=== PATIENT | male | born 1960 | race Caucasian/White ===

== ENCOUNTER 2019-03-26 13:30 | Outpatient (RCR) | payer MEDICARE, MEDICAID, SELFPAY ==
--- NOTE | 2019-01-16 11:22 | PCPTNOTE ---
The treatment documented on this account is a continuation of the treatment documented on visit number [id number]. Please see documentation on both accounts to view progress. The Plan of Care has been transitioned and updated within the new V#. I have addressed and agree with the discipline specific Problems, Interventions, and Goals for the current certification period. Completed interventions, outcomes, and problems have been marked as Inactive to facilitate the copying of the Care plan routine for recurring accounts.
--- NOTE | 2019-01-16 14:18 | PCPTNOTE ---
Patient called & cancelled scheduled appointment this date due to mom stated he had an accident and will not be here.
--- NOTE | 2019-02-20 14:43 | PTOPEVAL ---
PHYSICAL THERAPY RE EVALUATION AND UPDATED PLAN OF CARE 02-20-19 Mr. Handy has received 17 Physical Therapy sessions, from November 28 to today, for the diagnosis of B LE lymphedema and weakness. He called and canceled 3 appointments this reevaluation time frame. Compared to the last reeval on January 08: strength of R and L hip have improved with supine, side lying mat exercises and standing posture; Sit/stand and pivot from mat/wheelchair transfers are the same; standing time and posture have improved. Lymphedema: The R leg circumferential measurement has increased by 69.5 cm; there continues to be drainage from both R and L lower legs. He is wearing velcro, inelastic compression garments of R leg and L lower leg. He has difficulty donning/doffing them and his mom is assisting him, due to not being able to reach to the bottom of his legs and pull on the straps. And he requires verbal instruction and reminders of how to apply them. It has been reinforced to him to tighten the straps throughout the day and reposition, so they do not slip down. He comes to the dept in a manual wheelchair, without the leg rests. One of the brakes does not lock all of the way, due to him pushing so hard on it with transfers and the metal bar of the base of the wheelchair often digs into his thigh, scratching or leaving indentations in his legs. He reports in March they are going to begin remodeling his home, to allow for more space to use the power chair. PT is to continue 2x/week for 5 weeks, to increase transfers, LE strength, standing and mobility skills. Lymphedema will not be addressed at this time, due to him not improving with the legs. If any concerns or problems arise, the LE lymphedema will be addressed. Thank you for referring Sam to [facility]. Please review, sign, date and return this plan of care [facility]. I agree with and certify that the following plan of care is medically necessary. Referring Physician Date Attending Provider: Arabella John MD *PT Outpatient Re-Evaluation Start: 02/20/19 13:01 Document 02/20/19 13:02 MAYRA (Rec: 02/20/19 13:23 MAYRA [email or web address]) Therapy Assessment Status Assessment Status Re-evaluation Problem Subjective Information Sam and mom state: continue Query Text:As Reported By Patient/ to do leg exercises, using Family wheelchair and power chair for mobility; using compression garments on both legs. Pleased with his improved strength. Pain Assessment Pain Scale Pain Scale Used Numeric (1 - 10) Self Report Pain Assessment Bilateral Leg(s) Reported Pain Level 0 Pain Frequency Acute Additional Pain Comments no pain now, but sometimes after therapy, L knee hurts Pain Score Pain Score 0: Self Report Lower Extremity Muscle Strength Testing General Lower Extremity Strength Gross Lower Extremity Strength supine: SLR R and L x 25 reps; bridge with hips clear mat 2 reps; side lying hip abduction R 20
--- NOTE | 2019-03-03 09:33 | PCPTNOTE ---
Patient called & cancelled scheduled appointment this date due to weather.
--- NOTE | 2019-03-09 14:33 | PCPTNOTE ---
Patient did not show up for scheduled appointment this date.
--- NOTE | 2019-03-24 16:09 | PCPTNOTE ---
discussed pt with Mayela Nguyen: re: if they can resume pt care for prosthesis. 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 In order to see pt they recommend: no drainage from leg, need dr order for prosthetic eval and recent dr progress note addressing prosthesis. I will discuss this with pt at reeval later this week.
--- NOTE | 2019-03-26 14:24 | PTOPEVAL ---
PHYSICAL THERAPY RE EVALUATION AND UPDATED PLAN OF CARE 03-26-2019 Sam has received a total of 23 Physical Therapy sessions, from November 28 to today, for the diagnosis of B LE lymphedema and decreased mobility s/p L BKA. Compared to the last reeval: sit/stand transfer has improved, from 22 mat height; standing with the wheeled walker has improved and he can march with L LE; supine exercise testing is slightly less reps, he did perform standing first, then the mat exercises; he fatigues easily and requires rests between each activity; he continues to have lymphedema in both legs with drainage from both legs. Continue PT is recommended 2x/week for 4 weeks, to continue to increase LE strength, sit/stand ability and walking/standing ability. He is not able to begin any prosthetic consultation until he does not have any drainage from his R leg. Thank you for referring Sam to [facility]. Please review, sign, date and return this plan of care MADELYN. I agree with and certify that the following plan of care is medically necessary. Referring Physician Date Attending Provider: Arabella John MD *PT Outpatient Re-Evaluation Document 03/26/19 13:30 MAYRA (Rec: 03/26/19 14:23 MAYRA [email or web address]) Subjective Information Sam and mom report: on Mar Query Text:As Reported By Patient/ 20, company to start home Family modifications- widen doorways, access to laundry area and walk in shower; no falls at home; using motorized scooter in home; standing is better; drainage continues from both legs--varies in amounts, L worse than R; on L has increased, was using 2-3 ABD pads, now use 5-change 1-2x/ day; on R is 1-2 ABD pad soaked; continues to do home leg exercises x 15 reps. Discussed with him hyperbaric oxygen chamber as option for treatment of wound and drainage. Sam states he will call dr about additional wound care options; Discussed that in order to start prosthesis--needs to have NO drainage from R leg. Continues to use his intermittent compression pump at home and has velcro compression garments over L lower leg and R BKA. Pain Assessment Timing of Pain Assessment Timing of Pain Assessment Assessment Pain Scale Pain Scale Used Numer
--- NOTE | 2019-04-14 10:07 | PCPTNOTE ---
called pt to check on him due to not attending therapy. He states to see wound care about Hyperbaric oxygen on 04-16-19. Stated he will let us know, plan of care for therapy is to 04-21-19; pt stated he will let us know about wound care appt and if to continue PT or not.
--- NOTE | 2019-05-05 13:38 | PCPTNOTE ---
PHYSICAL THERAPY DISCHARGE 05-05-2019 Attending Provider: Arabella John MD Patient:Mike Handy Date of :1960 Sam has not returned for any further treatments since the reevaluation on 03/26/2019, therefore he will be discharged from therapy at this time. The goals were not addressed. Refer to the reeeval for his status at the last session. Thank you for referring Mr. Handy to [facility]. Please review, sign, date and return this discharge summary MADELYN. I have been updated about the patient's current status and I agree with discharge from the above service at this time. Referring Physician Date
== END 2019-03-26 23:59 | disposition home or self-care (01) ==
LOC: ANHPT 13:30
PROVIDERS: PCP Family Medicine; Visit Provider Family Medicine
DX: Z47.89 Encounter for other orthopedic aftercare (principal); Z89.511 Acquired absence of right leg below knee; S81.809S Unspecified open wound, unspecified lower leg, sequela
CPT/HCPCS: 97110; 97140; 97530

== ENCOUNTER 2020-01-18 15:49 | Inpatient (IN) | payer MEDICARE, MEDICAID, SELFPAY ==
--- NOTE | ~2020-01-18 | US_ITS ---
EXAMINATION: US renal BI DATE: 01/19/2020 12:10 INDICATION: Acute on chronic renal failure TECHNIQUE: Multiple grayscale and Doppler ultrasound images of the kidneys were obtained. COMPARISON: 03/03/2017; CT, 10/09/2018 FINDINGS: The right kidney measures 13.3 x 7.2 x 7.0 cm. The left kidney measures 13.5 x 8.1 x 6.9 cm and contains a 4.8 cm cyst. The kidneys demonstrate normal parenchymal echogenicity. There is no hyd ronephrosis. The bladder is normal. IMPRESSION: 1. Unremarkable kidneys without hydronephrosis. Reviewed, dictated and finalized at location A. RACT MAKER
--- NOTE | ~2020-01-18 | XR_ITS ---
EXAMINATION: XR chest 1V portable DATE: 01/18/2020 17:38 INDICATION: Cough. TECHNIQUE: A single frontal view of the chest was obtained. COMPARISON: Chest 2 views 02/28/2017, CT abdomen and pelvis 10/09/2018 FINDINGS: Sensitivity is decreased by obesity. There is no pneumonia, pleural effusion, or pneumothor ax. Cardiomegaly is noted. IMPRESSION: 1. Cardiomegaly. Reviewed, dictated and finalized at location A. CLERK IMPRESSION: 1. Cardiomegaly.
[2020-01-18 15:53] VITALS: BP 149/69; PULSE 120; RESP 18; TEMP 35.8; O2SAT 100
[2020-01-18 16:23] LABS: Basophils Percent Auto 0.2 % (0.2-1.2); Eosinophils Absolute Auto 0.2 K/mm3 (0-0.3); Eosinophils Percent Auto 1.7 % (0-4.4); Hematocrit 37.2 % (42.0-52.0); Hemoglobin 11.9 g/dL (14.0-18.0); Immature Granulocyte Absolute 0.05 K/mm3 (0.00-0.031); Immature Granulocyte Percent A 0.5 % (0-0.5); Lymphocytes Absolute Auto 2.19 K/mm3 (0.9-3.2); Lymphocytes Percent Auto 21.9 % (18.3-44.2); Mean Corpuscular Hemoglobin 29.4 pg (26-34); Mean Corpuscular Volume 91.9 fl (80-100); Mean Platelet Volume 9.3 fl (7.4-10.4); Monocytes Absolute Auto 0.7 K/mm3 (0.1-0.6); Monocytes Percent Auto 6.8 % (2.6-8.5); Neutrophils Absolute Auto 6.9 K/mm3 (1.3-6.7); Neutrophils Percent Auto 68.9 % (45.5-73.1); Platelet Count Result 394 k/mm3 (150-375); Red Blood Count 4.05 M/mm3 (4.6-6.20)
[2020-01-18 16:33] LABS: Alanine Aminotransferase 38 U/L (4-50); Albumin Level 3.7 g/dL (3.5-5.1); Alkaline Phosphatase 198 U/L (38-126); Anion Gap 12 mmol/L (8-16); Aspartate Amino Transferase 34 U/L (17-59); Bilirubin,Total 0.3 mg/dL (0.2-1.3); Blood Urea Nitrogen 102 mg/dL (9-20); Calcium 9.4 mg/dL (8.4-10.2); Carbon Dioxide 12 mmol/L (22-30); Chloride 108 mmol/L (98-107); Estimated CRCL calculation 39 ml/min; Estimated Glomerular Filt Rate 18; Glucose 156 mg/dL (75-110); Potassium 6.5 mmol/L (3.4-5.0); Sodium 132 mmol/L (137-145)
--- NOTE | 2020-01-18 17:08 | ECG_ITS ---
Measurements Intervals [place] Rate: 94 P: 64 TN: 208 QRS: -27 QRSD: 106 T: 49 QT: 310 QTc: 389 Interpretive Statements ATRIAL FLUTTER/TACHYCARDIA POOR R WAVE PROGRESSION, ANTERIOR LEADS BASELINE ARTIFACT- I, II, III, AVR, AVL, AVF, V1-V6 ABNORMAL ECG Electronically Signed On 01-18-2020 18:37:21 DOLPHIN RESEARCHER by Librado Fernandez D.O.
--- NOTE | 2020-01-18 17:22 | ED.GENADULT ---
HPI - General Adult General Chief complaint: Recheck/Abnormal Lab/Rx Stated complaint: elevated potassium Time Seen by Provider: 01/18/20 16:59 Source: patient History of Present Illness HPI narrative: Patient is a 59 y/o male complaining of abnormal labs. He states that he had routine blood draw last Saturday and he was told by his doctor that his potassium is high and his kidney function is worse. He states that he has been feeling weak for a while. He lost sense of taste recently. He also has a cough. Related Data Home Medications Medication Instructions Recorded Confirmed insulin lispro 100 unit/mL 1 sliding scale dose SUB-Q 01/26/19 05/07/19 subcutaneous solution USEASDIRECTD apixaban 5 mg tablet 5 mg PO BID 05/07/19 05/07/19 losartan 100 mg tablet 100 mg PO DAILY 05/07/19 05/07/19 cholecalciferol (vitamin D3) 50 50 mcg PO DAILY 01/15/20 mcg (2,000 unit) capsule insulin glargine 100 unit/mL 80 unit SUBCUT QPM ml 01/15/20 01/15/20 subcutaneous solution sertraline 100 mg tablet 100 mg PO BID tablet 01/15/20 Allergies Allergy/AdvReac Type Severity Reaction Status Date / Time ibuprofen AdvReac Unknown Unknown Verified 01/15/20 14:02 Review of Systems Constitutional: Constitutional: Denies chills, Denies fever(s), Denies headache(s) and Reports weakness Eyes: Eyes: Denies blurry vision ENT: Denies headache(s) and Denies neck pain Comments: lost taste Cardiovascular: Cardiovascular: Denies chest pain and Denies dyspnea Respiratory: Respiratory: Reports cough and Denies dyspnea Gastrointestinal: Gastrointestinal: Denies abdominal pain, Denies diarrhea, Denies nausea and Denies vomiting Genitourinary: Genitourinary: Denies hematuria and Denies dysuria Musculoskeletal: Musculoskeletal: Denies back pain and Denies neck pain Neurologic: Denies headache(s) and Reports weakness PMFSH Past Medical History Medical History Anemia Anxiety CKD (chronic kidney disease) stage 3, GFR 30-59 ml/min Depression GERD without esophagitis Hypertension Hypothyroid Kidney stones Long-term insulin use in type 2 diabetes Restless leg syndrome Severe obesity Sleep apnea Type 2 diabetes mellitus with diabetic neuropathy Surgical History Surgical History History of below-knee amputation of right lower extremity Family History Family History Mother Patient's mother is in good health Hypertension Colon polyp Father Patient's father is in good health Colon polyp Sibling Patient's brother is in good health Grandparent Hypertension Other Depression Family history of malignant neoplasm Social History Social History Smoking status: Never smoker Second hand tobacco smoke exposure: No Alcohol intake: never Gender identity (if verbalized by the patient): Male Exam Const: General: no acute distress and well developed Orientation/consciousness: oriented to person, oriented to place, oriented to time and patient oriented x3 HENMT: Head: normocephalic Ears: external ears normal General nose exam: Normal external nose present Eyes: General: appearance normal, both eyes and all related structures Conjunctivae: conjunctivae normal Neck: Neck: normal visual inspection and full ROM Chest: Chest palpation & inspection: normal inspection of the chest and no tenderness Resp: Effort & Inspection: normal respiratory effort Auscultation: clear to auscultation bilaterally Cardio: Rate: regular rate Rhythm: regular rhythm GI: GI Palp: No abdominal tenderness and Yes Soft to palpation Skin: General skin exam: normal color and turgor normal Neuro: General: oriented to person, oriented to place, oriented to time and patient oriented x3 Cognition (Neuro): normal cognition Extrem: General: no
[2020-01-18] MEDS: INSULIN HUMAN REGULAR (*BKC) 100 UNITS/ML 10 UNITS IV PUSH (17:31)
[2020-01-18] MEDS: SODIUM BICARBONATE 8.4% 50 MEQ/50 ML VIAL IV PUSH (17:32)
[2020-01-18] MEDS: CALCIUM GLUCONATE 1,000 MG/10 ML VIAL 1000 MG IV PUSH (17:33)
[2020-01-18] MEDS: DEXTROSE 50% 25 GM/50 ML SYRINGE IV PUSH (17:33)
[2020-01-18] MEDS: SODIUM POLYSTYRENE SULFONONATE 15 GM/60 ML BTL 30 GM PO (17:33)
--- NOTE | 2020-01-18 17:46 | PC.NURSE ---
Called chem, added on trop I 173
[2020-01-18] MEDS: SODIUM CHLORIDE 0.9% IV 1,000 ML 999 ML IV CONT (18:11)
[2020-01-18 18:31] LABS: Troponin I < 0.012 ng/mL (0.000-0.034)
[2020-01-18 18:35] LABS: Glucose Point of Care 196 (65-105)
[2020-01-18 19:16] VITALS: BP 127/80; PULSE 109; RESP 17; O2SAT 100
[2020-01-18 21:40] LABS: Add Urine Microscopic? YES; Appearance Urine Cloudy (Clear); Bacteria Urine Trace /hpf; Bilirubin Urine Negative (Negative); Color Urine Yellow (Yellow); Glucose Urine UA Negative (Negative); Ketones Urine Negative (Negative); Leukocyte Esterase Ur 2+ LEU/UL (Negative); Mucus Urine Rare /lpf; Nitrate Urine Negative (Negative); Protein Urine 2+ mg/dL (Negative); Specific Grav Ur 1.015 (1.001-1.035); Squamous Epithelial Cell Urine Few /hpf (Few); Urobilinogen Urine Negative mg/dL (<2.0)
[2020-01-18 21:44] LABS: Blood Urine Negative (Negative)
[2020-01-18 21:54] LABS: Anion Gap 10 mmol/L (8-16); Blood Urea Nitrogen 104 mg/dL (9-20); Carbon Dioxide 16 mmol/L (22-30); Chloride 110 mmol/L (98-107); Estimated CRCL calculation 40 ml/min; Estimated Glomerular Filt Rate 18; Glucose 185 mg/dL (75-110); Potassium 6.4 mmol/L (3.4-5.0); Sodium 136 mmol/L (137-145)
[2020-01-18 22:00] VITALS: BP 135/76; PULSE 98; PULSE 99; RESP 20; TEMP 36.4; O2SAT 100
[2020-01-18 22:01] LABS: Troponin I < 0.012 ng/mL (0.000-0.034)
[2020-01-18 22:17] VITALS: BMI 45.6
--- NOTE | 2020-01-18 22:53 | PM.IMHP ---
H&P: HPI History of Present Illness Date/Time: 01/18/20 22:53 Chief complaint: hyperkalemia Narrative: Mike Handy is a 59 year old male with a past medical history of morbid obesity, diabetes mellitus, chronic lower extremity lymphedema, chronic atrial fibrillation, and chronic kidney disease stage 3 who presented to the ER via private vehicle from home due to hyperkalemia on outpatient labs. The patient has had diagnosis of chronic kidney disease since February of 2017. He was seeing a paper twister tender at [facility] last year but has not followed up with any of his specialist in over a year. He had not followed up with primary care physician until this December. He reports that he has noticed his urine being darker over the last several months. He has not noticed any change in urine output. He has not had any dysuria or hematuria. He denies incomplete bladder emptying. He has noticed generalized pruritus and decreased appetite. He reports decreased sense of taste. Regarding his diabetes his hemoglobin A1c in September 2018 was 9.7. He went to primary care provider's office on 01/15/2020 and his hemoglobin A1c at that time was downed 8.3. He reports a 30 lb weight loss which he associates with his diabetic gastroparesis. He reports that he has been having decreased appetite for a few months and he has frequent nausea and vomiting due to his diabetic gastroparesis. He usually has emesis 2 or 3 times a week after eating. He is mainly on a liquid diet. He denies any diarrhea, hematochezia or melena. That his chronic lymphedema has been worse over recent months. He does not use his compression devices. He has noticed increased erythema to his right sojar-ski-aifs amputation stump. His stump has been warm to touch and he has noticed some increased drainage to stump site. He has not followed up with wound care ([facility]) since May when the pandemic occurred. He has chronic shortness of breath and sleeps in a recliner. He is compliant with his BiPAP therapy. He denies any increased palpitations. He does have shortness of breath with exertion. He does also have some tachycardia with exertion and his heart rate will jump to 120 when he tries to sit on the side of the bed to urinate. His compliance quality performance analyst is Dr. Fernandez. He reports that he has been compliant with his cardiac medications but had told nursing staff that he had not taken his Eliquis and about a month Review of Systems Review of Systems: Narrative: 12 systems were reviewed with pertinent positives and negatives per HPI. Except as documented in the HPI, all other systems were reviewed and are negative. [facility] Past Medical History Medical History (Updated 01/19/20 @ 03:33 by Gemma Juarez DO) Anemia Anxiety Chronic acquired lymphedema Chronic atrial fibrillation On chronic anticoagulation with Eliquis CKD (chronic kidney disease) stage 3, GFR 30-59 ml/min Depression Diabetic gastroparesis Diabetic nephropathy Diabetic neuropathy DVT (deep venous thrombosis) Right lower extremity March 2017 Gastric pouch ulcer Status post gastric bypass procedure 2004 GERD without esophagitis Hyperlipidemia Hypertension Hypothyroid Kidney stones Long-term insulin use in type 2 diabetes Low testosterone in male Morbid obesity Persistent despite gastric bypass procedure Narcolepsy Obstructive sleep apnea On home BiPAP Restless leg syndrome Surgical History Surgical History (Updated 01/19/20 @ 02:59 by Gemma Juarez DO) History of below-knee amputation of right lower extremity 08/13/2017 at [facility]. Postoperatively wound healing was complicated by persistent lymphedema at stump site History of gastric bypass History of lithotripsy June 2017 History of umbilical hernia repair Family History Family History (Updated 01/19/20 @ 03:02 by Gemma Juarez DO) Mother Hypertension Colon polyp Father Colon polyp Sibling Patient's broth
[2020-01-18] MEDS: ALBUTEROL SULFATE NEB 2.5 MG/0.5 ML INH 20 MG INHALATION (23:47)
[2020-01-19] VITALS (19 sets, daily range): BP systolic 115–151; BP diastolic 62–90; PULSE 82–113; RESP 16–19; TEMP 36.4–36.6; O2SAT 95–100
[2020-01-19] MEDS: DEXTROSE 50% 25 GM/50 ML SYRINGE IV PUSH (00:37)
[2020-01-19] MEDS: CALCIUM GLUC 1,000 MG/NS 50 ML 1,000 MG/50 ML BAG 100 MG IVPB (00:38)
[2020-01-19] MEDS: SODIUM BICARBONATE 8.4% 50 MEQ/50 ML VIAL IV PUSH (00:38)
[2020-01-19] MEDS: INSULIN HUMAN REGULAR (*BKC) 100 UNITS/ML 10 UNITS IV PUSH (00:49)
[2020-01-19 04:11] LABS: Basophils Percent Auto 0.1 % (0.2-1.2); Eosinophils Absolute Auto 0.1 K/mm3 (0-0.3); Eosinophils Percent Auto 1.1 % (0-4.4); Hemoglobin 9.6 g/dL (14.0-18.0); Immature Granulocyte Absolute 0.04 K/mm3 (0.00-0.031); Immature Granulocyte Percent A 0.5 % (0-0.5); Lymphocytes Absolute Auto 1.61 K/mm3 (0.9-3.2); Mean Corpuscular HGB Conc 33.1 g/dl (32-36); Mean Corpuscular Volume 90.6 fl (80-100); Mean Platelet Volume 9.2 fl (7.4-10.4); Monocytes Absolute Auto 0.6 K/mm3 (0.1-0.6); Monocytes Percent Auto 7.9 % (2.6-8.5); Neutrophils Absolute Auto 5.7 K/mm3 (1.3-6.7); Neutrophils Percent Auto 70.4 % (45.5-73.1); Platelet Count Result 316 k/mm3 (150-375); Red Cell Distribution Width 14.6 % (11.5-14.5); White Blood Count 8.1 K/mm3 (4.5-10.0)
[2020-01-19 04:28] LABS: Anion Gap 10 mmol/L (8-16); Blood Urea Nitrogen 103 mg/dL (9-20); Calcium 8.9 mg/dL (8.4-10.2); Carbon Dioxide 15 mmol/L (22-30); Chloride 113 mmol/L (98-107); Estimated CRCL calculation 44 ml/min; Estimated Glomerular Filt Rate 21; Glucose 182 mg/dL (75-110); Potassium 5.6 mmol/L (3.4-5.0); Sodium 138 mmol/L (137-145)
[2020-01-19] MEDS: SODIUM CHLORIDE 0.9% IV 1,000 ML 100 ML IV CONT ×2 (04:29→16:16)
[2020-01-19] MEDS: INSULIN GLARGINE (*BKC) 100 UNITS/ML 60 UNITS SUB-Q ×2 (04:30→16:46)
[2020-01-19] MEDS: FLECAINIDE ACETATE 100 MG TABLET PO ×2 (08:31→20:29)
[2020-01-19] MEDS: PRAMIPEXOLE 0.5 MG TABLET 1.5 MG PO ×2 (08:31→12:18)
[2020-01-19] MEDS: LEVOTHYROXINE SODIUM 100 MCG TABLET PO (08:31)
[2020-01-19] MEDS: APIXABAN 5 MG TABLET PO ×2 (08:32→20:29)
[2020-01-19] MEDS: SERTRALINE HCL 50 MG TABLET 100 MG PO ×2 (08:32→20:29)
[2020-01-19] MEDS: CHOLECALCIFEROL 1,000 UNITS TABLET 2000 UNITS PO (08:32)
[2020-01-19] MEDS: allopurinoL 300 MG TABLET BY MOUTH (08:32)
[2020-01-19] MEDS: amLODIPine BESYLATE 5 MG TABLET PO (08:32)
[2020-01-19] MEDS: INSULIN ASPART (*BKC) 100 UNITS/ML 15 UNITS SUB-Q ×3 (08:32→16:44)
[2020-01-19 08:46] LABS: Glucose Point of Care 176 (65-105)
--- NOTE | 2020-01-19 11:08 | PM.CNNEP ---
Assessment and Plan Assessment and plan (1) Acute on chronic renal failure: Qualifiers: Acute renal failure type: unspecified Chronic kidney disease stage: unspecified stage Qualified Code(s): N17.9 - Acute kidney failure, unspecified; N18.9 - Chronic kidney disease, unspecified Code(s): N17.9 - Acute kidney failure, unspecified; N18.9 - Chronic kidney disease, unspecified Status: Acute Assessment and Plan: Patient has chronic kidney disease. This was stage III last he heard. He was seeing a program rep [place] [facility] [place] he lives in at [place] but has not made an appointment to see anybody over here. Most likely the chronic kidney disease is from diabetes hypertension and sleep apnea. Vascular disease may be playing a role as well. Will evaluate for other causes well since it has been a long time since he seen anybody. Patient hospital acute kidney injury. His creatinine was 3.6 when he came in and is now down to 3.1. Hopefully will improve more but I am not sure will improve all the way to a stage III gfr. Will follow this along. We can get urine electrolytes and eosinophils as well for this. He has an open wound on his right stump however this is been present since he had his amputation in 2019. Does not have a fever or a white count. His increased creatinine may also be due to dehydration states he has not been eating very well the last 2 or 3 weeks. (2) Hyperkalemia: Code(s): E87.5 - Hyperkalemia Status: Acute Assessment and Plan: Potassium is elevated. He has been drinking lots of orange juice. Also his GFR is low decrease in the ability to eliminate potassium. Will check urine electrolytes to be complete but I suspect this is going to be a combination issue. (3) Hypertension: Code(s): I10 - Essential (primary) hypertension Status: Chronic Assessment and Plan: Blood pressure is doing pretty well. His systolic is under good control. He is on amlodipine. He does have substantial swelling and so this may not be the perfect medication for him. Will evaluate this as we go. (4) PAF (paroxysmal atrial fibrillation): Code(s): I48.0 - Paroxysmal atrial fibrillation Status: Acute Assessment and Plan: Rate is well controlled. He seems to be in a flutter on his EKG. (5) Dyslipidemia: Code(s): E78.5 - Hyperlipidemia, unspecified Status: Acute Assessment and Plan: He is not on a statin (6) Long-term insulin use in type 2 diabetes: Qualifiers: Diabetes mellitus complication status: with other specified complication Qualified Code(s): E11.69 - Type 2 diabetes mellitus with other specified complication; Z79.4 - [facility] (current) use of insulin Code(s): E11.9 - Type 2 diabetes mellitus without complications; Z79.4 - [facility] (current) use of insulin Status: Chronic Assessment and Plan: he is getting sliding scale insulin (7) Hypothyroid: Code(s): E03.9 - Hypothyroidism, unspecified Status: Chronic Assessment and Plan: he is on levothyroxine History of Present Illness Reason for Consult Consult date: 01/19/20 Chief Complaint Chief complaint: hyperkalemia History of Present Illness Narrative: Mike is a very pleasant 59-year-old who has multiple medical problems including diabetes for many years with nephropathy and neuropathy but no retinopathy. He also has hypertension for many years. It has always been well controlled. He has hypothyroidism, chronic anticoagulation on Eliquis and flecainide, depression, gastric ulcer, GERD, hyperlipidemia, kidney stones, sleep apnea, restless legs. The patient went to see his primary care doctor who jeff his blood and found that his potassium was elevated as well as his creatinine so he was sent to the emergency room. he notes
[2020-01-19 12:24] LABS: Glucose Point of Care 190 (65-105)
[2020-01-19 12:37] LABS: Creatinine Urine 67.8 mg/dL; Total Protein Urine Random 52 mg/dL
[2020-01-19 12:38] LABS: Sodium Urine Random 12 meq/L
--- NOTE | 2020-01-19 13:22 | PM.IMPN ---
Progress Note: A&P Assessment and Plan (1) Acute on chronic renal failure: Qualifiers: Acute renal failure type: unspecified Chronic kidney disease stage: unspecified stage Qualified Code(s): N17.9 - Acute kidney failure, unspecified; N18.9 - Chronic kidney disease, unspecified Code(s): N17.9 - Acute kidney failure, unspecified; N18.9 - Chronic kidney disease, unspecified Status: Acute Assessment and Plan: Will treat hyperkalemia. with kayelexate Creat is 3.1 today Pt is on dialysis (2) Hyperkalemia: Code(s): E87.5 - Hyperkalemia Status: Acute Assessment and Plan: Pt was already given with 2nd dose of calcium gluconate, bicarb, insulin, dextrose and albuterol nebulizer treatment. (3) Cellulitis: Qualifiers: Laterality: unspecified laterality Site of cellulitis: extremity Site of cellulitis of extremity: lower extremity Qualified Code(s): L03.119 - Cellulitis of unspecified part of limb Code(s): L03.90 - Cellulitis, unspecified Status: Acute Assessment and Plan: Patient has been started on Zosyn with pharmacy to dose. Awaiting BC (4) Long-term insulin use in type 2 diabetes: Qualifiers: Diabetes mellitus complication status: with other specified complication Qualified Code(s): E11.69 - Type 2 diabetes mellitus with other specified complication; Z79.4 - extermination inspector (current) use of insulin Code(s): E11.9 - Type 2 diabetes mellitus without complications; Z79.4 - extermination inspector (current) use of insulin Status: Chronic Assessment and Plan: With multiple systemic complications. Patient's glucoses are mildly elevated. (5) Sleep apnea: Qualifiers: Sleep apnea type: obstructive Qualified Code(s): G47.33 - Obstructive sleep apnea (adult) (pediatric) Code(s): G47.30 - Sleep apnea, unspecified Status: Chronic Assessment and Plan: Home BiPAP has been ordered with settings of Subjective Date/time seen: 01/19/20 13:23 Interval history: Ole is a 59 year old male with a past medical history of morbid obesity, diabetes mellitus, chronic lower extremity lymphedema, chronic atrial fibrillation, and chronic kidney disease stage 3. Seen by nephrology. Continue present care. Review of Systems Review of Systems: All systems reviewed & are unremarkable except as noted in HPI and below Exam Narrative: Exam Narrative: Generally: Morbidly obese Skin: Marked erythema and lymphedema of the right dqkhw-ihm-naia amputation site Musculoskeletal: Right tncyv-grp-hllb amputation Objective Data Vital Signs Vital Signs: Vital Signs - 24 hr 01/18/20 15:53 01/18/20 19:16 01/18/20 22:00 Temperature 35.8 C L 36.4 C Pulse Rate 120 H 109 H 98 Respiratory Rate 18 17 20 Blood Pressure 149/69 H 127/80 135/76 Pulse Oximetry 100 100 100 01/19/20 00:00 01/19/20 00:05 01/19/20 00:06 Temperature Pulse Rate 100 95 100 Respiratory Rate 18 18 18 Blood Pressure 151/70 H Pulse Oximetry 100 100 01/19/20 04:00 01/19/20 08:00 01/19/20 08:28 Temperature 36.4 C Pulse Rate 105 H 94 95 Respiratory Rate 17 19 Blood Pressure 130/90 Pulse Oximetry 98 100 01/19/20 08:31 01/19/20 08:41 01/19/20 09:43 Temperature 36.6 C Pulse Rate 93 98 112 H Respiratory Rate 17 Blood Pressure 127/62 Pulse Oximetry 99 01/19/20 11:23 01/19/20 12:00 Temperature 36.6 C Pulse Rate 89 Respiratory Rate 17 Blood Pressure 124/65 Pulse Oximetry 100 98 Intake/Output Intake/Output: Intake & Output 01/17/20 01/17/20 01/18/20 01/19/20 00:59 23:59 23:59 23:59 Intake Total 1000 880 Output Total 650 Balance 1000 230 Meds/Results Medications: Active Medications Generic Name Dose Route Start Last Admin Trade Name Freq PRN Reason Stop Dose Admin Allopurinol 300 mg 01/19/20 08:00 01/19/20 08:32 Allopurinol 300 Mg Tablet BY MOUTH 300 m
[2020-01-19 15:14] LABS: Creatine Kinase 33 U/L (55-170); Lactate Dehydrogenase 351 U/L (313-618)
[2020-01-19 15:19] LABS: Complement C3 100 mg/dL (88-165)
[2020-01-19 15:29] LABS: Erythrocyte Sedimentation Rate > 140 mm/hr (0-20)
[2020-01-19 15:34] LABS: Parathyroid Intact 276.9 pg/mL (7.5-53.5)
[2020-01-19 17:30] LABS: Glucose Point of Care 128 (65-105)
[2020-01-19 20:50] LABS: SARS-CoV-2 RNA PCR Negative
[2020-01-20] VITALS (16 sets, daily range): BP systolic 98–157; BP diastolic 62–87; PULSE 81–115; RESP 18–24; TEMP 35.7–37.2; O2SAT 98–100
[2020-01-20] MEDS: SODIUM CHLORIDE 0.9% IV 1,000 ML 100 ML IV CONT ×2 (00:41→12:17)
[2020-01-20 05:11] LABS: Anion Gap 8 mmol/L (8-16); Blood Urea Nitrogen 91 mg/dL (9-20); Calcium 8.6 mg/dL (8.4-10.2); Carbon Dioxide 18 mmol/L (22-30); Chloride 116 mmol/L (98-107); Estimated CRCL calculation 53 ml/min; Estimated Glomerular Filt Rate 26; Glucose 76 mg/dL (75-110); Potassium 5.9 mmol/L (3.4-5.0); Sodium 142 mmol/L (137-145)
[2020-01-20] MEDS: LEVOTHYROXINE SODIUM 100 MCG TABLET PO (05:29)
[2020-01-20] MEDS: CHOLECALCIFEROL 1,000 UNITS TABLET 2000 UNITS PO (08:05)
[2020-01-20] MEDS: allopurinoL 300 MG TABLET BY MOUTH (08:05)
[2020-01-20] MEDS: APIXABAN 5 MG TABLET PO ×2 (08:05→21:24)
[2020-01-20] MEDS: amLODIPine BESYLATE 5 MG TABLET PO (08:05)
[2020-01-20] MEDS: SERTRALINE HCL 50 MG TABLET 100 MG PO ×2 (08:06→21:23)
[2020-01-20] MEDS: PRAMIPEXOLE 0.5 MG TABLET 1.5 MG PO ×3 (08:06→17:48)
[2020-01-20] MEDS: FLECAINIDE ACETATE 100 MG TABLET PO ×2 (08:06→21:23)
--- NOTE | 2020-01-20 08:52 | PM.PNNEP ---
Progress Note: A&P Assessment and Plan (1) Acute on chronic renal failure: Qualifiers: Acute renal failure type: unspecified Chronic kidney disease stage: unspecified stage Qualified Code(s): N17.9 - Acute kidney failure, unspecified; N18.9 - Chronic kidney disease, unspecified Code(s): N17.9 - Acute kidney failure, unspecified; N18.9 - Chronic kidney disease, unspecified Status: Acute Assessment and Plan: Patient has chronic kidney disease. This was stage III last he heard. This is most likely due to hypertension and diabetes. Renal ultrasound is negative. Urine electrolytes show pre renal azotemia. Other confirmatory labs are pending. will continue IV fluids [id number] an hour for now. He has superimposed acute kidney injury. This is possibly due to dehydration as he was not eating or drinking well before he came in. The open wound for his stump may or may not be playing a role here as well. (2) Hyperkalemia: Code(s): E87.5 - Hyperkalemia Status: Acute Assessment and Plan: Potassium is elevated Again. This is partly because of his low GFR but also sometimes diabetics have trouble excreting potassium as well, a form of type 4 RTA. Will get renin and aldosterone levels. Will give some Kayexalate after this. (3) Hypertension: Code(s): I10 - Essential (primary) hypertension Status: Chronic Assessment and Plan: Blood pressure is doing pretty well. His systolic is under good control. He is on amlodipine. He does have substantial swelling and so this may not be the perfect medication for him. Will evaluate this as we go. (4) PAF (paroxysmal atrial fibrillation): Code(s): I48.0 - Paroxysmal atrial fibrillation Status: Acute Assessment and Plan: Rate is well controlled. He seems to be in a flutter on his EKG. (5) Dyslipidemia: Code(s): E78.5 - Hyperlipidemia, unspecified Status: Acute Assessment and Plan: He is not on a statin (6) Long-term insulin use in type 2 diabetes: Qualifiers: Diabetes mellitus complication status: with other specified complication Qualified Code(s): E11.69 - Type 2 diabetes mellitus with other specified complication; Z79.4 - [facility] (current) use of insulin Code(s): E11.9 - Type 2 diabetes mellitus without complications; Z79.4 - watermaster (current) use of insulin Status: Chronic Assessment and Plan: he is getting sliding scale insulin (7) Hypothyroid: Code(s): E03.9 - Hypothyroidism, unspecified Status: Chronic Assessment and Plan: he is on levothyroxine Subjective Date/time seen: 01/20/20 08:52 Interval history: Patient is feeling a little bit better. No chest pain or shortness of breath. Review of Systems Cardiovascular: Cardiovascular: Reports no additional cardiovascular complaints Respiratory: Respiratory: Reports no additional respiratory complaints Gastrointestinal: Gastrointestinal: Reports no additional gastrointestinal complaints Genitourinary: Genitourinary: Reports no additional male genitourinary complaints Exam Narrative: Exam Narrative: WDWN in NAD skin no rash head ncat lungs clear cor reg no rub abd BS+ nontender and soft ext no edema. Objective Data Vital Signs Vital Signs: Vital Signs - 24 hr 01/19/20 09:43 01/19/20 11:23 01/19/20 12:00 Temperature 36.6 C Pulse Rate 112 H 89 Respiratory Rate 17 Blood Pressure 124/65 Pulse Oximetry 100 98 01/19/20 14:00 01/19/20 16:00 01/19/20 17:33 Temperature Pulse Rate 86 82 97 Respiratory Rate 19 Blood Pressure 149/82 H Pulse Oximetry 98 01/19/20 18:00 01/19/20 20:00 01/19/20 20:29 Temperature 36.6 C Pulse Rate 93 85 89 Respiratory Rate 16 Blood Pressure 115/85 Pulse Oximetry 95 01/19/20 22:00 01/19/20 23:25 01/20/20 00:00 Temperature 37.2 C P
--- NOTE | 2020-01-20 10:42 | PC.NURSE ---
0940-PATIENT TRANSFERRED TO ROOM 203-1. REPORT GIVEN TO SHAUNA RAM. ALL QUESTIONS ANSWERED. BELONGINGS SENT WITH PATIENT.
[2020-01-20 11:57] LABS: Glucose Point of Care 79 (65-105)
[2020-01-20] MEDS: SODIUM POLYSTYRENE SULFONONATE 15 GM/60 ML BTL PO (14:03)
[2020-01-20] MEDS: PHARMACIST COMMUNICATION ORDER 1 EACH XX (15:24)
[2020-01-20 16:25] LABS: Glucose Point of Care 124 (65-105)
--- NOTE | 2020-01-20 16:47 | P.PNIM_ITS ---
Progress Note: A&P Assessment and Plan (1) Acute on chronic renal failure: Qualifiers: Acute renal failure type: unspecified Chronic kidney disease stage: unspecified stage Qualified Code(s): N17.9 - Acute kidney failure, unspecified; N18.9 - Chronic kidney disease, unspecified Code(s): N17.9 - Acute kidney failure, unspecified; N18.9 - Chronic kidney disease, unspe cified Status: Acute Assessment and Plan: * Will treat hyperkalemia. with kayelexate * Creat is 2.6 today * continue monitoring BMP (2) Hyperkalemia: Code(s): E87.5 - Hyperkalemia Status: Acute Assessment and Plan: * Pt was already given with 2nd dose of calcium gluconate, bicarb, insulin, dextrose and albuterol nebulizer treatment. * recieving kalyelexate today (3) Cellulitis: Qualifiers: Site of cellulitis: extremity Site of cellulitis of extremity: lower extremity Laterality: unspecified laterality Qualified Code(s): L03.119 - Cellulitis of unspecified part of limb Code(s): L03.90 - Cellulitis, unspecified Status: Acute Assessment and Plan: * Patient has been started on Zosyn with pharmacy to dose. * Awaiting BC * seen by wound care (4) Long-term insulin use in type 2 diabetes: Qualifiers: Diabetes mellitus complication status: with other specified complication Qualified Code(s): E11.69 - Type 2 diabetes mellitus with other specified complication; Z79.4 - salvage determiner (current) use of insulin Code(s): E11.9 - Type 2 diabetes mellitus without complications; Z79.4 - nursing home (current) use of insulin Status: Chronic Assessment and Plan: * With multiple systemic complications. * Patient's glucose are low as pt is not eating much * Cut lantus in half dose * poor control of DM * Dietican consulted (5) Sleep apnea: Qualifiers: Sleep apnea type: obstructive Qualified Code(s): G47.33 - Obstructive sleep apnea (adult) (pediatric) Code(s): G47.30 - Sleep apnea, unspecified Status: Chronic Assessment and Plan: * Home BiPAP has been ordered with settings of Subjective Date/time seen: 01/20/20 16:47 Interval history: Ole is a 59 year old male with a past medical history of morbid obesity, diabetes mellitus, chronic lower extremity lymphedema, chronic atrial fibrillation, and chronic kidney disease stage 3. Seen by nephrology.Pt potassium still high, try kayelexate today. pt collecting 24 hour urine. Review of Systems Review of Systems: All systems reviewed & are unremarkable except as noted in HPI and below Exam Narrative: Exam Narrative: Generally: Morbidly obese Skin: Marked erythema and lymphedema of the right voqhp-osc-uvun amputation site Musculoskeletal: Right xoudo-kgh-lvro amputation Objective Data Vital Signs Vital Signs: Vital Signs - 24 hr 01/19/20 17:33 01/19/20 18:00 01/19/20 20:00 Temperature 36.6 C Pulse Rate 97 93 85 Respiratory Rate 19 16 Blood Pressure 149/82 H 115/85 Pulse Oximetry 98 95 01/19/20 20:29 01/19/20 22:00 01/19/20 23:25 Temperature Pulse Rate 89 99 103 H Respiratory Rate 19 Blood Pressure Pulse Oximetry 100 01/20/20 00:00 01/20/20 02:00 01/20/20 04:00 Temperature 37.2 C 36.4 C L Pulse Rat
--- NOTE | 2020-01-20 16:47 | PM.IMPN ---
Progress Note: A&P Assessment and Plan (1) Acute on chronic renal failure: Qualifiers: Acute renal failure type: unspecified Chronic kidney disease stage: unspecified stage Qualified Code(s): N17.9 - Acute kidney failure, unspecified; N18.9 - Chronic kidney disease, unspecified Code(s): N17.9 - Acute kidney failure, unspecified; N18.9 - Chronic kidney disease, unspecified Status: Acute Assessment and Plan: Will treat hyperkalemia. with kayelexate Creat is 2.6 today continue monitoring BMP (2) Hyperkalemia: Code(s): E87.5 - Hyperkalemia Status: Acute Assessment and Plan: Pt was already given with 2nd dose of calcium gluconate, bicarb, insulin, dextrose and albuterol nebulizer treatment. recieving kalyelexate today (3) Cellulitis: Qualifiers: Site of cellulitis: extremity Site of cellulitis of extremity: lower extremity Laterality: unspecified laterality Qualified Code(s): L03.119 - Cellulitis of unspecified part of limb Code(s): L03.90 - Cellulitis, unspecified Status: Acute Assessment and Plan: Patient has been started on Zosyn with pharmacy to dose. Awaiting BC seen by wound care (4) Long-term insulin use in type 2 diabetes: Qualifiers: Diabetes mellitus complication status: with other specified complication Qualified Code(s): E11.69 - Type 2 diabetes mellitus with other specified complication; Z79.4 - superintendent terminal (current) use of insulin Code(s): E11.9 - Type 2 diabetes mellitus without complications; Z79.4 - care home (current) use of insulin Status: Chronic Assessment and Plan: With multiple systemic complications. Patient's glucose are low as pt is not eating much Cut lantus in half dose poor control of DM Dietican consulted (5) Sleep apnea: Qualifiers: Sleep apnea type: obstructive Qualified Code(s): G47.33 - Obstructive sleep apnea (adult) (pediatric) Code(s): G47.30 - Sleep apnea, unspecified Status: Chronic Assessment and Plan: Home BiPAP has been ordered with settings of 22/17 Subjective Date/time seen: 01/20/20 16:47 Interval history: Ole is a 59 year old male with a past medical history of morbid obesity, diabetes mellitus, chronic lower extremity lymphedema, chronic atrial fibrillation, and chronic kidney disease stage 3. Seen by nephrology.Pt potassium still high, try kayelexate today. pt collecting 24 hour urine. Review of Systems Review of Systems: All systems reviewed & are unremarkable except as noted in HPI and below Exam Narrative: Exam Narrative: Generally: Morbidly obese Skin: Marked erythema and lymphedema of the right hvqnh-sjk-wowe amputation site Musculoskeletal: Right zlrqf-chu-zbrj amputation Objective Data Vital Signs Vital Signs: Vital Signs - 24 hr 01/19/20 17:33 01/19/20 18:00 01/19/20 20:00 Temperature 36.6 C Pulse Rate 97 93 85 Respiratory Rate 19 16 Blood Pressure 149/82 H 115/85 Pulse Oximetry 98 95 01/19/20 20:29 01/19/20 22:00 01/19/20 23:25 Temperature Pulse Rate 89 99 103 H Respiratory Rate 19 Blood Pressure Pulse Oximetry 100 01/20/20 00:00 01/20/20 02:00 01/20/20 04:00 Temperature 37.2 C 36.4 C L Pulse Rate 99 81 97 Respiratory Rate 24 H 20 Blood Pressure 120/72 140/85 Pulse Oximetry 98 98 01/20/20 06:00 01/20/20 08:00 01/20/20 08:06 Temperature 36.7 C Pulse Rate 92 93 93 Respiratory Rate 18 Blood Pressure 157/84 H Pulse Oximetry 100 01/20/20 12:00 01/20/20 12:30 01/20/20 16:00 Temperature 36.1 C L 36.4 C Pulse Rate 115 H 115 H 96 Respiratory Rate 18 20 Blood Pressure 99/63 L 139/62 Pulse Oximetry 100 99 Intake/Output Intake/Output: Intake & Output 01/17/20 01/18/20 01/19/20 01/20/20 23:59 23:59 23:59 23:59 Intake Total 1000 2150 2690 Output Total 1550 550 Balance 4806 661 8193 Meds/Res
[2020-01-20 21:10] LABS: Glucose Point of Care 83 (65-105)
[2020-01-20 23:20] LABS: Potassium Urine Random 26.5 meq/L
[2020-01-20 23:57] LABS: Glucose Point of Care 83 (65-105)
[2020-01-21] VITALS (18 sets, daily range): BP systolic 106–131; BP diastolic 59–79; PULSE 75–108; RESP 18–22; TEMP 36.1–37.1; O2SAT 98–100
[2020-01-21] MEDS: SODIUM CHLORIDE 0.9% IV 1,000 ML 100 ML IV CONT ×2 (02:01→16:15)
[2020-01-21 03:52] LABS: Glucose Point of Care 94 (65-105)
[2020-01-21 04:56] LABS: Hematocrit 29.5 % (42.0-52.0); Hemoglobin 9.4 g/dL (14.0-18.0); Mean Corpuscular HGB Conc 31.9 g/dl (32-36); Mean Corpuscular Hemoglobin 29.6 pg (26-34); Mean Corpuscular Volume 92.8 fl (80-100); Mean Platelet Volume 9.1 fl (7.4-10.4); Platelet Count Result 295 k/mm3 (150-375); Red Blood Count 3.18 M/mm3 (4.6-6.20); Red Cell Distribution Width 15.7 % (11.5-14.5); White Blood Count 7.7 K/mm3 (4.5-10.0)
[2020-01-21 05:20] LABS: Anion Gap 7 mmol/L (8-16); Blood Urea Nitrogen 78 mg/dL (9-20); Calcium 8.5 mg/dL (8.4-10.2); Carbon Dioxide 19 mmol/L (22-30); Chloride 114 mmol/L (98-107); Estimated CRCL calculation 51 ml/min; Estimated Glomerular Filt Rate 24; Glucose 130 mg/dL (75-110); Potassium 5.8 mmol/L (3.4-5.0); Sodium 140 mmol/L (137-145)
[2020-01-21] MEDS: LEVOTHYROXINE SODIUM 100 MCG TABLET PO (06:22)
[2020-01-21 06:41] LABS: Glucose Point of Care 105 (65-105)
[2020-01-21 08:22] LABS: Glucose Point of Care 99 (65-105)
[2020-01-21] MEDS: APIXABAN 5 MG TABLET PO ×2 (10:00→20:30)
[2020-01-21] MEDS: amLODIPine BESYLATE 5 MG TABLET PO (10:00)
[2020-01-21] MEDS: FLECAINIDE ACETATE 100 MG TABLET PO ×2 (11:01→20:30)
[2020-01-21] MEDS: PRAMIPEXOLE 0.5 MG TABLET 1.5 MG PO ×3 (11:02→22:26)
[2020-01-21 11:43] LABS: Glucose Point of Care 118 (65-105)
[2020-01-21 12:18] LABS: Glucose Point of Care 96 (65-105)
[2020-01-21] MEDS: CHOLECALCIFEROL 1,000 UNITS TABLET 2000 UNITS PO (12:31)
[2020-01-21] MEDS: SERTRALINE HCL 50 MG TABLET 100 MG PO ×2 (12:31→20:31)
[2020-01-21] MEDS: allopurinoL 300 MG TABLET BY MOUTH (12:32)
--- NOTE | 2020-01-21 12:44 | PM.PNNEP ---
Progress Note: A&P Assessment and Plan (1) Acute on chronic renal failure: Qualifiers: Acute renal failure type: unspecified Chronic kidney disease stage: unspecified stage Qualified Code(s): N17.9 - Acute kidney failure, unspecified; N18.9 - Chronic kidney disease, unspecified Code(s): N17.9 - Acute kidney failure, unspecified; N18.9 - Chronic kidney disease, unspecified Status: Acute Assessment and Plan: Patient has chronic kidney disease. This was stage III last he heard. This is most likely due to hypertension and diabetes. Renal ultrasound is negative. Urine electrolytes show pre renal azotemia. Other confirmatory labs are pending. His creatinine has improved but seems to have reached a baseline. He is eating well right now. We can stop the IV fluids. (2) Hyperkalemia: Code(s): E87.5 - Hyperkalemia Status: Acute Assessment and Plan: Potassium is elevated again. 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 His bicarbonate level is a little bit on the low side and his potassium is high. Renin and aldosterone levels are pending. He is on a low-potassium diet. We can start Lokelma as an outpatient. (3) Hypertension: Code(s): I10 - Essential (primary) hypertension Status: Chronic Assessment and Plan: Blood pressure is doing pretty well. His systolic is under good control. He is on amlodipine. He does have substantial swelling and so this may not be the perfect medication for him. Will evaluate this as we go. (4) PAF (paroxysmal atrial fibrillation): Code(s): I48.0 - Paroxysmal atrial fibrillation Status: Acute Assessment and Plan: Rate is well controlled. He seems to be in a flutter on his EKG. (5) Dyslipidemia: Code(s): E78.5 - Hyperlipidemia, unspecified Status: Acute Assessment and Plan: He is not on a statin (6) Long-term insulin use in type 2 diabetes: Qualifiers: Diabetes mellitus complication status: with other specified complication Qualified Code(s): E11.69 - Type 2 diabetes mellitus with other specified complication; Z79.4 - longterm (current) use of insulin Code(s): E11.9 - Type 2 diabetes mellitus without complications; Z79.4 - claim benefit specialist (current) use of insulin Status: Chronic Assessment and Plan: he is getting sliding scale insulin (7) Hypothyroid: Code(s): E03.9 - Hypothyroidism, unspecified Status: Chronic Assessment and Plan: he is on levothyroxine Subjective Date/time seen: 01/21/20 12:44 Interval history: Patient is in a regular room now. He is sitting at the side of the bed. He says he is back to his usual strength. He is able to use a sliding board for transfers at home. Review of Systems Cardiovascular: Cardiovascular: Reports no additional cardiovascular complaints Respiratory: Respiratory: Reports no additional respiratory complaints Gastrointestinal: Gastrointestinal: Reports no additional gastrointestinal complaints Genitourinary: Genitourinary: Reports no additional male genitourinary complaints Exam Narrative: Exam Narrative: WDWN in NAD skin no rash head ncat lungs clear cor reg no rub abd BS+ nontender and soft ext One to2+ edema. Chronic venous stasis dermatitis. Status post right mtlmb-vfa-hsuq amputation. Open wound is bandaged. Objective Data Vital Signs Vital Signs: Vital Signs - 24 hr 01/20/20 14:00 01/20/20 16:00 01/20/20 18:00 Temperature 36.4 C Pulse Rate 96 100 95 Respiratory Rate 20 Blood Pressure 139/62 Pulse Oximetry 99 01/20/20 19:26 01/20/20 20:00 01/20/20 21:23 Temperature 36.2 C L Pulse Rate 89 97 102 H Respiratory Rate 18 Blood Pressure 137/87 Pulse Oximetry 99 01/20/20 22:00 01/20/20 23:58 01/21/20 00:00 Temperature 35.7 C L Pulse Rate 88 93 87 Respiratory Rate 18 Blood Pressure 98/68
--- NOTE | 2020-01-21 15:47 | P.PNIM_ITS ---
Progress Note: A&P Assessment and Plan (1) Acute on chronic renal failure: Qualifiers: Acute renal failure type: unspecified Chronic kidney disease stage: unspecified stage Qualified Code(s): N17.9 - Acute kidney failure, unspecified; N18.9 - Chronic kidney disease, unspecified Code(s): N17.9 - Acute kidney failure, unspecified; N18.9 - Chronic kidney disease, unspe cified Status: Acute Assessment and Plan: * See nephrology notes * K still high creat is better pt completed 24 hour urine collection * can follow with DR guerrero (2) Hyperkalemia: Code(s): E87.5 - Hyperkalemia Status: Acute Assessment and Plan: * Pt was already given with 2nd dose of calcium gluconate, bicarb, insulin, dextrose and albuterol nebulizer treatment. * receiving kalyelexate but having diarrhea (3) Cellulitis: Qualifiers: Site of cellulitis: extremity Site of cellulitis of extremity: lower extremity Laterality: unspecified laterality Qualified Code(s): L03.119 - Cellulitis of unspecified part of limb Code(s): L03.90 - Cellulitis, unspecified Status: Acute Assessment and Plan: * Patient has been started on Zosyn with pharmacy to dose. * Needs three days of IV zosyn Nicolas Owens pending * seen by wound care * infection stump (4) Long-term insulin use in type 2 diabetes: Qualifiers: Diabetes mellitus complication status: with other specified complication Qualified Code(s): E11.69 - Type 2 diabetes mellitus with other specified complication; Z79.4 - manager intermediate (current) use of insulin Code(s): E11.9 - Type 2 diabetes mellitus without complications; Z79.4 - [facility] (current) use of insulin Status: Chronic Assessment and Plan: * With multiple systemic complications. * Patient's glucose are improving as he is eating more * Cut lantus in half dose * poor control of DM * Dietican consulted (5) Sleep apnea: Qualifiers: Sleep apnea type: obstructive Qualified Code(s): G47.33 - Obstructive sleep apnea (adult) (pediatric) Code(s): G47.30 - Sleep apnea, unspecified Status: Chronic Assessment and Plan: * Home BiPAP has been ordered with settings of Subjective Date/time seen: 01/21/20 15:47 Interval history: Ole is a 59 year old male with a past medical history of morbid obesity, diabetes mellitus, chronic lower extremity lymphedema, chronic atrial fibrillation, and chronic kidney disease stage 3. Seen by nephrology. Pt potassium still high, nephrology is happy. Pt having some diarrhea and his leg still looks bad, discussed one more day of IV antibiotics. Review of Systems Review of Systems: All systems reviewed & are unremarkable except as noted in HPI and below Exam Narrative: Exam Narrative: Generally: Morbidly obese Skin: Marked erythema and lymphedema of the right dprxq-dyd-aoky amputation site Musculoskeletal: Right jxinz-qol-swzb amputation Objective Data Vital Signs Vital Signs: Vital Signs - 24 hr 01/20/20 16:00 01/20/20 18:00 01/20/20 19:26 Temperature 36.4 C 36.2 C L Pulse Rate 100 95 89 Respiratory Rate 20 18 Blood Pressure 139/62 137/87 Pulse Oximetry 99 99 01/20/20 20:00 01/20/20 21:23 01/20/20 22:00 Temperature Pulse Rate 97 102 H 88 Respiratory Rate Blood Pressure
--- NOTE | 2020-01-21 15:47 | PM.IMPN ---
Progress Note: A&P Assessment and Plan (1) Acute on chronic renal failure: Qualifiers: Acute renal failure type: unspecified Chronic kidney disease stage: unspecified stage Qualified Code(s): N17.9 - Acute kidney failure, unspecified; N18.9 - Chronic kidney disease, unspecified Code(s): N17.9 - Acute kidney failure, unspecified; N18.9 - Chronic kidney disease, unspecified Status: Acute Assessment and Plan: See nephrology notes K still high creat is better pt completed 24 hour urine collection can follow with DR guerrero (2) Hyperkalemia: Code(s): E87.5 - Hyperkalemia Status: Acute Assessment and Plan: Pt was already given with 2nd dose of calcium gluconate, bicarb, insulin, dextrose and albuterol nebulizer treatment. receiving kalyelexate but having diarrhea (3) Cellulitis: Qualifiers: Site of cellulitis: extremity Site of cellulitis of extremity: lower extremity Laterality: unspecified laterality Qualified Code(s): L03.119 - Cellulitis of unspecified part of limb Code(s): L03.90 - Cellulitis, unspecified Status: Acute Assessment and Plan: Patient has been started on Zosyn with pharmacy to dose. Needs three days of IV zosyn Nicolas Owens pending seen by wound care infection stump (4) Long-term insulin use in type 2 diabetes: Qualifiers: Diabetes mellitus complication status: with other specified complication Qualified Code(s): E11.69 - Type 2 diabetes mellitus with other specified complication; Z79.4 - buttermilk drier operator (current) use of insulin Code(s): E11.9 - Type 2 diabetes mellitus without complications; Z79.4 - USP (current) use of insulin Status: Chronic Assessment and Plan: With multiple systemic complications. Patient's glucose are improving as he is eating more Cut lantus in half dose poor control of DM Dietican consulted (5) Sleep apnea: Qualifiers: Sleep apnea type: obstructive Qualified Code(s): G47.33 - Obstructive sleep apnea (adult) (pediatric) Code(s): G47.30 - Sleep apnea, unspecified Status: Chronic Assessment and Plan: Home BiPAP has been ordered with settings of Subjective Date/time seen: 01/21/20 15:47 Interval history: Ole is a 59 year old male with a past medical history of morbid obesity, diabetes mellitus, chronic lower extremity lymphedema, chronic atrial fibrillation, and chronic kidney disease stage 3. Seen by nephrology. Pt potassium still high, nephrology is happy. Pt having some diarrhea and his leg still looks bad, discussed one more day of IV antibiotics. Review of Systems Review of Systems: All systems reviewed & are unremarkable except as noted in HPI and below Exam Narrative: Exam Narrative: Generally: Morbidly obese Skin: Marked erythema and lymphedema of the right lwcuj-ntl-tsks amputation site Musculoskeletal: Right vkpfq-fcy-scgz amputation Objective Data Vital Signs Vital Signs: Vital Signs - 24 hr 01/20/20 16:00 01/20/20 18:00 01/20/20 19:26 Temperature 36.4 C 36.2 C L Pulse Rate 100 95 89 Respiratory Rate 20 18 Blood Pressure 139/62 137/87 Pulse Oximetry 99 99 01/20/20 20:00 01/20/20 21:23 01/20/20 22:00 Temperature Pulse Rate 97 102 H 88 Respiratory Rate Blood Pressure Pulse Oximetry 01/20/20 23:58 01/21/20 00:00 01/21/20 02:00 Temperature 35.7 C L Pulse Rate 93 87 88 Respiratory Rate 18 Blood Pressure 98/68 L Pulse Oximetry 100 01/21/20 03:05 01/21/20 04:00 01/21/20 06:00 Temperature 36.1 C L Pulse Rate 88 87 106 H Respiratory Rate 20 18 Blood Pressure 121/78 Pulse Oximetry 98 99 01/21/20 08:00 01/21/20 10:00 01/21/20 11:01 Temperature 36.4 C Pulse Rate 87 88 83 Respiratory Rate 18 Blood Pressure 131/67 Pulse Oximetry 100 01/21/20 12:00 01/21/20 13:38 Temperature 36.4 C L Pulse Rate 1
[2020-01-21 16:09] LABS: Glucose Point of Care 135 (65-105)
[2020-01-21 19:08] LABS: Kappa\\Lambda Light Chains 1.06 (0.26-1.65); Lambda Light Chain 122.8 mg/L (5.7-26.3)
[2020-01-21 20:43] LABS: Glucose Point of Care 140 (65-105)
[2020-01-22] VITALS (10 sets, daily range): BP systolic 106–143; BP diastolic 69–80; PULSE 81–97; RESP 18–29; TEMP 36.5; O2SAT 98–99
[2020-01-22] MEDS: SODIUM CHLORIDE 0.9% IV 1,000 ML 100 ML IV CONT ×2 (02:48→14:00)
[2020-01-22] MEDS: ONDANSETRON INJ 4 MG/2 ML VIAL IV PUSH (04:27)
[2020-01-22 05:34] LABS: Hemoglobin 9.2 g/dL (14.0-18.0); Mean Corpuscular HGB Conc 31.7 g/dl (32-36); Mean Corpuscular Hemoglobin 29.3 pg (26-34); Mean Corpuscular Volume 92.4 fl (80-100); Mean Platelet Volume 9.4 fl (7.4-10.4); Platelet Count Result 320 k/mm3 (150-375); Red Blood Count 3.14 M/mm3 (4.6-6.20); Red Cell Distribution Width 15.4 % (11.5-14.5); White Blood Count 8.8 K/mm3 (4.5-10.0)
[2020-01-22 05:37] LABS: Anion Gap 9 mmol/L (8-16); Blood Urea Nitrogen 68 mg/dL (9-20); Calcium 8.6 mg/dL (8.4-10.2); Carbon Dioxide 18 mmol/L (22-30); Chloride 114 mmol/L (98-107); Estimated CRCL calculation 53 ml/min; Estimated Glomerular Filt Rate 26; Glucose 122 mg/dL (75-110); Potassium 4.9 mmol/L (3.4-5.0); Sodium 141 mmol/L (137-145)
[2020-01-22] MEDS: LEVOTHYROXINE SODIUM 100 MCG TABLET PO (05:38)
[2020-01-22] MEDS: PRAMIPEXOLE 0.5 MG TABLET 1.5 MG PO ×2 (05:39→13:54)
[2020-01-22 07:49] LABS: Glucose Point of Care 115 (65-105)
[2020-01-22] MEDS: allopurinoL 300 MG TABLET BY MOUTH (10:39)
[2020-01-22] MEDS: CHOLECALCIFEROL 1,000 UNITS TABLET 2000 UNITS PO (10:39)
[2020-01-22] MEDS: APIXABAN 5 MG TABLET PO (10:40)
[2020-01-22] MEDS: FLECAINIDE ACETATE 100 MG TABLET PO (10:40)
[2020-01-22] MEDS: SERTRALINE HCL 50 MG TABLET 100 MG PO (10:40)
[2020-01-22] MEDS: amLODIPine BESYLATE 5 MG TABLET PO (10:40)
[2020-01-22 12:10] LABS: Complement Total CH50 >60 U/mL (31-60)
[2020-01-22 12:20] LABS: Glucose Point of Care 132 (65-105)
--- NOTE | 2020-01-22 13:20 | PCPTNOTE ---
PT attempted evaluation and patient/family discussed. The patient and family feel they are safe and independent with patient's mobility using a slideboard as prior to admit. They both feel no skilled PT needs currently and wants to save his energy for when he discharges today. Patient's nurse was notified of situation. D/C PT. Leana Whiting PT
--- NOTE | 2020-01-22 14:16 | P.DS_ITS ---
DS: Admitting Diagnosis Admitting Diagnosis Admitting Diagnosis: hyperkalemia DS: Discharge Diagnosis Discharge Diagnosis (1) Acute on chronic renal failure: Qualifiers: Acute renal failure type: unspecified Chronic kidney disease stage: unspecified stage Qualified Code(s): N17.9 - Acute kidney failure, unspecified; N18.9 - Chronic kidney disease, unspecified Code(s): N17.9 - Acute kidney failure, unspecified; N18.9 - Chronic kidney disease, unspecified Status: Acute Assessment and Plan: * Nephrology rounding * K normal today creat is better * Creat is 2.6 today, likely patients baseline. * pt completed 24 hour urine collection * Can follow with Dr Holm, in his nephrology clinic (2) Hyperkalemia: Code(s): E87.5 - Hyperkalemia Status: Acute Assessment and Plan: Pt was hiaving severely high potassium levels. for past3 days * Pt was given two dose of calcium gluconate, bicarb, insulin, dextrose and albuterol nebulizer treatment on day of admission * Receiving Kayexalate but having diarrhea yesterday, so Kayexalate was stopped, potassium is nl now. (3) Cellulitis: Qualifiers: Laterality: unspecified laterality Site of cellulitis: extremity Site of cellulitis of extremity: lower extremity Qualified Code(s): L03.119 - Cellul itis of unspecified part of limb Code(s): L03.90 - Cellulitis, unspecified Status: Acute Assessment and Plan: * Patient has been started on Zosyn with pharmacy to dose. * Pt has completed 3 days of iv zosyn, BC is negative to date * Seen by wound care for infective stump * Pt will follow wound team in their clinic * Pt will complete his cephalexin (4) Long-term insulin use in type 2 diabetes: Qualifiers: Diabetes mellitus complication status: with other specified complication Qualified Code(s): E11.69 - Type 2 diabetes mellitus with other specified complication; Z79.4 - oil heaterman (current) use of insulin Code(s): E11.9 - Type 2 diabetes mellitus without complications; Z79.4 - skilled nursing ( current) use of insulin Status: Chronic Assessment and Plan: * With multiple systemic complications. * Patient's glucose are improving as he is eating more, adviced to follow strict DM diet * Pt sees DR Jones endocrinology for his Dm * poor control of DM * Dietican consulted (5) Sleep apnea: Qualifiers: Sleep apnea type: obstructive Qualified Code(s): G47.33 - Obstructive sleep apnea (adult) (pediatric) Code(s): G47.30 - Sleep apnea, unspecified Status: Chronic Assessment and Plan: * Home BiPAP has been ordered with settings of (6) Severe obesity: Code(s): E66.01 - Morbid (severe) obesity due to excess calories Status: Chronic Assessment and Plan: Pt is sedentary, will benefit from services at time DS: Summary Time Spent with Patient Time attestation: Total time spent providing and/or coordinating discharge services:40 minutes on day of discharge Exam Narrative: Exam Narrative: Generally: Morbidly obese RRR Chest is clear Abdo soft non tender Skin: Marked erythema and lymphedema of the right zsfvl-amr-njdc amputation site with fresh dressing Musculoskeletal: Right dhmbg-zto-gjss amputation DS: Data Data Completed and Pending Labs on day of discharge: Labs from last 24 hours 01/22/20 01/22/20 01/22/20 11:22 07:43 04:09 WBC RBC
--- NOTE | 2020-01-22 14:16 | PM.DS ---
DS: Admitting Diagnosis Admitting Diagnosis Admitting Diagnosis: hyperkalemia DS: Discharge Diagnosis Discharge Diagnosis (1) Acute on chronic renal failure: Qualifiers: Acute renal failure type: unspecified Chronic kidney disease stage: unspecified stage Qualified Code(s): N17.9 - Acute kidney failure, unspecified; N18.9 - Chronic kidney disease, unspecified Code(s): N17.9 - Acute kidney failure, unspecified; N18.9 - Chronic kidney disease, unspecified Status: Acute Assessment and Plan: Nephrology rounding K normal today creat is better Creat is 2.6 today, likely patients baseline. pt completed 24 hour urine collection Can follow with Dr Holm, in his nephrology clinic (2) Hyperkalemia: Code(s): E87.5 - Hyperkalemia Status: Acute Assessment and Plan: Pt was hiaving severely high potassium levels. for past3 days Pt was given two dose of calcium gluconate, bicarb, insulin, dextrose and albuterol nebulizer treatment on day of admission Receiving Kayexalate but having diarrhea yesterday, so Kayexalate was stopped, potassium is nl now. (3) Cellulitis: Qualifiers: Laterality: unspecified laterality Site of cellulitis: extremity Site of cellulitis of extremity: lower extremity Qualified Code(s): L03.119 - Cellulitis of unspecified part of limb Code(s): L03.90 - Cellulitis, unspecified Status: Acute Assessment and Plan: Patient has been started on Zosyn with pharmacy to dose. Pt has completed 3 days of iv zosyn, BC is negative to date Seen by wound care for infective stump Pt will follow wound team in their clinic Pt will complete his cephalexin (4) Long-term insulin use in type 2 diabetes: Qualifiers: Diabetes mellitus complication status: with other specified complication Qualified Code(s): E11.69 - Type 2 diabetes mellitus with other specified complication; Z79.4 - detention (current) use of insulin Code(s): E11.9 - Type 2 diabetes mellitus without complications; Z79.4 - detention (current) use of insulin Status: Chronic Assessment and Plan: With multiple systemic complications. Patient's glucose are improving as he is eating more, adviced to follow strict DM diet Pt sees DR Jones endocrinology for his Dm poor control of DM Dietican consulted (5) Sleep apnea: Qualifiers: Sleep apnea type: obstructive Qualified Code(s): G47.33 - Obstructive sleep apnea (adult) (pediatric) Code(s): G47.30 - Sleep apnea, unspecified Status: Chronic Assessment and Plan: Home BiPAP has been ordered with settings of (6) Severe obesity: Code(s): E66.01 - Morbid (severe) obesity due to excess calories Status: Chronic Assessment and Plan: Pt is sedentary, will benefit from HH services at time DS: Summary Time Spent with Patient Time attestation: Total time spent providing and/or coordinating discharge services:40 minutes on day of discharge Exam Narrative: Exam Narrative: Generally: Morbidly obese RRR Chest is clear Abdo soft non tender Skin: Marked erythema and lymphedema of the right lhqmx-zyd-vgqr amputation site with fresh dressing Musculoskeletal: Right bykka-evw-lodh amputation DS: Data Data Completed and Pending Labs on day of discharge: Labs from last 24 hours 01/22/20 01/22/20 01/22/20 11:22 07:43 04:09 WBC RBC Hgb Hct MCV MCH MCHC RDW Plt Count MPV Sodium 141 Potassium 4.9 Chloride 114 H Carbon Dioxide 18 L Anion Gap 9 BUN 68 H D Creatinine 2.60 H Estim Creat Clear Calc 53 Estimated GFR 26 L Glucose 122 H POC Capillary Glucose 132 H 115 H Calcium 8.6 VIKAS Screen Tot Complement (CH50) Fingal/Lambda Ratio Free Fingal Light Chains Free Lambda Light Chain 01/22/20 01/21/20 01/21/20 04:09 20:41 15:51 WBC
[2020-01-27 07:44] LABS: Renin 8.47 ng/mL/h (0.25-5.82)
== END 2020-01-22 15:50 | disposition home or self-care (01) | DRG 641 ==
LOC: ANHED 18:40 → ANHIMU 01-20 15:27 → ANH3MEDSUR 01-26 08:22 → ANHICU 01-26 08:22 → ANHIMU 01-26 08:22
PROVIDERS: Emergency Medicine; Internal Medicine; Internal Medicine Nephrology; Admitting Provider Internal Medicine; Emergency Provider Emergency Medicine; PCP Family Medicine; Visit Provider Family Medicine
DX: E87.5 Hyperkalemia (principal); N17.9 Acute kidney failure, unspecified; I48.20 Chronic atrial fibrillation, unspecified; Z68.42 Body mass index [BMI] 45.0-49.9, adult; L03.119 Cellulitis of unspecified part of limb; Z89.511 Acquired absence of right leg below knee; Z23 Encounter for immunization; Z20.828 Contact with and (suspected) exposure to other viral communicable diseases; E11.65 Type 2 diabetes mellitus with hyperglycemia; E11.22 Type 2 diabetes mellitus with diabetic chronic kidney disease; I12.9 Hypertensive chronic kidney disease with stage 1 through stage 4 chronic kidney disease, or unspecified chronic kidney disease; N18.30 Chronic kidney disease, stage 3 unspecified; E11.42 Type 2 diabetes mellitus with diabetic polyneuropathy; E11.43 Type 2 diabetes mellitus with diabetic autonomic (poly)neuropathy; K31.84 Gastroparesis; K21.9 Gastro-esophageal reflux disease without esophagitis; E03.9 Hypothyroidism, unspecified; E78.5 Hyperlipidemia, unspecified; G25.81 Restless legs syndrome; E66.01 Morbid (severe) obesity due to excess calories; I89.0 Lymphedema, not elsewhere classified; G47.33 Obstructive sleep apnea (adult) (pediatric); F32.9 Major depressive disorder, single episode, unspecified; Z79.01 Long term (current) use of anticoagulants; Z79.4 Long term (current) use of insulin; Z87.11 Personal history of peptic ulcer disease; Z87.442 Personal history of urinary calculi
CPT/HCPCS: 36415; 71045; 76775; 80048; 80053; 80069; 81001; 82088; 82550; 82570; 83615; 83883; 83970; 84133; 84156; 84244; 84300; 84484; 85025; 85027; 85652; 85999; 86038; 86160; 86162; 86334; 86335; 87040; 87086; 87635; 90471; 90653; 93005; 94002; 94003; 94640; 96374; 96375; 99285; A9270; C9803; G0008; J0610; J1815; J2405; J2543; J7030; U0003

== ENCOUNTER 2020-02-05 22:46 | Emergency (ER) | payer MEDICARE, MEDICAID, SELFPAY ==
[2020-02-05 22:50] VITALS: BP 151/73; PULSE 112; RESP 18; TEMP 36.2; O2SAT 100
--- NOTE | 2020-02-05 22:59 | ECG_ITS ---
Measurements Intervals [place] Rate: 94 P: 253 W[place]: 258 QRS: -19 QRSD: 86 T: 60 QT: 317 QTc: 398 Interpretive Statements ATRIAL FLUTTER/TACHYCARDIA POOR R WAVE PROGRESSION, ANTERIOR LEADS ABNORMAL ECG Electronically Signed On 02-06-2020 10:01:14 MOLD CLEANING AND STORAGE SUPERVISOR by Librado Fernandez D.O.
[2020-02-05 23:28] LABS: Basophils Percent Auto 0.2 % (0.2-1.2); Eosinophils Absolute Auto 0.2 K/mm3 (0-0.3); Eosinophils Percent Auto 2.5 % (0-4.4); Hematocrit 29.2 % (42.0-52.0); Hemoglobin 9.3 g/dL (14.0-18.0); Immature Granulocyte Absolute 0.05 K/mm3 (0.00-0.031); Immature Granulocyte Percent A 0.5 % (0-0.5); Lymphocytes Absolute Auto 1.34 K/mm3 (0.9-3.2); Lymphocytes Percent Auto 13.9 % (18.3-44.2); Mean Corpuscular HGB Conc 31.8 g/dl (32-36); Mean Corpuscular Hemoglobin 29.3 pg (26-34); Mean Corpuscular Volume 92.1 fl (80-100); Mean Platelet Volume 9.3 fl (7.4-10.4); Monocytes Absolute Auto 0.6 K/mm3 (0.1-0.6); Monocytes Percent Auto 5.9 % (2.6-8.5); Neutrophils Absolute Auto 7.5 K/mm3 (1.3-6.7); Platelet Count Result 491 k/mm3 (150-375); Red Blood Count 3.17 M/mm3 (4.6-6.20); Red Cell Distribution Width 14.6 % (11.5-14.5); White Blood Count 9.7 K/mm3 (4.5-10.0)
--- NOTE | 2020-02-05 23:30 | ED.GENADULT ---
HPI - General Adult General Chief complaint: Recheck/Abnormal Lab/Rx Stated complaint: elevated potassium Time Seen by Provider: 02/05/20 22:59 Source: RN notes reviewed History of Present Illness HPI narrative: Patient presents emergency department from home for hyperkalemia. Patient states he has a history of kidney disease and is followed by Dr. Holm he was recently admitted for hyperkalemia earlier this month and was followed up with Dr. Holm today he had blood work drawn today which resulted a potassium of 6.6 and was instructed to come to the ED for further evaluation. Patient denies having fevers or chills chest pain shortness of breath or any other symptoms. Patient does state he has a history of paroxysmal A. fib and is on Eliquis which she has been taking Related Data Home Medications Medication Instructions Recorded Confirmed insulin lispro 100 unit/mL 1 sliding scale dose SUB-Q 01/26/19 01/18/20 subcutaneous solution USEASDIRECTD apixaban 5 mg tablet 5 mg PO BID 05/07/19 01/18/20 cholecalciferol (vitamin D3) 50 50 mcg PO DAILY 01/15/20 01/18/20 mcg (2,000 unit) capsule insulin glargine 100 unit/mL 60 unit SUBCUT QPM ml 01/15/20 01/18/20 subcutaneous solution sertraline 100 mg tablet 100 mg PO BID tablet 01/15/20 01/18/20 Allergies Allergy/AdvReac Type Severity Reaction Status Date / Time ibuprofen AdvReac Unknown Unknown Verified 01/15/20 14:02 Review of Systems Review of Systems: Narrative: Gen.: Denies fevers or chills ENT: Denies congestion Respiratory: Denies shortness of breath or cough CV: Denies chest pain or palpitations GI: Denies abdominal pain nausea, emesis or diarrhea reports chronic renal insufficiency hyperkalemia today Musculoskeletal: Denies back pain or muscle pain Neuro: Denies numbness, tingling, weakness or focal weakness Skin: Denies rash Except as documented, all other systems reviewed and negative PMFSH Past Medical History Medical History Anemia Anxiety Chronic acquired lymphedema Chronic atrial fibrillation On chronic anticoagulation with Eliquis CKD (chronic kidney disease) stage 3, GFR 30-59 ml/min Depression Diabetic gastroparesis Diabetic nephropathy Diabetic neuropathy DVT (deep venous thrombosis) Right lower extremity March 2017 Gastric pouch ulcer Status post gastric bypass procedure 2004 GERD without esophagitis Hyperlipidemia Hypertension Hypothyroid Kidney stones Long-term insulin use in type 2 diabetes Low testosterone in male Morbid obesity Persistent despite gastric bypass procedure Narcolepsy Obstructive sleep apnea On home BiPAP Restless leg syndrome Surgical History Surgical History (Updated 01/19/20 @ 02:59 by Gemma Juarez DO) History of below-knee amputation of right lower extremity 08/13/2017 at [facility]. Postoperatively wound healing was complicated by persistent lymphedema at stump site History of gastric bypass History of lithotripsy June 2017 History of umbilical hernia repair Family History Family History Mother Hypertension Colon polyp Father Colon polyp Sibling Patient's brother is in good health Grandparent Hypertension Other Depression Social History Social History Social History: He lives with his mother. He is on disability since 2018. Smoking status: Never smoker Second hand tobacco smoke exposure: No Alcohol intake: never Substance use: never Gender identity (if verbalized by the patient): Male Spiritual care concerns: No Exam Narrative: Exam Narrative: APPEARANCE: No acute distress, nontoxic, resting in bed EYES: EOMI HEENT: Normocephalic, atraumatic, OMM RESPIRATORY: No respiratory distress Clear to auscultation bilaterally with no rhonchi wheezing or rales. C
[2020-02-05 23:46] LABS: Alanine Aminotransferase 45 U/L (4-50); Albumin Level 3.3 g/dL (3.5-5.1); Alkaline Phosphatase 196 U/L (38-126); Anion Gap 9 mmol/L (8-16); Aspartate Amino Transferase 39 U/L (17-59); Bilirubin,Total 0.3 mg/dL (0.2-1.3); Blood Urea Nitrogen 59 mg/dL (9-20); Calcium 9.2 mg/dL (8.4-10.2); Carbon Dioxide 18 mmol/L (22-30); Chloride 105 mmol/L (98-107); Estimated CRCL calculation 65 ml/min; Estimated Glomerular Filt Rate 33; Glucose 201 mg/dL (75-110); Potassium 6.2 mmol/L (3.4-5.0); Sodium 132 mmol/L (137-145)
[2020-02-06] MEDS: SODIUM POLYSTYRENE SULFONONATE 15 GM/60 ML BTL 30 GM PO (00:33)
[2020-02-06 02:42] VITALS: BP 117/73; PULSE 94; RESP 16; O2SAT 97
[2020-02-06 02:54] LABS: Alanine Aminotransferase 35 U/L (4-50); Albumin Level 2.5 g/dL (3.5-5.1); Alkaline Phosphatase 153 U/L (38-126); Anion Gap 5 mmol/L (8-16); Aspartate Amino Transferase 27 U/L (17-59); Bilirubin,Total < 0.1 mg/dL (0.2-1.3); Blood Urea Nitrogen 48 mg/dL (9-20); Calcium 7.3 mg/dL (8.4-10.2); Carbon Dioxide 16 mmol/L (22-30); Chloride 114 mmol/L (98-107); Estimated CRCL calculation 80 ml/min; Estimated Glomerular Filt Rate 42; Glucose 151 mg/dL (75-110); Potassium 4.8 mmol/L (3.4-5.0); Sodium 135 mmol/L (137-145)
[2020-02-06 03:36] VITALS: BP 124/79; PULSE 94; RESP 20; TEMP 36.8; O2SAT 97
== END 2020-02-06 03:37 | disposition home or self-care (01) ==
PROVIDERS: Emergency Provider Emergency Medicine; PCP Family Medicine
DX: E87.5 Hyperkalemia (principal); E11.22 Type 2 diabetes mellitus with diabetic chronic kidney disease; I12.9 Hypertensive chronic kidney disease with stage 1 through stage 4 chronic kidney disease, or unspecified chronic kidney disease; N18.9 Chronic kidney disease, unspecified; E11.43 Type 2 diabetes mellitus with diabetic autonomic (poly)neuropathy; E11.21 Type 2 diabetes mellitus with diabetic nephropathy; E11.40 Type 2 diabetes mellitus with diabetic neuropathy, unspecified; K31.84 Gastroparesis; I48.0 Paroxysmal atrial fibrillation; K21.9 Gastro-esophageal reflux disease without esophagitis; E78.5 Hyperlipidemia, unspecified; E03.9 Hypothyroidism, unspecified; E66.9 Obesity, unspecified; Z68.42 Body mass index [BMI] 45.0-49.9, adult; G25.81 Restless legs syndrome; G47.33 Obstructive sleep apnea (adult) (pediatric); F41.9 Anxiety disorder, unspecified; F32.9 Major depressive disorder, single episode, unspecified; Z86.718 Personal history of other venous thrombosis and embolism; Z98.84 Bariatric surgery status; Z89.511 Acquired absence of right leg below knee; Z79.01 Long term (current) use of anticoagulants; Z79.4 Long term (current) use of insulin
CPT/HCPCS: 36415; 80053; 85025; 93005; 99283; A9270

== ENCOUNTER 2020-03-23 12:30 | Outpatient (RCR) | payer MEDICARE, MEDICAID, SELFPAY ==
--- NOTE | 2020-02-09 13:54 | PTOPEVAL ---
PHYSICAL THERAPY EVALUATION AND PLAN OF TREATMENT 02-09-2020 Thank you for referring Mike Handy to [facility].? He is scheduled to be seen for therapy?3 x/week for 6 weeks. Please review, sign, date and return this plan of care MADELYN. I agree with and certify that the following plan of care is medically necessary. Referring Physician Date Attending Provider: Junior Bunch MD *PT Outpatient Evaluation Start: 02/09/20 12:37 Document 02/09/20 12:30 MAYRA (Rec: 02/09/20 13:53 MAYRA [id number]) Therapy Assessment Status Assessment Status Assessment Status Evaluation Outpatient Past Medical History Past Medical History Source of Past Medical History Patient,Family/Significant Other Neurological History Hx Other Neurological Disorders Yes: narcolepsy Cardiovascular History Hx Atrial Fibrillation Yes Hx Hypertension Yes: meds Respiratory History Hx Sleep Apnea Yes Gastrointestinal History Hx Esophageal Varices Yes Hx Gastric Bypass Surgery Yes: 2004 Hx Gastroesophageal Reflux Disease Yes Hx Hernia Yes Genitourinary History Hx Kidney Stones Yes: surgery 2017 Musculoskeletal History Hx Amputation Yes: R BKA July 2017 Hematological History Hx Anemia Yes: borderline- monitor no treatment at this time Endocrine History Hx Diabetes Yes Hx Hypothyroidism Yes: meds HEENT History Hx HEENT Disorders No Significant History Integumentary History Hx Skin Disorders No Significant History Reproductive History Hx Reproductive Disorders No Significant History Psychosocial History Hx Depression Yes Pain History History of Any Previous or Ongoing No Significant History Instance of Pain Anesthesia History Hx Anesthesia Reactions No Significant History Other History Hx Other Medical Conditions Yes: obesity, R LE DVT Evaluation Information Problem Diagnosis LE lymphedema Onset September 2019 Prior Level of Function Activity Level (Last 3 Months) Occupation medical disability Home Setting Home Type House Living Situation With Parent Mobility Assistive Devices (Used Last 3 Wheelchair, Manual Months) Comments Additional Prior Level of Function wheel chair does not fit into Comments bathroom; bed side commode used and sponge bathing; Pain Assessment Timing of Pain Assessment Timing of Pain Assessment Assessment Pain Scale Pain Scale Used Numeric (1 - 10) Self Report Pain Assessme
--- NOTE | 2020-02-17 15:19 | PCPTNOTE ---
pt signed consent and his info was faxed to [facility] for home intermittent compression pump; He has a 4 chamber pump at home and they will see if he is eligible for the 8 chamber pump with the abdominal component.
--- NOTE | 2020-02-23 16:53 | PCPTNOTE ---
Pt recieved a flexitouch demo no pt charges.
--- NOTE | 2020-02-29 15:54 | PCPTNOTE ---
Patient did not show up for scheduled appointment this date.
--- NOTE | 2020-03-01 12:40 | PCPTNOTE ---
pt's mother called and cancelled his appt due to vomiting.
--- NOTE | 2020-03-04 16:21 | PCPTNOTE ---
Addendum entered by Bev Ballard, PT 03/04/20 16:36: this note was for [employer], for home pump Original Note: PHYSICAL THERAPY PROGRESS NOTE 03-04-2020 Mr. Handy has received a total of PT sessions, from February 08 to today. He has canceled 2 appointments due to not feeling well--abdominal issues. Sam report at home, he has been doing his leg exercises and using the home compression pump- Lymphpress, daily for one hour. He is now sleeping with the Circ Aid reduction kits on his R LE and L lower leg. His treatments during PT include manual lymph drainage, kinesiotape to facilitate softening of the R medial lobule tissue and inelastic compression with the Circ Aid reduction garments on the entire R stump and L lower leg. He did purchase new Circ Aid garments for the R LE. He continues to have clear drainage from the R lower stump and the L lower leg has some red in the clear drainage. Mom is assisting him with dressing changes due to the drainage at least 2x/day. Now that he has 2 of the Circ Aid reduction kits, he is able to wash one set and wear the other, so there is constant compression on his legs. The circumferential measurements of his R LE: at eval: 936.5 cm; on 02-25-20: 1000.5 cm; on 03-04-20: 920.1 cm. the L LE: at eval: was not measured; on 02-25-20: 958.4 cm; on 03-04-20: 992.5 cm. There continues to be redness over R lower stump, distal to his knee, with wetness of the tissue and a crack in his skin at the base of the stump. The lateral aspect is more macerated and papillomas and uneven skin texture over entire lower leg. The L lower leg has redness and drainage. Mr. Handy would benefit from a Flexitouch home intermittent compression pump to assist in managing his chronic lymphedema, to promote facilitation of the lymph fluid and assist with decreasing the drainage and weeping from his legs. Bev Ballard, PT, CLT [facility] service
--- NOTE | 2020-03-15 12:45 | PCPTNOTE ---
Pt's mother called and cancelled today's appointment due to intestinal issues.
--- NOTE | 2020-03-23 14:09 | PTOPEVAL ---
PHYSICAL THERAPY DISCHARGE 03-23-2020 Refer to the clinical summary below for a comparison of his status to the initial evaluation. He will be discharged at this time, due to the lack of progress with PT intervention. He continues to have lymphedema, with weeping of both lower legs. And tissue and skin changes of redness, papillomas and fibrotic tissue. Sam has multiple medical issues and has upcoming medical appointments for: colonoscopy, vascular surgeon, supervising editor news reel and instructional material director. He would be appropriate to return for additional therapy, when his medical conditions are stabilized and the tissue of his legs improves. Thank you for referring Mike Handy to [facility].? Please review, sign, date and return this discharge MADELYN. I agree with and certify that the following plan of care is medically necessary. Referring Physician Date Attending Provider: Junior Bunch MD Document 03/23/20 12:30 MAYRA (Rec: 03/23/20 14:00 MAYRA [id number]) Assessment Status Discharge Subjective Information Sam and mom report: going to Query Text:As Reported By Patient/ see vascular surgeon next Family week- have been trying to get in, but delayed due to COVID; R stump sensative and sometimes more painful than other times, gauze sometimes bothers it; are changing dressing on R LE 2x/day and L LE 1x/day due to soaking through bandage dressing; legs vary with the redness, sometimes more red than other times; using the home pump once/day and it hurts legs, cannot tolerate it the medical numerical control operator should use and after using it, leg is more red- both legs and L foot; is doing leg exercises lying down and sitting in the chair; is doing his self massage and using kinesiotape over top of R leg/thigh; is doing to see the instructional material director and supervising editor news reel in Apr; is going to schedule a colonoscopy; blood sugars are better, but vary 120- 220, is watching diet and blood sugars; continues to have stomach problems--had one bad day last week with vomiting and stomach pain; Discussed home compression
== END 2020-03-24 11:55 | disposition home or self-care (01) ==
LOC: ANHPT 12:30
PROVIDERS: PCP Family Medicine; Visit Provider Family Medicine
DX: I89.0 Lymphedema, not elsewhere classified (principal)
CPT/HCPCS: 29581; 97016; 97140; 97162

== ENCOUNTER 2020-08-15 16:00 | Inpatient (IN) | payer MEDICARE, MEDICAID, SELFPAY ==
[2020-08-15] VITALS (8 sets, daily range): BP systolic 118–134; BP diastolic 77–95; PULSE 115–135; RESP 16–22; TEMP 36.2–37.1; O2SAT 100; BMI 54.7
--- NOTE | ~2020-08-15 | US_ITS ---
EXAMINATION: US retroperitoneal comp EXAM DATE: 08/16/2020 13:52 INDICATION: Renal failure. TECHNIQUE: Multiple grayscale and Doppler images of the kidneys were obtained (by a technologist who performed the scan) and subsequently reviewed. Comparison is made to prior examination from 01/19/2020 . FINDINGS: There is moderate amount of hilar fat bilaterally, evidence of mild renal cortical thinning . Difficult to identify the nephrolithiasis seen on CT. Right kidney: There is normal contour and echogenicity. It measures 15.3 x 7.4 x 7.6 centimeters. T here are no focal renal lesions identified. There is no hydronephrosis. Left kidney: There is normal contour and echogenicity. It measures 13.7 x 7.8 x 6.0 centimeters. Ane choic structure consistent with cysts measuring 3.7 cm. There is no hydronephrosis. Nino catheter within collapsed bladder. IMPRESSION: Mild cortical thinning. No hydronephrosis. Reviewed, dictated and finalized at location B.
--- NOTE | ~2020-08-15 | CT_ITS ---
EXAMINATION: CT abdomen pelvis wo con DATE: 08/15/2020 19:07 INDICATION: Lower abdominal pain TECHNIQUE: Computed tomography (CT) of the abdomen and pelvis was performed without intravenous contr ast. The dose-length product was 1697.83 mGy-cm. Automated exposure control and iterative reconstruct ion technique were employed. COMPARISON: CT dated 10/09/2018 FINDINGS: Cardiomegaly. Dependent atelectasis. No significant pleural or pericardial effusion. There are changes of gastric bypass surgery. There is extensive atherosclerosis. The liver, spleen, pancrea s, adrenal glands are unremarkable. There are nonobstructing bilateral renal stones. There are low-de nsity lesions in both kidneys, most likely cysts. Gallbladder is moderately distended. The colon is diffusely enlarged containing air-fluid levels. There are a few mildly dilated proximal small bowel loops. There is a rectal tube. Small fat-containing umbilical hernia. Mildly enlarged retroperitoneal lymph nodes, likely reactive. There is moderate osteoarthritis of the hips. Mild lumbar spondylosis. IMPRESSION: 1. Few proximal dilated small bowel loops. Diffusely dilated colon with air-fluid levels. Findings co mpatible with ileus. 2: Mild gallbladder distention with ill-defined gallbladder wall. Cannot exclude gallbladder wall th ickening. No definite gallstones. 3: Mildly enlarged retroperitoneal/left periaortic lymph nodes, most likely reactive. Reviewed, dictated and finalized at location A. IMPRESSION: 1. Few proximal dilated small bowel loops. Diffusely dilated colon with air-flu id levels. Findings compatible with ileus. 2: Mild gallbladder distention with ill-defined gallbladder wall. Cannot exclu de gallbladder wall thickening. No definite gallstones. 3: Mildly enlarged retroperitoneal/left periaortic lymph nodes, most likely yifan ctive.
--- NOTE | 2020-08-15 16:22 | ECG_ITS ---
Measurements Intervals [place] Rate: 117 P: [place]: 0 QRS: 7 QRSD: 91 T: 72 QT: 342 QTc: 479 Interpretive Statements ATRIAL FLUTTER/TACHYCARDIA WITH RAPID VENTRICULAR RESPONSE BASELINE ARTIFACT- I, II, III, AVR, AVL, AVF, V1-V6 ABNORMAL ECG Electronically Signed On 08-15-2020 19:00:17 CDT by Librado Fernandez D.O.
[2020-08-15] MEDS: SODIUM CHLORIDE 0.9% IV 1,000 ML 999 ML IV CONT ×2 (16:36→19:11)
[2020-08-15] MEDS: LORazepam INJ (*CRX) 2 MG/ML VIAL 1 MG IV PUSH (16:36)
[2020-08-15] MEDS: MORPHINE SULFATE (*CRX) 4 MG/ML INJ IV PUSH (16:36)
[2020-08-15 16:47] LABS: Basophils Percent Auto 0.3 % (0.2-1.2); Eosinophils Absolute Auto 0.1 K/mm3 (0-0.3); Eosinophils Percent Auto 0.9 % (0-4.4); Hematocrit 29.3 % (42.0-52.0); Hemoglobin 8.8 g/dL (14.0-18.0); Immature Granulocyte Absolute 0.11 K/mm3 (0.00-0.031); Immature Granulocyte Percent A 0.7 % (0-0.5); Lymphocytes Absolute Auto 0.63 K/mm3 (0.9-3.2); Lymphocytes Percent Auto 4.3 % (18.3-44.2); Mean Corpuscular Hemoglobin 25.9 pg (26-34); Mean Corpuscular Volume 86.2 fl (80-100); Mean Platelet Volume 8.8 fl (7.4-10.4); Monocytes Absolute Auto 0.6 K/mm3 (0.1-0.6); Monocytes Percent Auto 4.3 % (2.6-8.5); Neutrophils Absolute Auto 13.2 K/mm3 (1.3-6.7); Neutrophils Percent Auto 89.5 % (45.5-73.1); Nucleated Red Blood Cells Perc 0.2 % (0.0-0.2); Platelet Count Result 735 k/mm3 (150-375); White Blood Count 14.8 K/mm3 (4.5-10.0)
[2020-08-15 16:53] LABS: Add Urine Microscopic? YES; Appearance Urine Cloudy (Clear); Bacteria Urine Trace /hpf; Bilirubin Urine Negative (Negative); Blood Urine Negative (Negative); Color Urine Yellow (Yellow); Glucose Urine UA Negative (Negative); Ketones Urine Negative (Negative); Leukocyte Esterase Ur 1+ LEU/UL (Negative); Nitrate Urine Negative (Negative); Protein Urine 2+ mg/dL (Negative); Specific Grav Ur 1.017 (1.001-1.035); Urobilinogen Urine Negative mg/dL (<2.0)
[2020-08-15 16:55] LABS: Lactic Acid Reflex 3.4 mmol/L (0.7-2.1)
[2020-08-15 16:56] LABS: Alanine Aminotransferase 16 U/L (4-50); Albumin Level 3.4 g/dL (3.5-5.1); Alkaline Phosphatase 167 U/L (38-126); Anion Gap 17 mmol/L (8-16); Aspartate Amino Transferase 56 U/L (17-59); Bilirubin,Total 0.2 mg/dL (0.2-1.3); Blood Urea Nitrogen 100 mg/dL (9-20); CRP 7.3 mg/dL (<1.0); Calcium 9.1 mg/dL (8.4-10.2); Carbon Dioxide 12 mmol/L (22-30); Chloride 108 mmol/L (98-107); Estimated CRCL calculation 28 ml/min; Estimated Glomerular Filt Rate 13; Glucose 224 mg/dL (75-110); Potassium 3.7 mmol/L (3.4-5.0); Sodium 137 mmol/L (137-145)
[2020-08-15 16:57] LABS: Platelet Estimate Increased (Adequate)
[2020-08-15 17:05] LABS: Troponin I < 0.012 ng/mL (0.000-0.034)
[2020-08-15 17:08] LABS: INR 1.2; Prothrombin Time 15.3 Seconds (11.1-14.7)
[2020-08-15 17:11] LABS: Partial Thromboplastin Time 36.3 SECONDS (22.3-36.8)
[2020-08-15 17:29] LABS: NT Pro B Type Natriuretic Pept 749 pg/mL (5-100)
--- NOTE | 2020-08-15 18:29 | ED.WEAKNESS ---
HPI - Weakness General Chief complaint: Weakness Stated complaint: WEAKNESS, VOMITING Time Seen by Provider: 08/15/20 16:20 Source: patient, family and EMS Mode of arrival: EMS Limitations: no limitations History of Present Illness HPI Narrative: Patient is 60 years old white male presented to the ED by ambulance with his mother because of gradual increase of weakness over the last few days. History of chronic vomiting, chronic diarrhea, got worse over the last 48 hours. Patient reports difficulty to get out of the recliner immediately when he have the urge of having bowel movement that is why he been having stool incontinence without control. Patient denies any fever, chills, abdominal pain, chest pain or shortness of breath. Patient denies any antibiotic intake recently patient currently vomiting and diarrhea of unknown etiology. Related Data Home Medications Medication Instructions Recorded Confirmed apixaban 5 mg tablet 5 mg PO BID 05/07/19 08/03/20 insulin glargine 100 unit/mL 60 unit SUBCUT QPM ml 01/15/20 08/03/20 subcutaneous solution patiromer calcium sorbitex 16.8 16.8 g PO ea 02/10/20 08/03/20 gram oral powder packet insulin lispro 100 unit/mL ml SUBCUT 06/20/20 08/03/20 subcutaneous pen Allergies Allergy/AdvReac Type Severity Reaction Status Date / Time ibuprofen AdvReac Unknown Unknown Verified 08/04/20 13:46 Review of Systems Review of Systems: Narrative: CONSTITUTIONAL: Denies fever, chills, or sweats. EYES: Denies visual changes, redness, or discharge. ENT: Denies rhinorrhea, congestion, sore throat, or otalgia. CARDIOVASCULAR: Denies chest pain, palpitations, or edema. RESPIRATORY: Denies cough or dyspnea. GASTROINTESTINAL: Denies abdominal pain, nausea, vomiting, or diarrhea. GENITOURINARY: Denies dysuria or hematuria. SKIN: Denies rash or itching. MUSCULOSKELETAL: Denies back pain, joint pain, or myalgia. NEUROLOGIC: Denies headache, numbness, or weakness. PSYCHIATRIC: Denies anxiety or depression. [facility] Past Medical History Medical History (Updated 08/15/20 @ 18:37 by Zarina Brady MD) Acute on chronic blood loss anemia Anemia Anxiety Chronic acquired lymphedema Chronic atrial fibrillation On chronic anticoagulation with Eliquis CKD (chronic kidney disease) stage 3, GFR 30-59 ml/min Colon cancer screening Depression Diabetic gastroparesis Diabetic neuropathy DVT (deep venous thrombosis) Right lower extremity March 2017 Gastric pouch ulcer Status post gastric bypass procedure 2004 Gastric ulcer GERD without esophagitis Hyperlipidemia Hypertension Hypothyroid Kidney stones Long-term insulin use in type 2 diabetes Low testosterone in male Morbid obesity Persistent despite gastric bypass procedure Narcolepsy Obstructive sleep apnea On home BiPAP PUD (peptic ulcer disease) Restless leg syndrome Surgical History Surgical History History of below-knee amputation of right lower extremity 08/13/2017 at [facility]. Postoperatively wound healing was complicated by persistent lymphedema at stump site History of gastric bypass History of lithotripsy June 2017 History of umbilical hernia repair Family History Family History Mother Hypertension Colon polyp Father Colon polyp Sibling Patient's brother is in good health Grandparent Hypertension Other Depression Social History Social History Social History: He lives with his mother. He is on disability since 2018. Smoking status: Never smoker Second hand tobacco smoke exposure: No Alcohol intake: never Substance use: never Gender identity (if verbalized by the patient): Male Spiritual care concerns: No Exam Narrative: Exam Narrative: General appearance: Well-developed, well-nourished, massive
[2020-08-15 19:21] LABS: Alveolar/Arterial O2 Gradient 19.9 mmHg; Base Excess ABG -15.3 mEq/l (+/-2.0); Fractional Inspired Oxygen 21 %; HCO3 ABG 11.5 mEq/l (22.0-26.0); Oxygen Content ABG 11.9 %vol (16.0-22.0); Oxygen Saturation ABG 95.6 % (95.0-100.0); Oxyhemoglobin 94.8 % THb (90.0-100.0); PCO2 ABG 30.3 mmHg (35.0-45.0); PO2 ABG 93.5 mmHg (80.0-100.0); PO2 FiO2 Ratio Arterial Blood 4.45 %; Total Hemoglobin 8.8 g/dL (12.0-18.0)
[2020-08-15 19:22] LABS: Device ROOM AIR; Site Drawn RIGHT BRACHIAL; pH ABG 7.196 (7.350-7.450)
[2020-08-15 19:41] LABS: Reflex Lactic Acid Yes or No Add Lactic
[2020-08-15 20:46] LABS: Lactic Acid 0.7 mmol/L (0.7-2.1)
--- NOTE | 2020-08-15 20:57 | PM.IMHP ---
H&P: HPI History of Present Illness Date/Time: 08/15/20 20:57 Chief Complaint: Weakness and diarrhea Narrative: 60-year-old male with past medical history of atrial fibrillation on chronic anticoagulation, morbid obesity with obstructive sleep apnea, diabetes, diabetic gastroparesis, and stage 3 chronic kidney disease who presented to the ER via EMS due to progressive weakness and diarrhea. He is at increased weakness over the last several days. He has history chronic vomiting due to gastroparesis and frequent diarrhea. His diarrhea has worsened over the last 48 hours. He is having urgency of bowel movements and has lost control of his bowels numerous times over last couple of days. He reports that he has become so weak over the last 7 days that he has been unable to transfer to his wheelchair in order to get to the bathroom. He has been unable to transfer to get to his bed at home because his bed is too tall. He has been sleeping in a recliner for the last several months. His he reports that about 8 months ago he had some transient fevers with loss of sense of taste in thought that he had Covid. He was tested for COVID and was found to be negative. However, he has continued to have decreased sense of taste. He reports that he has had progressive weight loss due to his frequent vomiting. Despite having weight loss over the last couple of months he has noticed increased abdominal distension. He associated the abdominal distension with his new compressive devices to help with his lymphedema. He reported that his lymphedema had improved but he thought that the fluid had moved up into his abdomen. He reports that he occasionally will have some lower abdominal pain that is aching in nature. His stools have been normal color. He denies any hematochezia or melena. He has not noticed any increased shortness of breath, cough or congestion. He reports that over the last 3 weeks he has had decreased urine output. He has had urinary urgency but then has felt like he cannot pass the urine over the last several days. He reports that there was a fair amount of urine in the straight cath that the ER head performed. However, ER staff did not document how much urine was obtained from the straight cath. He reports that he has been evaluated by Dr. Camarena for his frequent vomiting and heartburn symptoms. He is supposed to have an outpatient EGD. He reports that Dr. Camarena is office has not called to set up the appointment. His last appoint with Dr. Camarena was 2 weeks ago. The patient has been following Dr. Holm for his chronic kidney disease. He reports that he noticed a change in the about 2 weeks ago. He went to the payable representative and was told that he had any aneurysm behind his left eye. He is supposed to go see an public health assistant in the next 10 days[address] He reports that Dr. Fernandez stopped his flecainide 1.5 months ago. He has been compliant with his metoprolol. On presentation to the ER the patient was afebrile. However he was in AFib RVR with heart rate as high as 135. He received 2 L of normal saline in the ER and was initiated on maintenance fluids at 125 an hour. His labs demonstrated mild leukocytosis, stable chronic anemia, acute metabolic acidosis with a pH is 7.196, serum bicarb of 12 and an anion gap of 17. His BUN had increased to 100 (baseline usually around 50) and creatinine had climbed from 1.[address] to [address]. CT scan demonstrated proximal dilated small-bowel loops and diffusely dilated colon with air-fluid levels compatible with ileus. Mild gallbladder distention with ill-defined gallbladder wall. Cannot exclude gallbladder wall thickening. Mildly enlarged retroperitoneal left periaortic lymph nodes most likely reactive. Subsequently the patient was admitted as inpatient. On review the patient's chart I have change the patient's placement to IMU. Review of Systems Review of Systems: Narrative: 12 systems were reviewed with pertinent positives a
--- NOTE | 2020-08-15 21:39 | ECG_ITS ---
Measurements Intervals [place] Rate: 119 P: [place]: 0 QRS: -6 QRSD: 99 T: 89 QT: 292 QTc: 411 Interpretive Statements ATRIAL FLUTTER/TACHYCARDIA WITH RAPID VENTRICULAR RESPONSE NONSPECIFIC ST & T-WAVE ABNORMALITY- LAT/HIGH LAT LEADS BASELINE ARTIFACT- II, V2, V5 ABNORMAL ECG Electronically Signed On 08-16-2020 6:04:38 CDT by Librado Fernandez D.O.
--- NOTE | 2020-08-15 21:40 | ADMGEN ---
This patient, Mike Handy, was admitted to IMU Room 213-01. Patient/family oriented to hospital policies and general routines including ID bracelet, bed and alarms, visiting hours, pain management, procedures, bathroom and other care routines, personal items, smoking policy, room service/diet, and visiting hours. Information on how to activate the Rapid Response Team has been discussed. Patient/Family are encouraged to report perceived risks to care and to ask questions if they do not understand what they are told or what they should do.
[2020-08-15] MEDS: SODIUM CHLORIDE 0.9% IV 1,000 ML 125 ML IV CONT (23:26)
[2020-08-16] VITALS (20 sets, daily range): BP systolic 74–110; BP diastolic 35–69; PULSE 39–117; RESP 12–22; TEMP 36.4–36.9; O2SAT 96–100; BMI 29.7
[2020-08-16] MEDS: INSULIN GLARGINE (*BKC) 100 UNITS/ML 45 UNITS SUB-Q (03:45)
[2020-08-16 04:01] LABS: Glucose Point of Care 139 mg/dl (65-105)
[2020-08-16 05:10] LABS: Basophils Percent Auto 0.2 % (0.2-1.2); Eosinophils Absolute Auto 0.2 K/mm3 (0-0.3); Eosinophils Percent Auto 1.5 % (0-4.4); Hematocrit 24.7 % (42.0-52.0); Hemoglobin 7.6 g/dL (14.0-18.0); Immature Granulocyte Absolute 0.11 K/mm3 (0.00-0.031); Immature Granulocyte Percent A 0.9 % (0-0.5); Lymphocytes Absolute Auto 0.58 K/mm3 (0.9-3.2); Lymphocytes Percent Auto 4.8 % (18.3-44.2); Mean Corpuscular HGB Conc 30.8 g/dl (32-36); Mean Corpuscular Volume 84.6 fl (80-100); Monocytes Absolute Auto 0.6 K/mm3 (0.1-0.6); Monocytes Percent Auto 5.2 % (2.6-8.5); Neutrophils Absolute Auto 10.5 K/mm3 (1.3-6.7); Neutrophils Percent Auto 87.4 % (45.5-73.1); Nucleated Red Blood Cells Perc 0.2 % (0.0-0.2); Platelet Count Result 589 k/mm3 (150-375); Red Blood Count 2.92 M/mm3 (4.6-6.20); Red Cell Distribution Width 16.7 % (11.5-14.5)
[2020-08-16 05:19] LABS: Anion Gap 13 mmol/L (8-16); Blood Urea Nitrogen 100 mg/dL (9-20); Calcium 8.1 mg/dL (8.4-10.2); Carbon Dioxide 11 mmol/L (22-30); Chloride 113 mmol/L (98-107); Estimated CRCL calculation 23 ml/min; Estimated Glomerular Filt Rate 14; Glucose 146 mg/dL (75-110); Potassium 3.5 mmol/L (3.4-5.0); Sodium 137 mmol/L (137-145)
[2020-08-16 06:11] LABS: Hemoglobin A1C 7.1 % (<5.7)
[2020-08-16] MEDS: LEVOTHYROXINE SODIUM 100 MCG TABLET PO (07:06)
[2020-08-16 07:38] LABS: Glucose Point of Care 134 mg/dl (65-105)
--- NOTE | 2020-08-16 08:05 | PM.CNNEP ---
Assessment and Plan Assessment and plan (1) Acute on chronic renal failure: Qualifiers: Acute renal failure type: unspecified Chronic kidney disease stage: unspecified stage Qualified Code(s): N17.9 - Acute kidney failure, unspecified; N18.9 - Chronic kidney disease, unspecified Code(s): N17.9 - Acute kidney failure, unspecified; N18.9 - Chronic kidney disease, unspecified Status: Acute Assessment and Plan: Mike has chronic kidney disease. This is from hypertension and diabetes. His baseline creatinine is in the 30s or so. This gives him stage IIIB chronic kidney disease. The patient also has acute kidney injury. This is likely from dehydration due to his diarrhea. Had rapid ventricular rate when he came in. It is unclear whether dehydration cause this rapid rate or whether the rapid rate cause worsened pre renal azotemia. He is on a diltiazem drip and his heart rate is better. He is getting some IV fluids for the dehydration. There other causes of acute kidney injury as well such as obstruction, rhabdomyolysis, which we will check 4. Interstitial nephritis and glomerulonephritis are less likely in this clinical scenario. (2) Diarrhea: Qualifiers: Diarrhea type: unspecified type Qualified Code(s): R19.7 - Diarrhea, unspecified Code(s): R19.7 - Diarrhea, unspecified Status: Acute Assessment and Plan: The patient apparently has chronic diarrhea as well. This has worsened lately. Will leave evaluation of this up to the hospitalist. (3) Anemia: Qualifiers: Anemia type: iron deficiency Iron deficiency anemia type: unspecified iron deficiency Qualified Code(s): D50.9 - Iron deficiency anemia, unspecified Code(s): D64.9 - Anemia, unspecified Status: Chronic Assessment and Plan: His hemoglobin is lower than usual. He has GI upset from his iron orally. Will give him IV iron for now while he is in the hospital. Check stool guaiac as well. (4) Metabolic acidosis: Code(s): E87.2 - Acidosis Status: Acute Assessment and Plan: Patient has a metabolic acidosis with a high anion gap. His baseline anion gap is around 10 and now it is running around 17. Most likely this anion gap is due to uremic toxins. His lactic acid level was a tiny bit high which also would contribute. His sugars have been good so I doubt if he has ketosis. Dropped a little bit with hydration overnight. Will change to a bicarb IV infusion. (5) Chronic atrial fibrillation with RVR: Code(s): I48.20 - Chronic atrial fibrillation, unspecified Status: Acute Assessment and Plan: He is on a diltiazem drip (6) Hypertension: Qualifiers: Hypertension type: essential hypertension Qualified Code(s): I10 - Essential (primary) hypertension Code(s): I10 - Essential (primary) hypertension Status: Chronic Assessment and Plan: His blood pressure is well controlled (7) Lymphedema: Code(s): I89.0 - Lymphedema, not elsewhere classified Status: Acute Assessment and Plan: This is controlled by compression system at home (8) Type 2 diabetes mellitus with diabetic neuropathy: Qualifiers: 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: with longterm use Qualified Code(s): E11.40 - Type 2 diabetes mellitus with diabetic neuropathy, unspecified; Z79.4 - termite control technician (current) use of insulin Code(s): E11.40 - Type 2 diabetes mellitus with diabetic neuropathy, unspecified Status: Chronic Assessment and Plan: On Accu-Cheks and sliding-scale insulin (9) Sleep apnea: Qualifiers: Sleep apnea type: obstructive Qualified Code(s): G47.33 - Obstructive sleep apnea (adult) (pediatric) Code(s): G47.30 - Sleep apnea, unspecified Status: Chronic Assessment and Plan: He uses a CPAP mask at home History of Present Illness Reason for Consult Con
[2020-08-16 08:56] LABS: Immature Reticulocyte Fraction 28.4 % (3.0-15.9); Reticulocyte Hemoglobin Conten 25.2 pg (28.2-35.7); Reticulocyte Percent 1.89 % (0.7-4.3); Reticulocytes Absolute 0.05 B/L (32.2-175.7)
[2020-08-16 09:36] LABS: Creatine Kinase 773 U/L (55-170)
[2020-08-16] MEDS: FERROUS SULFATE 324 MG TABLET PO ×2 (09:46→17:00)
[2020-08-16] MEDS: amLODIPine BESYLATE 5 MG TABLET PO (09:46)
[2020-08-16] MEDS: PANTOPRAZOLE 40 MG TABLET PO ×2 (09:46→17:01)
[2020-08-16] MEDS: busPIRone HCL 5 MG TABLET PO ×3 (09:46→17:00)
[2020-08-16] MEDS: METOPROLOL SUCCINATE EXT REL 100 MG TABCR PO (09:46)
[2020-08-16] MEDS: APIXABAN 5 MG TABLET PO ×2 (09:47→21:45)
[2020-08-16] MEDS: allopurinoL 300 MG TABLET PO (09:47)
[2020-08-16] MEDS: PRAMIPEXOLE 0.5 MG TABLET 1.5 MG PO ×3 (09:47→17:02)
[2020-08-16] MEDS: SERTRALINE HCL 50 MG TABLET 100 MG PO ×2 (09:47→21:44)
[2020-08-16 10:25] LABS: Iron 15 ug/dL (49-181)
--- NOTE | 2020-08-16 10:30 | PM.CNGS ---
Assessment and Plan Assessment and plan (1) Sacral wound: Code(s): S31.000A - Unspecified open wound of lower back and pelvis without penetration into retroperitoneum, initial encounter Status: Acute Assessment and Plan: This is the reason for our consultation. He is morbidly obese and has been more sedentary over the past two months, also with probably inadequate nutrition, which have all contributed to his wound. He now has a large sacral ulcer that appears to be fairly superficial with a fungal element and a dark eschar in the center of the wound bed. This looks as though it would benefit from enzymatic debridement, with Santyl, and antifungal ointment for local wound care. Due to the patient's size, location of the ulcer, and surrounding skin, we will leave this open to air and try to reduce pressure to this wound with frequent turning. He would also benefit from a specialty mattress while inpatient. There is no indication at this time for surgical debridement, but we will continue to follow the wound for now to see how this progresses. I instructed the patient on the importance of nutrition in wound healing, and encouraged him to take in Ensure for each meal if he is unable to take in an adequate amount of his tray. The rectal tube will also help prevent contamination of the wound since he has had frequent diarrhea. Thank you for allowing us to see the patient in consultation and we will continue to follow along with you. (2) Ileus: Code(s): K56.7 - Ileus, unspecified Status: Acute Assessment and Plan: CT scan abd/pelvis suggests ileus. He has about 200 cc liquid stool in the containment bag on my exam. He has been dealing with diarrhea for a few weeks, and has also had an increase in post-prandial vomiting in the past few weeks. He was planning to schedule an outpatient EGD with Dr. Camarena. GI has been consulted. Okay from a surgical standpoint to continue clear liquids. (3) Metabolic acidosis: Code(s): E87.2 - Acidosis Status: Acute (4) Chronic atrial fibrillation with RVR: Code(s): I48.20 - Chronic atrial fibrillation, unspecified Status: Acute Assessment and Plan: Gloria Fib RVR in the ER. On a diltiazem drip in the IMU with improvement in his heart rate. Management per hospitalist. (5) Anticoagulant long-term use: Code(s): Z79.01 - MCFP (current) use of anticoagulants Status: Acute Assessment and Plan: On Eliquis for A. Fib. This has been continued. (6) Type 2 diabetes mellitus with hyperglycemia: Qualifiers: Diabetes mellitus care home insulin use: with care home use Qualified Code(s): E11.65 - Type 2 diabetes mellitus with hyperglycemia; Z79.4 - [facility]FP (current) use of insulin Code(s): E11.65 - Type 2 diabetes mellitus with hyperglycemia Status: Acute (7) Lymphedema: Code(s): I89.0 - Lymphedema, not elsewhere classified Status: Acute Assessment and Plan: Would benefit from compression treatment of the lymphedema as an outpatient. Apparently he has failed to be compliant with this treatment in the past. Would continue with local wound care with antifungal powder of the superficial maceration of the right leg. (8) Acute on chronic renal failure: Qualifiers: Acute renal failure type: unspecified Chronic kidney disease stage: unspecified stage Qualified Code(s): N17.9 - Acute kidney failure, unspecified; N18.9 - Chronic kidney disease, unspecified Code(s): N17.9 - Acute kidney failure, unspecified; N18.9 - Chronic kidney disease, unspecified Status: Acute Assessment and Plan: Chronic kidney disease present with acute kidney injury. Diarrheal losses and dehydration are likely contributing to this. Nephrology have been consulted and are working this up further. (9) Severe obesity: Code(s): E66.01 - Morbid (severe) obesity due to excess calories Status: Chron
[2020-08-16 10:35] LABS: Percent Iron Saturation 7 % (20-50)
[2020-08-16] MEDS: IRON SUCROSE COMPLEX 200 MG in SODIUM CHLORIDE 0.9% IV 50 ML 120 MG IVPB (11:00)
[2020-08-16 11:44] LABS: Hematocrit 23.7 % (42.0-52.0); Hemoglobin 7.3 g/dL (14.0-18.0)
[2020-08-16] MEDS: SODIUM BICARBONATE 8.4% 150 MEQ in WATER, STERILE FOR INJECTION 950 ML 100 MEQ IV CONT ×2 (12:06→21:44)
[2020-08-16 12:11] LABS: Glucose Point of Care 130 mg/dl (65-105)
--- NOTE | 2020-08-16 15:18 | PM.IMPN ---
Progress Note: A&P Assessment and Plan (1) Acute on chronic renal failure: Qualifiers: Acute renal failure type: unspecified Chronic kidney disease stage: unspecified stage Qualified Code(s): N17.9 - Acute kidney failure, unspecified; N18.9 - Chronic kidney disease, unspecified Code(s): N17.9 - Acute kidney failure, unspecified; N18.9 - Chronic kidney disease, unspecified Status: Acute Assessment and Plan: Creatinine 4.8 admission. Baseline creatinine last month was 1.8. Bilateral renal stones and low-density lesions in the kidneys most likely cysts. Renal ultrasound showed mild cortical thinning but no hydronephrosis. Metabolic acidosis noted but potassium is normal. [place] related to dehydration from his diarrhea and poor oral intake. He is not on diuretics at home. Was treated with IV fluids with bicarb. Acidosis shows improving anion gap and creatinine trending downward to 4.3 today. Urine studies are pending. Nephrology following. Appreciate their input. (2) Metabolic acidosis: Code(s): E87.2 - Acidosis Status: Acute Assessment and Plan: Bicarb of 12 and anion gap of 17. PH is 7.196 all consistent with metabolic acidosis felt related to his renal failure complicated by the diarrhea. Lactic acid elevated but normalized quickly so probably only a minor contribution to the metabolic acidosis. Bicarb is 11 today but anion gap is improved. Creatinine trending downward with the IV fluids with bicarb. Continue monitor. (3) Ileus: Code(s): K56.7 - Ileus, unspecified Status: Acute Assessment and Plan: Proximal dilated small-bowel loops had a diffusely dilated colon with air-fluid levels consistent with ileus. This is most likely infectious etiology. Consider ischemia but felt less likely. Stool culture has been sent. Cryptosporidum and giardia negative. C diff is negative. Other studies are pending. Continue supportive care. (4) Chronic atrial fibrillation with RVR: Code(s): I48.20 - Chronic atrial fibrillation, unspecified Status: Acute Assessment and Plan: Patient has chronic AFib on Toprol XL for rate control and Eliquis for stroke prophylaxis. Patient was mildly tachycardic on admission and started on diltiazem drip. Tachycardia most likely related to dehydration. Will switch to short-acting diltiazem p.o.. Continue Eliquis. (5) Type 2 diabetes mellitus with hyperglycemia: Qualifiers: Diabetes mellitus usp insulin use: with termite control technician use Qualified Code(s): E11.65 - Type 2 diabetes mellitus with hyperglycemia; Z79.4 - termite control technician (current) use of insulin Code(s): E11.65 - Type 2 diabetes mellitus with hyperglycemia Status: Acute Assessment and Plan: A1c 7.1. The patient's blood glucose was reviewed on 08/16 Glucose remains well controlled. Continue AccuCheks covering with sliding scale. Hypoglycemia protocol available as needed. Continue current medications. (6) Sleep apnea: Qualifiers: Sleep apnea type: obstructive Qualified Code(s): G47.33 - Obstructive sleep apnea (adult) (pediatric) Code(s): G47.30 - Sleep apnea, unspecified Status: Chronic Assessment and Plan: Patient is compliant with NIV at home. Continue the same here. (7) Sacral wound: Code(s): S31.000A - Unspecified open wound of lower back and pelvis without penetration into retroperitoneum, initial encounter Status: Acute Assessment and Plan: Patient with sacral wound present on admission. Wound Care consult obtained. General surgery consult obtained as well. Continue dressing changes. (8) Lymphedema: Code(s): I89.0 - Lymphedema, not elsewhere classified Status: Acute Assessment and Plan: Patient with chronic lymphedema. Continue supportive care. (9) Anemia: Qualifiers: Anemia type: iron deficiency Iron deficienc
--- NOTE | 2020-08-16 16:40 | WPDGICN ---
Assessment and Plan Assessment and plan (1) Diarrhea: Qualifiers: Diarrhea type: unspecified type Qualified Code(s): R19.7 - Diarrhea, unspecified Code(s): R19.7 - Diarrhea, unspecified Status: Acute Assessment and Plan: pending stool studies continue with iv hydration, also came in with metabolic acidosis and renal failure if persistent diarrhea probably can do a colonoscopy in 2 more days (2) Acute on chronic renal failure: Qualifiers: Acute renal failure type: unspecified Chronic kidney disease stage: unspecified stage Qualified Code(s): N17.9 - Acute kidney failure, unspecified; N18.9 - Chronic kidney disease, unspecified Code(s): N17.9 - Acute kidney failure, unspecified; N18.9 - Chronic kidney disease, unspecified Status: Acute Assessment and Plan: medical treatment nephrology evaluation (3) Metabolic acidosis: Code(s): E87.2 - Acidosis Status: Acute (4) Ileus: Code(s): K56.7 - Ileus, unspecified Status: Acute Assessment and Plan: probably gastroenteritis (5) Nausea and vomiting in adult: Code(s): R11.2 - Nausea with vomiting, unspecified Status: Acute Assessment and Plan: he had previous gastric bariatric surgery that probably is affecting ongoing symptoms, also uncontrolled DM with gastroparesis egd in ~ 2 days (6) Type 2 diabetes mellitus with diabetic neuropathy: Qualifiers: Diabetes mellitus termite control technician insulin use: with termite control technician use Qualified Code(s): E11.40 - Type 2 diabetes mellitus with diabetic neuropathy, unspecified; Z79.4 - half-way (current) use of insulin Code(s): E11.40 - Type 2 diabetes mellitus with diabetic neuropathy, unspecified Status: Chronic (7) Severe obesity: Code(s): E66.01 - Morbid (severe) obesity due to excess calories Status: Chronic (8) History of below-knee amputation of right lower extremity: Code(s): Z89.511 - Acquired absence of right leg below knee Status: Chronic (9) Long-term insulin use in type 2 diabetes: Qualifiers: Diabetes mellitus complication status: with other specified complication Qualified Code(s): E11.69 - Type 2 diabetes mellitus with other specified complication; Z79.4 - intermediate school teacher (current) use of insulin Code(s): E11.9 - Type 2 diabetes mellitus without complications; Z79.4 - half-way (current) use of insulin Status: Chronic (10) Chronic atrial fibrillation with RVR: Code(s): I48.20 - Chronic atrial fibrillation, unspecified Status: Acute Assessment and Plan: medical treatment (11) Anticoagulant long-term use: Code(s): Z79.01 - intermediate school teacher (current) use of anticoagulants Status: Acute GI Consult Note Consult date/time: 08/16/20 16:40 Reason for consult: diarrhea, dehydration HPI: Mike Handy is a 60 year old male who I just saw in clinic 2 weeks ago because history of ongoing nausea, epigastric discomfort and loss of taste. He has morbid obesity with Billroth II (gastrojejunostomy) 2004 with previous gastric ulcers (last EGD by Dr Hernandez 2017 when had melena with hb 6), last colonoscopy about 2011 (reviewed, no polyps). He has been in the hospital previously with chronic anemia (hb 8-9), cellulitis leg (he has lymphedema with h/o right foot surgery due to Charcot joint), DM on insulin with gastroparesis, chronic anemia on anticoagulation. Just few days ago outpatient blood work showed anemia hb 8.6, wbc 7.6, plat 531, iron 19, ferritin 23, creat 1.6, bun 43. He came to hospital with almost 10 days of diarrhea but last 2 days much worse. He became so weak over the last 7 days that was unable to transfer to his wheelchair in order to get to the bathroom. He has been unable to transfer to get to his bed at home because his bed is too tall. ER evaluation found to be in AFib RVR with heart rate as high as 135, treated medically, also stable chronic
[2020-08-16] MEDS: TOLNAFTATE 1% POWDER 45 GM BTL 1 APPLIC TOPICAL ×2 (17:03→21:22)
[2020-08-16] MEDS: COLLAGENASE OINT 30 GM TUBE 1 APPLIC TOPICAL ×2 (17:03→21:22)
[2020-08-16] MEDS: dilTIAZem HCL 30 MG TABLET PO (17:11)
[2020-08-16] MEDS: INSULIN GLARGINE (*BKC) 100 UNITS/ML 60 UNITS SUB-Q (17:16)
[2020-08-16 17:22] LABS: Glucose Point of Care 117 mg/dl (65-105)
[2020-08-16] MEDS: LACTATED RINGERS 1,000 ML 999 ML IV CONT ×2 (19:48→21:21)
--- NOTE | 2020-08-16 20:00 | ECG_ITS ---
Measurements Intervals [place] Rate: 54 P: MS: 0 QRS: -11 QRSD: 111 T: 67 QT: 432 QTc: 409 Interpretive Statements ATRIAL FLUTTER WITH SLOW VENTRICULAR RESPONSE DELAYED PRECORDIAL R/S TRANSITION LOW QRS VOLTAGE IN PRECORDIAL LEADS BORDERLINE ST-T WAVE ABNORMALITY- HIGH LATERAL LEADS BASELINE ARTIFACT- I, II, III, AVR, AVL, V1, V3-V6 ABNORMAL ECG Electronically Signed On 08-17-2020 5:59:06 CDT by Librado Fernandez D.O.
--- NOTE | 2020-08-16 20:16 | PHAR ---
The patient's home med of Veltassa (patiromer) 8.4gm packets has been verified. 3 packets sent to pharmacy.
[2020-08-16 20:20] LABS: Glucose Point of Care 134 mg/dl (65-105)
[2020-08-16 20:35] LABS: Anion Gap 12 mmol/L (8-16); Blood Urea Nitrogen 59 mg/dL (9-20); Calcium 6.5 mg/dL (8.4-10.2); Carbon Dioxide 14 mmol/L (22-30); Chloride 105 mmol/L (98-107); Estimated CRCL calculation 71 ml/min; Estimated Glomerular Filt Rate 33; Glucose 67 mg/dL (75-110); Sodium 131 mmol/L (137-145)
[2020-08-16 20:45] LABS: Glucose Point of Care 114 mg/dl (65-105)
[2020-08-16 20:56] LABS: Alveolar/Arterial O2 Gradient 26.6 mmHg; Carboxyhemoglobin 0.3 % THb (0-2.0); Fractional Inspired Oxygen 21 %; HCO3 ABG 12.3 mEq/l (22.0-26.0); Methemoglobin ABG 0.5 %THb (0-1.5); Oxygen Content ABG 10.9 %vol (16.0-22.0); Oxygen Saturation ABG 95.1 % (95.0-100.0); PCO2 ABG 30.1 mmHg (35.0-45.0); PO2 ABG 87.1 mmHg (80.0-100.0); PO2 FiO2 Ratio Arterial Blood 4.15 %; Reduced Hemoglobin 5.2 %THb (0-5.0); Total Hemoglobin 8.1 g/dL (12.0-18.0)
[2020-08-16 20:57] LABS: Modified Allen's Test Pass; Site Drawn RIGHT RADIAL
[2020-08-16 20:58] LABS: Device ROOM AIR
[2020-08-16 20:59] LABS: Potassium 3.3 mmol/L (3.4-5.0)
[2020-08-16 21:00] LABS: Lactic Acid Reflex 14.6 mmol/L (0.7-2.1)
[2020-08-16] MEDS: POTASSIUM CHLORIDE 20 MEQ TABLET 40 MEQ PO (21:43)
[2020-08-16] MEDS: MAGNESIUM SULFATE 3GM/D5W100ML 3 GM/100 ML BAG IVPB (21:45)
[2020-08-16 21:46] LABS: Hematocrit 23.1 % (42.0-52.0); Hemoglobin 7.3 g/dL (14.0-18.0)
[2020-08-16] MEDS: ONDANSETRON INJ 4 MG/2 ML VIAL IV PUSH (21:52)
[2020-08-16 21:54] LABS: Creatine Kinase 423 U/L (55-170)
[2020-08-16 22:31] LABS: Creatinine Urine 214.8 mg/dL; Total Protein Urine Random 39 mg/dL; Ur Ttl Prot Creatinine Ratio 0.18 mg/mg (0-0.20)
[2020-08-16 22:32] LABS: Sodium Urine Random 12 meq/L
[2020-08-16 22:38] LABS: Eosinophil Urine None Seen % (None Seen)
--- NOTE | 2020-08-16 22:43 | PC.NURSE ---
This patient, Mike Handy, was transferred to [[id number] ] on 08/16/20 at 2244. Personal belongings sent with patient. Report given to [ ever martinez]. Appropriate documentation sent with patient.
[2020-08-16] MEDS: SODIUM BICARBONATE 8.4% 50 MEQ/50 ML SYRINGE IV PUSH (23:06)
[2020-08-16 23:20] LABS: Reflex Lactic Acid Yes or No Add Lactic
--- NOTE | 2020-08-16 23:55 | P.PCNBED_ITS ---
Procedures Central Line Placement Right Femoral: Central Line Date: 08/16/20 Central Line Time: 23:56 Discussed w/ the patient/family/POA,the placement of a central venous catheter, including its clinical necessity/indication & associated potential risks, benifits and alternatives.: Yes The patient/family/POA understand(s) and acknowledge(s) the need to proceed with central venous catheter insertion as an important element of the patient's clinical management.: Yes Consent: patient gave verbal consent Time Out Performed: Yes Patient Position: supine Patient placed on monitor/pulse ox: Yes Provider Prep: mask, sterile gown, sterile gloves, Max. sterile barrier precautions, cap and hand hygiene with conventional soap/water or alcohol based hand rub Central line prep: 2% Chlorhexidine scrub Local anesthesia used: lidocaine 1% Amount of anesthesia used (ml): 5 Sterile US Technique with sterile gel/sterile probe covers: Yes Central line lumen inserted: triple [place]: 7 Length (cm): 20 Post Procedure: sutured in place, good blood return, all ports aspirated, flushed, capped, transparent dressing, securement product and aseptic technique maintained throughout procedure Post procedure x-ray: other (NA for femoral placement) Patient tolerated procedure: well and no complications Complications: none Additional comments: Danika Solomon present proctoring the whole procedure.
--- NOTE | 2020-08-16 23:59 | PM.EVENT ---
Event Note Event Note Event Note: Called by the nurse for low blood pressure in 70s in the evening, labs drawn, NS boluses given with marginal improvement in blood pressure. labs with significantly elevated lactate at 14, metabolic acidosis already on bicarb gtt, cr imporved down to 2. started on cefepime and flagyl iv. recheck and monitor lactate. significant diarrhea on flexseal. discussed central line placement and patient verbazlies understanding. mvoed him to ICU. discsuseed with lock and dam repairer. if BP remains low, will start levophed. CCT 30 mins time spent, exclusive of the procedure.
[2020-08-17] VITALS (26 sets, daily range): BP systolic 64–138; BP diastolic 41–74; PULSE 43–95; RESP 15–26; TEMP 35.8–36.5; O2SAT 97–100
[2020-08-17] MEDS: metroNIDAZOLE 500 MG/ISO 100ML 500 MG/100 ML BAG 100 MG IVPB ×5 (00:07→23:24)
[2020-08-17 00:18] LABS: Lactic Acid Reflex 0.9 mmol/L (0.7-2.1)
[2020-08-17 00:42] LABS: Anion Gap 12 mmol/L (8-16); Blood Urea Nitrogen 97 mg/dL (9-20); Calcium 7.9 mg/dL (8.4-10.2); Carbon Dioxide 13 mmol/L (22-30); Chloride 112 mmol/L (98-107); Estimated CRCL calculation 40 ml/min; Estimated Glomerular Filt Rate 16; Glucose 110 mg/dL (75-110); Magnesium 2.2 mg/dL (1.6-2.3); Potassium 3.2 mmol/L (3.4-5.0); Sodium 137 mmol/L (137-145)
[2020-08-17 00:43] LABS: Glucose Point of Care 111 mg/dl (65-105)
--- NOTE | 2020-08-17 00:57 | PC.NURSE ---
This patient was transferred to ICU room 12 from IMU 213 at 2243 p.m. on 08/16/2020. Report was given at bedside by SHAUNA Monroy. All patient's belongings brought with patient to new room.
[2020-08-17] MEDS: NOREPINEPHRINE 8 MG/D5W 250 ML 8 MG/250 ML BAG 9.38 MG IV CONT (02:38)
[2020-08-17 05:17] LABS: Hematocrit 24.2 % (42.0-52.0); Hemoglobin 7.5 g/dL (14.0-18.0); Mean Corpuscular Hemoglobin 25.8 pg (26-34); Mean Corpuscular Volume 83.2 fl (80-100); Mean Platelet Volume 8.6 fl (7.4-10.4); Platelet Count Result 610 k/mm3 (150-375); Red Blood Count 2.91 M/mm3 (4.6-6.20); Red Cell Distribution Width 16.9 % (11.5-14.5); White Blood Count 13.7 K/mm3 (4.5-10.0)
[2020-08-17 05:32] LABS: Alveolar/Arterial O2 Gradient 25.2 mmHg; Base Excess ABG -13.2 mEq/l (+/-2.0); Carboxyhemoglobin 0.3 % THb (0-2.0); Fractional Inspired Oxygen 21 %; HCO3 ABG 13.2 mEq/l (22.0-26.0); Methemoglobin ABG 0.3 %THb (0-1.5); Oxygen Content ABG 12.4 %vol (16.0-22.0); Oxygen Saturation ABG 94.9 % (95.0-100.0); Oxyhemoglobin 93.9 % THb (90.0-100.0); PCO2 ABG 32.4 mmHg (35.0-45.0); PO2 ABG 85.7 mmHg (80.0-100.0); PO2 FiO2 Ratio Arterial Blood 4.08 %; Reduced Hemoglobin 5.5 %THb (0-5.0); Total Hemoglobin 9.3 g/dL (12.0-18.0)
[2020-08-17 05:33] LABS: Device ROOM AIR; Modified Allen's Test Pass; Site Drawn RIGHT RADIAL; pH ABG 7.229 (7.350-7.450)
[2020-08-17 05:39] LABS: Prealbumin 9.3 mg/dL (17.6-36.0)
[2020-08-17 05:40] LABS: Albumin Level 2.5 g/dL (3.5-5.1); Anion Gap 13 mmol/L (8-16); Blood Urea Nitrogen 99 mg/dL (9-20); Calcium 7.9 mg/dL (8.4-10.2); Carbon Dioxide 14 mmol/L (22-30); Chloride 111 mmol/L (98-107); Estimated CRCL calculation 39 ml/min; Estimated Glomerular Filt Rate 16; Glucose 96 mg/dL (75-110); Magnesium 2.2 mg/dL (1.6-2.3); Phosphorus 9.2 mg/dL (2.5-4.5); Potassium 3.2 mmol/L (3.4-5.0); Sodium 138 mmol/L (137-145)
[2020-08-17 05:45] LABS: CRP 13.8 mg/dL (<1.0)
[2020-08-17] MEDS: LEVOTHYROXINE SODIUM 100 MCG TABLET PO (05:58)
[2020-08-17 06:24] LABS: Glucose Point of Care 92 mg/dl (65-105)
--- NOTE | 2020-08-17 06:48 | PM.PNNEP ---
Progress Note: A&P Assessment and Plan (1) Acute on chronic renal failure: Qualifiers: Acute renal failure type: unspecified Chronic kidney disease stage: unspecified stage Qualified Code(s): N17.9 - Acute kidney failure, unspecified; N18.9 - Chronic kidney disease, unspecified Code(s): N17.9 - Acute kidney failure, unspecified; N18.9 - Chronic kidney disease, unspecified Status: Acute Assessment and Plan: Mike has chronic kidney disease. This is from hypertension and diabetes. His baseline creatinine is in the 30s or so. This gives him stage IIIB chronic kidney disease. The patient also has acute kidney injury. he received IV fluids. Creatinine is not very much better but he is still having lots of diarrhea. continue IV fluids and blood pressure support. (2) Diarrhea: Qualifiers: Diarrhea type: unspecified type Qualified Code(s): R19.7 - Diarrhea, unspecified Code(s): R19.7 - Diarrhea, unspecified Status: Acute Assessment and Plan: The patient apparently has chronic diarrhea as well. This has worsened lately. Will leave evaluation of this up to the hospitalist. (3) Anemia: Qualifiers: Anemia type: iron deficiency Iron deficiency anemia type: unspecified iron deficiency Qualified Code(s): D50.9 - Iron deficiency anemia, unspecified Code(s): D64.9 - Anemia, unspecified Status: Chronic Assessment and Plan: His hemoglobin is lower than usual. On IV iron for now while he is in the hospital. If it turns out that he has an infection then we should stop the IV iron. Check stool guaiac (4) Metabolic acidosis: Code(s): E87.2 - Acidosis Status: Acute Assessment and Plan: Patient has a metabolic acidosis with a high anion gap. His baseline anion gap is around 10 and now it is running around 17. Most likely this anion gap is due to uremic toxins. His lactic acid level was a tiny bit high which also would contribute. His sugars have been good so I doubt if he has ketosis. Dropped a little bit with hydration overnight. Will change to a bicarb IV infusion. (5) Chronic atrial fibrillation with RVR: Code(s): I48.20 - Chronic atrial fibrillation, unspecified Status: Acute Assessment and Plan: Heart rate is doing better. (6) Hypertension: Qualifiers: Hypertension type: essential hypertension Qualified Code(s): I10 - Essential (primary) hypertension Code(s): I10 - Essential (primary) hypertension Status: Chronic Assessment and Plan: Now hypotensive. (7) Lymphedema: Code(s): I89.0 - Lymphedema, not elsewhere classified Status: Acute Assessment and Plan: This is controlled by compression system at home (8) Type 2 diabetes mellitus with diabetic neuropathy: Qualifiers: Diabetes mellitus rodent exterminator insulin use: with residential use Qualified Code(s): E11.40 - Type 2 diabetes mellitus with diabetic neuropathy, unspecified; Z79.4 - intermodal customer service (current) use of insulin Code(s): E11.40 - Type 2 diabetes mellitus with diabetic neuropathy, unspecified Status: Chronic Assessment and Plan: On Accu-Cheks and sliding-scale insulin (9) Sleep apnea: Qualifiers: Sleep apnea type: obstructive Qualified Code(s): G47.33 - Obstructive sleep apnea (adult) (pediatric) Code(s): G47.30 - Sleep apnea, unspecified Status: Chronic Assessment and Plan: He uses a CPAP mask at home Subjective Date/time seen: 08/17/20 06:48 Interval history: Mike is feeling about the same today. Not eating very well. Still has copious amounts of diarrhea no chest pain or shortness of breath. Last night he dropped his pressure into the 60s. He was given some IV fluids but this did not improve so he was moved to the ICU. Now he is on norepinephrine at 5 mics per minute and also
[2020-08-17] MEDS: SODIUM BICARBONATE 8.4% 50 MEQ/50 ML SYRINGE IV PUSH (07:32)
--- NOTE | 2020-08-17 07:47 | PM.IMPN ---
Progress Note: A&P Assessment and Plan (1) Shock: Code(s): R57.9 - Shock, unspecified Status: Acute Assessment and Plan: Patient developed low BP around the time he was changed to oral Diltiazem last night. Other anti-HTN medicatins stopped but BP continued to decline requiring central line placement and Levophed to be started. Not initially fluid response. LA 14 but normal on repeat at 0.9 and suspect more likely related to HoTN then sepsis. BCx NGTD. Seems more hypovolemic related to the diarrhea. Continue Levophed and IV fluids. Wean off Levophed as toelrated. Appreciate program supervisor input. (2) Acute on chronic renal failure: Qualifiers: Acute renal failure type: unspecified Chronic kidney disease stage: unspecified stage Qualified Code(s): N17.9 - Acute kidney failure, unspecified; N18.9 - Chronic kidney disease, unspecified Code(s): N17.9 - Acute kidney failure, unspecified; N18.9 - Chronic kidney disease, unspecified Status: Acute Assessment and Plan: Creatinine 4.8 admission. Baseline creatinine last month was 1.8. Bilateral renal stones and low-density lesions in the kidneys most likely cysts. Renal ultrasound showed mild cortical thinning but no hydronephrosis. Metabolic acidosis noted but potassium is normal. [place] related to dehydration from his diarrhea and poor oral intake. He is not on diuretics at home. Treated with IV fluids with bicarb. Acidosis improving with anion gap trending downward to 13 today. Cr overall improved to 3.9 (Cr 2.1 overnight but unclear if this is accurate). Nephrology following. Appreciate their input. (3) Metabolic acidosis: Code(s): E87.2 - Acidosis Status: Acute Assessment and Plan: Bicarb of 12 and anion gap of 17 on admission. PH is 7.196 all consistent with metabolic acidosis felt related to his renal failure complicated by the diarrhea. AG improved to 13 yesterday but had HoTN last ngiht with LA up 14. LA normal now at 0.9 with AG 13 and Bicarb 14. pH 7.23 now. Remains on Bicarb drip. Continue current treatment plan. Continue monitor. (4) Ileus: Code(s): K56.7 - Ileus, unspecified Status: Acute Assessment and Plan: Proximal dilated small-bowel loops and a diffusely dilated colon with air-fluid levels consistent with ileus. This is most likely infectious etiology. Stool culture has been sent. Cryptosporidium and giardia negative. C diff is negative. Other studies are pending. Consider ischemic bowel. Continue supportive care. Would advance diet as tolerated since diarrhea unlikely to improve on liquid diet when okay with GenSurg. (5) Chronic atrial fibrillation with RVR: Code(s): I48.20 - Chronic atrial fibrillation, unspecified Status: Acute Assessment and Plan: Patient has chronic AFib on Toprol XL for rate control and Eliquis for stroke prophylaxis. Patient was mildly tachycardic on admission and started on diltiazem drip. Tachycardia most likely related to dehydration. He was transitioned to a short-acting diltiazem p.o. but this has been stopped. Now with HoTN and AFlutter with SVR. Will hold Toprol. Continue Eliquis. (6) Type 2 diabetes mellitus with hyperglycemia: Qualifiers: Diabetes mellitus long-term insulin use: with long term care administrator use Qualified Code(s): E11.65 - Type 2 diabetes mellitus with hyperglycemia; Z79.4 - computer terminal operator (current) use of insulin Code(s): E11.65 - Type 2 diabetes mellitus with hyperglycemia Status: Acute Assessment and Plan: A1c 7.1. The patient's blood glucose was reviewed on 08/17 Glucose remains well controlled. Continue AccuCheks covering with sliding scale. Hypoglycemia protocol available as needed. Lantus on hold (7) Sleep apnea: Qualifiers: Sleep apnea type: obstructive Qualified Code(s): G47.33 - Obstructive sleep apnea (adult) (pediatric) Code(s): G47.30 -
[2020-08-17 08:42] LABS: Glucose Point of Care 81 mg/dl (65-105)
[2020-08-17] MEDS: IRON SUCROSE COMPLEX 200 MG in SODIUM CHLORIDE 0.9% IV 50 ML 120 MG IVPB (08:47)
[2020-08-17] MEDS: TOLNAFTATE 1% POWDER 45 GM BTL 1 APPLIC TOPICAL ×2 (08:50→20:13)
[2020-08-17] MEDS: PANTOPRAZOLE 40 MG TABLET PO ×2 (08:51→17:19)
[2020-08-17] MEDS: POTASSIUM CHLORIDE 20 MEQ TABLET.ER 40 MEQ PO ×2 (08:52→12:22)
[2020-08-17] MEDS: APIXABAN 5 MG TABLET PO ×2 (08:52→20:12)
[2020-08-17] MEDS: allopurinoL 300 MG TABLET PO (08:52)
[2020-08-17] MEDS: PRAMIPEXOLE 0.5 MG TABLET 1.5 MG PO ×2 (08:53→17:16)
[2020-08-17] MEDS: SERTRALINE HCL 50 MG TABLET 100 MG PO ×2 (08:53→20:11)
[2020-08-17] MEDS: COLLAGENASE OINT 30 GM TUBE 1 APPLIC TOPICAL ×2 (08:54→20:12)
[2020-08-17] MEDS: busPIRone HCL 5 MG TABLET PO ×3 (08:54→17:18)
[2020-08-17] MEDS: SODIUM BICARBONATE TAB 650 MG TABLET PO ×3 (09:10→17:19)
[2020-08-17] MEDS: SODIUM BICARBONATE 8.4% 150 MEQ in WATER, STERILE FOR INJECTION 950 ML 100 MEQ IV CONT ×2 (09:12→19:49)
[2020-08-17] MEDS: HYDROcodone/acetaminophen (*CRX) 5-325 MG TABLET 1 TAB PO ×2 (09:15→20:13)
[2020-08-17 09:53] LABS: Lipase 80 U/L (23-300)
--- NOTE | 2020-08-17 10:28 | WPDCNINT ---
Assessment and Plan Assessment and plan (1) Shock: Code(s): R57.9 - Shock, unspecified Status: Acute Assessment and Plan: Secondary to sepsis, intravascular dehydration versus rate control medications He did receive IV fluid bolus and is now on IV fluid maintains Continue Levophed titration to maintain map His lactic acid has cleared and he denies any abdominal pain at this time Empiric cefepime and Flagyl were added last night His C diff was negative Hold blood pressure medications (2) Acute on chronic renal failure: Qualifiers: Acute renal failure type: unspecified Chronic kidney disease stage: unspecified stage Qualified Code(s): N17.9 - Acute kidney failure, unspecified; N18.9 - Chronic kidney disease, unspecified Code(s): N17.9 - Acute kidney failure, unspecified; N18.9 - Chronic kidney disease, unspecified Status: Acute Assessment and Plan: Creatinine 4.8 admission. Baseline creatinine last month was 1.8. Bilateral renal stones and low-density lesions in the kidneys most likely cysts. Renal ultrasound showed mild cortical thinning but no hydronephrosis. Continue IV fluids with bicarb metabolic acidosis Replace potassium Added p.o. bicarb Nephrology is following patient Continue to monitor urine output electrolytes May need hemodialysis if continues to worsen (3) Metabolic acidosis: Code(s): E87.2 - Acidosis Status: Acute Assessment and Plan: IV fluid with bicarbonate p.o. bicarb (4) Diarrhea: Qualifiers: Diarrhea type: unspecified type Qualified Code(s): R19.7 - Diarrhea, unspecified Code(s): R19.7 - Diarrhea, unspecified Status: Acute Assessment and Plan: CT A/P IMPRESSION: 1. Few proximal dilated small bowel loops. Diffusely dilated colon with air-fluid levels. Findings compatible with ileus. 2: Mild gallbladder distention with ill-defined gallbladder wall. Cannot exclude gallbladder wall thickening. No definite gallstones. 3: Mildly enlarged retroperitoneal/left periaortic lymph nodes, most likely reactive. Blood Cx Pending Escherichia coli Shiga Toxins - Pending Campylobacter Culture - Pending Salmonella/Shigella Culture - Pending Clostridioides difficile Toxin Assay - Final Cryptosporidium Exam - Final Giardia Antigen (OZIEL) - Final On Cefepime and Flagyl IVF Currently denies any abdominal pain. Monitor stool output Check lipase and TSH (5) Ileus: Code(s): K56.7 - Ileus, unspecified Status: Acute Assessment and Plan: Proximal dilated small-bowel loops and a diffusely dilated colon with air-fluid levels consistent with ileus. This is most likely infectious etiology. Stool culture has been sent. Cryptosporidium and giardia negative. C diff is negative. Patient's lactate quickly cleared he currently denies any abdominal pain suggesting against ischemic possibility Continue supportive care. Advance diet as tolerated by patient. (6) Chronic atrial fibrillation with RVR: Code(s): I48.20 - Chronic atrial fibrillation, unspecified Status: Acute Assessment and Plan: Patient has chronic AFib on Toprol XL for rate control and Eliquis for stroke prophylaxis. Patient was mildly tachycardic on admission and started on diltiazem drip. Tachycardia most likely related to dehydration. He was transitioned to a short-acting diltiazem p.o. but this has been stopped. Monitor heart rate If he goes into RVR depending on his pressor requirement will decide whether to use Cardizem infusion or amiodarone Continue Eliquis. (7) Type 2 diabetes mellitus with hyperglycemia: Qualifiers: Diabetes mellitus long-term insulin use: with termite treater helper use Qualified Code(s): E11.65 - Type 2 diabetes mellitus with hyperglycemia; Z79.4 - FPC (current) use of insulin Code(s): E11.65 - Type 2 diabetes mellitus with hyperglycemia Status: Acute As
--- NOTE | 2020-08-17 11:28 | PCDIET ---
ICU Rounding Note: Patient consumed 25% of meals on clear liquid diet 08/16/20. MD ordering diet to advance to regular. Last recorded weight is 219kg. Suspect initial weight was inaccurate. Bowel Motility: +BMs - stool cultures being obtained. Labs Reviewed: Hgb (7.5), Hct (24.2), BUN (99), Cr (3.9), K (3.2), Alb (2.5), Fred Ca (9.1), PO4 (9.2), Prealbumin (9.3), CRP (13.8) Meds Noted: [place], Albumin, Zyloprim, Maxipime, Lantus, Iron Sucrose, Synthroid, Toprol XL, Flagyl, Levophed, Protonix, KCl, Water/150mEq Sodium Bicarbonate at 100mL/hr, Sodium Bicarbonate tab Additional Notes: Integumentary notes reviewed. Following daily in ICU rounds. Assessing/reassessing every 3 days.
[2020-08-17 11:49] LABS: IFOB Positive Control Positive; Immunochemical Fecal Occult Bl Negative (N)
[2020-08-17] MEDS: ALBUMIN HUMAN 25% 25 GM/100 ML 100 ML IVPB ×3 (12:20→23:32)
[2020-08-17 12:31] LABS: Glucose Point of Care 70 mg/dl (65-105)
[2020-08-17] MEDS: CENTRAL LINE FLUSH 10 ML IV PUSH ×5 (13:23→21:26)
[2020-08-17 16:51] LABS: Glucose Point of Care 77 mg/dl (65-105)
--- NOTE | 2020-08-17 18:06 | WPDGIPROGNO ---
Progress Note: A&P Assessment and Plan (1) Shock: Code(s): R57.9 - Shock, unspecified Status: Acute Assessment and Plan: elevated lactic acid and hypotension yesterday but improved today, still low dose levophed continue icu management (2) Diarrhea: Qualifiers: Diarrhea type: unspecified type Qualified Code(s): R19.7 - Diarrhea, unspecified Code(s): R19.7 - Diarrhea, unspecified Status: Acute Assessment and Plan: c diff negative and other stool test pending supportive care consider colonoscopy maybe saturday after he can be off pressors (3) Acute on chronic renal failure: Qualifiers: Acute renal failure type: unspecified Chronic kidney disease stage: unspecified stage Qualified Code(s): N17.9 - Acute kidney failure, unspecified; N18.9 - Chronic kidney disease, unspecified Code(s): N17.9 - Acute kidney failure, unspecified; N18.9 - Chronic kidney disease, unspecified Status: Acute Assessment and Plan: continue to monitor (4) Metabolic acidosis: Code(s): E87.2 - Acidosis Status: Acute (5) Chronic atrial fibrillation with RVR: Code(s): I48.20 - Chronic atrial fibrillation, unspecified Status: Acute (6) Diabetic gastroparesis: Code(s): E11.43 - Type 2 diabetes mellitus with diabetic autonomic (poly)neuropathy; K31.84 - Gastroparesis Status: Acute Assessment and Plan: nausea better, probably can do egd with colonoscopy this Saturday (7) Long-term insulin use in type 2 diabetes: Qualifiers: Diabetes mellitus complication status: with other specified complication Qualified Code(s): E11.69 - Type 2 diabetes mellitus with other specified complication; Z79.4 - nursing home (current) use of insulin Code(s): E11.9 - Type 2 diabetes mellitus without complications; Z79.4 - at risk paraprofessional (current) use of insulin Status: Chronic (8) Acute on chronic blood loss anemia: Code(s): D62 - Acute posthemorrhagic anemia Status: Acute Assessment and Plan: fobt was negative Subjective Date/time seen: 08/17/20 18:06 Interval history: transferred to icu yesterday after hypotension despite fluids, on low dose of levophed now, also received albumin with more fluids. Now he is feeling better but still with diarrhea. FOBT was negative, no nausea and tolerating diet Review of Systems Review of Systems: All systems reviewed & are unremarkable except as noted in HPI and below Exam Const: General: comfortable, no acute distress, alert, awake and ill appearing chronically Nutritional Appearance: obese morbidly obese Orientation/consciousness: patient oriented x3 HENMT: Head: normocephalic and atraumatic Ears: hearing grossly normal bilaterally General nose exam: Normal nares present Eyes: Pupils: Equal, round and reactive pupils present Neck: Neck: normal visual inspection, full ROM and supple Resp: Effort & Inspection: able to speak in complete sentences and no respiratory distress Auscultation: clear to auscultation bilaterally Cardio: Rhythm: abnormal rhythm irregularly irregular GI: Inspection: Pannus present and obesity GI Palp: Yes Soft to palpation, No Firmness to palpation present (GI), Yes Tenderness to palpation present (GI) (diffusely across lower abd), No Guarding due to palpation present (GI) and No Rebound tenderness present Auscultation: normal bowel sounds Other: Rectal tube in place with liquid stool. Urinary Catheter: Urinary Catheter: patent and draining Skin: General skin exam: pallor Other: Right BKA with lymphedema. Left lower leg with chronic venous stasis changes Sacral wound stable Neuro: General: patient oriented x3, moves all extremities and no focal motor deficits Speech: normal speech Extrem: General: amputation noted Below the knee: right (with lymphedema) and pedal edema Psych: Mental Status: mental status grossly normal Objective Data Vital
[2020-08-17 20:09] LABS: Glucose Point of Care 116 mg/dl (65-105)
--- NOTE | 2020-08-17 21:29 | PM.PNGS ---
Progress Note: A&P Assessment and Plan (1) Lymphedema: Onset Date: Unknown Code(s): I89.0 - Lymphedema, not elsewhere classified Status: Acute Assessment and Plan: Long-standing/chronic. Pt's mother has brought his measured copression hose that we can use to try to help this. Will have her show pt's nurse how they usulally put it on ans use the one for his left foot and lower leg. I believe that we could then apply our below the knee SCD hose over these and then let them help push some edema out of atleast that leg. Would hold off using these for now on the RT. leg in view of the open superficial wounds that are present on the back of his Rt. thigh. (2) Anticoagulant long-term use: Onset Date: Unknown Code(s): Z79.01 - nursing home (current) use of anticoagulants Status: Acute Assessment and Plan: Continue due to his A-fib and DVT risk. (3) Sacral wound: Onset Date: Unknown Code(s): S31.000A - Unspecified open wound of lower back and pelvis without penetration into retroperitoneum, initial encounter Status: Acute Assessment and Plan: Continue use of Miconizole antifungal creeame kand some Santyl for chemical debridement in the areas of brownish necrosis Subjective Subjective Date/Time Seen: 08/17/20 21:29 Interval history: Pt transferred to ICU last night after bradycardia and hypotension. No real changes with wounds per his ICU nurse. Pt alert and awake. HE states he feels weak but is not really in pain. Review of Systems Constitutional: Constitutional: Reports no additional constitutional complaints, Reports lethargy and Reports malaise ENT: Reports other (Mucous Membranes moist.) Cardiovascular: Cardiovascular: Denies dyspnea Respiratory: Respiratory: Denies pain on inspiration and Denies dyspnea Musculoskeletal: Musculoskeletal: Reports other (No calf swelling or edema) Integumentary/Breasts: Skin/Breast: Reports system reviewed and no additional complaints, except as docu Exam Const: General: cooperative, no acute distress, alert and awake Orientation/consciousness: patient oriented x3 HENMT: Mouth: Yes moist mucous membranes Neck: Neck: normal visual inspection Chest: Chest palpation & inspection: normal inspection of the chest Resp: Effort & Inspection: normal respiratory effort Auscultation: clear to auscultation bilaterally Cardio: Jugular venous distension: no JVD Rate: regular rate Rhythm: regular rhythm GI: Rectal Exam: deferred Urinary Catheter: Urinary Catheter: patent and draining and urine clear Skin: Wounds: wounds noted (sacral decubitus not seen todaysome areas of superficial necrosis noted08/16 ) maceration right posterior upper leg without odor, open and with surrounding erythema Neuro: General: patient oriented x3 and moves all extremities Speech: normal speech Extrem: General: normal exam except as noted Right lower extremity: edema Details: 3+ (stump and leg nearly to groin) Left lower extremity: edema Details: pitting and 3+ (foot and lower leg to groin.) Psych: Mental Status: mental status grossly normal Speech and movement: Normal speech and movement present Affect: normal affect Thought content: Yes Normal thought content present Objective Data Vital Signs Vital Signs: Vital Signs - 24 hr 08/16/20 22:00 08/16/20 22:10 08/16/20 23:43 Temperature 36.5 C Pulse Rate 39 L 59 L 77 Respiratory Rate 18 Blood Pressure 77/35 L Pulse Oximetry 98 08/16/20 23:53 08/17/20 00:00 08/17/20 00:15 Temperature 36.5 C Pulse Rate 95 Respiratory Rate 21 H Blood Pressure 102/58 L 92/64 L 96/59 L Pulse Oximetry 97 08/17/20 02:00 08/17/20 02:15 08/17/20 02:38 Temperature Pulse Rate 77 63 Respiratory Rate 18 Blood Pressure 97/55 L 102/55 L 64/46 L Pulse Oximetry 98 08/17/20 03:04 08/17/20 04:00 08/17/20 04:16 Temperature 36.4 C Pulse Rate 73 60 58 L Respiratory Rate
[2020-08-17 21:47] LABS: Glucose Point of Care 99 mg/dl (65-105)
[2020-08-18] VITALS (27 sets, daily range): BP systolic 98–156; BP diastolic 47–88; PULSE 67–105; RESP 17–25; TEMP 36.2–36.6; O2SAT 93–100
[2020-08-18 00:41] LABS: Glucose Point of Care 85 mg/dl (65-105)
[2020-08-18 04:38] LABS: Basophils Percent Auto 0.1 % (0.2-1.2); Eosinophils Absolute Auto 0.3 K/mm3 (0-0.3); Eosinophils Percent Auto 2.8 % (0-4.4); Immature Granulocyte Absolute 0.07 K/mm3 (0.00-0.031); Immature Granulocyte Percent A 0.8 % (0-0.5); Lymphocytes Absolute Auto 0.41 K/mm3 (0.9-3.2); Lymphocytes Percent Auto 4.5 % (18.3-44.2); Mean Corpuscular Hemoglobin 25.8 pg (26-34); Mean Corpuscular Volume 80.5 fl (80-100); Mean Platelet Volume 8.7 fl (7.4-10.4); Monocytes Absolute Auto 0.5 K/mm3 (0.1-0.6); Neutrophils Percent Auto 86.8 % (45.5-73.1); Nucleated Red Blood Cells Perc 0.3 % (0.0-0.2); Platelet Count Result 541 k/mm3 (150-375); Red Blood Count 2.56 M/mm3 (4.6-6.20); Red Cell Distribution Width 16.7 % (11.5-14.5); White Blood Count 9.2 K/mm3 (4.5-10.0)
[2020-08-18 04:56] LABS: Lactic Acid Reflex 0.6 mmol/L (0.7-2.1)
[2020-08-18 05:03] LABS: Alanine Aminotransferase 8 U/L (4-50); Albumin Level 2.6 g/dL (3.5-5.1); Alkaline Phosphatase 104 U/L (38-126); Anion Gap 10 mmol/L (8-16); Aspartate Amino Transferase 24 U/L (17-59); Bilirubin,Total < 0.1 mg/dL (0.2-1.3); Blood Urea Nitrogen 92 mg/dL (9-20); CRP 7.5 mg/dL (<1.0); Calcium 7.6 mg/dL (8.4-10.2); Carbon Dioxide 19 mmol/L (22-30); Chloride 111 mmol/L (98-107); Estimated CRCL calculation 43 ml/min; Estimated Glomerular Filt Rate 18; Glucose 87 mg/dL (75-110); Magnesium 2.1 mg/dL (1.6-2.3); Phosphorus 7.5 mg/dL (2.5-4.5); Potassium 2.9 mmol/L (3.4-5.0); Sodium 140 mmol/L (137-145)
[2020-08-18] MEDS: ALBUMIN HUMAN 25% 25 GM/100 ML 100 ML IVPB ×4 (05:21→23:25)
[2020-08-18] MEDS: CENTRAL LINE FLUSH 10 ML IV PUSH ×7 (05:22→21:21)
[2020-08-18] MEDS: metroNIDAZOLE 500 MG/ISO 100ML 500 MG/100 ML BAG 100 MG IVPB ×4 (05:22→23:26)
[2020-08-18 05:32] LABS: Hematocrit 20.6 % (42.0-52.0); Hemoglobin 6.6 g/dL (14.0-18.0)
[2020-08-18] MEDS: SODIUM BICARBONATE 8.4% 150 MEQ in WATER, STERILE FOR INJECTION 950 ML 100 MEQ IV CONT (06:35)
[2020-08-18] MEDS: POTASSIUM CHLORIDE 20 MEQ TABLET 40 MEQ PO ×2 (06:58→18:01)
[2020-08-18] MEDS: LEVOTHYROXINE SODIUM 100 MCG TABLET PO (06:59)
[2020-08-18 07:19] LABS: Glucose Point of Care 103 mg/dl (65-105)
[2020-08-18 07:19] LABS: Glucose Point of Care 71 mg/dl (65-105)
--- NOTE | 2020-08-18 08:10 | WPDINTPN ---
Progress Note: A&P Assessment and Plan (1) Shock: Code(s): R57.9 - Shock, unspecified Status: Acute Assessment and Plan: Secondary to sepsis, intravascular dehydration versus rate control medications He did receive IV fluid bolus and is now on IV fluid maintenance Levophed titrated down this morning Degrees IV fluid to 50 mL/hour His lactic acid has cleared and he denies any abdominal pain at this time Empiric cefepime and Flagyl were added last night His C diff was negative Continue to Hold blood pressure medications (2) Acute on chronic renal failure: Qualifiers: Acute renal failure type: unspecified Chronic kidney disease stage: unspecified stage Qualified Code(s): N17.9 - Acute kidney failure, unspecified; N18.9 - Chronic kidney disease, unspecified Code(s): N17.9 - Acute kidney failure, unspecified; N18.9 - Chronic kidney disease, unspecified Status: Acute Assessment and Plan: Creatinine 4.8 admission. Baseline creatinine last month was 1.8. Bilateral renal stones and low-density lesions in the kidneys most likely cysts. Renal ultrasound showed mild cortical thinning but no hydronephrosis. Creatinine marginally better at 3.5 today and BUN is at 92 Decreased but Continue IV fluids with bicarb metabolic acidosis for today Replace potassium again today recheck BMP in the afternoon Continue p.o. bicarb Nephrology is following patient Continue to monitor urine output electrolytes May need hemodialysis if worsens but not indicated at this time (3) Metabolic acidosis: Code(s): E87.2 - Acidosis Status: Acute Assessment and Plan: IV fluid with bicarbonate and p.o. bicarb (4) Diarrhea: Qualifiers: Diarrhea type: unspecified type Qualified Code(s): R19.7 - Diarrhea, unspecified Code(s): R19.7 - Diarrhea, unspecified Status: Acute Assessment and Plan: CT A/P IMPRESSION: 1. Few proximal dilated small bowel loops. Diffusely dilated colon with air-fluid levels. Findings compatible with ileus. 2: Mild gallbladder distention with ill-defined gallbladder wall. Cannot exclude gallbladder wall thickening. No definite gallstones. 3: Mildly enlarged retroperitoneal/left periaortic lymph nodes, most likely reactive. Blood Cx Pending Escherichia coli Shiga Toxins - Pending Campylobacter Culture - Pending Salmonella/Shigella Culture - Pending Clostridioides difficile Toxin Assay - Final Cryptosporidium Exam - Final Giardia Antigen (OZIEL) - Final On Cefepime and Flagyl IVF Currently denies any abdominal pain. Monitor stool output which has not been significant Normal lipase and TSH (5) Ileus: Code(s): K56.7 - Ileus, unspecified Status: Acute Assessment and Plan: Proximal dilated small-bowel loops and a diffusely dilated colon with air-fluid levels consistent with ileus. This is most likely infectious etiology. Stool culture has been sent. Cryptosporidium and giardia negative. C diff is negative. Patient's lactate quickly cleared he currently denies any abdominal pain suggesting against ischemic possibility Continue supportive care. Advance diet as tolerated by patient. (6) Chronic atrial fibrillation with RVR: Code(s): I48.20 - Chronic atrial fibrillation, unspecified Status: Acute Assessment and Plan: Patient has chronic AFib on Toprol XL for rate control and Eliquis for stroke prophylaxis. Patient was mildly tachycardic on admission and started on diltiazem drip. Tachycardia most likely related to dehydration. He was transitioned to a short-acting diltiazem p.o. but this has been stopped. Monitor heart rate If he goes into RVR depending on his pressor requirement will decide whether to use Cardizem infusion or amiodarone Continue Eliquis. (7) Type 2 diabetes mellitus with hyperglycemia: Qualifiers: Diabetes mellitus assisted insulin use: with assisted
[2020-08-18] MEDS: IRON SUCROSE COMPLEX 200 MG in SODIUM CHLORIDE 0.9% IV 50 ML 120 MG IVPB (09:07)
[2020-08-18] MEDS: APIXABAN 5 MG TABLET PO ×2 (09:20→20:17)
[2020-08-18] MEDS: SERTRALINE HCL 50 MG TABLET 100 MG PO ×2 (09:20→20:17)
[2020-08-18] MEDS: busPIRone HCL 5 MG TABLET PO ×3 (09:20→18:02)
[2020-08-18] MEDS: allopurinoL 300 MG TABLET PO (09:20)
[2020-08-18] MEDS: PRAMIPEXOLE 0.5 MG TABLET 1.5 MG PO ×3 (09:20→18:04)
[2020-08-18] MEDS: PANTOPRAZOLE 40 MG TABLET PO ×2 (09:20→18:03)
[2020-08-18] MEDS: SODIUM BICARBONATE TAB 650 MG TABLET PO ×3 (09:20→18:03)
--- NOTE | 2020-08-18 09:47 | PM.IMPN ---
Progress Note: A&P Assessment and Plan (1) Shock: Code(s): R57.9 - Shock, unspecified Status: Acute Assessment and Plan: Patient developed low BP around the time he was changed to oral Diltiazem in the evening hours of 08/16; Anti-HTN medications stopped but BP continued to decline requiring central line placement and Levophed started. Not initially fluid responsive. LA 14 at that time but normal on repeat at 0.9 and suspect more likely related to HoTN then sepsis (poor collection method?). BCx NGTD. Otis more likely hypovolemic related to the diarrhea. Levophed weaned off earlier this morning. Continue IV fluids. Continue to monitor in ICU. Appreciate security system installer input - discussed. (2) Acute on chronic renal failure: Qualifiers: Acute renal failure type: unspecified Chronic kidney disease stage: unspecified stage Qualified Code(s): N17.9 - Acute kidney failure, unspecified; N18.9 - Chronic kidney disease, unspecified Code(s): N17.9 - Acute kidney failure, unspecified; N18.9 - Chronic kidney disease, unspecified Status: Acute Assessment and Plan: Creatinine 4.8 admission. Baseline creatinine last month was 1.8. Bilateral renal stones and low-density lesions in the kidneys most likely cysts. Renal ultrasound showed mild cortical thinning but no hydronephrosis. Metabolic acidosis noted on admission. Otis related to dehydration from his diarrhea and poor oral intake. He is not on diuretics at home. Treated with IV fluids with bicarb. Acidosis improving with anion gap trending downward to 10 today. Cr overall improved to 3.5. Nephrology following. Appreciate their input. (3) Metabolic acidosis: Code(s): E87.2 - Acidosis Status: Acute Assessment and Plan: Bicarb of 12 and anion gap of 17 on admission. PH is 7.196 all consistent with metabolic acidosis felt related to his renal failure complicated by the diarrhea. AG improved to 13 but had HoTN that ngiht with LA up 14. LA normal 0.6 with AG 10 and Bicarb 19. Remains on Bicarb drip. Continue current treatment plan. Continue monitor. (4) Ileus: Code(s): K56.7 - Ileus, unspecified Status: Acute Assessment and Plan: Proximal dilated small-bowel loops and a diffusely dilated colon with air-fluid levels consistent with ileus. This is most likely infectious etiology. Stool culture has been sent. Cryptosporidium and giardia negative. C diff is negative. Other studies are pending. Consider ischemic bowel. Diarrhea up to 2L on admission but now much improved with only 30mL out overnight. Continue supportive care. Currently advanced to a regular diet and appears to be toelrating well. (5) Chronic atrial fibrillation with RVR: Code(s): I48.20 - Chronic atrial fibrillation, unspecified Status: Acute Assessment and Plan: Patient has chronic AFib on Toprol XL for rate control and Eliquis for stroke prophylaxis. Patient was mildly tachycardic on admission and started on diltiazem drip. Tachycardia most likely related to dehydration. He was transitioned to a short-acting diltiazem p.o. but this was stopped due to the HoTN. Tele showing AFlutter. Will continue to hold Toprol. Continue Eliquis. 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 The patient's blood glucose was reviewed on 08/18 Glucose remains well controlled. Continue AccuCheks covering with sliding scale. Hypoglycemia protocol available as needed. Lantus remains on hold (7) Sleep apnea: Qualifiers: Sleep apnea type: obstructive Qualified Code(s): G47.33 - Obst
--- NOTE | 2020-08-18 10:49 | P.PNNP_ITS ---
Progress Note: A&P Assessment and Plan (1) KONSTANTIN (acute kidney injury): Code(s): N17.9 - Acute kidney failure, unspecified Status: Acute Assessment and Plan: * likely due to prerenal factors and hemodynamic instability * with improvement in BP and IVF resuscitation, kidney function improving * follow repeat labs and UOP * continue supportive therapy (2) Stage 3b chronic kidney disease: Code(s): N18.32 - Chronic kidney disease, stage 3b Status: Chronic Assessment and Plan: * baseline creatinine runs around 1.6 - 2.1mg/dl * however, he has fluctuated to extremes with hospitalizations * this is secondary to hypertension and diabetes (3) Diarrhea: Qualifiers: Diarrhea type: unspecified type Qualified Code(s): R19.7 - Diarrhea, unspecified Code(s): R19.7 - Diarrhea, unspecified Status: Acute Assessment and Plan: * likely playing a role with #1 * has chronic diarrhea at baseline as well * GI following (4) Anemia: Qualifiers: Anemia type: iron deficiency Iron deficiency anemia type: unspecified iron deficiency Qualified Code(s): D50.9 - Iron deficiency anemia, unspecified Code(s): D64.9 - Anemia, unspecified Status: Chronic Assessment and Plan: * partly related to CKD along with KONSTANTIN and acute illness * PRBC transfusion per protocol * consider Epogen while hospitalized (5) Metabolic acidosis: Code(s): E87.2 - Acidosis Status: Acute Assessment and Plan: * related to uremic toxins fro KONSTANTIN and mild lactic acidosis * compensating with bicarb IVFs * follow trend (6) Chronic atrial fibrillation with RVR: Code(s): I48.20 - Chronic atrial fibrillation, unspecified Status: Chronic Assessment and Plan: * continue rate control strategy * on eliquis (7) Hypertension: Qualifiers: Hypertension type: essential hypertension Qualified Code(s): I10 - Essential (primary) hypertension Code(s): I10 - Essential (primary) hypertension Status: Chronic Assessment and Plan: * BP doing better at this time (was hypotensive) * off vasopressor therapy * follow trend of hemodynamics (8) Type 2 diabetes mellitus with diabetic neuropathy: Qualifiers: Diabetes mellitus termite control service representative insulin use: with longterm use Qualified Code(s): E11.40 - Type 2 diabetes mellitus with diabetic neuropathy, unspecified; Z79.4 - intermodal dispatcher (current) use of insulin Code(s): E11.40 - Type 2 diabetes mellitus with diabetic neuropathy, unspecified Status: Chronic Assessment and Plan: * follow accu-cheks * on sliding-scale insulin Will continue to follow. Subjective Date/time seen: 08/18/20 10:49 Major complaint is that of weakness at the time of my visit; otherwise, he appears to be making slow improvement; he was weaned off levophed yesterday evening; he reports that his appetite is still poor but that he is trying to eat as tolerated; H/H noted to be low this AM. Exam Narrative: Exam Narrative: General: WD/WN male in NAD Heart: normal S1 and S2; no rub Lungs: clear to auscultation Abdomen: soft, nontender, nondistended, positive bowel sounds Extremities: no cyanosis or clubbing; 2+ edema; s/p right BKA Skin: chronic skin changes noted Objective Data Vital Signs Vital Signs: Vital Signs Temp Pulse Resp BP Pulse Ox
--- NOTE | 2020-08-18 10:49 | PM.PNNEP ---
Progress Note: A&P Assessment and Plan (1) KONSTANTIN (acute kidney injury): Code(s): N17.9 - Acute kidney failure, unspecified Status: Acute Assessment and Plan: likely due to prerenal factors and hemodynamic instability with improvement in BP and IVF resuscitation, kidney function improving follow repeat labs and UOP continue supportive therapy (2) Stage 3b chronic kidney disease: Code(s): N18.32 - Chronic kidney disease, stage 3b Status: Chronic Assessment and Plan: baseline creatinine runs around 1.6 - 2.1mg/dl however, he has fluctuated to extremes with hospitalizations this is secondary to hypertension and diabetes (3) Diarrhea: Qualifiers: Diarrhea type: unspecified type Qualified Code(s): R19.7 - Diarrhea, unspecified Code(s): R19.7 - Diarrhea, unspecified Status: Acute Assessment and Plan: likely playing a role with #1 has chronic diarrhea at baseline as well GI following (4) Anemia: Qualifiers: Anemia type: iron deficiency Iron deficiency anemia type: unspecified iron deficiency Qualified Code(s): D50.9 - Iron deficiency anemia, unspecified Code(s): D64.9 - Anemia, unspecified Status: Chronic Assessment and Plan: partly related to CKD along with KONSTANTIN and acute illness PRBC transfusion per protocol consider Epogen while hospitalized (5) Metabolic acidosis: Code(s): E87.2 - Acidosis Status: Acute Assessment and Plan: related to uremic toxins fro KONSTANTIN and mild lactic acidosis compensating with bicarb IVFs follow trend (6) Chronic atrial fibrillation with RVR: Code(s): I48.20 - Chronic atrial fibrillation, unspecified Status: Chronic Assessment and Plan: continue rate control strategy on eliquis (7) Hypertension: Qualifiers: Hypertension type: essential hypertension Qualified Code(s): I10 - Essential (primary) hypertension Code(s): I10 - Essential (primary) hypertension Status: Chronic Assessment and Plan: BP doing better at this time (was hypotensive) off vasopressor therapy follow trend of hemodynamics (8) Type 2 diabetes mellitus with diabetic neuropathy: Qualifiers: Diabetes mellitus senior living insulin use: with senior living use Qualified Code(s): E11.40 - Type 2 diabetes mellitus with diabetic neuropathy, unspecified; Z79.4 - intermediate accountant (current) use of insulin Code(s): E11.40 - Type 2 diabetes mellitus with diabetic neuropathy, unspecified Status: Chronic Assessment and Plan: follow accu-cheks on sliding-scale insulin Will continue to follow. Subjective Date/time seen: 08/18/20 10:49 Major complaint is that of weakness at the time of my visit; otherwise, he appears to be making slow improvement; he was weaned off levophed yesterday evening; he reports that his appetite is still poor but that he is trying to eat as tolerated; H/H noted to be low this AM. Exam Narrative: Exam Narrative: General: WD/WN male in NAD Heart: normal S1 and S2; no rub Lungs: clear to auscultation Abdomen: soft, nontender, nondistended, positive bowel sounds Extremities: no cyanosis or clubbing; 2+ edema; s/p right BKA Skin: chronic skin changes noted Objective Data Vital Signs Vital Signs: Vital Signs Temp Pulse Resp BP Pulse Ox 08/18/20 10:06 36.4 C L 91 18 130/67 97 08/18/20 10:00 91 20 130/67 98 08/18/20 09:18 36.2 C L 88 20 117/62 98 08/18/20 09:03 36.2 C L 91 22 H 117/62 99 08/18/20 08:00 36.2 C L 91 20 133/57 L 96 08/18/20 07:04 90 121/58 L 08/18/20 06:00 90 18 114/68 98 08/18/20 05:22 90 115/62 08/18/20 04:35 83 111/47 L 08/18/20 04:15 124/68 08/18/20 04:14 80 120/61 08/18/20 04:08 89 112/50 L 08/18/20 04:00 36.3 C L 89 19 112/50 L 97 08/18/20 03:21 89 118/57 L 08/18/20 03:08 8
--- NOTE | 2020-08-18 11:04 | PCDIET ---
ICU Rounding Note: Patient now on regular diet consuming roughly 25% of meals. Patient reports appetite remains low, but has tolerated regular diet without issues. Suggested small, frequent meals and snacks to maximize intake. Patient reports also taking Ensure Compact supplements. Recommend change to Nepro (425kcal, 19g protein) BID for higher protein/kcal and lower phosphorus content. Patient may also benefit from phosphorus binder with food. Last recorded weight is 230.1kg which is up from last review. +I/O. Bowel Motility: 350mL output 08/17/20 via [facility]. Labs Reviewed: Hgb (6.6), Hct (20.6), BUN (92), Cr (3.5), K (2.9), Fred Ca (8.72), PO4 (7.5) Meds Noted: [place], Maxipime, Albumin, Lantus, Iron Sucrose, Zyloprim, Synthroid, KCl, Flagyl, Protonix, Water/150mEq Sodium Bicarbonate at 150mL/hr, D5W/40mEq KCl at 125mL/hr Additional Notes: No change in skin reported. Following daily in ICU rounds. Assessing/reassessing every 3 days.
[2020-08-18] MEDS: COLLAGENASE OINT 30 GM TUBE 1 APPLIC TOPICAL ×2 (13:17→20:17)
[2020-08-18] MEDS: TOLNAFTATE 1% POWDER 45 GM BTL 1 APPLIC TOPICAL ×2 (13:17→20:17)
[2020-08-18 13:28] LABS: Glucose Point of Care 106 mg/dl (65-105)
[2020-08-18] MEDS: HYDROcodone/acetaminophen (*CRX) 5-325 MG TABLET 1 TAB PO (14:26)
[2020-08-18 14:45] LABS: Hematocrit 23.6 % (42.0-52.0); Hemoglobin 7.4 g/dL (14.0-18.0); Mean Corpuscular HGB Conc 31.4 g/dl (32-36); Mean Corpuscular Hemoglobin 25.7 pg (26-34); Mean Corpuscular Volume 81.9 fl (80-100); Mean Platelet Volume 8.3 fl (7.4-10.4); Platelet Count Result 497 k/mm3 (150-375); Red Blood Count 2.88 M/mm3 (4.6-6.20); Red Cell Distribution Width 16.9 % (11.5-14.5)
[2020-08-18 15:00] LABS: Anion Gap 12 mmol/L (8-16); Blood Urea Nitrogen 86 mg/dL (9-20); Calcium 7.6 mg/dL (8.4-10.2); Carbon Dioxide 18 mmol/L (22-30); Chloride 111 mmol/L (98-107); Estimated CRCL calculation 50 ml/min; Estimated Glomerular Filt Rate 21; Glucose 125 mg/dL (75-110); Potassium 3.1 mmol/L (3.4-5.0); Sodium 141 mmol/L (137-145)
--- NOTE | 2020-08-18 16:14 | WPDGIPROGNO ---
Progress Note: A&P Assessment and Plan (1) Shock: Code(s): R57.9 - Shock, unspecified Status: Acute Assessment and Plan: elevated lactic acid and hypotension resolved, probably mostly from diarrhea- stool samples negative thus far weaning off levophel and feeling better no abdominal pain he says that is not quite ready to undergo colonoscopy, he would like to wait if possible also received one unit prbc today given drop in hb but no signs of overt gib (2) Diarrhea: Qualifiers: Diarrhea type: unspecified type Qualified Code(s): R19.7 - Diarrhea, unspecified Code(s): R19.7 - Diarrhea, unspecified Status: Acute Assessment and Plan: c diff negative and other stool test pending supportive care (3) Acute on chronic renal failure: Qualifiers: Acute renal failure type: unspecified Chronic kidney disease stage: unspecified stage Qualified Code(s): N17.9 - Acute kidney failure, unspecified; N18.9 - Chronic kidney disease, unspecified Code(s): N17.9 - Acute kidney failure, unspecified; N18.9 - Chronic kidney disease, unspecified Status: Acute Assessment and Plan: continue to monitor nephrology (4) Metabolic acidosis: Code(s): E87.2 - Acidosis Status: Acute (5) Chronic atrial fibrillation with RVR: Code(s): I48.20 - Chronic atrial fibrillation, unspecified Status: Acute (6) Diabetic gastroparesis: Code(s): E11.43 - Type 2 diabetes mellitus with diabetic autonomic (poly)neuropathy; K31.84 - Gastroparesis Status: Acute Assessment and Plan: nausea better and tolerating diet we could do egd same time of colonoscopy (7) Long-term insulin use in type 2 diabetes: Qualifiers: Diabetes mellitus complication status: with other specified complication Qualified Code(s): E11.69 - Type 2 diabetes mellitus with other specified complication; Z79.4 - remote computer terminal operator (current) use of insulin Code(s): E11.9 - Type 2 diabetes mellitus without complications; Z79.4 - [facility] (current) use of insulin Status: Chronic (8) Acute on chronic blood loss anemia: Code(s): D62 - Acute posthemorrhagic anemia Status: Acute Assessment and Plan: s/p prbc today egd and colonoscopy if overt gib, patient says that would like to wait for now Subjective Date/time seen: 08/18/20 16:14 Interval history: still tired but overall better, levophed weaned off with better BP and less diarrhea (still fecal container), tolerating diet and denies nausea. Review of Systems Review of Systems: All systems reviewed & are unremarkable except as noted in HPI and below Exam Const: General: comfortable, no acute distress, alert, awake and ill appearing chronically Nutritional Appearance: obese morbidly obese Orientation/consciousness: patient oriented x3 HENMT: Head: normocephalic and atraumatic Ears: hearing grossly normal bilaterally General nose exam: Normal nares present Eyes: Pupils: Equal, round and reactive pupils present Neck: Neck: normal visual inspection, full ROM and supple Resp: Effort & Inspection: able to speak in complete sentences and no respiratory distress Auscultation: clear to auscultation bilaterally Cardio: Rhythm: abnormal rhythm irregularly irregular GI: Inspection: Pannus present and obesity GI Palp: Yes Soft to palpation, No Firmness to palpation present (GI), No Guarding due to palpation present (GI) and No Rebound tenderness present Auscultation: normal bowel sounds Other: Rectal tube in place with liquid stool. Urinary Catheter: Urinary Catheter: patent and draining Skin: General skin exam: pallor Other: Right BKA with lymphedema. Left lower leg with chronic venous stasis changes Sacral wound stable Neuro: General: patient oriented x3, moves all extremities and no focal motor deficits Speech: normal speech Extrem: General: amputation noted Below the knee: right (with lym
--- NOTE | 2020-08-18 16:24 | PM.PNGS ---
Progress Note: A&P Assessment and Plan (1) Lymphedema: Onset Date: Unknown Code(s): I89.0 - Lymphedema, not elsewhere classified Status: Acute Assessment and Plan: Long-standing/chronic. Pt's mother has brought his measured compression hose that we can use to try to help this, continue to use. (2) Anticoagulant long-term use: Onset Date: Unknown Code(s): Z79.01 - terminologist (current) use of anticoagulants Status: Acute Assessment and Plan: Continue due to his A-fib and DVT risk. (3) Sacral wound: Onset Date: Unknown Code(s): S31.000A - Unspecified open wound of lower back and pelvis without penetration into retroperitoneum, initial encounter Status: Acute Assessment and Plan: Continue use of Miconizole antifungal creeame kand some Santyl for chemical debridement in the areas of brownish necrosis. Plans for Dr. Cowart to evaluate this wound again tomorrow with the wound care nurses. Additional Plan I have discussed the patient's case and plan of care with Dr. Cowart. Subjective Subjective Date/Time Seen: 08/18/20 16:24 Patient reports: no new complaints Interval history: Patient remains in ICU but no longer on vasopressors. He has no specific complaints at the time of my exam. He has been wearing his compression devices on the left leg once his mother brought them in. Exam Const: General: comfortable and no acute distress Nutritional Appearance: obese morbidly obese Orientation/consciousness: patient oriented x3 Skin: Other: Unable to assess sacral ulcer during my independent assessment due to his body habitus, this is planned to be assessed again tomorrow by Dr. Cowart. Left leg compression device in place. Extrem: Right lower extremity: edema Left lower extremity: edema and hip/thigh (dressing in place, clean and dry) Psych: Insight: Good insight present (Psych) Judgement: Good judgement present (Psych) Objective Data Vital Signs Vital Signs: Vital Signs - 24 hr 08/17/20 18:00 08/17/20 19:49 08/17/20 20:00 Temperature 97.6 F Pulse Rate 82 63 88 Respiratory Rate 18 21 H Blood Pressure 90/70 L 128/70 138/74 Pulse Oximetry 98 100 08/17/20 21:18 08/17/20 22:00 08/17/20 23:00 Temperature Pulse Rate 78 90 71 Respiratory Rate 19 26 H Blood Pressure 97/51 L 108/65 Pulse Oximetry 100 99 08/17/20 23:15 08/18/20 00:00 08/18/20 00:40 Temperature 97.6 F Pulse Rate 67 67 89 Respiratory Rate 17 Blood Pressure 129/60 99/64 L 98/74 L Pulse Oximetry 100 08/18/20 02:00 08/18/20 03:08 08/18/20 03:21 Temperature Pulse Rate 67 88 89 Respiratory Rate 25 H Blood Pressure 117/64 129/61 118/57 L Pulse Oximetry 100 08/18/20 04:00 08/18/20 04:08 08/18/20 04:14 Temperature 97.4 F L Pulse Rate 89 89 80 Respiratory Rate 19 Blood Pressure 112/50 L 112/50 L 120/61 Pulse Oximetry 97 08/18/20 04:15 08/18/20 04:35 08/18/20 05:22 Temperature Pulse Rate 83 90 Respiratory Rate Blood Pressure 124/68 111/47 L 115/62 Pulse Oximetry 08/18/20 06:00 08/18/20 07:04 08/18/20 08:00 Temperature 97.2 F L Pulse Rate 90 90 91 Respiratory Rate 18 20 Blood Pressure 114/68 121/58 L 133/57 L Pulse Oximetry 98 96 08/18/20 09:03 08/18/20 09:18 08/18/20 10:00 Temperature 97.2 F L 97.2 F L Pulse Rate 91 88 91 Respiratory Rate 22 H 20 20 Blood Pressure 117/62 117/62 130/67 Pulse Oximetry 99 98 98 08/18/20 10:06 08/18/20 10:18 08/18/20 12:00 Temperature 97.5 F L 97.2 F L 97.2 F L Pulse Rate 91 91 92 Respiratory Rate 18 20 22 H Blood Pressure 130/67 135/66 129/66 Pulse Oximetry 97 94 94 Intake/Output Intake/Output: Intake & Output 08/15/20 08/16/20 08/17/20 08/18/20 23:59 23:59 23:59 23:59 Intake Total 2100 1660 5570 2970 Output Total 3100 1125 1280 Balance 2100 -8704 1052 0491 Meds/Results Medications: Active Medications Generic Name Dose Route Start Last Admin Trade
[2020-08-18 18:11] LABS: Glucose Point of Care 140 mg/dl (65-105)
[2020-08-18 21:31] LABS: Glucose Point of Care 120 mg/dl (65-105)
[2020-08-19] VITALS (14 sets, daily range): BP systolic 143–176; BP diastolic 77–93; PULSE 86–111; RESP 18–28; TEMP 36.4–37.1; O2SAT 94–100
[2020-08-19] MEDS: POTASSIUM CHLORIDE 20 MEQ TABLET 40 MEQ PO (01:22)
[2020-08-19 01:23] LABS: Glucose Point of Care 144 mg/dl (65-105)
[2020-08-19] MEDS: SODIUM BICARBONATE 8.4% 150 MEQ in WATER, STERILE FOR INJECTION 950 ML 50 MEQ IV CONT (01:24)
[2020-08-19 05:23] LABS: Basophils Percent Auto 0.2 % (0.2-1.2); Eosinophils Absolute Auto 0.2 K/mm3 (0-0.3); Eosinophils Percent Auto 2.2 % (0-4.4); Hematocrit 24.9 % (42.0-52.0); Hemoglobin 7.7 g/dL (14.0-18.0); Immature Granulocyte Absolute 0.08 K/mm3 (0.00-0.031); Immature Granulocyte Percent A 0.7 % (0-0.5); Lymphocytes Absolute Auto 0.49 K/mm3 (0.9-3.2); Lymphocytes Percent Auto 4.6 % (18.3-44.2); Mean Corpuscular HGB Conc 30.9 g/dl (32-36); Mean Corpuscular Hemoglobin 25.5 pg (26-34); Mean Corpuscular Volume 82.5 fl (80-100); Mean Platelet Volume 8.4 fl (7.4-10.4); Monocytes Absolute Auto 0.5 K/mm3 (0.1-0.6); Monocytes Percent Auto 4.7 % (2.6-8.5); Neutrophils Absolute Auto 9.4 K/mm3 (1.3-6.7); Neutrophils Percent Auto 87.6 % (45.5-73.1); Nucleated Red Blood Cells Perc 0.3 % (0.0-0.2); Platelet Count Result 521 k/mm3 (150-375); Red Blood Count 3.02 M/mm3 (4.6-6.20); White Blood Count 10.8 K/mm3 (4.5-10.0)
[2020-08-19 05:34] LABS: Alanine Aminotransferase 7 U/L (4-50); Albumin Level 3.2 g/dL (3.5-5.1); Alkaline Phosphatase 105 U/L (38-126); Anion Gap 12 mmol/L (8-16); Aspartate Amino Transferase 26 U/L (17-59); Bilirubin,Total 0.3 mg/dL (0.2-1.3); Blood Urea Nitrogen 79 mg/dL (9-20); Calcium 8.2 mg/dL (8.4-10.2); Carbon Dioxide 20 mmol/L (22-30); Chloride 112 mmol/L (98-107); Estimated CRCL calculation 60 ml/min; Estimated Glomerular Filt Rate 25; Glucose 121 mg/dL (75-110); Magnesium 1.8 mg/dL (1.6-2.3); Sodium 144 mmol/L (137-145)
[2020-08-19] MEDS: ALBUMIN HUMAN 25% 25 GM/100 ML 100 ML IVPB ×2 (06:01→12:18)
[2020-08-19] MEDS: metroNIDAZOLE 500 MG/ISO 100ML 500 MG/100 ML BAG 100 MG IVPB ×4 (06:02→23:13)
[2020-08-19] MEDS: CENTRAL LINE FLUSH 10 ML IV PUSH ×2 (06:02→06:03)
[2020-08-19] MEDS: LEVOTHYROXINE SODIUM 100 MCG TABLET PO (06:03)
[2020-08-19 06:44] LABS: Glucose Point of Care 128 mg/dl (65-105)
--- NOTE | 2020-08-19 08:38 | WPDINTPN ---
Progress Note: A&P Assessment and Plan (1) Shock: Code(s): R57.9 - Shock, unspecified Status: Acute Assessment and Plan: Secondary to sepsis, intravascular dehydration versus rate control medications He did receive IV fluid bolus and was on IV fluid maintenance Levophed titrated down yesterday Appears to have resolved DC IV fluids His lactic acid has cleared and he denies any abdominal pain at this time Empiric cefepime and Flagyl were added last night His C diff was negative Continue to Hold blood pressure medications (2) Acute on chronic renal failure: Qualifiers: Acute renal failure type: unspecified Chronic kidney disease stage: unspecified stage Qualified Code(s): N17.9 - Acute kidney failure, unspecified; N18.9 - Chronic kidney disease, unspecified Code(s): N17.9 - Acute kidney failure, unspecified; N18.9 - Chronic kidney disease, unspecified Status: Acute Assessment and Plan: Creatinine 4.8 admission. Baseline creatinine last month was 1.8. Bilateral renal stones and low-density lesions in the kidneys most likely cysts. Renal ultrasound showed mild cortical thinning but no hydronephrosis. Creatinine is improving DC further IV fluids at this time Replace potassium again today Patiromer discontinued Continue p.o. bicarb Nephrology is following patient Continue to monitor urine output electrolytes (3) Diarrhea: Qualifiers: Diarrhea type: unspecified type Qualified Code(s): R19.7 - Diarrhea, unspecified Code(s): R19.7 - Diarrhea, unspecified Status: Acute Assessment and Plan: CT A/P IMPRESSION: 1. Few proximal dilated small bowel loops. Diffusely dilated colon with air-fluid levels. Findings compatible with ileus. 2: Mild gallbladder distention with ill-defined gallbladder wall. Cannot exclude gallbladder wall thickening. No definite gallstones. 3: Mildly enlarged retroperitoneal/left periaortic lymph nodes, most likely reactive. Blood Cx Pending Escherichia coli Shiga Toxins - Pending Campylobacter Culture - Pending Salmonella/Shigella Culture - Pending Clostridioides difficile Toxin Assay - Final Cryptosporidium Exam - Final Giardia Antigen (OZIEL) - Final On Cefepime and Flagyl Improved Currently denies any abdominal pain. Monitor stool output which has not been significant Normal lipase and TSH (4) Ileus: Code(s): K56.7 - Ileus, unspecified Status: Acute Assessment and Plan: Proximal dilated small-bowel loops and a diffusely dilated colon with air-fluid levels consistent with ileus. This is most likely infectious etiology. Stool culture has been sent. Cryptosporidium and giardia negative. C diff is negative. Patient's lactate quickly cleared he currently denies any abdominal pain suggesting against ischemic possibility Continue supportive care. Advance diet as tolerated by patient. (5) Chronic atrial fibrillation with RVR: Code(s): I48.20 - Chronic atrial fibrillation, unspecified Status: Acute Assessment and Plan: Patient has chronic AFib on Toprol XL for rate control and Eliquis for stroke prophylaxis. Patient was mildly tachycardic on admission and started on diltiazem drip. Tachycardia most likely related to dehydration. He was transitioned to a short-acting diltiazem p.o. but this has been stopped. Monitor heart rate If he goes into RVR depending on his pressor requirement will decide whether to use Cardizem infusion or amiodarone Continue Eliquis. 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 The patient's blood glucose was reviewed o
[2020-08-19] MEDS: COLLAGENASE OINT 30 GM TUBE 1 APPLIC TOPICAL ×2 (08:50→21:40)
[2020-08-19] MEDS: POTASSIUM CHLORIDE 20 MEQ TABLET.ER 40 MEQ PO ×2 (08:50→12:18)
[2020-08-19] MEDS: allopurinoL 300 MG TABLET PO (08:50)
[2020-08-19] MEDS: busPIRone HCL 5 MG TABLET PO ×3 (08:50→17:25)
[2020-08-19] MEDS: APIXABAN 5 MG TABLET PO ×2 (08:50→21:38)
[2020-08-19] MEDS: IRON SUCROSE COMPLEX 200 MG in SODIUM CHLORIDE 0.9% IV 50 ML 120 MG IVPB (08:51)
[2020-08-19] MEDS: SODIUM BICARBONATE TAB 650 MG TABLET PO ×3 (08:51→17:25)
[2020-08-19] MEDS: TOLNAFTATE 1% POWDER 45 GM BTL 1 APPLIC TOPICAL ×2 (08:51→21:39)
[2020-08-19] MEDS: PRAMIPEXOLE 0.5 MG TABLET 1.5 MG PO ×3 (08:52→17:25)
[2020-08-19] MEDS: SERTRALINE HCL 50 MG TABLET 100 MG PO ×2 (08:52→21:39)
[2020-08-19] MEDS: PANTOPRAZOLE 40 MG TABLET PO ×2 (08:52→17:25)
--- NOTE | 2020-08-19 10:02 | PCOTNOTE ---
Per RN, Hold this date as patient has central line. Will attempt OT evaluation tomorrow/when medically appropriate.
--- NOTE | 2020-08-19 10:16 | PCPTNOTE ---
Hold PT as pt has central line per RN. Will try again tomorrow.
--- NOTE | 2020-08-19 11:17 | PCDIET ---
Nutrition Follow-Up Complete: Nutrition Diagnosis: Inadequate oral intake related to gastroparesis, diarrhea, multiple medical issues as evidenced by clear liquid diet order and reported significant weight loss. Nutrition Goal: Patient to consume 50% of meals/supplements or greater. Goal in progress. Patient consumed 10-25% of meals on 08/18/20 but ate 50% of breakfast today. Reports appetite is improving. States did not receive Nepro supplement, but is willing to try. Clarified order with dietary department for Nepro BID. Last recorded weight is 190.4 kg which is down from last review. Noted significant variation in weights recorded. Bowel Motility: 330mL stool on 08/18/20 via [facility]. Labs Reviewed: WBC (10.8), Hgb (7.7), Hct (24.9), Glu (121), BUN (79), Cr (2.6), K (3.0), Alb (3.2), PO4 (5.0) Meds Noted: Albumin, Zyloprim, Lantus, Iron Sucrose, Cefepime, Synthroid, Flagyl, Protonix, KCl, Sodium Bicarbonate Additional Notes: Integumentary notes review. No significant change reported. Will continue to monitor with same goal. Nutrition Monitoring and Evaluation: Follow up every 3 days.
[2020-08-19 12:17] LABS: Glucose Point of Care 147 mg/dl (65-105)
--- NOTE | 2020-08-19 12:29 | PM.IMPN ---
Progress Note: A&P Assessment and Plan (1) Shock: Code(s): R57.9 - Shock, unspecified Status: Acute Assessment and Plan: Patient developed low BP around the time he was changed to oral Diltiazem in the evening hours of 08/16; Anti-HTN medications stopped but BP continued to decline requiring central line placement and Levophed started. Not initially fluid responsive. LA 14 at that time but normal on repeat at 0.9 and suspect more likely related to HoTN then sepsis (poor collection method?). BCx NGTD. [place] more likely hypovolemic related to the diarrhea. Levophed weaned off earlier morning hours of 08/18. BP remaining stable. Okay to move out of ICU (2) Acute on chronic renal failure: Qualifiers: Acute renal failure type: unspecified Chronic kidney disease stage: unspecified stage Qualified Code(s): N17.9 - Acute kidney failure, unspecified; N18.9 - Chronic kidney disease, unspecified Code(s): N17.9 - Acute kidney failure, unspecified; N18.9 - Chronic kidney disease, unspecified Status: Acute Assessment and Plan: Creatinine 4.8 admission. Baseline creatinine last month was 1.8. Bilateral renal stones and low-density lesions in the kidneys most likely cysts. Renal ultrasound showed mild cortical thinning but no hydronephrosis. Metabolic acidosis noted on admission. [place] related to dehydration from his diarrhea and poor oral intake. He is not on diuretics at home. Treated with IV fluids with bicarb. Acidosis resolved. Cr overall improved to 2.6 today. Nephrology following. Appreciate their input. (3) Metabolic acidosis: Code(s): E87.2 - Acidosis Status: Acute Assessment and Plan: Bicarb of 12 and anion gap of 17 on admission. PH is 7.196 all consistent with metabolic acidosis felt related to his renal failure complicated by the diarrhea. AG closed. LA normal as well. Off IV fluids. Continue monitor. (4) Ileus: Code(s): K56.7 - Ileus, unspecified Status: Acute Assessment and Plan: Proximal dilated small-bowel loops and a diffusely dilated colon with air-fluid levels consistent with ileus. This is most likely infectious etiology. Stool culture negative for CDiff, Salmonella, EColi, Crypto and Giardia. Ischemic bowel felt less likely. Diarrhea up to 2L on admission but now much improved with only 100mL out overnight. Continue supportive care. Currently advanced to a regular diet and appears to be toelrating well. Supplements ordered. (5) Chronic atrial fibrillation with RVR: Code(s): I48.20 - Chronic atrial fibrillation, unspecified Status: Acute Assessment and Plan: Patient has chronic AFib/Flutter on Toprol XL for rate control and Eliquis for stroke prophylaxis. Patient was mildly tachycardic on admission and started on diltiazem drip. Tachycardia most likely related to dehydration. He was transitioned to a short-acting diltiazem p.o. but this was stopped due to the HoTN. Tele showing AFlutter. Home Toprol on hold. BP better so will add back low dose Toprol and advance as toelrated. Continue Eliquis. 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 The patient's blood glucose was reviewed on 08/19. Glucose remains well controlled. Continue AccuCheks covering with sliding scale. Hypoglycemia protocol available as needed. Lantus remains on hold. (7) Sleep apnea: Qualifiers: Sleep apnea type: obstructive Qualified Code(s): G47.33 - Obstructive sleep apnea (adult) (pediatric) Code(s): G47.30 - Sleep apnea, unspecified Status: Chronic Assessment
--- NOTE | 2020-08-19 13:05 | PM.PNGS ---
Progress Note: A&P Assessment and Plan (1) Lymphedema: Onset Date: Unknown Code(s): I89.0 - Lymphedema, not elsewhere classified Status: Acute Assessment and Plan: Long-standing/chronic. Pt's mother has brought his measured compression hose that we can use to try to help this, continue to use. Will apply the compression socks on his left lower extremity up to the knee and then SCD hose over the top of these. Will wait until least Saturday before starting to use the compression garments on his right lower extremity. 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 (3) Sacral wound: Onset Date: Unknown Code(s): S31.000A - Unspecified open wound of lower back and pelvis without penetration into retroperitoneum, initial encounter Status: Acute Assessment and Plan: Continue use of Miconizole antifungal creame and some Santyl for chemical debridement in the areas of brownish necrosis. Plans for Dr. Cowart ,Wound nurses,and/or Mary to evaluate this wound again on Sat. Additional Plan I have discussed the patient's case and plan of care with Dr. Umana. Subjective Subjective Date/Time Seen: 08/19/20 13:05 Interval history: Patient states he still has some soreness on the sacral area and behind the upper right thigh. Nurses report no changes in the amount of drainage or other problems. He has been using his home compression garment on the left leg and the nurse will try to reapply this later this afternoon. She knows okay to apply the SCD hose over the compression garment on the left leg. Patient seen with Nelda from the wound clinic today and I got to see the wounds on his sacral area. Review of Systems Review of Systems: All systems reviewed & are unremarkable except as noted in HPI and below Constitutional: Constitutional: Reports no additional constitutional complaints, Reports lethargy and Reports malaise ENT: Reports other (Mucous Membranes moist.) Cardiovascular: Cardiovascular: Denies dyspnea Respiratory: Respiratory: Denies pain on inspiration and Denies dyspnea Gastrointestinal: Gastrointestinal: Reports as per HPI and Reports no additional gastrointestinal complaints Comments: Denies abdominal pain, but states that through the night E often had the sensation that he needed to have a bowel movement. Musculoskeletal: Musculoskeletal: Reports other (No calf swelling or edema) Integumentary/Breasts: Skin/Breast: Reports system reviewed and no additional complaints, except as docu and Reports as per HPI Exam Const: General: cooperative, comfortable, no acute distress, alert and awake Nutritional Appearance: obese morbidly obese Orientation/consciousness: patient oriented x3 HENMT: Head: normocephalic and atraumatic Ears: hearing grossly normal bilaterally and external ears normal Mouth: Yes moist mucous membranes Eyes: General: appearance normal, both eyes and all related structures Sclera: sclerae normal Pupils: Equal, round and reactive pupils present EOM: EOMs intact bilaterally Neck: Neck: normal visual inspection and full ROM Chest: Chest palpation & inspection: normal inspection of the chest Resp: Effort & Inspection: normal respiratory effort, able to speak in complete sentences and no respiratory distress Auscultation: clear to auscultation bilaterally and diminished lung sounds Cardio: Jugular venous distension: no JVD Rate: regular rate Rhythm: regular rhythm and abnormal rhythm irregularly irregular GI: Inspection: Pannus present and obesity Auscultation: normal bowel sounds Rectal Exam: deferred Other: Rectal tube in place with liquid pickens stool. Superficial maceration surrounding anal verge and buttocks. Urinary Catheter: Urinary Catheter: patent and draining and urine clear Skin: Gen
--- NOTE | 2020-08-19 15:06 | P.PNNP_ITS ---
Progress Note: A&P Assessment and Plan (1) KONSTANTIN (acute kidney injury): Code(s): N17.9 - Acute kidney failure, unspecified Status: Acute Assessment and Plan: * likely due to prerenal factors and hemodynamic instability * with improvement in BP and IVF resuscitation, kidney function improving * follow repeat labs and UOP * replete K+ as needed * continue supportive therapy (2) Stage 3b chronic kidney disease: Code(s): N18.32 - Chronic kidney disease, stage 3b Status: Chronic Assessment and Plan: * baseline creatinine runs around 1.6 - 2.1mg/dl * however, he has fluctuated to extremes with hospitalizations * this is secondary to hypertension and diabetes (3) Diarrhea: Qualifiers: Diarrhea type: unspecified type Qualified Code(s): R19.7 - Diarrhea, unspecified Code(s): R19.7 - Diarrhea, unspecified Status: Acute Assessment and Plan: * likely playing a role with #1 * has chronic diarrhea at baseline as well * GI following (4) Anemia: Qualifiers: Anemia type: iron deficiency Iron deficiency anemia type: unspecified iron deficiency Qualified Code(s): D50.9 - Iron deficiency anemia, unspecified Code(s): D64.9 - Anemia, unspecified Status: Chronic Assessment and Plan: * partly related to CKD along with KONSTANTIN and acute illness * PRBC transfusion per protocol * start Epogen while hospitalized (5) Metabolic acidosis: Code(s): E87.2 - Acidosis Status: Acute Assessment and Plan: * related to uremic toxins fro KONSTANTIN and mild lactic acidosis * off bicarb gtt; on oral sodium bicarbonate * follow trend (6) Chronic atrial fibrillation with RVR: Code(s): I48.20 - Chronic atrial fibrillation, unspecified Status: Chronic Assessment and Plan: * continue rate control strategy * on eliquis (7) Hypertension: Qualifiers: Hypertension type: essential hypertension Qualified Code(s): I10 - Essential (primary) hypertension Code(s): I10 - Essential (primary) hypertension Status: Chronic Assessment and Plan: * BP doing better at this time (was hypotensive) * off vasopressor therapy * follow trend of hemodynamics (8) Type 2 diabetes mellitus with diabetic neuropathy: Qualifiers: Diabetes mellitus longterm insulin use: with longterm use Qualified Code(s): E11.40 - Type 2 diabetes mellitus with diabetic neuropathy, unspec ified; Z79.4 - [facility] (current) use of insulin Code(s): E11.40 - Type 2 diabetes mellitus with diabetic neuropathy, unspecified Status: Chronic Assessment and Plan: * follow accu-cheks * on sliding-scale insulin Will continue to follow. Subjective Date/time seen: 08/19/20 15:06 Overall, he feels better today in comparison to yestereay; he says his appetite is improving but not as good as it normally is; remains hemodynamically stable off vasopressor therapy; no apparent issues overnight or earlier this AM; noted plans for transfer out of ICU. Exam Narrative: Exam Narrative: General: WD/WN male in NAD Heart: normal S1 and S2; no rub Lungs: clear to auscultation Abdomen: soft, nontender, nondistended, positive bowel sounds Extremities: no cyanosis or clubbing; 2+ edema; s/p right BKA Skin: chronic skin changes noted Objective Data Vital Signs Vital Signs: Vital Signs Tem
--- NOTE | 2020-08-19 15:06 | PM.PNNEP ---
Progress Note: A&P Assessment and Plan (1) KONSTANTIN (acute kidney injury): Code(s): N17.9 - Acute kidney failure, unspecified Status: Acute Assessment and Plan: likely due to prerenal factors and hemodynamic instability with improvement in BP and IVF resuscitation, kidney function improving follow repeat labs and UOP replete K+ as needed continue supportive therapy (2) Stage 3b chronic kidney disease: Code(s): N18.32 - Chronic kidney disease, stage 3b Status: Chronic Assessment and Plan: baseline creatinine runs around 1.6 - 2.1mg/dl however, he has fluctuated to extremes with hospitalizations this is secondary to hypertension and diabetes (3) Diarrhea: Qualifiers: Diarrhea type: unspecified type Qualified Code(s): R19.7 - Diarrhea, unspecified Code(s): R19.7 - Diarrhea, unspecified Status: Acute Assessment and Plan: likely playing a role with #1 has chronic diarrhea at baseline as well GI following (4) Anemia: Qualifiers: Anemia type: iron deficiency Iron deficiency anemia type: unspecified iron deficiency Qualified Code(s): D50.9 - Iron deficiency anemia, unspecified Code(s): D64.9 - Anemia, unspecified Status: Chronic Assessment and Plan: partly related to CKD along with KONSTANTIN and acute illness PRBC transfusion per protocol start Epogen while hospitalized (5) Metabolic acidosis: Code(s): E87.2 - Acidosis Status: Acute Assessment and Plan: related to uremic toxins fro KONSTANTIN and mild lactic acidosis off bicarb gtt; on oral sodium bicarbonate follow trend (6) Chronic atrial fibrillation with RVR: Code(s): I48.20 - Chronic atrial fibrillation, unspecified Status: Chronic Assessment and Plan: continue rate control strategy on eliquis (7) Hypertension: Qualifiers: Hypertension type: essential hypertension Qualified Code(s): I10 - Essential (primary) hypertension Code(s): I10 - Essential (primary) hypertension Status: Chronic Assessment and Plan: BP doing better at this time (was hypotensive) off vasopressor therapy follow trend of hemodynamics (8) Type 2 diabetes mellitus with diabetic neuropathy: Qualifiers: 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 Subjective Date/time seen: 08/19/20 15:06 Overall, he feels better today in comparison to yestereay; he says his appetite is improving but not as good as it normally is; remains hemodynamically stable off vasopressor therapy; no apparent issues overnight or earlier this AM; noted plans for transfer out of ICU. Exam Narrative: Exam Narrative: General: WD/WN male in NAD Heart: normal S1 and S2; no rub Lungs: clear to auscultation Abdomen: soft, nontender, nondistended, positive bowel sounds Extremities: no cyanosis or clubbing; 2+ edema; s/p right BKA Skin: chronic skin changes noted Objective Data Vital Signs Vital Signs: Vital Signs Temp Pulse Resp BP Pulse Ox 08/19/20 14:00 96 21 H 161/93 H 96 08/19/20 12:00 36.6 C 86 18 156/78 H 94 08/19/20 10:00 36.6 C 95 23 H 143/81 H 98 08/19/20 08:28 96 08/19/20 08:00 36.4 C 96 20 158/86 H 95 08/19/20 06:00 111 H 28 H 160/89 H 96 08/19/20 04:00 36.4 C L 94 21 H 176/91 H 96 08/19/20 02:00 95 22 H 144/78 H 100 08/19/20 00:00 36.4 C 95 24 H 163/83 H 96 08/18/20 23:20 95 24 H 98 08/18/20 22:00 95 23 H 146/88 H 100 08/18/20 20:00 36.6 C 94 24 H 153/80 H 96 08/18/20 18:00
[2020-08-19] MEDS: NEOMYCIN/POLYMYXIN/BACITRACIN OINTMENT PACKET 1 PACKET (16:57)
--- NOTE | 2020-08-19 17:33 | WPDGIPROGNO ---
Progress Note: A&P Assessment and Plan (1) Shock: Code(s): R57.9 - Shock, unspecified Status: Acute Assessment and Plan: elevated lactic acid and hypotension resolved, probably mostly from diarrhea but also could have been sepsis- stool samples negative thus far but he is on antibiotics no abdominal pain continue to monitor clinical response, may need colonoscopy +/- egd (2) Diarrhea: Qualifiers: Diarrhea type: unspecified type Qualified Code(s): R19.7 - Diarrhea, unspecified Code(s): R19.7 - Diarrhea, unspecified Status: Acute Assessment and Plan: c diff negative and other stool test pending supportive care probably colonoscopy saturday (3) Acute on chronic renal failure: Qualifiers: Acute renal failure type: unspecified Chronic kidney disease stage: unspecified stage Qualified Code(s): N17.9 - Acute kidney failure, unspecified; N18.9 - Chronic kidney disease, unspecified Code(s): N17.9 - Acute kidney failure, unspecified; N18.9 - Chronic kidney disease, unspecified Status: Acute Assessment and Plan: continue to monitor nephrology (4) Metabolic acidosis: Code(s): E87.2 - Acidosis Status: Acute Assessment and Plan: lactic acid normalized (5) Chronic atrial fibrillation with RVR: Code(s): I48.20 - Chronic atrial fibrillation, unspecified Status: Acute (6) Diabetic gastroparesis: Code(s): E11.43 - Type 2 diabetes mellitus with diabetic autonomic (poly)neuropathy; K31.84 - Gastroparesis Status: Acute Assessment and Plan: nausea better and tolerating diet we could do egd same time of colonoscopy (7) Long-term insulin use in type 2 diabetes: Qualifiers: Diabetes mellitus complication status: with other specified complication Qualified Code(s): E11.69 - Type 2 diabetes mellitus with other specified complication; 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 Still poor appetite but no vomiting. Review of Systems Review of Systems: All systems reviewed & are unremarkable except as noted in HPI and below Exam Const: General: comfortable, no acute distress, alert, awake and ill appearing chronically Nutritional Appearance: obese morbidly obese Orientation/consciousness: patient oriented x3 HENMT: Head: normocephalic and atraumatic Ears: hearing grossly normal bilaterally General nose exam: Normal nares present Eyes: Pupils: Equal, round and reactive pupils present Neck: Neck: normal visual inspection, full ROM and supple Resp: Effort & Inspection: able to speak in complete sentences and no respiratory distress Auscultation: clear to auscultation bilaterally Cardio: Rhythm: abnormal rhythm irregularly irregular GI: Inspection: Pannus present and obesity GI Palp: Yes Soft to palpation, No Firmness to palpation present (GI), No Guarding due to palpation present (GI) and No Rebound tenderness present Auscultation: normal bowel sounds Other: Rectal tube in place with liquid stool. Urinary Catheter: Urinary Catheter: patent and draining Skin: General skin exam: pallor Other: Right BKA with lymphedema. Left lower leg with chronic venous stasis changes Sacral wound stable Neuro: General: patient oriented x3, moves all extremities and no focal motor deficits Speech: normal speech Extrem: General: amputation noted Below the knee: right (with lymphedema) and pedal edema Psych: Menta
[2020-08-19] MEDS: HYDROcodone/acetaminophen (*CRX) 5-325 MG TABLET 1 TAB PO (19:43)
[2020-08-19] MEDS: METOPROLOL TARTRATE 12.5 MG TABLET PO (21:38)
[2020-08-19 21:48] LABS: Glucose Point of Care 172 mg/dl (65-105)
[2020-08-20] VITALS (15 sets, daily range): BP systolic 133–168; BP diastolic 71–92; PULSE 62–102; RESP 16–22; TEMP 36.1–36.4; O2SAT 90–100
[2020-08-20 05:29] LABS: Basophils Percent Auto 0.2 % (0.2-1.2); Eosinophils Absolute Auto 0.2 K/mm3 (0-0.3); Eosinophils Percent Auto 2.5 % (0-4.4); Hematocrit 25.3 % (42.0-52.0); Hemoglobin 7.8 g/dL (14.0-18.0); Lymphocytes Absolute Auto 0.47 K/mm3 (0.9-3.2); Lymphocytes Percent Auto 4.9 % (18.3-44.2); Mean Corpuscular HGB Conc 30.8 g/dl (32-36); Mean Corpuscular Hemoglobin 25.9 pg (26-34); Mean Corpuscular Volume 84.1 fl (80-100); Mean Platelet Volume 8.9 fl (7.4-10.4); Monocytes Absolute Auto 0.6 K/mm3 (0.1-0.6); Monocytes Percent Auto 5.8 % (2.6-8.5); Neutrophils Absolute Auto 8.3 K/mm3 (1.3-6.7); Neutrophils Percent Auto 85.6 % (45.5-73.1); Nucleated Red Blood Cells Perc 0.3 % (0.0-0.2); Platelet Count Result 530 k/mm3 (150-375); Red Blood Count 3.01 M/mm3 (4.6-6.20); Red Cell Distribution Width 17.3 % (11.5-14.5); White Blood Count 9.6 K/mm3 (4.5-10.0)
[2020-08-20 06:10] LABS: Anion Gap 12 mmol/L (8-16); Blood Urea Nitrogen 65 mg/dL (9-20); Calcium 8.1 mg/dL (8.4-10.2); Carbon Dioxide 21 mmol/L (22-30); Chloride 112 mmol/L (98-107); Estimated CRCL calculation 76 ml/min; Estimated Glomerular Filt Rate 39; Glucose 178 mg/dL (75-110); Magnesium 1.5 mg/dL (1.6-2.3); Phosphorus 3.6 mg/dL (2.5-4.5); Potassium 2.6 mmol/L (3.4-5.0); Sodium 145 mmol/L (137-145)
[2020-08-20 06:26] LABS: Hypochromasia 2+ (NORMAL); Platelet Estimate Increased (Adequate)
[2020-08-20] MEDS: metroNIDAZOLE 500 MG/ISO 100ML 500 MG/100 ML BAG 100 MG IVPB ×4 (06:29→23:47)
[2020-08-20] MEDS: LEVOTHYROXINE SODIUM 100 MCG TABLET PO (06:29)
[2020-08-20] MEDS: POTASSIUM CHLORIDE 20 MEQ TABLET 40 MEQ PO (06:51)
[2020-08-20] MEDS: MAGNESIUM SULF 2 GM/WATER 50ML 2 GM/50 ML BAG IVPB (06:52)
[2020-08-20] MEDS: ONDANSETRON INJ 4 MG/2 ML VIAL IV PUSH ×2 (06:56→22:03)
[2020-08-20] MEDS: IRON SUCROSE COMPLEX 200 MG in SODIUM CHLORIDE 0.9% IV 50 ML 120 MG IVPB (08:11)
[2020-08-20] MEDS: allopurinoL 300 MG TABLET PO (08:16)
[2020-08-20] MEDS: APIXABAN 5 MG TABLET PO ×2 (08:16→21:38)
[2020-08-20] MEDS: SERTRALINE HCL 50 MG TABLET 100 MG PO ×2 (08:16→21:37)
[2020-08-20] MEDS: PANTOPRAZOLE 40 MG TABLET PO ×2 (08:17→17:58)
[2020-08-20] MEDS: busPIRone HCL 5 MG TABLET PO ×3 (08:17→17:58)
[2020-08-20] MEDS: PRAMIPEXOLE 0.5 MG TABLET 1.5 MG PO ×3 (08:17→17:58)
[2020-08-20] MEDS: SODIUM BICARBONATE TAB 650 MG TABLET PO ×3 (08:17→17:58)
[2020-08-20] MEDS: METOPROLOL TARTRATE 12.5 MG TABLET PO ×2 (08:18→21:37)
[2020-08-20 08:42] LABS: Glucose Point of Care 163 mg/dl (65-105)
--- NOTE | 2020-08-20 09:11 | PCOTNOTE ---
Attempted OT evaluation - Pt just got breakfast. Will return later.
--- NOTE | 2020-08-20 10:34 | P.PNNP_ITS ---
Progress Note: A&P Assessment and Plan (1) KONSTANTIN (acute kidney injury): Code(s): N17.9 - Acute kidney failure, unspecified Status: Acute Assessment and Plan: * likely due to prerenal factors and hemodynamic instability * with improvement in BP and IVF resuscitation, kidney function improving * follow repeat labs and UOP * replete K+ as needed * continue supportive therapy (2) Stage 3b chronic kidney disease: Code(s): N18.32 - Chronic kidney disease, stage 3b Status: Chronic Assessment and Plan: * baseline creatinine runs around 1.6 - 2.1mg/dl * however, he has fluctuated to extremes with his recent hospitalizations * this is secondary to hypertension and diabetes (3) Hypokalemia: Code(s): E87.6 - Hypokalemia Status: Acute Assessment and Plan: * due to diminished oral intake and ongoing GI losses * replete as needed (IV and oral earlier today) * follow magnesium as well * follow repeat levels * interestingly, has a history of hyperkalemia requiring use of veltassa as an outpatient (4) Anemia: Qualifiers: Anemia type: iron deficiency Iron deficiency anemia type: unspecified iron deficiency Qualified Code(s): D50.9 - Iron deficiency anemia, unspecified Code(s): D64.9 - Anemia, unspecified Status: Chronic Assessment and Plan: * partly related to CKD along with KONSTANTIN and acute illness * PRBC transfusion per protocol * start Epogen while hospitalized (5) Metabolic acidosis: Code(s): E87.2 - Acidosis Status: Acute Assessment and Plan: * related to uremic toxins fro KONSTANTIN and mild lactic acidosis * off bicarb gtt; on oral sodium bicarbonate * follow trend (6) Hypertension: Qualifiers: Hypertension type: essential hypertension Qualified Code(s): I10 - Essential (primary) hypertension Code(s): I10 - Essential (primary) hypertension Status: Chronic Assessment and Plan: * BP doing better at this time (was hypotensive) * off vasopressor therapy * follow trend of hemodynamics (7) Diarrhea: Qualifiers: Diarrhea type: unspecified type Qualified Code(s): R19.7 - Diarrhea, unspecified Code(s): R19.7 - Diarrhea, unspecified Status: Acute Assessment and Plan: * likely playing a role with #1 and possibly causing hypokalemia * has chronic diarrhea at baseline as well * GI following (8) Chronic atrial fibrillation with RVR: Code(s): I48.20 - Chronic atrial fibrillation, unspecified Status: Chronic Assessment and Plan: * continue rate control strategy * on eliquis (9) Type 2 diabetes mellitus with diabetic neuropathy: Qualifiers: Diabetes mellitus custodial insulin use: with termite control representative use Qualified Code(s): E11.40 - Type 2 diabetes mellitus with diabetic neuropathy, unspecified; Z79.4 - detention (current) use of insulin Code(s): E11.40 - Type 2 diabetes mellitus with diabetic neuropathy, unspecified Status: Chronic Assessment and Plan: * follow accu-cheks * on sliding-scale insulin Will continue to follow. Subjective Date/time seen: 08/20/20 10:34 Transferred out of ICU yesterday afternoon; still having diarrhea and FMS does not appear to be working well with protecting/keeping his sacral wound clear of stool; hemodynamics remain stable; started on Epogen today for his anemia; no events overnight. Exam Narrative: Exam Narrative: General: WD/WN mal
--- NOTE | 2020-08-20 10:34 | PM.PNNEP ---
Progress Note: A&P Assessment and Plan (1) KONSTANTIN (acute kidney injury): Code(s): N17.9 - Acute kidney failure, unspecified Status: Acute Assessment and Plan: likely due to prerenal factors and hemodynamic instability with improvement in BP and IVF resuscitation, kidney function improving follow repeat labs and UOP replete K+ as needed continue supportive therapy (2) Stage 3b chronic kidney disease: Code(s): N18.32 - Chronic kidney disease, stage 3b Status: Chronic Assessment and Plan: baseline creatinine runs around 1.6 - 2.1mg/dl however, he has fluctuated to extremes with his recent hospitalizations this is secondary to hypertension and diabetes (3) Hypokalemia: Code(s): E87.6 - Hypokalemia Status: Acute Assessment and Plan: due to diminished oral intake and ongoing GI losses replete as needed (IV and oral earlier today) follow magnesium as well follow repeat levels interestingly, has a history of hyperkalemia requiring use of veltassa as an outpatient (4) Anemia: Qualifiers: Anemia type: iron deficiency Iron deficiency anemia type: unspecified iron deficiency Qualified Code(s): D50.9 - Iron deficiency anemia, unspecified Code(s): D64.9 - Anemia, unspecified Status: Chronic Assessment and Plan: partly related to CKD along with KONSTANTIN and acute illness PRBC transfusion per protocol start Epogen while hospitalized (5) Metabolic acidosis: Code(s): E87.2 - Acidosis Status: Acute Assessment and Plan: related to uremic toxins fro KONSTANTIN and mild lactic acidosis off bicarb gtt; on oral sodium bicarbonate follow trend (6) Hypertension: Qualifiers: Hypertension type: essential hypertension Qualified Code(s): I10 - Essential (primary) hypertension Code(s): I10 - Essential (primary) hypertension Status: Chronic Assessment and Plan: BP doing better at this time (was hypotensive) off vasopressor therapy follow trend of hemodynamics (7) Diarrhea: Qualifiers: Diarrhea type: unspecified type Qualified Code(s): R19.7 - Diarrhea, unspecified Code(s): R19.7 - Diarrhea, unspecified Status: Acute Assessment and Plan: likely playing a role with #1 and possibly causing hypokalemia has chronic diarrhea at baseline as well GI following (8) Chronic atrial fibrillation with RVR: Code(s): I48.20 - Chronic atrial fibrillation, unspecified Status: Chronic Assessment and Plan: continue rate control strategy on eliquis (9) Type 2 diabetes mellitus with diabetic neuropathy: Qualifiers: 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 Subjective Date/time seen: 08/20/20 10:34 Transferred out of ICU yesterday afternoon; still having diarrhea and FMS does not appear to be working well with protecting/keeping his sacral wound clear of stool; hemodynamics remain stable; started on Epogen today for his anemia; no events overnight. Exam Narrative: Exam Narrative: General: WD/WN male in NAD Heart: normal S1 and S2; no rub Lungs: clear to auscultation Abdomen: soft, nontender, nondistended, positive bowel sounds Extremities: no cyanosis or clubbing; 2+ edema; s/p right BKA Skin: chronic skin changes apparent Objective Data Vital Signs Vital Signs: Vital Signs Temp Pulse Resp BP Pulse Ox 08/20/20 10:00 99 08/20/20 08:18 99 08/20/20 08:00 36.2 C L 98 18 168/91 H 100 08/20/20 06:00 97 08/20/20 04:00 36.1 C L 88 1
--- NOTE | 2020-08-20 11:12 | PM.PNGS ---
Progress Note: A&P Assessment and Plan (1) Sacral wound: Onset Date: Unknown Code(s): S31.000A - Unspecified open wound of lower back and pelvis without penetration into retroperitoneum, initial encounter Status: Acute Assessment and Plan: Continue local wound care. Fecal containment device not working very well. Continued contamination and frequent dressing changes will be an ongoing issue. May eventually need further debridement. Dr. Cowart will reassess on Saturday. (2) Diarrhea: Qualifiers: Diarrhea type: unspecified type Qualified Code(s): R19.7 - Diarrhea, unspecified Code(s): R19.7 - Diarrhea, unspecified Status: Acute (3) Lymphedema: Onset Date: Unknown Code(s): I89.0 - Lymphedema, not elsewhere classified Status: Acute Subjective Subjective Date/Time Seen: 08/20/20 11:12 Interval history: Patient has been moved out of the ICU. Still has fecal containment device in, but this does not appear to be helping completely. He still has some liquid stool leaking around the device. Exam Const: General: comfortable, no acute distress, alert and awake Nutritional Appearance: obese morbidly obese Orientation/consciousness: patient oriented x3 HENMT: Head: normocephalic and atraumatic Mouth: Yes moist mucous membranes Eyes: Sclera: sclerae normal EOM: EOMs intact bilaterally Neck: Neck: normal visual inspection and full ROM Resp: Effort & Inspection: normal respiratory effort, able to speak in complete sentences and no respiratory distress Cardio: Jugular venous distension: no JVD GI: Inspection: Pannus present and obesity Auscultation: normal bowel sounds Rectal Exam: deferred Other: Rectal tube in place with liquid pickens stool. Superficial maceration surrounding anal verge and buttocks. Urinary Catheter: Urinary Catheter: patent and draining and urine clear Skin: General skin exam: pallor Other: Sacral wound measuring 6cm x 5cm with superficial necrosis and brown exudate Extrem: General: amputation noted Below the knee: right (with lymphedema) Objective Data Vital Signs Vital Signs: Vital Signs - 24 hr 08/19/20 12:00 08/19/20 14:00 08/19/20 16:00 Temperature 36.6 C 37.1 C Pulse Rate 86 96 97 Respiratory Rate 18 21 H 25 H Blood Pressure 156/78 H 161/93 H 146/77 H Pulse Oximetry 94 96 100 08/19/20 18:00 08/19/20 20:00 08/19/20 21:38 Temperature 36.4 C Pulse Rate 97 98 99 Respiratory Rate 20 18 Blood Pressure 146/77 H 157/83 H Pulse Oximetry 99 08/19/20 21:56 08/20/20 00:00 08/20/20 02:00 Temperature 36.4 C Pulse Rate 97 84 96 Respiratory Rate 20 Blood Pressure 136/76 Pulse Oximetry 100 08/20/20 04:00 08/20/20 06:00 08/20/20 08:00 Temperature 36.1 C L 36.2 C L Pulse Rate 88 97 98 Respiratory Rate 16 18 Blood Pressure 138/80 168/91 H Pulse Oximetry 90 100 08/20/20 08:18 08/20/20 10:00 Temperature Pulse Rate 99 99 Respiratory Rate Blood Pressure Pulse Oximetry Intake/Output Intake/Output: Intake & Output 08/17/20 08/18/20 08/19/20 08/20/20 23:59 23:59 23:59 23:59 Intake Total 5558 4190 3988 1580 Output Total 1125 3080 3950 2100 Balance 4445 1110 38 -520 Meds/Results Medications: Active Medications Generic Name Dose Route Start Last Admin Trade Name Freq PRN Reason Stop Dose Admin Acetaminophen 650 mg 08/16/20 15:44 Acetaminophen 325 Mg Tablet PO Q6H PRN Mild Pain (1-5) Or Fever Hydrocodone Bitart/Acetaminophen 1 tab 08/16/20 15:44 08/19/20 19:43 Hydrocodone/Acetaminophen (*Crx) 5-325 Mg Tablet PO 1 tab Q6H PRN Administration Pain Rated 6-10 Allopurinol 300 mg 08/16/20 08:00 08/20/20 08:16 Allopurinol 300 Mg Tablet PO 300 mg DAILY@0800 AVANI Administration Apixaban 5 mg 08/16/20 09:00 08/20/20 08:16 Apixaban 5 Mg Tablet PO 5 mg Q12HR AVANI Administration Buspirone HCl 5 mg 08/16/20 09:00 08/20/20 08:17
--- NOTE | 2020-08-20 11:33 | PCPTNOTE ---
Attempted PT eval. Pt refused as he is having diarrhea and fecal tube is leaking and he feels too weak. Will try again tomorrow,
--- NOTE | 2020-08-20 11:48 | PCOTNOTE ---
Attempted OT eval x2. Pt refused as he is having diarrhea and fecal tube is leaking and he feels too weak. Continued to decline any/all activity despite education on the benefits of therapy. Will attempt again tomorrow.
[2020-08-20 12:27] LABS: Glucose Point of Care 195 mg/dl (65-105)
--- NOTE | 2020-08-20 13:02 | WPDGIPROGNO ---
Progress Note: A&P Assessment and Plan (1) Diarrhea: Qualifiers: Diarrhea type: unspecified type Qualified Code(s): R19.7 - Diarrhea, unspecified Code(s): R19.7 - Diarrhea, unspecified Status: Acute Assessment and Plan: stool negative for infection but still ongoing diarrhea Fecal containment device not working very well and soiling wound nearby (surgery on board) supportive care, will add questran to see if can slow down diarrhea today with critical low K, most likely colonoscopy Saturday after K and renal function improves (2) Shock: Code(s): R57.9 - Shock, unspecified Status: Acute Assessment and Plan: resolved and moved out of icu (3) Acute on chronic renal failure: Qualifiers: Acute renal failure type: unspecified Chronic kidney disease stage: unspecified stage Qualified Code(s): N17.9 - Acute kidney failure, unspecified; N18.9 - Chronic kidney disease, unspecified Code(s): N17.9 - Acute kidney failure, unspecified; N18.9 - Chronic kidney disease, unspecified Status: Acute Assessment and Plan: slowly improving nephrology on board (4) Metabolic acidosis: Code(s): E87.2 - Acidosis Status: Acute Assessment and Plan: lactic acid normalized (5) Chronic atrial fibrillation with RVR: Code(s): I48.20 - Chronic atrial fibrillation, unspecified Status: Chronic Assessment and Plan: chronic, on eliquis (will hold tomorrow in preparation for scopes) (6) Diabetic gastroparesis: Code(s): E11.43 - Type 2 diabetes mellitus with diabetic autonomic (poly)neuropathy; K31.84 - Gastroparesis Status: Acute Assessment and Plan: nausea better and tolerating diet we could do egd same time of colonoscopy (7) Long-term insulin use in type 2 diabetes: Qualifiers: Diabetes mellitus complication status: with other specified complication Qualified Code(s): E11.69 - Type 2 diabetes mellitus with other specified complication; Z79.4 - termite renewal inspector (current) use of insulin Code(s): E11.9 - Type 2 diabetes mellitus without complications; Z79.4 - termite renewal inspector (current) use of insulin Status: Chronic (8) Acute on chronic blood loss anemia: Code(s): D62 - Acute posthemorrhagic anemia Status: Acute Assessment and Plan: s/p prbc, no obvious bleeding but he is on blood thinners egd and colonoscopy to assess Subjective Date/time seen: 08/20/20 13:02 Interval history: moved to floor yesterday from ICU, still feeling weak and tired, also same amount of diarrhea at fecal bag Review of Systems Review of Systems: All systems reviewed & are unremarkable except as noted in HPI and below Exam Const: General: comfortable, no acute distress, alert and awake Nutritional Appearance: obese morbidly obese Orientation/consciousness: patient oriented x3 HENMT: Head: normocephalic and atraumatic Mouth: Yes moist mucous membranes Eyes: Sclera: sclerae normal EOM: EOMs intact bilaterally Neck: Neck: normal visual inspection, full ROM and supple Resp: Effort & Inspection: normal respiratory effort, able to speak in complete sentences and no respiratory distress Cardio: Jugular venous distension: no JVD Rhythm: abnormal rhythm irregularly irregular GI: Inspection: Pannus present and obesity GI Palp: Yes Soft to palpation and No Tenderness to palpation present (GI) Auscultation: normal bowel sounds Rectal Exam: deferred Other: Rectal tube in place with liquid pickens stool. Superficial maceration surrounding anal verge and buttocks. Urinary Catheter: Urinary Catheter: patent and draining and urine clear Skin: General skin exam: pallor Other: Sacral wound measuring 6cm x 5cm Neuro: Speech: normal speech Extrem: General: amputation noted Below the knee: right (with lymphedema) and pedal edema Psych: Affect: normal affect Objective Data Vital Signs Vital Signs: Vital Signs - 2
[2020-08-20] MEDS: EPOETIN ALFA-EPBX 20,000 UNITS/ML VIAL 20000 UNITS SUB-Q (13:41)
[2020-08-20 15:11] LABS: Potassium 3.4 mmol/L (3.4-5.0)
[2020-08-20] MEDS: COLLAGENASE OINT 30 GM TUBE 1 APPLIC TOPICAL ×2 (15:18→22:00)
[2020-08-20] MEDS: TOLNAFTATE 1% POWDER 45 GM BTL 1 APPLIC TOPICAL ×2 (15:18→22:00)
--- NOTE | 2020-08-20 16:07 | PM.IMPN ---
Progress Note: A&P Assessment and Plan (1) Shock: Code(s): R57.9 - Shock, unspecified Status: Resolved Assessment and Plan: Levophed weaned off. BP remaining stable. Okay to move out of ICU. (2) Acute on chronic renal failure: Qualifiers: Acute renal failure type: unspecified Chronic kidney disease stage: unspecified stage Qualified Code(s): N17.9 - Acute kidney failure, unspecified; N18.9 - Chronic kidney disease, unspecified Code(s): N17.9 - Acute kidney failure, unspecified; N18.9 - Chronic kidney disease, unspecified Status: Acute Assessment and Plan: Creatinine 4.8 admission. Baseline creatinine last month was 1.8. pt back to baseline. (3) Metabolic acidosis: Code(s): E87.2 - Acidosis Status: Acute Assessment and Plan: Pt having diarrheal. Off IV fluids. Continue monitor. (4) Ileus: Code(s): K56.7 - Ileus, unspecified Status: Acute Assessment and Plan: Proximal dilated small-bowel loops and a diffusely dilated colon with air-fluid levels consistent with ileus. This is most likely infectious etiology. Stool culture negative for CDiff, Salmonella, EColi, Crypto and Giardia. Continue supportive care. Currently advanced to a regular diet and appears to be toelrating well. Supplements ordered. (5) Chronic atrial fibrillation with RVR: Code(s): I48.20 - Chronic atrial fibrillation, unspecified Status: Chronic Assessment and Plan: Patient has chronic AFib/Flutter on Toprol XL for rate control and Eliquis for stroke prophylaxis. (6) Type 2 diabetes mellitus with hyperglycemia: Qualifiers: Diabetes mellitus mortar man insulin use: with mortar man use Qualified Code(s): E11.65 - Type 2 diabetes mellitus with hyperglycemia; Z79.4 - long-term (current) use of insulin Code(s): E11.65 - Type 2 diabetes mellitus with hyperglycemia Status: Acute Assessment and Plan: A1c 7.1. The patient's blood glucose was reviewed on 08/19. Lantus remains on hold. (7) Sleep apnea: Qualifiers: Sleep apnea type: obstructive Qualified Code(s): G47.33 - Obstructive sleep apnea (adult) (pediatric) Code(s): G47.30 - Sleep apnea, unspecified Status: Chronic Assessment and Plan: Encourage compliance. (8) Sacral wound: Onset Date: Unknown Code(s): S31.000A - Unspecified open wound of lower back and pelvis without penetration into retroperitoneum, initial encounter Status: Acute Assessment and Plan: Patient with sacral wound present on admission. Appreciate GenSurg input. (9) Lymphedema: Onset Date: Unknown Code(s): I89.0 - Lymphedema, not elsewhere classified Status: Acute Assessment and Plan: Patient with chronic lymphedema with chronic erythema and scale. Antifungal cream started with improvement. On abx as well. Continue supportive care. Compression devices added. Appreciate GenSurg help. (10) Anemia: Qualifiers: Anemia type: iron deficiency Iron deficiency anemia type: unspecified iron deficiency Qualified Code(s): D50.9 - Iron deficiency anemia, unspecified Code(s): D64.9 - Anemia, unspecified Status: Chronic Assessment and Plan: Underlying anemia. Hemoglobin was 8.8 on admission and trended down to 6.6 yesterday s/p transfusion. Iron studies noted. He has been started on IV iron (Day 4/5). Hgb up to 7.7 today. Appreciate nephrology input. (11) DVT prophylaxis: Code(s): Z29.9 - Encounter for prophylactic measures, unspecified Status: Acute Assessment and Plan: Eliquis Additional Plan Interval history: Patient has acute on chronic renal failure likely due to dehydration/volume depletion due to acute on chronic diarrhea. He he subsequently has an acute metabolic acidosis with mild anion gap. He was treated with 2 L o
[2020-08-20 17:30] LABS: Glucose Point of Care 166 mg/dl (65-105)
[2020-08-20] MEDS: CHOLESTYRAMINE LIGHT 4 GM POWD.PACK PO (17:57)
[2020-08-20 21:01] LABS: Glucose Point of Care 185 mg/dl (65-105)
[2020-08-21] VITALS (14 sets, daily range): BP systolic 142–156; BP diastolic 78–99; PULSE 70–102; RESP 16–22; TEMP 36.2–36.6; O2SAT 98–100
[2020-08-21 05:37] LABS: Basophils Percent Auto 0.4 % (0.2-1.2); Eosinophils Absolute Auto 0.3 K/mm3 (0-0.3); Eosinophils Percent Auto 3.1 % (0-4.4); Hemoglobin 8.5 g/dL (14.0-18.0); Immature Granulocyte Absolute 0.08 K/mm3 (0.00-0.031); Immature Granulocyte Percent A 0.8 % (0-0.5); Lymphocytes Percent Auto 6.1 % (18.3-44.2); Mean Corpuscular HGB Conc 30.4 g/dl (32-36); Mean Corpuscular Hemoglobin 25.9 pg (26-34); Mean Corpuscular Volume 85.4 fl (80-100); Mean Platelet Volume 8.8 fl (7.4-10.4); Monocytes Absolute Auto 0.7 K/mm3 (0.1-0.6); Monocytes Percent Auto 7.1 % (2.6-8.5); Neutrophils Absolute Auto 8.2 K/mm3 (1.3-6.7); Neutrophils Percent Auto 82.5 % (45.5-73.1); Nucleated Red Blood Cells Perc 0.3 % (0.0-0.2); Platelet Count Result 525 k/mm3 (150-375); Red Blood Count 3.28 M/mm3 (4.6-6.20); Red Cell Distribution Width 17.8 % (11.5-14.5); White Blood Count 9.9 K/mm3 (4.5-10.0)
[2020-08-21 06:00] LABS: Alanine Aminotransferase 7 U/L (4-50); Albumin Level 2.9 g/dL (3.5-5.1); Alkaline Phosphatase 94 U/L (38-126); Anion Gap 10 mmol/L (8-16); Aspartate Amino Transferase 20 U/L (17-59); Bilirubin,Total 0.2 mg/dL (0.2-1.3); Blood Urea Nitrogen 49 mg/dL (9-20); Calcium 8.6 mg/dL (8.4-10.2); Carbon Dioxide 23 mmol/L (22-30); Chloride 115 mmol/L (98-107); Estimated CRCL calculation 85 ml/min; Estimated Glomerular Filt Rate 45; Glucose 153 mg/dL (75-110); Potassium 2.7 mmol/L (3.4-5.0); Sodium 148 mmol/L (137-145)
[2020-08-21] MEDS: metroNIDAZOLE 500 MG/ISO 100ML 500 MG/100 ML BAG 100 MG IVPB ×4 (06:24→23:35)
[2020-08-21 06:25] LABS: Magnesium 1.5 mg/dL (1.6-2.3)
[2020-08-21] MEDS: LEVOTHYROXINE SODIUM 100 MCG TABLET PO (06:25)
[2020-08-21] MEDS: POTASSIUM CHLORIDE 20 MEQ TABLET 40 MEQ PO (07:32)
[2020-08-21] MEDS: MAGNESIUM SULF 2 GM/WATER 50ML 2 GM/50 ML BAG IVPB (07:33)
[2020-08-21 08:45] LABS: Glucose Point of Care 168 mg/dl (65-105)
[2020-08-21] MEDS: SERTRALINE HCL 50 MG TABLET 100 MG PO ×2 (09:04→20:31)
[2020-08-21] MEDS: allopurinoL 300 MG TABLET PO (09:04)
[2020-08-21] MEDS: PRAMIPEXOLE 0.5 MG TABLET 1.5 MG PO ×3 (09:05→18:25)
[2020-08-21] MEDS: SODIUM BICARBONATE TAB 650 MG TABLET PO ×3 (09:05→18:25)
[2020-08-21] MEDS: METOPROLOL TARTRATE 12.5 MG TABLET PO ×2 (09:06→20:31)
[2020-08-21] MEDS: APIXABAN 5 MG TABLET PO ×2 (09:06→20:31)
[2020-08-21] MEDS: PANTOPRAZOLE 40 MG TABLET PO ×2 (09:07→18:25)
[2020-08-21] MEDS: busPIRone HCL 5 MG TABLET PO ×3 (09:07→18:25)
[2020-08-21] MEDS: COLLAGENASE OINT 30 GM TUBE 1 APPLIC TOPICAL ×2 (11:14→20:32)
[2020-08-21] MEDS: TOLNAFTATE 1% POWDER 45 GM BTL 1 APPLIC TOPICAL ×2 (11:14→20:32)
[2020-08-21] MEDS: CHOLESTYRAMINE LIGHT 4 GM POWD.PACK PO ×2 (11:18→18:23)
--- NOTE | 2020-08-21 11:44 | WPDGIPROGNO ---
Progress Note: A&P Assessment and Plan (1) Diarrhea: Qualifiers: Diarrhea type: unspecified type Qualified Code(s): R19.7 - Diarrhea, unspecified Code(s): R19.7 - Diarrhea, unspecified Status: Acute Assessment and Plan: stool negative for infection but still ongoing diarrhea (started few days ago on iv antibiotics after developed shock with worsening renal failure and concern for sepsis) Fecal containment device not working very well and soiling wound nearby (surgery on board), added conorran ideally would like to do colonoscopy and egd (also h/o nausea and other upper gi symptoms- h/o gastric surgery and gastroparesis) but he is reluctant to have anything done (2) Shock: Code(s): R57.9 - Shock, unspecified Status: Resolved Assessment and Plan: resolved and moved out of icu 2 days ago (3) Acute on chronic renal failure: Qualifiers: Acute renal failure type: unspecified Chronic kidney disease stage: unspecified stage Qualified Code(s): N17.9 - Acute kidney failure, unspecified; N18.9 - Chronic kidney disease, unspecified Code(s): N17.9 - Acute kidney failure, unspecified; N18.9 - Chronic kidney disease, unspecified Status: Acute Assessment and Plan: slowly improving nephrology on board (4) Metabolic acidosis: Code(s): E87.2 - Acidosis Status: Acute Assessment and Plan: normal now (5) Chronic atrial fibrillation with RVR: Code(s): I48.20 - Chronic atrial fibrillation, unspecified Status: Chronic Assessment and Plan: chronic, on eliquis (6) Diabetic gastroparesis: Code(s): E11.43 - Type 2 diabetes mellitus with diabetic autonomic (poly)neuropathy; K31.84 - Gastroparesis Status: Acute Assessment and Plan: medical treatment (7) Long-term insulin use in type 2 diabetes: Qualifiers: Diabetes mellitus complication status: with other specified complication Qualified Code(s): E11.69 - Type 2 diabetes mellitus with other specified complication; Z79.4 - terminal press operator (current) use of insulin Code(s): E11.9 - Type 2 diabetes mellitus without complications; Z79.4 - terminal press operator (current) use of insulin Status: Chronic Assessment and Plan: with chronic complications like amputation, neuropathy, ckd, gastroparesis (8) Acute on chronic blood loss anemia: Code(s): D62 - Acute posthemorrhagic anemia Status: Acute Assessment and Plan: s/p prbc, no obvious bleeding but he is on blood thinners egd and colonoscopy to assess but patient is not convinced yet Subjective Date/time seen: 08/21/20 11:44 Interval history: no new events but his RN told me that he is not cooperating with therapy or other instructions, also mentioned that he would prefer to have other GI physician. He says that is not ready to have endoscopic evaluation, he is overwhelmed Review of Systems Review of Systems: All systems reviewed & are unremarkable except as noted in HPI and below Exam Const: General: comfortable, no acute distress, alert and awake Nutritional Appearance: obese morbidly obese Orientation/consciousness: patient oriented x3 HENMT: Head: normocephalic and atraumatic Mouth: Yes moist mucous membranes Eyes: Sclera: sclerae normal EOM: EOMs intact bilaterally Neck: Neck: normal visual inspection, full ROM and supple Resp: Effort & Inspection: normal respiratory effort, able to speak in complete sentences and no respiratory distress Cardio: Jugular venous distension: no JVD Rhythm: abnormal rhythm irregularly irregular GI: Inspection: Pannus present and obesity GI Palp: Yes Soft to palpation and No Tenderness to palpation present (GI) Auscultation: normal bowel sounds Rectal Exam: deferred Other: Rectal tube in place with liquid pickens stool. Superficial maceration surrounding anal verge and buttocks. Urinary Catheter: Urinary Catheter: patent and draining and ur
[2020-08-21] MEDS: INSULIN ASPART (*BKC) 100 UNITS/ML SUB-Q (11:51)
[2020-08-21] MEDS: HYDROcodone/acetaminophen (*CRX) 5-325 MG TABLET 1 TAB PO (12:35)
[2020-08-21 12:49] LABS: Glucose Point of Care 201 mg/dl (65-105)
[2020-08-21 12:58] LABS: Magnesium 1.7 mg/dL (1.6-2.3); Potassium 3.2 mmol/L (3.4-5.0)
--- NOTE | 2020-08-21 13:32 | P.PNNP_ITS ---
Progress Note: A&P Assessment and Plan (1) KONSTANTIN (acute kidney injury): Code(s): N17.9 - Acute kidney failure, unspecified Status: Acute Assessment and Plan: * improving * likely due to prerenal factors and hemodynamic instability * with improvement in BP and IVF resuscitation, kidney function improving * follow repeat labs and UOP * replete K+ as needed * continue supportive therapy (2) Stage 3b chronic kidney disease: Code(s): N18.32 - Chronic kidney disease, stage 3b Status: Chronic Assessment and Plan: * baseline creatinine runs around 1.6 - 2.1mg/dl * however, he has fluctuated to extremes with his recent hospitalizations * this is secondary to hypertension and diabetes (3) Hypokalemia: Code(s): E87.6 - Hypokalemia Status: Acute Assessment and Plan: * due to diminished oral intake and ongoing GI losses * replete as needed * follow magnesium as well * follow repeat levels * interestingly, has a history of hyperkalemia requiring use of veltassa as an outpatient (4) Anemia: Qualifiers: Anemia type: iron deficiency Iron deficiency anemia type: unspecified iron deficiency Qualified Code(s): D50.9 - Iron deficiency anemia, unspecified Code(s): D64.9 - Anemia, unspecified Status: Chronic Assessment and Plan: * partly related to CKD along with KONSTANTIN and acute illness * PRBC transfusion per protocol * on Epogen while hospitalized (5) Metabolic acidosis: Code(s): E87.2 - Acidosis Status: Acute Assessment and Plan: * related to uremic toxins fro KONSTANTIN and mild lactic acidosis * off bicarb gtt; on oral sodium bicarbonate * follow trend (6) Hypertension: Qualifiers: Hypertension type: essential hypertension Qualified Code(s): I10 - Essential (primary) hypertension Code(s): I10 - Essential (primary) hypertension Status: Chronic Assessment and Plan: * BP doing better at this time (was hypotensive) * off vasopressor therapy * follow trend of hemodynamics (7) Diarrhea: Qualifiers: Diarrhea type: unspecified type Qualified Code(s): R19.7 - Diarrhea, unspecified Code(s): R19.7 - Diarrhea, unspecified Status: Acute Assessment and Plan: * likely playing a role with #1 and possibly causing hypokalemia * has chronic diarrhea at baseline as well * GI following (8) Chronic atrial fibrillation with RVR: Code(s): I48.20 - Chronic atrial fibrillation, unspecified Status: Chronic Assessment and Plan: * continue rate control strategy * on eliquis (9) Type 2 diabetes mellitus with diabetic neuropathy: Qualifiers: Diabetes mellitus half-way insulin use: with half-way use Qualified Code(s): E11.40 - Type 2 diabetes mellitus with diabetic neuropathy, unspecifie d; Z79.4 - intermediate teacher (current) use of insulin Code(s): E11.40 - Type 2 diabetes mellitus with diabetic neuropathy, unspecified Status: Chronic Assessment and Plan: * follow accu-cheks * on sliding-scale insulin Will continue to follow. Subjective Date/time seen: 08/21/20 13:32 No new issues or problems to report; still having issues with low K+ levels as noted by AM labs; no other events overnight or earlier this AM; making good urine output with improvement in renal function noted. Exam Narrative: Exam Narrative: General: WD/WN male in NAD Heart: normal S1 and S2; no rub Lungs: tete
--- NOTE | 2020-08-21 13:32 | PM.PNNEP ---
Progress Note: A&P Assessment and Plan (1) KONSTANTIN (acute kidney injury): Code(s): N17.9 - Acute kidney failure, unspecified Status: Acute Assessment and Plan: improving likely due to prerenal factors and hemodynamic instability with improvement in BP and IVF resuscitation, kidney function improving follow repeat labs and UOP replete K+ as needed continue supportive therapy (2) Stage 3b chronic kidney disease: Code(s): N18.32 - Chronic kidney disease, stage 3b Status: Chronic Assessment and Plan: baseline creatinine runs around 1.6 - 2.1mg/dl however, he has fluctuated to extremes with his recent hospitalizations this is secondary to hypertension and diabetes (3) Hypokalemia: Code(s): E87.6 - Hypokalemia Status: Acute Assessment and Plan: due to diminished oral intake and ongoing GI losses replete as needed follow magnesium as well follow repeat levels interestingly, has a history of hyperkalemia requiring use of veltassa as an outpatient (4) Anemia: Qualifiers: Anemia type: iron deficiency Iron deficiency anemia type: unspecified iron deficiency Qualified Code(s): D50.9 - Iron deficiency anemia, unspecified Code(s): D64.9 - Anemia, unspecified Status: Chronic Assessment and Plan: partly related to CKD along with KONSTANTIN and acute illness PRBC transfusion per protocol on Epogen while hospitalized (5) Metabolic acidosis: Code(s): E87.2 - Acidosis Status: Acute Assessment and Plan: related to uremic toxins fro KONSTANTIN and mild lactic acidosis off bicarb gtt; on oral sodium bicarbonate follow trend (6) Hypertension: Qualifiers: Hypertension type: essential hypertension Qualified Code(s): I10 - Essential (primary) hypertension Code(s): I10 - Essential (primary) hypertension Status: Chronic Assessment and Plan: BP doing better at this time (was hypotensive) off vasopressor therapy follow trend of hemodynamics (7) Diarrhea: Qualifiers: Diarrhea type: unspecified type Qualified Code(s): R19.7 - Diarrhea, unspecified Code(s): R19.7 - Diarrhea, unspecified Status: Acute Assessment and Plan: likely playing a role with #1 and possibly causing hypokalemia has chronic diarrhea at baseline as well GI following (8) Chronic atrial fibrillation with RVR: Code(s): I48.20 - Chronic atrial fibrillation, unspecified Status: Chronic Assessment and Plan: continue rate control strategy on eliquis (9) Type 2 diabetes mellitus with diabetic neuropathy: Qualifiers: Diabetes mellitus 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 Subjective Date/time seen: 08/21/20 13:32 No new issues or problems to report; still having issues with low K+ levels as noted by AM labs; no other events overnight or earlier this AM; making good urine output with improvement in renal function noted. Exam Narrative: Exam Narrative: General: WD/WN male in NAD Heart: normal S1 and S2; no rub Lungs: clear to auscultation Abdomen: soft, nontender, nondistended, positive bowel sounds Extremities: no cyanosis or clubbing; 2+ edema; s/p right BKA Skin: chronic skin changes noted Objective Data Vital Signs Vital Signs: Vital Signs Temp Pulse Resp BP Pulse Ox 08/21/20 12:00 36.2 C L 101 H 20 142/78 H 100 08/21/20 08:00 36.4 C L 99 22 H 151/86 H 100 08/21/20 05:54 95 08/21/20 04:00 36.6 C 73 16 156/99 H 99 08/21/20 02:00 81 08/21/20 00:00 81
--- NOTE | 2020-08-21 16:47 | PM.IMPN ---
Progress Note: A&P Assessment and Plan (1) Shock: Code(s): R57.9 - Shock, unspecified Status: Resolved (2) Acute on chronic renal failure: Qualifiers: Acute renal failure type: unspecified Chronic kidney disease stage: unspecified stage Qualified Code(s): N17.9 - Acute kidney failure, unspecified; N18.9 - Chronic kidney disease, unspecified Code(s): N17.9 - Acute kidney failure, unspecified; N18.9 - Chronic kidney disease, unspecified Status: Acute Assessment and Plan: Creatinine 4.8 admission. Baseline creatinine last month was 1.6. pt back to baseline. sodium is 148 (3) Metabolic acidosis: Code(s): E87.2 - Acidosis Status: Acute Assessment and Plan: Pt having diarrhea. Off IV fluids. Continue monitor. (4) Ileus: Code(s): K56.7 - Ileus, unspecified Status: Acute Assessment and Plan: Proximal dilated small-bowel loops and a diffusely dilated colon with air-fluid levels consistent with ileus. This is most likely infectious etiology. Stool culture negative for CDiff, Salmonella, EColi, Crypto and Giardia. Continue supportive care. Currently advanced to a regular diet and appears to be toelrating well. Supplements ordered. (5) Chronic atrial fibrillation with RVR: Code(s): I48.20 - Chronic atrial fibrillation, unspecified Status: Chronic Assessment and Plan: Patient has chronic AFib/Flutter on Toprol XL for rate control and Eliquis for stroke prophylaxis. 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 The patient's blood glucose was reviewed on 08/19. Lantus remains on hold. (7) Sleep apnea: Qualifiers: Sleep apnea type: obstructive Qualified Code(s): G47.33 - Obstructive sleep apnea (adult) (pediatric) Code(s): G47.30 - Sleep apnea, unspecified Status: Chronic Assessment and Plan: Encourage compliance. (8) Sacral wound: Onset Date: Unknown Code(s): S31.000A - Unspecified open wound of lower back and pelvis without penetration into retroperitoneum, initial encounter Status: Acute Assessment and Plan: Patient with sacral wound present on admission. Appreciate GenSurg input. (9) Lymphedema: Onset Date: Unknown Code(s): I89.0 - Lymphedema, not elsewhere classified Status: Acute Assessment and Plan: Patient with chronic lymphedema with chronic erythema and scale. Antifungal cream started with improvement. On abx as well. Continue supportive care. Compression devices added. Appreciate GenSurg help. (10) Anemia: Qualifiers: Anemia type: iron deficiency Iron deficiency anemia type: unspecified iron deficiency Qualified Code(s): D50.9 - Iron deficiency anemia, unspecified Code(s): D64.9 - Anemia, unspecified Status: Chronic Assessment and Plan: Underlying anemia. Hemoglobin was 8.8 on admission and trended down to 6.6 yesterday s/p transfusion. hb is 8.5 today (11) DVT prophylaxis: Code(s): Z29.9 - Encounter for prophylactic measures, unspecified Status: Acute Assessment and Plan: Eliquis Subjective Date/time seen: 08/21/20 16:47 Interval history: 60-year-old male with past medical history of atrial fibrillation on chronic anticoagulation, morbid obesity with obstructive sleep apnea, diabetes, diabetic gastroparesis, and stage 3 chronic kidney disease who presented to the ER via EMS due to progressive weakness and diarrhea. morbidly obese, immobile with chronic lymphemia with sacral wounds and diarrhea now. slow impro
[2020-08-21 17:58] LABS: Magnesium 1.8 mg/dL (1.6-2.3); Potassium 3.6 mmol/L (3.4-5.0)
[2020-08-21 18:01] LABS: Glucose Point of Care 185 mg/dl (65-105)
[2020-08-21 20:00] LABS: Glucose Point of Care 182 mg/dl (65-105)
--- NOTE | 2020-08-21 23:11 | PC.NURSE ---
PATIENT LEFT BIPAP ON FOR 10 MIN. RESPIRATORY IS AWARE.
[2020-08-22] VITALS (17 sets, daily range): BP systolic 126–146; BP diastolic 60–90; PULSE 70–117; RESP 18–24; TEMP 35.6–36.7; O2SAT 96–100
[2020-08-22 05:25] LABS: Hematocrit 27.2 % (42.0-52.0); Hemoglobin 8.1 g/dL (14.0-18.0); Mean Corpuscular HGB Conc 29.8 g/dl (32-36); Mean Corpuscular Volume 87.5 fl (80-100); Platelet Count Result 474 k/mm3 (150-375); Red Blood Count 3.11 M/mm3 (4.6-6.20); Red Cell Distribution Width 18.3 % (11.5-14.5); White Blood Count 9.1 K/mm3 (4.5-10.0)
[2020-08-22 05:46] LABS: Anion Gap 7 mmol/L (8-16); Blood Urea Nitrogen 41 mg/dL (9-20); Calcium 8.2 mg/dL (8.4-10.2); Carbon Dioxide 25 mmol/L (22-30); Chloride 113 mmol/L (98-107); Estimated CRCL calculation 91 ml/min; Estimated Glomerular Filt Rate 48; Glucose 159 mg/dL (75-110); Potassium 2.8 mmol/L (3.4-5.0); Sodium 145 mmol/L (137-145)
[2020-08-22] MEDS: LEVOTHYROXINE SODIUM 100 MCG TABLET PO (05:52)
[2020-08-22] MEDS: metroNIDAZOLE 500 MG/ISO 100ML 500 MG/100 ML BAG 100 MG IVPB ×3 (05:52→18:40)
[2020-08-22] MEDS: POTASSIUM CHLORIDE 20 MEQ TABLET 60 MEQ PO (06:33)
[2020-08-22 08:11] LABS: Glucose Point of Care 222 mg/dl (65-105)
[2020-08-22] MEDS: EPOETIN ALFA-EPBX 10,000 UNITS/ML VIAL 10000 UNITS SUB-Q (09:21)
[2020-08-22] MEDS: INSULIN ASPART (*BKC) 100 UNITS/ML SUB-Q (09:21)
[2020-08-22] MEDS: PRAMIPEXOLE 0.5 MG TABLET 1.5 MG PO ×3 (09:22→17:21)
[2020-08-22] MEDS: CHOLESTYRAMINE LIGHT 4 GM POWD.PACK PO ×2 (09:22→17:20)
[2020-08-22] MEDS: busPIRone HCL 5 MG TABLET PO ×3 (09:23→17:21)
[2020-08-22] MEDS: APIXABAN 5 MG TABLET PO ×2 (09:23→20:53)
[2020-08-22] MEDS: PANTOPRAZOLE 40 MG TABLET PO ×2 (09:23→17:22)
[2020-08-22] MEDS: SODIUM BICARBONATE TAB 650 MG TABLET PO (09:23)
[2020-08-22] MEDS: allopurinoL 300 MG TABLET PO (09:23)
[2020-08-22] MEDS: SERTRALINE HCL 50 MG TABLET 100 MG PO ×2 (09:23→20:53)
[2020-08-22] MEDS: METOPROLOL TARTRATE 12.5 MG TABLET PO ×2 (09:23→20:53)
--- NOTE | 2020-08-22 10:03 | PM.IMPN ---
Progress Note: A&P Assessment and Plan (1) Ileus: Code(s): K56.7 - Ileus, unspecified Status: Acute Assessment and Plan: Proximal dilated small-bowel loops and a diffusely dilated colon with air-fluid levels consistent with ileus. Probably infectious etiology. Stool culture negative for CDiff, Salmonella, EColi, Crypto and Giardia. Ischemic bowel felt less likely. Diarrhea up to 2L on admission but now improved with 400mL out yesterday. Continue supportive care. Not eating much per patient. GI following and endoscopy planned. Remains on abx. (2) Shock: Code(s): R57.9 - Shock, unspecified Status: Resolved Assessment and Plan: Patient developed low BP around the time he was changed to oral Diltiazem in the evening hours of 08/16; Anti-HTN medications stopped but BP continued to decline requiring central line placement and Levophed started. Not initially fluid responsive. LA 14 at that time but normal on repeat at 0.9 and suspect more likely related to HoTN then sepsis (poor collection method?). BCx NGTD. [place] more likely hypovolemic related to the diarrhea. Levophed weaned off earlier morning hours of 08/18. BP remaining stable. (3) Acute on chronic renal failure: Qualifiers: Acute renal failure type: unspecified Chronic kidney disease stage: unspecified stage Qualified Code(s): N17.9 - Acute kidney failure, unspecified; N18.9 - Chronic kidney disease, unspecified Code(s): N17.9 - Acute kidney failure, unspecified; N18.9 - Chronic kidney disease, unspecified Status: Acute Assessment and Plan: Creatinine 4.8 admission. Baseline creatinine last month was 1.8. CT scan showing bilateral renal stones and low-density lesions in the kidneys most likely cysts. Renal ultrasound showed mild cortical thinning but no hydronephrosis. Metabolic acidosis noted on admission. [place] related to dehydration from his diarrhea and poor oral intake. He is not on diuretics at home. Treated with IV fluids with bicarb. Acidosis resolved. Cr overall improved to 1.5 today. Off IV fluids now. Nephrology following. Appreciate their input. (4) Metabolic acidosis: Code(s): E87.2 - Acidosis Status: Acute Assessment and Plan: Bicarb of 12 and anion gap of 17 on admission. PH is 7.196 all consistent with metabolic acidosis felt related to his renal failure complicated by the diarrhea. AG closed. LA normal now as well. Off IV fluids. Continue monitor. (5) Chronic atrial fibrillation with RVR: Code(s): I48.20 - Chronic atrial fibrillation, unspecified Status: Chronic Assessment and Plan: Patient has chronic AFib/Flutter on Toprol XL for rate control and Eliquis for stroke prophylaxis. Patient was mildly tachycardic on admission and started on diltiazem drip. Tachycardia most likely related to dehydration. He was transitioned to a short-acting diltiazem p.o. but this was stopped due to the HoTN. Tele showing AFlutter. Home Toprol XL on hold but able to add back low dose metoprolol tartrate. HR and BP remaining stable. Continue Metoprolol. Continue Eliquis. (6) Type 2 diabetes mellitus with hyperglycemia: Qualifiers: Diabetes mellitus medical terminologist insulin use: with medical terminologist use Qualified Code(s): E11.65 - Type 2 diabetes mellitus with hyperglycemia; Z79.4 - [facility] (current) use of insulin Code(s): E11.65 - Type 2 diabetes mellitus with hyperglycemia Status: Acute Assessment and Plan: A1c 7.1. The patient's blood glucose was reviewed on 08/22 Glucose remains mostly well controlled. Continue AccuCheks covering with sliding scale. Hypoglycemia protocol available as needed. Lantus remains on hold. Not requiring much in the way of sliding scale coverage. (7) Sleep apnea: Qualifiers: Sleep apnea type: obstructive Qualified Code(s): G47.33 - Obstructive sleep apnea (adult) (pediatric)
[2020-08-22 10:49] LABS: Potassium 3.5 mmol/L (3.4-5.0)
[2020-08-22] MEDS: COLLAGENASE OINT 30 GM TUBE 1 APPLIC TOPICAL ×2 (11:08→20:55)
[2020-08-22] MEDS: TOLNAFTATE 1% POWDER 45 GM BTL 1 APPLIC TOPICAL ×2 (11:08→20:55)
--- NOTE | 2020-08-22 11:09 | PCDIET ---
Nutrition Follow-Up Complete: Nutrition Diagnosis: Inadequate oral intake related to gastroparesis, diarrhea, multiple medical issues as evidenced by clear liquid diet order and reported significant weight loss. Nutrition Goal: Patient to consume 50% of meals/supplements or greater. Goal in progress. Average intake since 08/20/20 has been 58% of recorded meals on regular diet which is appropriate. Small, frequent meals and snacks encouraged. Patient's mother brought in Hi-C and other items from home. Patient did not particularly care for Nepro and would like to change back to Ensure. Recommend Ensure Compact (220kcal, 9g protein) TID with meals. Last recorded weight is 190.5 kg which is stable with last review. Bowel Motility: FMS remains in place -400mL output documented on 08/21/20. Labs Reviewed: Hgb (8.1), Hct (27.2), Glu (222), BUN (41), Cr (1.5), K (2.8), Ca (8.2) Meds Noted: [place], Retacrit, Synthroid, Toprol XL, Zyloprim, Novolog, Lantus, Maxipime, Questran, Lopressor, Flagyl, Protonix, KCl Additional Notes: Integumentary notes reviewed. Will continue to monitor with same goal. Nutrition Monitoring and Evaluation: Follow up every 3 days.
--- NOTE | 2020-08-22 11:33 | WPDGICN ---
Assessment and Plan Assessment and plan (1) Diarrhea: Code(s): R19.7 - Diarrhea, unspecified Status: Acute Assessment and Plan: Patient has diarrhea dating back approximately 10 days. This is reported not to be a chronic problem. Suspect therefore it may be related to medication use. Infectious etiology is also likely. Agree with empiric antibiotics. Patient clear currently on Flagyl. We may wish to add Levaquin. Patient has had cultures which were negative. But these are not always 100% reliably when they are negative. Adding fiber supplementation may be of some benefit. Questran was suggested and may be of some additional benefit. Colonoscopy may be prudent at some point but not felt to be urgent. He does have a family history of colon polyps. Patient currently refuses to consider colonoscopy. There is concern over this contaminating his sacral wound. As stated we will treat for possible infectious or medication induced diarrhea. (2) Diabetic gastroparesis: Code(s): E11.43 - Type 2 diabetes mellitus with diabetic autonomic (poly)neuropathy; K31.84 - Gastroparesis Status: Acute (3) Gastric ulcer: Qualifiers: Gastric ulcer chronicity: chronic Gastric ulcer complication status: without hemorrhage or perforation Qualified Code(s): K25.7 - Chronic gastric ulcer without hemorrhage or perforation Code(s): K25.9 - Gastric ulcer, unspecified as acute or chronic, without hemorrhage or perforation Status: Acute Assessment and Plan: Patient known to have had a gastric ulcer in 2018 by endoscopy by . we may wish to empirically treat with proton pump inhibitor. Patient should avoid nonsteroidal anti-inflammatory agents. (4) History of gastric bypass: Code(s): Z98.84 - Bariatric surgery status Status: Inactive Assessment and Plan: Patient complains of nausea vomiting. I am certain the gastric bypass contributes to this because of small size of stomach. He may have delayed gastric emptying because of diabetes. In cannot exclude scarring given his prior history of ulcer disease. Soft liquid diet may sit well built this patient follow-up EGD at some point should he agree to endoscopy. (5) Stage 3b chronic kidney disease: Code(s): N18.32 - Chronic kidney disease, stage 3b Status: Chronic Assessment and Plan: patient has chronic anemia on the basis of chronic kidney disease. Nephrology service following for electrolyte disturbance. Undoubtedly electrolytes worse because of recent diarrhea. (6) Anticoagulant long-term use: Onset Date: Unknown Code(s): Z79.01 - [facility] (current) use of anticoagulants Status: Acute (7) Chronic atrial fibrillation with RVR: Code(s): I48.20 - Chronic atrial fibrillation, unspecified Status: Chronic (8) Type 2 diabetes mellitus with hyperglycemia: Qualifiers: Diabetes mellitus medical terminologist insulin use: with medical terminologist use Qualified Code(s): E11.65 - Type 2 diabetes mellitus with hyperglycemia; Z79.4 - medical terminologist (current) use of insulin Code(s): E11.65 - Type 2 diabetes mellitus with hyperglycemia Status: Acute (9) Lymphedema: Onset Date: Unknown Code(s): I89.0 - Lymphedema, not elsewhere classified Status: Acute (10) History of below-knee amputation of right lower extremity: Code(s): Z89.511 - Acquired absence of right leg below knee Status: Chronic (11) Severe obesity: Code(s): E66.01 - Morbid (severe) obesity due to excess calories Status: Chronic Assessment and Plan: Patient morbidly obese weight loss is strongly encouraged in this patient undoubtedly this can contribute to his other more today's period (12) Family history of colonic polyps: Code(s): Z83.71 - Family history of colonic polyps Status: Acute Assessment and Plan: Both mother and father have had colon p
[2020-08-22 12:06] LABS: Glucose Point of Care 181 mg/dl (65-105)
[2020-08-22 12:22] LABS: Magnesium 1.5 mg/dL (1.6-2.3); Potassium 3.4 mmol/L (3.4-5.0)
--- NOTE | 2020-08-22 12:41 | PM.PNGS ---
Progress Note: A&P Assessment and Plan (1) Sacral wound: Onset Date: Unknown Code(s): S31.000A - Unspecified open wound of lower back and pelvis without penetration into retroperitoneum, initial encounter Status: Acute Assessment and Plan: Continue local wound care. Fecal containment device still having issues with some liquid stool leaking around. This will continue to contaminated the sacral wound, which is currently being covered with an ABD dressing. It does not appear urgent, but this may require some excisional debridement in the future. Will discuss with Dr. Cowart. It would be okay from our standpoint to start using the compression appliance he has at home for his right lower extremity. I instructed the patient and his nurse to let his mother know to bring in his compression appliance for the right leg while he is hospitalized. (2) Diarrhea: Qualifiers: Diarrhea type: unspecified type Qualified Code(s): R19.7 - Diarrhea, unspecified Code(s): R19.7 - Diarrhea, unspecified Status: Acute (3) Lymphedema: Onset Date: Unknown Code(s): I89.0 - Lymphedema, not elsewhere classified Status: Acute Assessment and Plan: The superficial maceration on the right lower extremity seems to have improved with local wound care. At this point, we could begin applying compression to the right leg for his lymphedema. Additional Plan Discussed the patient's case and plan of care with Dr. Cowart. Subjective Subjective Date/Time Seen: 08/22/20 10:12 Patient reports: no new complaints and feels better Interval history: Patient seen in the IMU. He still has a rectal tube in place that has been having some issues with leaking around the tube. The nurse states she checked the fluid remote in the balloon. No specific complaints from the patient today. He is seen with the wound care nurse, Radha, this morning. Exam Const: General: comfortable, no acute distress and awake Nutritional Appearance: obese morbidly obese GI: Other: Rectal tube in place with liquid pickens stool. Superficial maceration surrounding anal verge and buttocks. Skin: Other: Sacral wound measuring 6cm x 5cm with superficial necrosis and brown exudate. No significant changes since last evaluated. Right BKA with lymphedema and superficial macerations seem to have improved. Overall scan on right lower extremity has improved significantly since last evaluated. Left lower extremity with more swelling in the foot and lower leg, but without any significant wounds. No compression device on today on my evaluation. Extrem: General: amputation noted Below the knee: right (With lymphedema) Psych: Mental Status: mental status grossly normal Insight: Good insight present (Psych) Judgement: Good judgement present (Psych) Objective Data Vital Signs Vital Signs: Vital Signs - 24 hr 08/21/20 14:00 08/21/20 16:00 08/21/20 18:00 Temperature 97.4 F L Pulse Rate 99 100 87 Respiratory Rate 18 Blood Pressure 156/85 H Pulse Oximetry 100 08/21/20 20:00 08/21/20 20:31 08/21/20 22:00 Temperature 97.9 F Pulse Rate 101 H 100 101 H Respiratory Rate 18 Blood Pressure 144/87 H Pulse Oximetry 98 08/21/20 22:50 08/22/20 00:00 08/22/20 02:00 Temperature 98 F Pulse Rate 70 90 95 Respiratory Rate 21 H 18 Blood Pressure 138/90 Pulse Oximetry 98 100 08/22/20 04:00 08/22/20 06:00 08/22/20 08:00 Temperature 98.1 F Pulse Rate 70 77 87 Respiratory Rate 18 Blood Pressure 146/80 H Pulse Oximetry 98 08/22/20 08:19 08/22/20 09:46 08/22/20 12:11 Temperature 96.3 F L 97.4 F L Pulse Rate 94 100 Respiratory Rate 22 H 22 H Blood Pressure 127/60 132/90 Pulse Oximetry 100 98 100 Intake/Output Intake/Output: Intake & Output 08/19/20 08/20/20 08/21/20 08/22/20 23:59 23:59 23:59 23:59 Intake Total 3988 3010 2254 1180 Output Total 3950 4150 3150 600 Balance 38 1140
[2020-08-22] MEDS: HYDROcodone/acetaminophen (*CRX) 5-325 MG TABLET 1 TAB PO (13:54)
[2020-08-22 16:24] LABS: Glucose Point of Care 183 mg/dl (65-105)
--- NOTE | 2020-08-22 17:05 | P.PNNP_ITS ---
Progress Note: A&P Assessment and Plan (1) KONSTANTIN (acute kidney injury): Code(s): N17.9 - Acute kidney failure, unspecified Status: Acute Assessment and Plan: * improving/if not back to baseline * likely due to prerenal factors and hemodynamic instability * with improvement in BP along with IVF resuscitation, kidney function better * follow repeat labs and UOP * replete K+ as needed * continue supportive therapy (2) Stage 3b chronic kidney disease: Code(s): N18.32 - Chronic kidney disease, stage 3b Status: Chronic Assessment and Plan: * baseline creatinine runs around 1.6 - 2.1mg/dl * however, he has fluctuated to extremes with his recent hospitalizations * this is secondary to hypertension and diabetes (3) Hypokalemia: Code(s): E87.6 - Hypokalemia Status: Acute Assessment and Plan: * due to diminished oral intake and ongoing GI losses * replete as needed * follow magnesium as well * follow repeat levels * interestingly, has a history of hyperkalemia requiring use of veltassa as an outpatient (4) Anemia: Qualifiers: Anemia type: iron deficiency Iron deficiency anemia type: unspecified iron deficiency Qualified Code(s): D50.9 - Iron deficiency anemia, unspecified Code(s): D64.9 - Anemia, unspecified Status: Chronic Assessment and Plan: * partly related to CKD along with KONSTANTIN and acute illness * PRBC transfusion per protocol * on Epogen while hospitalized (5) Metabolic acidosis: Code(s): E87.2 - Acidosis Status: Acute Assessment and Plan: * related to uremic toxins fro KONSTANTIN and mild lactic acidosis * off bicarb gtt; on oral sodium bicarbonate * follow trend (6) Hypertension: Qualifiers: Hypertension type: essential hypertension Qualified Code(s): I10 - Essential (primary) hypertension Code(s): I10 - Essential (primary) hypertension Status: Chronic Assessment and Plan: * BP doing better at this time (was hypotensive) * off vasopressor therapy * follow trend of hemodynamics (7) Diarrhea: Qualifiers: Diarrhea type: unspecified type Qualified Code(s): R19.7 - Diarrhea, unspecified Code(s): R19.7 - Diarrhea, unspecified Status: Acute Assessment and Plan: * likely playing a role with #1 and possibly causing hypokalemia * has chronic diarrhea at baseline as well * GI following (8) Chronic atrial fibrillation with RVR: Code(s): I48.20 - Chronic atrial fibrillation, unspecified Status: Chronic Assessment and Plan: * continue rate control strategy * on eliquis (9) Type 2 diabetes mellitus with diabetic neuropathy: Qualifiers: Diabetes mellitus fdc insulin use: with terminal block assembler use Qualified Code(s): E11.40 - Type 2 diabetes mellitus with diabetic neuropathy, unspecified; Z79.4 - intermodal dispatcher (current) use of insulin Code(s): E11.40 - Type 2 diabetes mellitus with diabetic neuropathy, unspecified Status: Chronic Assessment and Plan: * follow accu-cheks * on sliding-scale insulin Will continue to follow. Subjective Date/time seen: 08/22/20 17:05 States that he thinks the diarrhea is improving if not better; appetite and sub sequent oral intake remains suboptimal/poor; renal function stable/improved with reasonably urine output noted; no acute issues or problems overnight or earlier this AM; still requiring replacement for hypokalemia. Exam
--- NOTE | 2020-08-22 17:05 | PM.PNNEP ---
Progress Note: A&P Assessment and Plan (1) KONSTANTIN (acute kidney injury): Code(s): N17.9 - Acute kidney failure, unspecified Status: Acute Assessment and Plan: improving/if not back to baseline likely due to prerenal factors and hemodynamic instability with improvement in BP along with IVF resuscitation, kidney function better follow repeat labs and UOP replete K+ as needed continue supportive therapy (2) Stage 3b chronic kidney disease: Code(s): N18.32 - Chronic kidney disease, stage 3b Status: Chronic Assessment and Plan: baseline creatinine runs around 1.6 - 2.1mg/dl however, he has fluctuated to extremes with his recent hospitalizations this is secondary to hypertension and diabetes (3) Hypokalemia: Code(s): E87.6 - Hypokalemia Status: Acute Assessment and Plan: due to diminished oral intake and ongoing GI losses replete as needed follow magnesium as well follow repeat levels interestingly, has a history of hyperkalemia requiring use of veltassa as an outpatient (4) Anemia: Qualifiers: Anemia type: iron deficiency Iron deficiency anemia type: unspecified iron deficiency Qualified Code(s): D50.9 - Iron deficiency anemia, unspecified Code(s): D64.9 - Anemia, unspecified Status: Chronic Assessment and Plan: partly related to CKD along with KONSTANTIN and acute illness PRBC transfusion per protocol on Epogen while hospitalized (5) Metabolic acidosis: Code(s): E87.2 - Acidosis Status: Acute Assessment and Plan: related to uremic toxins fro KONSTANTIN and mild lactic acidosis off bicarb gtt; on oral sodium bicarbonate follow trend (6) Hypertension: Qualifiers: Hypertension type: essential hypertension Qualified Code(s): I10 - Essential (primary) hypertension Code(s): I10 - Essential (primary) hypertension Status: Chronic Assessment and Plan: BP doing better at this time (was hypotensive) off vasopressor therapy follow trend of hemodynamics (7) Diarrhea: Qualifiers: Diarrhea type: unspecified type Qualified Code(s): R19.7 - Diarrhea, unspecified Code(s): R19.7 - Diarrhea, unspecified Status: Acute Assessment and Plan: likely playing a role with #1 and possibly causing hypokalemia has chronic diarrhea at baseline as well GI following (8) Chronic atrial fibrillation with RVR: Code(s): I48.20 - Chronic atrial fibrillation, unspecified Status: Chronic Assessment and Plan: continue rate control strategy on eliquis (9) Type 2 diabetes mellitus with diabetic neuropathy: Qualifiers: Diabetes mellitus senior living insulin use: with senior living use Qualified Code(s): E11.40 - Type 2 diabetes mellitus with diabetic neuropathy, unspecified; Z79.4 - detention (current) use of insulin Code(s): E11.40 - Type 2 diabetes mellitus with diabetic neuropathy, unspecified Status: Chronic Assessment and Plan: follow accu-cheks on sliding-scale insulin Will continue to follow. Subjective Date/time seen: 08/22/20 17:05 States that he thinks the diarrhea is improving if not better; appetite and subsequent oral intake remains suboptimal/poor; renal function stable/improved with reasonably urine output noted; no acute issues or problems overnight or earlier this AM; still requiring replacement for hypokalemia. Exam Narrative: Exam Narrative: General: WD/WN male in NAD Heart: normal S1 and S2; no rub Lungs: clear to auscultation Abdomen: soft, nontender, nondistended, positive bowel sounds Extremities: no cyanosis or clubbing; 2+ edema; s/p right BKA Skin: chronic skin changes noted Objective Data Vital Signs Vital Signs: Vital Signs Temp Pulse Resp BP Pulse Ox 08/22/20 16:38 35.6 C L 102 H 24 H 126/75 96 08/22/20 16:00 103 H 08/22/20 14:00 117 H 06
[2020-08-22] MEDS: POTASSIUM CHLORIDE 20 MEQ PACKET (FOR LIQUID) 40 MEQ PO (17:21)
[2020-08-22] MEDS: MAGNESIUM SULF 2 GM/WATER 50ML 2 GM/50 ML BAG IVPB (17:22)
[2020-08-22 20:23] LABS: Glucose Point of Care 228 mg/dl (65-105)
[2020-08-23] VITALS (14 sets, daily range): BP systolic 132–148; BP diastolic 60–80; PULSE 5–115; RESP 16–24; TEMP 35.5–37.2; O2SAT 97–98
[2020-08-23] MEDS: metroNIDAZOLE 500 MG/ISO 100ML 500 MG/100 ML BAG 100 MG IVPB ×4 (00:31→19:00)
[2020-08-23 04:52] LABS: Basophils Percent Auto 0.3 % (0.2-1.2); Eosinophils Absolute Auto 0.4 K/mm3 (0-0.3); Hematocrit 27.8 % (42.0-52.0); Hemoglobin 8.5 g/dL (14.0-18.0); Immature Granulocyte Absolute 0.08 K/mm3 (0.00-0.031); Immature Granulocyte Percent A 0.7 % (0-0.5); Lymphocytes Absolute Auto 0.72 K/mm3 (0.9-3.2); Lymphocytes Percent Auto 6.5 % (18.3-44.2); Mean Corpuscular HGB Conc 30.6 g/dl (32-36); Mean Corpuscular Hemoglobin 26.2 pg (26-34); Mean Corpuscular Volume 85.5 fl (80-100); Monocytes Absolute Auto 0.7 K/mm3 (0.1-0.6); Monocytes Percent Auto 6.3 % (2.6-8.5); Neutrophils Absolute Auto 9.1 K/mm3 (1.3-6.7); Neutrophils Percent Auto 82.2 % (45.5-73.1); Nucleated Red Blood Cells Perc 0.2 % (0.0-0.2); Platelet Count Result 459 k/mm3 (150-375); Red Blood Count 3.25 M/mm3 (4.6-6.20); Red Cell Distribution Width 18.3 % (11.5-14.5); White Blood Count 11.1 K/mm3 (4.5-10.0)
[2020-08-23 05:07] LABS: Alanine Aminotransferase 7 U/L (4-50); Albumin Level 2.7 g/dL (3.5-5.1); Alkaline Phosphatase 87 U/L (38-126); Anion Gap 9 mmol/L (8-16); Aspartate Amino Transferase 18 U/L (17-59); Bilirubin,Total 0.1 mg/dL (0.2-1.3); Blood Urea Nitrogen 33 mg/dL (9-20); Calcium 8.3 mg/dL (8.4-10.2); Carbon Dioxide 23 mmol/L (22-30); Chloride 113 mmol/L (98-107); Estimated CRCL calculation 97 ml/min; Estimated Glomerular Filt Rate 52; Glucose 180 mg/dL (75-110); Magnesium 1.6 mg/dL (1.6-2.3); Phosphorus 2.5 mg/dL (2.5-4.5); Potassium 3.2 mmol/L (3.4-5.0); Sodium 145 mmol/L (137-145)
[2020-08-23] MEDS: LEVOTHYROXINE SODIUM 100 MCG TABLET PO (05:35)
[2020-08-23 08:04] LABS: Glucose Point of Care 212 mg/dl (65-105)
[2020-08-23] MEDS: MAGNESIUM SULF 2 GM/WATER 50ML 2 GM/50 ML BAG IVPB (08:34)
[2020-08-23] MEDS: POTASSIUM CHLORIDE 20 MEQ TABLET 40 MEQ PO (08:34)
[2020-08-23] MEDS: PANTOPRAZOLE 40 MG TABLET PO ×2 (08:35→17:28)
[2020-08-23] MEDS: allopurinoL 300 MG TABLET PO (08:35)
[2020-08-23] MEDS: INSULIN ASPART (*BKC) 100 UNITS/ML SUB-Q (08:35)
[2020-08-23] MEDS: busPIRone HCL 5 MG TABLET PO ×3 (08:35→17:28)
[2020-08-23] MEDS: METOPROLOL TARTRATE 12.5 MG TABLET PO (08:35)
[2020-08-23] MEDS: APIXABAN 5 MG TABLET PO (08:35)
[2020-08-23] MEDS: CHOLESTYRAMINE LIGHT 4 GM POWD.PACK PO ×2 (08:35→17:28)
[2020-08-23] MEDS: PRAMIPEXOLE 0.5 MG TABLET 1.5 MG PO ×3 (08:35→17:28)
[2020-08-23] MEDS: SERTRALINE HCL 50 MG TABLET 100 MG PO ×2 (08:35→22:28)
--- NOTE | 2020-08-23 10:10 | PC.NURSE ---
This patient, Mike Handy, was transferred to [[id number]] on 08/23/20 at 1010. Personal belongings sent with patient. Report given to [ROBBIE VILLATORO]. Appropriate documentation sent with patient.
--- NOTE | 2020-08-23 10:23 | PC.NURSE ---
This patient, Mike Handy, was received from IMU on 08/23/20 at 1015. Patient/family oriented to unit policies and routines. Report from SHAUNA Randolph @ [phone].
--- NOTE | 2020-08-23 10:25 | P.PNNP_ITS ---
Progress Note: A&P Assessment and Plan (1) KONSTANTIN (acute kidney injury): Code(s): N17.9 - Acute kidney failure, unspecified Status: Acute Assessment and Plan: * resolved * likely due to prerenal factors and hemodynamic instability * with improvement in BP along with IVF resuscitation, kidney function better * follow repeat labs and UOP * replete K+ as needed * continue supportive therapy (2) Stage 3b chronic kidney disease: Code(s): N18.32 - Chronic kidney disease, stage 3b Status: Chronic Assessment and Plan: * baseline creatinine runs around 1.6 - 2.1mg/dl * however, he has fluctuated to extremes with his recent hospitalizations * this is secondary to hypertension and diabetes (3) Hypokalemia: Code(s): E87.6 - Hypokalemia Status: Acute Assessment and Plan: * due to diminished oral intake and ongoing GI losses * replete as needed * follow magnesium as well * follow repeat levels * interestingly, has a history of hyperkalemia requiring use of veltassa as an outpatient (4) Anemia: Qualifiers: Anemia type: iron deficiency Iron deficiency anemia type: unspecified iron deficiency Qualified Code(s): D50.9 - Iron deficiency anemia, unspecified Code(s): D64.9 - Anemia, unspecified Status: Chronic Assessment and Plan: * partly related to CKD along with KONSTANTIN and acute illness * PRBC transfusion per protocol * on Epogen while hospitalized (5) Metabolic acidosis: Code(s): E87.2 - Acidosis Status: Acute Assessment and Plan: * related to uremic toxins from KONSTANTIN and mild lactic acidosis * off bicarb gtt; on oral sodium bicarbonate * follow trend (6) Hypertension: Qualifiers: Hypertension type: essential hypertension Qualified Code(s): I10 - E ssential (primary) hypertension Code(s): I10 - Essential (primary) hypertension Status: Chronic Assessment and Plan: * BP doing better at this time (was hypotensive) * off vasopressor therapy * follow trend of hemodynamics (7) Diarrhea: Qualifiers: Diarrhea type: unspecified type Qualified Code(s): R19.7 - Diarrhea, unspecified Code(s): R19.7 - Diarrhea, unspecified Status: Acute Assessment and Plan: * likely playing a role with #1 and possibly causing hypokalemia * has chronic diarrhea at baseline as well * GI following - possible EGD/colonoscopy if patient willing (8) Chronic atrial fibrillation with RVR: Code(s): I48.20 - Chronic atrial fibrillation, unspecified Status: Chronic Assessment and Plan: * continue rate control strategy * on eliquis (9) Type 2 diabetes mellitus with diabetic neuropathy: Qualifiers: Diabetes mellitus detention insulin use: with detention use Qualified Code(s): E11.40 - Type 2 diabetes mellitus with diabetic neuropathy, unspecified; Z79.4 - senior living (current) use of insulin Code(s): E11.40 - Type 2 diabetes mellitus with diabetic neuropathy, unspecified Status: Chronic Assessment and Plan: * follow accu-cheks * on sliding-scale insulin Will continue to follow. Subjective Date/time seen: 08/23/20 10:25 Appears to be doing reasonably well -- still having issues with diarrhea in association with a poor appetite; remains hemodynamically stable and kidney function back to baseline (if not better); no apparent distress voiced at the time of my visit. Exam Narrative: Exam Narra
--- NOTE | 2020-08-23 10:25 | PM.PNNEP ---
Progress Note: A&P Assessment and Plan (1) KONSTANTIN (acute kidney injury): Code(s): N17.9 - Acute kidney failure, unspecified Status: Acute Assessment and Plan: resolved likely due to prerenal factors and hemodynamic instability with improvement in BP along with IVF resuscitation, kidney function better follow repeat labs and UOP replete K+ as needed continue supportive therapy (2) Stage 3b chronic kidney disease: Code(s): N18.32 - Chronic kidney disease, stage 3b Status: Chronic Assessment and Plan: baseline creatinine runs around 1.6 - 2.1mg/dl however, he has fluctuated to extremes with his recent hospitalizations this is secondary to hypertension and diabetes (3) Hypokalemia: Code(s): E87.6 - Hypokalemia Status: Acute Assessment and Plan: due to diminished oral intake and ongoing GI losses replete as needed follow magnesium as well follow repeat levels interestingly, has a history of hyperkalemia requiring use of veltassa as an outpatient (4) Anemia: Qualifiers: Anemia type: iron deficiency Iron deficiency anemia type: unspecified iron deficiency Qualified Code(s): D50.9 - Iron deficiency anemia, unspecified Code(s): D64.9 - Anemia, unspecified Status: Chronic Assessment and Plan: partly related to CKD along with KONSTANTIN and acute illness PRBC transfusion per protocol on Epogen while hospitalized (5) Metabolic acidosis: Code(s): E87.2 - Acidosis Status: Acute Assessment and Plan: related to uremic toxins from KONSTANTIN and mild lactic acidosis off bicarb gtt; on oral sodium bicarbonate follow trend (6) Hypertension: Qualifiers: Hypertension type: essential hypertension Qualified Code(s): I10 - Essential (primary) hypertension Code(s): I10 - Essential (primary) hypertension Status: Chronic Assessment and Plan: BP doing better at this time (was hypotensive) off vasopressor therapy follow trend of hemodynamics (7) Diarrhea: Qualifiers: Diarrhea type: unspecified type Qualified Code(s): R19.7 - Diarrhea, unspecified Code(s): R19.7 - Diarrhea, unspecified Status: Acute Assessment and Plan: likely playing a role with #1 and possibly causing hypokalemia has chronic diarrhea at baseline as well GI following - possible EGD/colonoscopy if patient willing (8) Chronic atrial fibrillation with RVR: Code(s): I48.20 - Chronic atrial fibrillation, unspecified Status: Chronic Assessment and Plan: continue rate control strategy on eliquis (9) Type 2 diabetes mellitus with diabetic neuropathy: Qualifiers: Diabetes mellitus terminal block assembler insulin use: with shelter use Qualified Code(s): E11.40 - Type 2 diabetes mellitus with diabetic neuropathy, unspecified; Z79.4 - FDC (current) use of insulin Code(s): E11.40 - Type 2 diabetes mellitus with diabetic neuropathy, unspecified Status: Chronic Assessment and Plan: follow accu-cheks on sliding-scale insulin Will continue to follow. Subjective Date/time seen: 08/23/20 10:25 Appears to be doing reasonably well -- still having issues with diarrhea in association with a poor appetite; remains hemodynamically stable and kidney function back to baseline (if not better); no apparent distress voiced at the time of my visit. Exam Narrative: Exam Narrative: General: WD/WN male in NAD Heart: normal S1 and S2; no rub Lungs: clear to auscultation Abdomen: soft, nontender, nondistended, positive bowel sounds Extremities: no cyanosis or clubbing; 2+ edema; s/p right BKA Skin: chronic skin changes noted Objective Data Vital Signs Vital Signs: Vital Signs Temp Pulse Resp BP Pulse Ox 08/23/20 08:35 115 H 08/23/20 08:00 99 08/23/20 07:55 35.5 C L 102 H 24 H 132/77 98 08/23/20 06:00 78
--- NOTE | 2020-08-23 10:49 | WPDGIPROGNO ---
Progress Note: A&P Assessment and Plan (1) Diarrhea: Code(s): R19.7 - Diarrhea, unspecified Status: Acute Assessment and Plan: Diarrhea persists. Patient reports improvement. Etiology remains unclear. Stool cultures negative to date. Empiric antibiotic with Flagyl in place. Fiber supplements may benefit. Questran also being tried will follow with you. Likely this contributes to some of his electrolyte disturbance. Patient has refused colonoscopy investigation of his diarrhea. (2) Diabetic gastroparesis: Code(s): E11.43 - Type 2 diabetes mellitus with diabetic autonomic (poly)neuropathy; K31.84 - Gastroparesis Status: Acute Assessment and Plan: Patient with long history of diabetes complains of nausea. History of previous gastric bypass likely contributes to nausea with small-sized to stomach. Patient has refused endoscopy will defer this for now. 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 insulin use: with local company intermodal truck driver use Qualified Code(s): E11.65 - Type 2 diabetes mellitus with hyperglycemia; Z79.4 - long term care phlebotomist (current) use of insulin Code(s): E11.65 - Type 2 diabetes mellitus with hyperglycemia Status: Acute (6) Acute on chronic renal failure: Qualifiers: Acute renal failure type: unspecified Chronic kidney disease stage: unspecified stage Qualified Code(s): N17.9 - Acute kidney failure, unspecified; N18.9 - Chronic kidney disease, unspecified Code(s): N17.9 - Acute kidney failure, unspecified; N18.9 - Chronic kidney disease, unspecified Status: Acute Assessment and Plan: Patient with chronic kidney disease. Resolving acute injury. Likely has anemia of chronic disease on this basis. (7) PAF (paroxysmal atrial fibrillation): Code(s): I48.0 - Paroxysmal atrial fibrillation Status: Acute (8) Severe obesity: Code(s): E66.01 - Morbid (severe) obesity due to excess calories Status: Chronic (9) History of below-knee amputation of right lower extremity: Code(s): Z89.511 - Acquired absence of right leg below knee Status: Chronic Additional Plan Continue supportive care. As stated primary treatment for his diarrhea currently is empiric antibiotic use along with Questran. We may want to add additional Levaquin. Will follow with you. Subjective Date/time seen: 08/23/20 10:49 Patient reports that less frequent intervals between stooling. He continues to have vague abdominal discomfort. Reports no taste in therefore no appetite. No evidence of any bleeding. Review of Systems Review of Systems: All systems reviewed & are unremarkable except as noted in HPI and below Exam Narrative: Exam Narrative: On physical exam patient remains at bedrest. Vital signs are stable. HEENT exam is anicteric. Lungs are clear. Abdomen is obese bowel sounds are present no organomegaly evident. No specific localized tenderness. Fecal containment bag place. Extremities with some edema bilaterally consistent with known lymphedema. Right BKA evident. Objective Data Vital Signs Vital Signs: Vital Signs - 24 hr 08/22/20 12:00 08/22/20 12:11 08/22/20 14:00 Temperature 97.4 F L Pulse Rate 89 100 117 H Respiratory Rate 22 H Blood Pressure 132/90 Pulse Oximetry 100 08/22/20 16:00 08/22/20 16:38 08/22/20 18:00 Temperature 96.0 F L Pulse Rate 103 H 102 H 95 Respiratory Rate 24 H Blood Pressure 126/75 Pulse Oximetry 96 08/22/20 20:00 08/22/20 20:53 08/22/20 22:00 Temperature 97.6 F 97.6 F Pulse Rate 104 H 81 101 H Respiratory Rate 20 20 Blood Pressure 1
[2020-08-23] MEDS: COLLAGENASE OINT 30 GM TUBE 1 APPLIC TOPICAL ×2 (11:07→22:33)
[2020-08-23] MEDS: TOLNAFTATE 1% POWDER 45 GM BTL 1 APPLIC TOPICAL ×2 (11:08→22:32)
[2020-08-23 11:45] LABS: Glucose Point of Care 187 mg/dl (65-105)
--- NOTE | 2020-08-23 14:04 | PM.IMPN ---
Progress Note: A&P Assessment and Plan (1) Ileus: Code(s): K56.7 - Ileus, unspecified Status: Acute Assessment and Plan: Proximal dilated small-bowel loops and a diffusely dilated colon with air-fluid levels consistent with ileus. Probably infectious etiology. Stool culture negative for CDiff, Salmonella, EColi, Crypto and Giardia. Ischemic bowel felt less likely. Diarrhea up to 2L on admission. Still with diarrheal stool. Remains on Cefepime and Flagyl. WBC 9-11 range and stable. Long discussion with patient and family about endoscopy. Patient now feels comfortable with the plan to have these procedures done. Spoke with GI and now plan for EGD/[place] tomorrow. Not eating much per patient; encourage oral intake. Continue supplements. Continue supportive care. (2) Shock: Code(s): R57.9 - Shock, unspecified Status: Resolved Assessment and Plan: Patient developed low BP around the time he was changed to oral Diltiazem in the evening hours of 08/16; Anti-HTN medications stopped but BP continued to decline requiring central line placement and Levophed started. Not initially fluid responsive. LA 14 at that time but normal on repeat at 0.9 and suspect more likely related to HoTN then sepsis (poor collection method?). BCx negative. [place] more likely hypovolemic related to the diarrhea. Levophed weaned off earlier morning hours of 08/18. BP remaining stable and able to tolerate metoprolol. Resolved (3) Acute on chronic renal failure: Qualifiers: Acute renal failure type: unspecified Chronic kidney disease stage: unspecified stage Qualified Code(s): N17.9 - Acute kidney failure, unspecified; N18.9 - Chronic kidney disease, unspecified Code(s): N17.9 - Acute kidney failure, unspecified; N18.9 - Chronic kidney disease, unspecified Status: Acute Assessment and Plan: Creatinine 4.8 admission. Baseline creatinine last month was 1.8. CT scan showing bilateral renal stones and low-density lesions in the kidneys most likely cysts. Renal ultrasound showed mild cortical thinning but no hydronephrosis. Metabolic acidosis noted on admission. [place] related to dehydration from his diarrhea and poor oral intake. He is not on diuretics at home. Treated with IV fluids with bicarb. Acidosis resolved. Cr overall improved to 1.4 today. Off IV fluids now. Nephrology following. Appreciate their input. (4) Metabolic acidosis: Code(s): E87.2 - Acidosis Status: Acute Assessment and Plan: Bicarb of 12 and anion gap of 17 on admission. PH is 7.196 all consistent with metabolic acidosis felt related to his renal failure, lactic acidosis and diarrhea. AG closed. LA normal now as well. Off IV fluids. Continue monitor. (5) Chronic atrial fibrillation with RVR: Code(s): I48.20 - Chronic atrial fibrillation, unspecified Status: Chronic Assessment and Plan: Patient has chronic AFib/Flutter on Toprol XL for rate control and Eliquis for stroke prophylaxis. Patient was mildly tachycardic on admission and started on diltiazem drip. Tachycardia most likely related to dehydration. He was transitioned to a short-acting diltiazem p.o. but stopped due to the HoTN. Tele showing AFlutter. Home Toprol XL on hold but able to add back low dose metoprolol tartrate. BP remaining stable. HR still elevated at times. Will advance Metoprolol. Hold Eliquis for procedure tomorrow. (6) Type 2 diabetes mellitus with hyperglycemia: Qualifiers: Diabetes mellitus [facility] insulin use: with [facility] use Qualified Code(s): E11.65 - Type 2 diabetes mellitus with hyperglycemia; Z79.4 - half-way (current) use of insulin Code(s): E11.65 - Type 2 diabetes mellitus with hyperglycemia Status: Acute Assessment and Plan: A1c 7.1. The patient's blood glucose was reviewed on 08/23 Glucose remains mostly well controlled. Continue AccuCheks coveri
--- NOTE | 2020-08-23 14:58 | PCOTNOTE ---
Attempted therapy session with patient, but patient refused stating he was in the middle of prepping for a colonoscopy and to try back tomorrow or the next day.
[2020-08-23] MEDS: PEG (High)/E-LYTE SOLN 4,000 ML BTL 4000 ML PO (15:50)
[2020-08-23 17:22] LABS: Glucose Point of Care 166 mg/dl (65-105)
[2020-08-23 22:03] LABS: Glucose Point of Care 161 mg/dl (65-105)
[2020-08-23] MEDS: METOPROLOL TARTRATE 25 MG TABLET PO (22:27)
[2020-08-24] VITALS (16 sets, daily range): BP systolic 111–148; BP diastolic 70–95; PULSE 98–108; RESP 18–26; TEMP 36.3–37.9; O2SAT 95–100
[2020-08-24] MEDS: metroNIDAZOLE 500 MG/ISO 100ML 500 MG/100 ML BAG 100 MG IVPB ×3 (00:28→11:43)
[2020-08-24 04:57] LABS: Glucose Point of Care 134 mg/dl (65-105)
[2020-08-24 06:15] LABS: Hematocrit 29.5 % (42.0-52.0); Mean Corpuscular HGB Conc 30.5 g/dl (32-36); Mean Corpuscular Hemoglobin 26.2 pg (26-34); Mean Platelet Volume 9.1 fl (7.4-10.4); Platelet Count Result 420 k/mm3 (150-375); Red Blood Count 3.43 M/mm3 (4.6-6.20); Red Cell Distribution Width 18.7 % (11.5-14.5); White Blood Count 10.3 K/mm3 (4.5-10.0)
[2020-08-24 06:20] LABS: Anion Gap 9 mmol/L (8-16); Blood Urea Nitrogen 29 mg/dL (9-20); Calcium 8.5 mg/dL (8.4-10.2); Carbon Dioxide 22 mmol/L (22-30); Chloride 115 mmol/L (98-107); Estimated CRCL calculation 97 ml/min; Estimated Glomerular Filt Rate 52; Glucose 143 mg/dL (75-110); Magnesium 1.6 mg/dL (1.6-2.3); Potassium 2.9 mmol/L (3.4-5.0); Sodium 146 mmol/L (137-145)
[2020-08-24] MEDS: METOPROLOL TARTRATE 25 MG TABLET PO (08:31)
[2020-08-24] MEDS: busPIRone HCL 5 MG TABLET PO ×3 (08:31→17:08)
[2020-08-24 11:05] LABS: Glucose Point of Care 127 mg/dl (65-105)
--- NOTE | 2020-08-24 11:22 | WPDANESEPPF ---
Anes - Initial Pre Proc Eval Procedure: Operation Date: 08/24/20 11:00 Proposed Procedures p Esophagogastroduodenoscopy & Colonoscopy - Paul Colindres MD Date/Time: 08/24/20 11:22 Surgeon: Jerome Umana MD Pre Op Diagnosis: Diarrhea/acute renal failure on top of chronic/wea Patient Data Age: 60 Gender: M Height: 6 ft 7 in Weight: 190 kg Last Vital Signs Temp 97.3 F L 08/24/20 11:02 Pulse 101 H 08/24/20 11:02 Resp 22 H 08/24/20 11:02 BP 147/95 H 08/24/20 11:02 Pulse Ox 99 08/24/20 11:02 Allergies Allergy/AdvReac Type Severity Reaction Status Date / Time ibuprofen AdvReac Unknown Unknown Verified 08/24/20 11:00 Home Medications Medication Instructions Recorded Confirmed Type apixaban 5 mg tablet 5 mg PO BID 05/07/19 08/15/20 History pramipexole 1.5 mg tablet 1.5 mg PO TID #90 tablet 06/30/19 08/15/20 Rx insulin glargine 100 unit/mL 60 unit SUBCUT QPM ml 01/15/20 08/15/20 History subcutaneous solution omeprazole 40 mg capsule,delayed 40 mg PO DAILY #30 cap 02/10/20 08/15/20 Rx release ondansetron HCl 4 mg tablet 4 mg PO Q8H PRN #90 tablet 02/10/20 08/15/20 Rx patiromer calcium sorbitex 16.8 16.8 g PO BID ea 02/10/20 08/15/20 History gram oral powder packet metoprolol succinate 100 mg 100 mg PO DAILY #90 tablet 03/25/20 08/15/20 Rx tablet,extended release 24 hr insulin lispro 100 unit/mL 1 - 8 unit SUBCUT AC 06/20/20 08/15/20 History subcutaneous pen cholecalciferol (vitamin D3) 1,250 1,250 mcg PO WEEKLY #14 cap 06/24/20 08/15/20 Rx mcg (50,000 unit) capsule ferrous sulfate 325 mg (65 mg 325 mg PO BID #60 tablet 07/29/20 08/15/20 Rx iron) tablet buspirone 5 mg tablet 5 mg PO TID #90 tablet 08/03/20 08/15/20 Rx allopurinol 300 mg PO DAILY 08/15/20 08/15/20 History amlodipine 5 mg PO DAILY 08/15/20 08/15/20 History levothyroxine 100 mcg PO DAILY 08/15/20 08/15/20 History sertraline 100 mg PO Q12H 08/15/20 08/15/20 History Laboratory Tests 08/23/20 08/23/20 08/23/20 11:42 17:18 21:39 WBC RBC Hgb Hct MCV MCH MCHC RDW Plt Count MPV Sodium Potassium Chloride Carbon Dioxide Anion Gap BUN Creatinine Estim Creat Clear Calc Estimated GFR Glucose POC Capillary Glucose 187 mg/dl H mg/dl 166 mg/dl H mg/dl 161 mg/dl H mg/dl (65-105) (65-105) (65-105) Calcium Magnesium 08/24/20 08/24/20 08/24/20 04:53 05:57 05:57 WBC 10.3 K/mm3 H K/mm3 (4.5-10.0) RBC 3.43 M/mm3 L M/mm3 (4.6-6.20) Hgb 9.0 g/dL L g/dL (14.0-18.0) Hct 29.5 % L % (42.0-52.0) MCV 86.0 fl fl (80-100) MCH 26.2 pg pg (26-34) MCHC 30.5 g/dl L g/dl (32-36) RDW 18.7 % H % (11.5-14.5) Plt Count 420 k/mm3 H k/mm3 (150-375) MPV 9.1 fl fl (7.4-10.4) Sodium 146 mmol/L H mmol/L (137-145) Potassium 2.9 mmol/L L mmol/L (3.4-5.0) Chloride 115 mmol/L H mmol/L (98-107) Carbon Dioxide 22 mmol/L mmol/L (22-30) Anion Gap 9 mmol/L mmol/L (8-16) BUN 29 mg/dL H mg/dL (9-20) Creatinine 1.40 mg/dL H mg/dL (0.7-1.3) Estim Creat Clear Calc 97 ml/min ml/min Estimated GFR 52 L (59 - ) Glucose 143 mg/dL H mg/dL (75-110) POC Capillary Glucose 134 mg/dl H mg/dl (65-105) Calcium 8.5 mg/dL mg/dL (8.4-10.2) Magnesium 1.6 mg/dL mg/dL (1.6-2.3) 08/24/20 11:04 WBC RBC Hgb Hct MCV MCH MCHC RDW Plt Count MPV Sodium Potassium Chloride Carbon Dioxide Anion Gap BUN Creatinine
--- NOTE | 2020-08-24 11:32 | PCPTNOTE ---
The patient treatment was not able to be completed today due to patient out of room for testing. Will plan to continue treatment per plan of care.
[2020-08-24] MEDS: LACTATED RINGERS 1,000 ML 150 ML IV CONT (11:42)
--- NOTE | 2020-08-24 12:04 | WPDGIPROGNO ---
Progress Note: A&P Assessment and Plan (1) Peptic ulcer disease: Code(s): K27.9 - Peptic ulcer, site unspecified, unspecified as acute or chronic, without hemorrhage or perforation Status: Acute Assessment and Plan: Ulcer at anastomosis identified by EGD. Patient already on Protonix 40 mg p.o. b.i.d. and this should continue. Avoid nonsteroidal anti-inflammatory agents. Soft to liquid diet will probably cause less nausea. Biopsies taken of ulcer pending and histology will be reviewed. (2) Family history of colonic polyps: Code(s): Z83.71 - Family history of colonic polyps Status: Acute (3) Diarrhea: Code(s): R19.7 - Diarrhea, unspecified Status: Acute Assessment and Plan: Patient continues to have diarrhea. Of refused preparation for colonoscopy today. Patient now on empiric antibiotics for presumed ulcer. Cultures have been negative to date. Continue fiber supplementation Questran has been added to possibly limit diarrhea. (4) Sacral wound: Onset Date: Unknown Code(s): S31.000A - Unspecified open wound of lower back and pelvis without penetration into retroperitoneum, initial encounter Status: Acute (5) Chronic atrial fibrillation with RVR: Code(s): I48.20 - Chronic atrial fibrillation, unspecified Status: Chronic (6) Type 2 diabetes mellitus with hyperglycemia: Qualifiers: Diabetes mellitus sustainability coach insulin use: with sustainability coach use Qualified Code(s): E11.65 - Type 2 diabetes mellitus with hyperglycemia; Z79.4 - manager balance (current) use of insulin Code(s): E11.65 - Type 2 diabetes mellitus with hyperglycemia Status: Acute (7) Lymphedema: Onset Date: Unknown Code(s): I89.0 - Lymphedema, not elsewhere classified Status: Acute (8) History of below-knee amputation of right lower extremity: Code(s): Z89.511 - Acquired absence of right leg below knee Status: Chronic Subjective Date/time seen: 08/24/20 12:04 patient refuses to take preparation for colonoscopy. Agrees to EGD today. Continues to have vague abdominal pain and nausea. History of gastric ulcer. Diarrhea persists. Rectal tube remains in place. EGD today confirms persistent ulcer at the anastomosis. Prior gastric bypass with Billroth II anastomosis. Biopsies taken and pending. Review of Systems Review of Systems: All systems reviewed & are unremarkable except as noted in HPI and below Exam Narrative: Exam Narrative: Physical exam reveals patient to be obese. Abdomen is soft no localized tenderness evident. Rectal tube remains in place. Objective Data Vital Signs Vital Signs: Vital Signs - 24 hr 08/23/20 14:00 08/23/20 16:00 08/23/20 20:00 Temperature 99.0 F Pulse Rate 103 H 88 106 H Respiratory Rate 24 H Blood Pressure 148/80 H Pulse Oximetry 97 08/23/20 22:00 08/23/20 22:27 08/24/20 00:00 Temperature 97.6 F Pulse Rate 100 5 L 102 H Respiratory Rate 16 Blood Pressure 132/60 Pulse Oximetry 98 08/24/20 04:00 08/24/20 06:00 08/24/20 08:00 Temperature 98.7 F Pulse Rate 102 H 100 107 H Respiratory Rate 18 Blood Pressure 134/80 Pulse Oximetry 99 08/24/20 08:31 08/24/20 11:02 Temperature 97.3 F L Pulse Rate 104 H 101 H Respiratory Rate 22 H Blood Pressure 147/95 H Pulse Oximetry 99 Intake/Output Intake/Output: Intake & Output 08/21/20 08/22/20 08/23/20 08/24/20 23:59 23:59 23:59 23:59 Intake Total 2304 3010 2670 375 Output Total 3150 2550 1750 1000 Balance -846 460 920 -625 Meds/Results Medications: Active Medications Generic Name Dose Route Start Last Admin Trade Name Freq PRN Reason Stop Dose Admin Acetaminophen 650 mg 08/16/20 15:44 Acetaminophen 325 Mg Tablet PO Q6H PRN Mild Pain (1-5) Or Fever Hydrocodone Bitart/Acetaminophen 1 tab 08/16/20 15:44 08/22/20 13:54 Hydrocodone/Acetaminophen (*Crx) 5-325 Mg Tab
[2020-08-24 12:10] LABS: Glucose Point of Care 134 mg/dl (65-105)
[2020-08-24] MEDS: MAGNESIUM SULF 2 GM/WATER 50ML 2 GM/50 ML BAG IVPB (14:06)
[2020-08-24] MEDS: EPOETIN ALFA-EPBX 10,000 UNITS/ML VIAL 10000 UNITS SUB-Q (14:07)
[2020-08-24] MEDS: PRAMIPEXOLE 0.5 MG TABLET 1.5 MG PO ×2 (14:08→17:09)
[2020-08-24] MEDS: SERTRALINE HCL 50 MG TABLET 100 MG PO ×2 (14:09→20:51)
[2020-08-24] MEDS: PANTOPRAZOLE 40 MG TABLET PO ×2 (14:09→17:09)
[2020-08-24] MEDS: allopurinoL 300 MG TABLET PO (14:10)
[2020-08-24] MEDS: COLLAGENASE OINT 30 GM TUBE 1 APPLIC TOPICAL ×2 (14:10→20:51)
[2020-08-24] MEDS: TOLNAFTATE 1% POWDER 45 GM BTL 1 APPLIC TOPICAL ×2 (14:11→20:51)
[2020-08-24] MEDS: POTASSIUM CHLORIDE 20 MEQ TABLET.ER 40 MEQ PO (14:12)
--- NOTE | 2020-08-24 14:55 | PM.IMPN ---
Progress Note: A&P Assessment and Plan (1) Ileus: Code(s): K56.7 - Ileus, unspecified Status: Acute Assessment and Plan: Proximal dilated small-bowel loops and a diffusely dilated colon with air-fluid levels consistent with ileus. Probably infectious etiology. Stool culture negative for CDiff, Salmonella, EColi, Crypto and Giardia. Ischemic bowel felt less likely. Diarrhea up to 2L on admission. Still with diarrheal stool. Remains on Cefepime and Flagyl. WBC 9-11 range and stable. EGD results as mentioned below. Minter postponed indefinitely. Not eating much per patient; encourage oral intake. Stool output declining. Continue supplements. Continue supportive care. Remove fecal containment system when able. (2) Hypokalemia: Code(s): E87.6 - Hypokalemia Status: Acute Assessment and Plan: Potassium low at times requiring frequent replacement. [place] related to GI loss and poor oral intake. Contineu to replace as needed. (3) Shock: Code(s): R57.9 - Shock, unspecified Status: Resolved Assessment and Plan: Patient developed low BP around the time he was changed to oral Diltiazem in the evening hours of 08/16; Anti-HTN medications stopped but BP continued to decline requiring central line placement and Levophed started. Not initially fluid responsive. LA 14 at that time but normal on repeat at 0.9 and suspect more likely related to HoTN then sepsis (poor collection method?). BCx negative. Overall, likely hypovolemic related to the diarrhea. Levophed weaned off earlier morning hours of 08/18. BP remaining stable and able to add back metoprolol. Resolved (4) Peptic ulcer disease: Code(s): K27.9 - Peptic ulcer, site unspecified, unspecified as acute or chronic, without hemorrhage or perforation Status: Acute Assessment and Plan: EGD showing gastric ulcer at the anastomosis site. Continue PPI. (5) Acute on chronic renal failure: Qualifiers: Acute renal failure type: unspecified Chronic kidney disease stage: unspecified stage Qualified Code(s): N17.9 - Acute kidney failure, unspecified; N18.9 - Chronic kidney disease, unspecified Code(s): N17.9 - Acute kidney failure, unspecified; N18.9 - Chronic kidney disease, unspecified Status: Acute Assessment and Plan: Creatinine 4.8 admission. Baseline creatinine last month was 1.8. CT scan showing bilateral renal stones and low-density lesions in the kidneys most likely cysts. Renal ultrasound showed mild cortical thinning but no hydronephrosis. Metabolic acidosis noted on admission. [place] related to dehydration from his diarrhea and poor oral intake. He is not on diuretics at home. Treated with IV fluids with bicarb. Acidosis resolved. Cr overall improved to 1.4 today. Off IV fluids now. Nephrology following. Appreciate their input. (6) Metabolic acidosis: Code(s): E87.2 - Acidosis Status: Acute Assessment and Plan: Bicarb of 12 and anion gap of 17 on admission. PH is 7.196 all consistent with metabolic acidosis felt related to his renal failure, lactic acidosis and diarrhea. AG closed. LA normal now as well. Off IV fluids. Continue monitor. (7) Chronic atrial fibrillation with RVR: Code(s): I48.20 - Chronic atrial fibrillation, unspecified Status: Chronic Assessment and Plan: Patient has chronic AFib/Flutter on Toprol XL for rate control and Eliquis for stroke prophylaxis. Patient was mildly tachycardic on admission and started on diltiazem drip. Tachycardia most likely related to dehydration. He was transitioned to a short-acting diltiazem p.o. but stopped due to the HoTN. Tele showing AFlutter. Home Toprol XL was on hold but able to add back low dose metoprolol tartrate. BP remaining stable but HR still elevated at times. Will advance Metoprolol again. Resume Eliquis (8) Type 2 diabetes mellitus with hyperglycem
--- NOTE | 2020-08-24 16:15 | PM.PNNEP ---
Progress Note: A&P Assessment and Plan (1) KONSTANTIN (acute kidney injury): Code(s): N17.9 - Acute kidney failure, unspecified Status: Acute Assessment and Plan: resolved likely due to prerenal factors and hemodynamic instability with improvement in BP along with IVF resuscitation, kidney function better follow repeat labs and UOP replete K+ as needed continue supportive therapy (2) Stage 3b chronic kidney disease: Code(s): N18.32 - Chronic kidney disease, stage 3b Status: Chronic Assessment and Plan: baseline creatinine runs around 1.6 - 2.1mg/dl however, he has fluctuated to extremes with his recent hospitalizations this is secondary to hypertension and diabetes (3) Hypokalemia: Code(s): E87.6 - Hypokalemia Status: Acute Assessment and Plan: due to diminished oral intake and ongoing GI losses replete as needed follow magnesium as well follow repeat levels interestingly, has a history of hyperkalemia requiring use of veltassa as an outpatient (4) Anemia: Qualifiers: Anemia type: iron deficiency Iron deficiency anemia type: unspecified iron deficiency Qualified Code(s): D50.9 - Iron deficiency anemia, unspecified Code(s): D64.9 - Anemia, unspecified Status: Chronic Assessment and Plan: partly related to CKD along with KONSTANTIN and acute illness PRBC transfusion per protocol on Epogen while hospitalized (5) Metabolic acidosis: Code(s): E87.2 - Acidosis Status: Acute Assessment and Plan: related to uremic toxins from KONSTANTIN, mild lactic acidosis and perhaps diarrhea off bicarb gtt; on oral sodium bicarbonate follow trend (6) Hypertension: Qualifiers: Hypertension type: essential hypertension Qualified Code(s): I10 - Essential (primary) hypertension Code(s): I10 - Essential (primary) hypertension Status: Chronic Assessment and Plan: BP doing better at this time (was hypotensive) off vasopressor therapy follow trend of hemodynamics (7) Diarrhea: Qualifiers: Diarrhea type: unspecified type Qualified Code(s): R19.7 - Diarrhea, unspecified Code(s): R19.7 - Diarrhea, unspecified Status: Acute Assessment and Plan: likely playing a role with #1 and possibly causing hypokalemia has chronic diarrhea at baseline as well GI following - EGD with reflux esophagitis and gastric ulcer at gastric bypass anastomosis (on PPI now) (8) Chronic atrial fibrillation with RVR: Code(s): I48.20 - Chronic atrial fibrillation, unspecified Status: Chronic Assessment and Plan: continue rate control strategy on eliquis (9) Type 2 diabetes mellitus with diabetic neuropathy: Qualifiers: Diabetes mellitus correction insulin use: with correction use Qualified Code(s): E11.40 - Type 2 diabetes mellitus with diabetic neuropathy, unspecified; Z79.4 - [facility]entiary (current) use of insulin Code(s): E11.40 - Type 2 diabetes mellitus with diabetic neuropathy, unspecified Status: Chronic Assessment and Plan: follow accu-cheks on sliding-scale insulin Will continue to follow. Subjective Date/time seen: 08/24/20 16:15 Status post EGD today earlier today and tolerated procedure well -- noted findings of reflux esophagitis and acute gastric ulcer at anastomosis (from previous bypass surgery); diarrhea still an issue but the thinks it is a bit better; appetite still fluctuating; remains hemodynamically stable. Exam Narrative: Exam Narrative: General: WD/WN male in NAD Heart: normal S1 and S2; no rub Lungs: clear to auscultation Abdomen: soft, nontender, nondistended, positive bowel sounds Extremities: no cyanosis or clubbing; 1 - 2+ edema; s/p right BKA Skin: chronic skin changes noted Objective Data Vital Signs Vital Signs: Vital Signs Temp Pulse Resp BP Pulse Ox 08/24/20 14:00 36
--- NOTE | 2020-08-24 16:15 | P.PNNP_ITS ---
Progress Note: A&P Assessment and Plan (1) KONSTANTIN (acute kidney injury): Code(s): N17.9 - Acute kidney failure, unspecified Status: Acute Assessment and Plan: * resolved * likely due to prerenal factors and hemodynamic instability * with improvement in BP along with IVF resuscitation, kidney function better * follow repeat labs and UOP * replete K+ as needed * continue supportive therapy (2) Stage 3b chronic kidney disease: Code(s): N18.32 - Chronic kidney disease, stage 3b Status: Chronic Assessment and Plan: * baseline creatinine runs around 1.6 - 2.1mg/dl * however, he has fluctuated to extremes with his recent hospitalizations * this is secondary to hypertension and diabetes (3) Hypokalemia: Code(s): E87.6 - Hypokalemia Status: Acute Assessment and Plan: * due to diminished oral intake and ongoing GI losses * replete as needed * follow magnesium as well * follow repeat levels * interestingly, has a history of hyperkalemia requiring use of veltassa as an outpatient (4) Anemia: Qualifiers: Anemia type: iron deficiency Iron deficiency anemia type: unspecified iron deficiency Qualified Code(s): D50.9 - Iron deficiency anemia, unspecified Code(s): D64.9 - Anemia, unspecified Status: Chronic Assessment and Plan: * partly related to CKD along with KONSTANTIN and acute illness * PRBC transfusion per protocol * on Epogen while hospitalized (5) Metabolic acidosis: Code(s): E87.2 - Acidosis Status: Acute Assessment and Plan: * related to uremic toxins from KONSTANTIN, mild lactic acidosis and perhaps diarrhea * off bicarb gtt; on oral sodium bicarbonate * follow trend (6) Hypertension: Qualifiers: Hypertension type: essential hypertension Qualified Code(s): I10 - Essential (primary) hypertension Code(s): I10 - Essential (primary) hypertension Status: Chronic Assessment and Plan: * BP doing better at this time (was hypotensive) * off vasopressor therapy * follow trend of hemodynamics (7) Diarrhea: Qualifiers: Diarrhea type: unspecified type Qualified Code(s): R19.7 - Diarrhea, unspecified Code(s): R19.7 - Diarrhea, unspecified Status: Acute Assessment and Plan: * likely playing a role with #1 and possibly causing hypokalemia * has chronic diarrhea at baseline as well * GI following - EGD with reflux esophagitis and gastric ulcer at gastric bypass anastomosis (on PPI now) (8) Chronic atrial fibrillation with RVR: Code(s): I48.20 - Chronic atrial fibrillation, unspecified Status: Chronic Assessment and Plan: * continue rate control strategy * on eliquis (9) Type 2 diabetes mellitus with diabetic neuropathy: Qualifiers: Diabetes mellitus ferry terminal supervisor insulin use: with ferry terminal supervisor use Qualified Code(s): E11.40 - Type 2 diabetes mellitus with diabetic neuropathy, unspecified; Z79.4 - retirement (current) use of insulin Code(s): E11.40 - Type 2 diabetes mellitus with diabetic neuropathy, unspecified Status: Chronic Assessment and Plan: * follow accu-cheks * on sliding-scale insulin Will continue to follow. Subjective Date/time seen: 08/24/20 16:15 Status post EGD today earlier today and tolerated procedure well -- noted findings of reflux esophagitis and acute gastric ulcer at anastomosis (from previous bypass surgery); diarrhea still an issue but the thinks it is a bit better;
[2020-08-24 16:49] LABS: Magnesium 1.7 mg/dL (1.6-2.3); Potassium 2.9 mmol/L (3.4-5.0)
[2020-08-24] MEDS: CHOLESTYRAMINE LIGHT 4 GM POWD.PACK PO (17:08)
[2020-08-24] MEDS: INSULIN GLARGINE (*BKC) 100 UNITS/ML 60 UNITS SUB-Q (17:08)
[2020-08-24] MEDS: metroNIDAZOLE 250 MG TABLET 500 MG PO ×2 (17:13→23:28)
[2020-08-24] MEDS: calcium polycarbophiL 625 MG TABLET PO (17:14)
[2020-08-24 18:22] LABS: Glucose Point of Care 178 mg/dl (65-105)
[2020-08-24] MEDS: METOPROLOL TARTRATE 50 MG TAB PO (20:51)
[2020-08-24] MEDS: ACETAMINOPHEN 325 MG TABLET 650 MG PO (21:04)
[2020-08-24 21:36] LABS: Glucose Point of Care 66 mg/dl (65-105)
--- NOTE | 2020-08-24 21:45 | PM.PNGS ---
Progress Note: A&P Assessment and Plan (1) Sacral wound: Onset Date: Unknown Code(s): S31.000A - Unspecified open wound of lower back and pelvis without penetration into retroperitoneum, initial encounter Status: Acute Assessment and Plan: Continue local wound care. It does not appear urgent, but the brownish skin of the sacral area may require some excisional debridement in the future. I discussed how I might do this for the Pt. at the bedside on Sat and he was willing to let me try this. It would be okay from our standpoint to start using the compression appliances he has at home for both lower extremities. I instructed the patient and his nurse to let his mother know to bring in his compression appliance for the right leg and begin using it while he is hospitalized. (2) Diarrhea: Qualifiers: Diarrhea type: unspecified type Qualified Code(s): R19.7 - Diarrhea, unspecified Code(s): R19.7 - Diarrhea, unspecified Status: Acute Assessment and Plan: ? mildly improved. No specific etiology discovered yet. (3) Lymphedema: Onset Date: Unknown Code(s): I89.0 - Lymphedema, not elsewhere classified Status: Acute Assessment and Plan: The superficial maceration on the right lower extremity seems to have improved with local wound care. At this point, we could begin applying compression to the right and left legs for his lymphedema. Subjective Subjective Date/Time Seen: 08/24/20 17:45 Pt seen lying on Qir bed on his back. He states that he had an EGD today. His fecal containment bag is out He state that he has and at least 3 loose stools today. Review of Systems Review of Systems: All systems reviewed & are unremarkable except as noted in HPI and below Constitutional: Constitutional: Reports no additional constitutional complaints, Reports lethargy and Reports malaise ENT: Reports other (Mucous Membranes moist.) Cardiovascular: Cardiovascular: Denies dyspnea Respiratory: Respiratory: Denies pain on inspiration and Denies dyspnea Gastrointestinal: Gastrointestinal: Reports as per HPI and Reports no additional gastrointestinal complaints Musculoskeletal: Musculoskeletal: Reports other (No calf swelling or edema) Integumentary/Breasts: Skin/Breast: Reports system reviewed and no additional complaints, except as docu and Reports as per HPI Exam Const: General: comfortable, no acute distress, alert and awake Nutritional Appearance: obese morbidly obese HENMT: Ears: hearing grossly normal bilaterally and external ears normal Eyes: General: appearance normal, both eyes and all related structures Pupils: Equal, round and reactive pupils present Chest: Chest palpation & inspection: normal inspection of the chest Resp: Effort & Inspection: normal respiratory effort, able to speak in complete sentences and no respiratory distress Auscultation: clear to auscultation bilaterally and diminished lung sounds Cardio: Rate: regular rate Rhythm: regular rhythm and abnormal rhythm irregularly irregular GI: Other: Perineum not examined today. Skin: Wounds: wounds noted (sacral decubitus not seen todaysome areas of superficial necrosis noted08/16 ) maceration right posterior upper leg without odor, open and with surrounding erythema Other: Sacral wound measuring 6cm x 5cm with superficial necrosis and brown exudate last seen by myself on 08/19. Right BKA with lymphedema and superficial macerations seem to have improved. Overall skin on right lower extremity has improved significantly since first evaluated. no trulyopen areas seen today Left lower extremity with still some swelling in the foot and lower leg, but without any significant wounds. No compression device on today on my evaluation, however I did confer with the pt and his mother and he is willing to wear his home compression stockings on bothlower extremities. The one for the Rt. stump is not here, but ia
[2020-08-24 21:48] LABS: Glucose Point of Care 98 mg/dl (65-105)
[2020-08-24 23:40] LABS: Glucose Point of Care 73 mg/dl (65-105)
[2020-08-25] VITALS (13 sets, daily range): BP systolic 122–147; BP diastolic 74–95; PULSE 77–109; RESP 18–20; TEMP 36.4–36.8; O2SAT 98–100
[2020-08-25 00:48] LABS: Glucose Point of Care 82 mg/dl (65-105)
[2020-08-25] MEDS: metroNIDAZOLE 250 MG TABLET 500 MG PO ×3 (05:38→17:37)
[2020-08-25] MEDS: LEVOTHYROXINE SODIUM 100 MCG TABLET PO (05:38)
[2020-08-25 05:56] LABS: Glucose Point of Care 73 mg/dl (65-105)
[2020-08-25 06:16] LABS: Hematocrit 32.6 % (42.0-52.0); Hemoglobin 9.5 g/dL (14.0-18.0); Mean Corpuscular HGB Conc 29.1 g/dl (32-36); Mean Corpuscular Hemoglobin 25.8 pg (26-34); Mean Corpuscular Volume 88.6 fl (80-100); Mean Platelet Volume 9.7 fl (7.4-10.4); Platelet Count Result 412 k/mm3 (150-375); Red Blood Count 3.68 M/mm3 (4.6-6.20); Red Cell Distribution Width 19.1 % (11.5-14.5); White Blood Count 10.5 K/mm3 (4.5-10.0)
[2020-08-25 06:17] LABS: Albumin Level 2.7 g/dL (3.5-5.1); Anion Gap 9 mmol/L (8-16); Blood Urea Nitrogen 27 mg/dL (9-20); Calcium 8.4 mg/dL (8.4-10.2); Carbon Dioxide 21 mmol/L (22-30); Chloride 115 mmol/L (98-107); Estimated CRCL calculation 90 ml/min; Estimated Glomerular Filt Rate 48; Glucose 73 mg/dL (75-110); Magnesium 1.7 mg/dL (1.6-2.3); Phosphorus 2.7 mg/dL (2.5-4.5); Potassium 2.9 mmol/L (3.4-5.0); Sodium 145 mmol/L (137-145)
--- NOTE | 2020-08-25 07:08 | WPDANESPN ---
Anes - Prog Note Post-Op Date/Time: 08/25/20 07:08 Cardiovascular status: normal Respiratory status: normal Airway patency: baseline Mental status: baseline Post-Op hydration status: normal Vital Signs: Last Vital Signs Temp 98.0 F 08/25/20 05:47 Pulse 90 08/25/20 05:47 Resp 20 08/25/20 05:47 BP 147/95 H 08/25/20 05:47 Pulse Ox 99 08/25/20 05:47 Pain Score (VAS): 10 I/O: Intake & Output 08/24/20 08/24/20 08/25/20 15:59 23:59 07:59 Intake Total 200 980 250 Output Total 3800 350 Balance 200 -2820 -100 Laboratory Tests 08/25/20 05:38 08/25/20 05:38 08/24/20 08/24/20 08/24/20 11:04 12:08 16:16 WBC RBC Hgb Hct MCV MCH MCHC RDW Plt Count MPV Sodium Potassium 2.9 L Chloride Carbon Dioxide Anion Gap BUN Creatinine Estim Creat Clear Calc Estimated GFR Glucose POC Capillary Glucose 127 H 134 H Calcium Phosphorus Magnesium 1.7 Albumin 08/24/20 08/24/20 08/24/20 17:06 20:57 21:45 WBC RBC Hgb Hct MCV MCH MCHC RDW Plt Count MPV Sodium Potassium Chloride Carbon Dioxide Anion Gap BUN Creatinine Estim Creat Clear Calc Estimated GFR Glucose POC Capillary Glucose 178 H 66 98 Calcium Phosphorus Magnesium Albumin 08/24/20 08/25/20 08/25/20 23:30 00:44 05:38 WBC 10.5 H RBC 3.68 L Hgb 9.5 L Hct 32.6 L MCV 88.6 MCH 25.8 L MCHC 29.1 L RDW 19.1 H Plt Count 412 H MPV 9.7 Sodium Potassium Chloride Carbon Dioxide Anion Gap BUN Creatinine Estim Creat Clear Calc Estimated GFR Glucose POC Capillary Glucose 73 82 Calcium Phosphorus Magnesium Albumin 08/25/20 08/25/20 05:38 05:44 WBC RBC Hgb Hct MCV MCH MCHC RDW Plt Count MPV Sodium 145 Potassium 2.9 L Chloride 115 H Carbon Dioxide 21 L Anion Gap 9 BUN 27 H Creatinine 1.50 H Estim Creat Clear Calc 90 Estimated GFR 48 L Glucose 73 L POC Capillary Glucose 73 Calcium 8.4 Phosphorus 2.7 Magnesium 1.7 Albumin 2.7 L Post-procedural complaints: none Patient Feedback: Patient satisfied with anesthetic care.
--- NOTE | 2020-08-25 07:50 | WPDGIPROGNO ---
Progress Note: A&P Assessment and Plan (1) Peptic ulcer disease: Code(s): K27.9 - Peptic ulcer, site unspecified, unspecified as acute or chronic, without hemorrhage or perforation Status: Acute Assessment and Plan: Patient with anastomotic ulcer. Located at site of previous gastric bypass surgery. This appears to be persistent as this was described on previous exams. Long-term use of proton pump inhibitor advised. Patient instructed to continue to hold nonsteroidal anti-inflammatory agents. May be some benefit to adding Carafate to this regime.. Consider follow-up EGD in several months to document healing. (2) Diarrhea: Code(s): R19.7 - Diarrhea, unspecified Status: Acute Assessment and Plan: Persistent diarrhea. Stool cultures have been negative to date. Infectious etiology still a consideration. Agree with 10 day course of antibiotics currently progress. Questran or similar agent may be of some benefit (3) Chronic atrial fibrillation with RVR: Code(s): I48.20 - Chronic atrial fibrillation, unspecified Status: Chronic (4) Anticoagulant long-term use: Onset Date: Unknown Code(s): Z79.01 - residential (current) use of anticoagulants Status: Acute (5) Acute on chronic renal failure: Qualifiers: Acute renal failure type: unspecified Chronic kidney disease stage: unspecified stage Qualified Code(s): N17.9 - Acute kidney failure, unspecified; N18.9 - Chronic kidney disease, unspecified Code(s): N17.9 - Acute kidney failure, unspecified; N18.9 - Chronic kidney disease, unspecified Status: Acute (6) Lymphedema: Onset Date: Unknown Code(s): I89.0 - Lymphedema, not elsewhere classified Status: Acute (7) History of below-knee amputation of right lower extremity: Code(s): Z89.511 - Acquired absence of right leg below knee Status: Chronic (8) Severe obesity: Code(s): E66.01 - Morbid (severe) obesity due to excess calories Status: Chronic Subjective Date/time seen: 08/25/20 07:50 Patient alert feels relatively comfortable this morning. He states abdominal pain is less. Continues to have fecal tube in place. Although he feels that the diarrhea has lessened to some degree. Remains resistant to try laxatives for colonoscopy therefore this been placed on hold. No bleeding evident. Review of Systems Review of Systems: All systems reviewed & are unremarkable except as noted in HPI and below Exam Narrative: Exam Narrative: Physical exam patient is comfortable at rest. Vital signs are stable HEENT exam reveals no icterus. Lungs are clear. Heart without murmur. Somewhat irregular. Abdomen is quite obese soft no localized tenderness evident. Extremities with right [id number] amputation. Lymphedema evident. Objective Data Vital Signs Vital Signs: Vital Signs - 24 hr 08/24/20 08:00 08/24/20 08:31 08/24/20 11:02 Temperature 97.3 F L Pulse Rate 107 H 104 H 101 H Respiratory Rate 22 H Blood Pressure 147/95 H Pulse Oximetry 99 08/24/20 11:59 08/24/20 12:00 08/24/20 12:09 Temperature Pulse Rate 98 101 H 101 H Respiratory Rate 20 26 H Blood Pressure 113/70 111/72 Pulse Oximetry 99 96 08/24/20 12:19 08/24/20 14:00 08/24/20 16:00 Temperature 97.8 F Pulse Rate 101 H 100 100 Respiratory Rate 26 H 20 Blood Pressure 112/71 146/85 H Pulse Oximetry 100 97 08/24/20 20:00 08/24/20 20:51 08/24/20 21:04 Temperature 100.2 F H Pulse Rate 108 H 108 H Respiratory Rate 20 Blood Pressure Pulse Oximetry 95 08/24/20 21:08 08/25/20 00:00 08/25/20 04:00 Temperature 100.2 F H Pulse Rate 108 H 77 99 Respiratory Rate 20 Blood Pressure 148/92 H Pulse Oximetry 95 08/25/20 05:47 Temperature 98.0 F Pulse Rate 90 Respiratory Rate 20 Blood Pressure 147/95 H Pulse Oximetry 99 Intake/Output Intake/Output: Intake & Output
[2020-08-25 09:03] LABS: Glucose Point of Care 76 mg/dl (65-105)
[2020-08-25] MEDS: allopurinoL 300 MG TABLET PO (09:04)
[2020-08-25] MEDS: PANTOPRAZOLE 40 MG TABLET PO ×2 (09:04→17:37)
[2020-08-25] MEDS: calcium polycarbophiL 625 MG TABLET PO ×2 (09:04→17:37)
[2020-08-25] MEDS: PRAMIPEXOLE 0.5 MG TABLET 1.5 MG PO ×3 (09:04→17:00)
[2020-08-25] MEDS: busPIRone HCL 5 MG TABLET PO ×3 (09:04→16:59)
[2020-08-25] MEDS: POTASSIUM CHLORIDE 20 MEQ TABLET.ER 40 MEQ PO (09:05)
[2020-08-25] MEDS: SERTRALINE HCL 50 MG TABLET 100 MG PO ×2 (09:05→21:00)
[2020-08-25] MEDS: METOPROLOL TARTRATE 50 MG TAB PO ×2 (09:05→21:00)
[2020-08-25] MEDS: TOLNAFTATE 1% POWDER 45 GM BTL 1 APPLIC TOPICAL ×2 (09:06→21:00)
[2020-08-25] MEDS: COLLAGENASE OINT 30 GM TUBE 1 APPLIC TOPICAL (09:06)
[2020-08-25] MEDS: MAGNESIUM SULFATE 3GM/D5W100ML 3 GM/100 ML BAG IVPB (10:27)
[2020-08-25] MEDS: CHOLESTYRAMINE LIGHT 4 GM POWD.PACK PO ×2 (10:35→17:36)
--- NOTE | 2020-08-25 10:50 | PCNFU ---
Nutrition Follow-Up Complete: Inadequate oral intake related to gastroparesis, diarrhea, multiple medical issues as evidenced by clear liquid diet order and reported significant weight loss. Goal: Patient to consume 50% of meals/supplements or greater. Patient is progressing towards goal. No new goal at this time. Pt current nutrition is Diabetic Consistent Carbohydrate Diet. Last recorded weight is 174.3 kg. Recommend weighing patient prior to discharge. Bowel Motility: + BM 08/24/2020 Labs Reviewed: Hgb 9.5, Hct 32.6, Alb 2.7, K 2.9, GFR 48, BUN 27, Cr 1.5, Glu 73 Meds Noted: Eliquis, Buspar, Zyloprim, [place], Retacrit, Novolog, Lantus, Synthroid, Levofloxacin, Lopressor, Kcl Tablet, Protonix, Zoloft, Additional Notes: Spoke with patient. Patient reported having a poor appetite due to having no taste. The foods he used to love now make him sick. He has been consuming 25%-100% of meals since being admitted. He tried taking Glucerna and was not able to tolerate it. BKA of right lower extremity. Patient has an unstageable pressure ulcer on his sacrum and a venous stasis right leg ulcer. Follow up every 3 days. B
[2020-08-25] MEDS: SUCRALFATE 1 GM TABLET PO ×3 (11:47→21:00)
[2020-08-25 12:08] LABS: Glucose Point of Care 135 mg/dl (65-105)
[2020-08-25 13:09] LABS: Potassium 3.2 mmol/L (3.4-5.0)
--- NOTE | 2020-08-25 14:58 | P.PNNP_ITS ---
Progress Note: A&P Assessment and Plan (1) KONSTANTIN (acute kidney injury): Code(s): N17.9 - Acute kidney failure, unspecified Status: Acute Assessment and Plan: * resolved * likely due to prerenal factors and hemodynamic instability * with improvement in BP along with IVF resuscitation, kidney function better * follow repeat labs and UOP * continue supportive therapy (2) Stage 3b chronic kidney disease: Code(s): N18.32 - Chronic kidney disease, stage 3b Status: Chronic Assessment and Plan: * baseline creatinine runs around 1.6 - 2.1mg/dl * however, he has fluctuated to extremes with his recent hospitalizations * this is secondary to hypertension and diabetes (3) Hypokalemia: Code(s): E87.6 - Hypokalemia Status: Acute Assessment and Plan: * due to diminished oral intake and ongoing GI losses * replete as needed * follow magnesium as well * follow repeat levels * interestingly, has a history of hyperkalemia requiring use of veltassa as an outpatient (4) Anemia: Qualifiers: Anemia type: iron deficiency Iron deficiency anemia type: unspecified iron deficiency Qualified Code(s): D50.9 - Iron deficiency anemia, unspecified Code(s): D64.9 - Anemia, unspecified Status: Chronic Assessment and Plan: * partly related to CKD along with KONSTANTIN and acute illness * PRBC transfusion per protocol * on Epogen while hospitalized (5) Metabolic acidosis: Code(s): E87.2 - Acidosis Status: Acute Assessment and Plan: * related to uremic toxins from KONSTANTIN, mild lactic acidosis and perhaps diarrhea * off bicarb gtt; on oral sodium bicarbonate * follow trend (6) Hypertension: Qualifiers: Hypertension type: essential hypertension Qualified Code(s): I10 - Ess ential (primary) hypertension Code(s): I10 - Essential (primary) hypertension Status: Chronic Assessment and Plan: * BP doing better at this time (was hypotensive) * off vasopressor therapy * follow trend of hemodynamics (7) Diarrhea: Qualifiers: Diarrhea type: unspecified type Qualified Code(s): R19.7 - Diarrhea, unspecified Code(s): R19.7 - Diarrhea, unspecified Status: Acute Assessment and Plan: * likely playing a role with #1 and possibly causing hypokalemia * has chronic diarrhea at baseline as well * GI following - EGD with reflux esophagitis and gastric ulcer at gastric bypass anastomosis (on PPI now) (8) Chronic atrial fibrillation with RVR: Code(s): I48.20 - Chronic atrial fibrillation, unspecified Status: Chronic Assessment and Plan: * continue rate control strategy * on eliquis (9) Type 2 diabetes mellitus with diabetic neuropathy: Qualifiers: Diabetes mellitus long-term insulin use: with long-term use Qualified Code(s): E11.40 - Type 2 diabetes mellitus with diabetic neuropathy, unspecified; Z79.4 - penitentiary (current) use of insulin Code(s): E11.40 - Type 2 diabetes mellitus with diabetic neuropathy, unspecified Status: Chronic Assessment and Plan: * follow accu-cheks * on sliding-scale insulin Will continue to follow. Subjective Date/time seen: 08/25/20 14:58 No apparent distress noted but still has a poor appetite in general; no acute issues or problems overnight or earlier this AM; still having issues with diarrhea as well; nursing reports some issues with anxiety as well. Exam Narrative:
--- NOTE | 2020-08-25 14:58 | PM.PNNEP ---
Progress Note: A&P Assessment and Plan (1) KONSTANTIN (acute kidney injury): Code(s): N17.9 - Acute kidney failure, unspecified Status: Acute Assessment and Plan: resolved likely due to prerenal factors and hemodynamic instability with improvement in BP along with IVF resuscitation, kidney function better follow repeat labs and UOP continue supportive therapy (2) Stage 3b chronic kidney disease: Code(s): N18.32 - Chronic kidney disease, stage 3b Status: Chronic Assessment and Plan: baseline creatinine runs around 1.6 - 2.1mg/dl however, he has fluctuated to extremes with his recent hospitalizations this is secondary to hypertension and diabetes (3) Hypokalemia: Code(s): E87.6 - Hypokalemia Status: Acute Assessment and Plan: due to diminished oral intake and ongoing GI losses replete as needed follow magnesium as well follow repeat levels interestingly, has a history of hyperkalemia requiring use of veltassa as an outpatient (4) Anemia: Qualifiers: Anemia type: iron deficiency Iron deficiency anemia type: unspecified iron deficiency Qualified Code(s): D50.9 - Iron deficiency anemia, unspecified Code(s): D64.9 - Anemia, unspecified Status: Chronic Assessment and Plan: partly related to CKD along with KONSTANTIN and acute illness PRBC transfusion per protocol on Epogen while hospitalized (5) Metabolic acidosis: Code(s): E87.2 - Acidosis Status: Acute Assessment and Plan: related to uremic toxins from KONSTANTIN, mild lactic acidosis and perhaps diarrhea off bicarb gtt; on oral sodium bicarbonate follow trend (6) Hypertension: Qualifiers: Hypertension type: essential hypertension Qualified Code(s): I10 - Essential (primary) hypertension Code(s): I10 - Essential (primary) hypertension Status: Chronic Assessment and Plan: BP doing better at this time (was hypotensive) off vasopressor therapy follow trend of hemodynamics (7) Diarrhea: Qualifiers: Diarrhea type: unspecified type Qualified Code(s): R19.7 - Diarrhea, unspecified Code(s): R19.7 - Diarrhea, unspecified Status: Acute Assessment and Plan: likely playing a role with #1 and possibly causing hypokalemia has chronic diarrhea at baseline as well GI following - EGD with reflux esophagitis and gastric ulcer at gastric bypass anastomosis (on PPI now) (8) Chronic atrial fibrillation with RVR: Code(s): I48.20 - Chronic atrial fibrillation, unspecified Status: Chronic Assessment and Plan: continue rate control strategy on eliquis (9) Type 2 diabetes mellitus with diabetic neuropathy: Qualifiers: Diabetes mellitus terminal clerk insulin use: with terminal clerk use Qualified Code(s): E11.40 - Type 2 diabetes mellitus with diabetic neuropathy, unspecified; Z79.4 - manager terminal (current) use of insulin Code(s): E11.40 - Type 2 diabetes mellitus with diabetic neuropathy, unspecified Status: Chronic Assessment and Plan: follow accu-cheks on sliding-scale insulin Will continue to follow. Subjective Date/time seen: 08/25/20 14:58 No apparent distress noted but still has a poor appetite in general; no acute issues or problems overnight or earlier this AM; still having issues with diarrhea as well; nursing reports some issues with anxiety as well. Exam Narrative: Exam Narrative: General: WD/WN male in NAD Heart: normal S1 and S2; no rub Lungs: clear to auscultation Abdomen: soft, nontender, nondistended, positive bowel sounds Extremities: no cyanosis or clubbing; 1 - 2+ edema; s/p right BKA Skin: chronic skin changes apparent Objective Data Vital Signs Vital Signs: Vital Signs Temp Pulse Resp BP Pulse Ox 08/25/20 14:05 36.8 C 99 18 130/77 99 08/25/20 12:20 99 20 122/74 98 08/25/20 12:00 107 H 08/16
--- NOTE | 2020-08-25 15:09 | PM.IMPN ---
Progress Note: A&P Assessment and Plan (1) Ileus: Code(s): K56.7 - Ileus, unspecified Status: Acute Assessment and Plan: Proximal dilated small-bowel loops and a diffusely dilated colon with air-fluid levels consistent with ileus. Probably infectious etiology. Stool culture negative for CDiff, Salmonella, EColi, Crypto and Giardia. Ischemic bowel felt less likely. Diarrhea up to 2L on admission. Still with diarrheal stool. Remains on abx but changed to Levaquin and Flagyl to complete a 10 day course. WBC 9-11 range and stable. Low grade fever overnight on abx - consider atelectasis. EGD results as mentioned below. [place] postponed indefinitely. Not eating much per patient; encourage oral intake. Stool output increased overnight for unclear reasons. Continue supplements. Continue supportive care. Remove fecal containment system when able. (2) Hypokalemia: Code(s): E87.6 - Hypokalemia Status: Acute Assessment and Plan: Potassium low at times requiring frequent replacement. [place] related to GI loss and poor oral intake. Continue to replace as needed. (3) Shock: Code(s): R57.9 - Shock, unspecified Status: Resolved Assessment and Plan: Patient developed low BP around the time he was changed to oral Diltiazem in the evening hours of 08/16; Anti-HTN medications stopped but BP continued to decline requiring central line placement and Levophed started. Not initially fluid responsive. LA 14 at that time but normal on repeat at 0.9 and suspect more likely related to HoTN then sepsis (poor collection method?). BCx negative. Overall, likely hypovolemic related to the diarrhea. Levophed weaned off earlier morning hours of 08/18. BP remaining stable and able to add back metoprolol. Resolved (4) Peptic ulcer disease: Code(s): K27.9 - Peptic ulcer, site unspecified, unspecified as acute or chronic, without hemorrhage or perforation Status: Acute Assessment and Plan: EGD showing gastric ulcer at the anastomosis site. This has been noted before. Continue PPI. Carafate added. Will need followup EGD to document that this has healed. Path showing benign findings. (5) Acute on chronic renal failure: Qualifiers: Acute renal failure type: unspecified Chronic kidney disease stage: unspecified stage Qualified Code(s): N17.9 - Acute kidney failure, unspecified; N18.9 - Chronic kidney disease, unspecified Code(s): N17.9 - Acute kidney failure, unspecified; N18.9 - Chronic kidney disease, unspecified Status: Acute Assessment and Plan: Creatinine 4.8 on admission. Baseline creatinine last month was 1.8. CT scan showing bilateral renal stones and low-density lesions in the kidneys most likely cysts. Renal ultrasound showed mild cortical thinning but no hydronephrosis. Metabolic acidosis noted on admission. [place] related to dehydration from his diarrhea and poor oral intake. He is not on diuretics at home. Treated with IV fluids with bicarb. Acidosis resolved. Cr overall improved and back to baseline. Off IV fluids now. Nephrology following. Appreciate their input. (6) Metabolic acidosis: Code(s): E87.2 - Acidosis Status: Acute Assessment and Plan: Bicarb of 12 and anion gap of 17 on admission. PH is 7.196 all consistent with metabolic acidosis felt related to his renal failure, lactic acidosis and diarrhea. AG closed. LA normal now as well. Off IV fluids. Continue monitor. (7) Chronic atrial fibrillation with RVR: Code(s): I48.20 - Chronic atrial fibrillation, unspecified Status: Chronic Assessment and Plan: Patient has chronic AFib/Flutter on Toprol XL for rate control and Eliquis for stroke prophylaxis. Patient was mildly tachycardic on admission and started on diltiazem drip. Tachycardia most likely related to dehydration. He was transitioned to a short-acting diltiazem p.o. but
[2020-08-25 16:48] LABS: Potassium 3.1 mmol/L (3.4-5.0)
[2020-08-25 16:50] LABS: Glucose Point of Care 142 mg/dl (65-105)
[2020-08-25 21:48] LABS: Glucose Point of Care 109 mg/dl (65-105)
[2020-08-26] VITALS (9 sets, daily range): BP systolic 123–140; BP diastolic 68–90; PULSE 73–102; RESP 18–20; TEMP 36.2–37.2; O2SAT 98–100
[2020-08-26] MEDS: metroNIDAZOLE 250 MG TABLET 500 MG PO ×4 (00:32→23:51)
--- NOTE | 2020-08-26 06:00 | PC.NURSE ---
Encouraged patient trough the night to turn, refused to let staff assist him. Stated that he does turn by himself but cannot tolerate it for every long and goes back on his back. When rounding patient if found on his back, encourage patient to let staff assist since he does say he has trouble. He also refused to have his dressing changed at night or to have cream applied, says that he cannot tolerate any movement right now due to anxiety. Would start gagging with medication but tolerated food, would not let staff cut or crush medication. Patient says he does understand that refusing care could cause his wound to get worse or slow healing.
[2020-08-26 06:49] LABS: Hematocrit 32.7 % (42.0-52.0); Hemoglobin 9.5 g/dL (14.0-18.0); Mean Corpuscular HGB Conc 29.1 g/dl (32-36); Mean Corpuscular Hemoglobin 26.4 pg (26-34); Mean Corpuscular Volume 90.8 fl (80-100); Mean Platelet Volume 9.5 fl (7.4-10.4); Platelet Count Result 397 k/mm3 (150-375); Red Cell Distribution Width 19.3 % (11.5-14.5); White Blood Count 11.2 K/mm3 (4.5-10.0)
[2020-08-26 08:05] LABS: Glucose Point of Care 100 mg/dl (65-105)
--- NOTE | 2020-08-26 09:06 | WPDGIPROGNO ---
Progress Note: A&P Assessment and Plan (1) Peptic ulcer disease: Code(s): K27.9 - Peptic ulcer, site unspecified, unspecified as acute or chronic, without hemorrhage or perforation Status: Acute Assessment and Plan: Anastomotic ulcer identified at site of previous gastric bypass. Billroth II anastomosis noted. Ulcer is present may have been there for some time. Histology benign. Patient instructed to avoid nonsteroidal anti-inflammatory agents. Continue PPI therapy with Protonix. Carafate has been added to ridging. Follow-up EGD in 3 months may be beneficial. (2) Diarrhea: Code(s): R19.7 - Diarrhea, unspecified Status: Acute Assessment and Plan: Diarrhea persists. Patient receiving empiric antibiotic therapy period is possible that diarrhea may be related to his diabetes. Cultures have been negative to date. Questran has been implemented in attempt to decrease frequency of stools. Will continue these measures for now. (3) Anticoagulant long-term use: Onset Date: Unknown Code(s): Z79.01 - [facility] (current) use of anticoagulants Status: Acute (4) Sacral wound: Onset Date: Unknown Code(s): S31.000A - Unspecified open wound of lower back and pelvis without penetration into retroperitoneum, initial encounter Status: Acute (5) Chronic atrial fibrillation with RVR: Code(s): I48.20 - Chronic atrial fibrillation, unspecified Status: Chronic (6) Lymphedema: Onset Date: Unknown Code(s): I89.0 - Lymphedema, not elsewhere classified Status: Acute (7) Type 2 diabetes mellitus with diabetic neuropathy: Qualifiers: Diabetes mellitus [facility] insulin use: with [facility] use Qualified Code(s): E11.40 - Type 2 diabetes mellitus with diabetic neuropathy, unspecified; Z79.4 - [facility] (current) use of insulin Code(s): E11.40 - Type 2 diabetes mellitus with diabetic neuropathy, unspecified Status: Chronic (8) Severe obesity: Code(s): E66.01 - Morbid (severe) obesity due to excess calories Status: Chronic Assessment and Plan: Calorie restriction increase activity at some point may be beneficial. Patient's goal is to lose weight long-term. (9) History of below-knee amputation of right lower extremity: Code(s): Z89.511 - Acquired absence of right leg below knee Status: Chronic Subjective Date/time seen: 08/26/20 09:06 Patient anticipates debridement of sacral lesion today. States that diarrhea peers to be about the same. He reports no additional stool and containment system last night or this morning. Increase consistency of stool is described by patient. Currently denies abdominal pain of any significant degree. Review of Systems Review of Systems: All systems reviewed & are unremarkable except as noted in HPI and below Exam Narrative: Exam Narrative: Physical exam patient is rather obese. Vital signs are stable HEENT exam reveals no icterus. Lungs are clear. Heart without murmur. Abdomen obese. Extremities with lymphedema. Right lower extremity BKA. Sacral decubitus to be debrided by surgery today. Objective Data Vital Signs Vital Signs: Vital Signs - 24 hr 08/25/20 12:00 08/25/20 12:20 08/25/20 14:05 Temperature 98.2 F Pulse Rate 107 H 99 99 Respiratory Rate 20 18 Blood Pressure 122/74 130/77 Pulse Oximetry 98 99 08/25/20 16:00 08/25/20 20:00 08/25/20 21:00 Temperature Pulse Rate 101 H 108 H 109 H Respiratory Rate Blood Pressure Pulse Oximetry 08/25/20 21:10 08/25/20 22:00 08/26/20 00:00 Temperature 97.5 F L Pulse Rate 99 99 Respiratory Rate 20 Blood Pressure 128/78 133/84 Pulse Oximetry 100 08/26/20 04:00 08/26/20 06:00 Temperature 97.1 F L Pulse Rate 98 98 Respiratory Rate 20 Blood Pressure 140/90 Pulse Oximetry 100 Intake/Output Intake/Output: Intake & Output 08/23/20 08/24/20
[2020-08-26] MEDS: TOLNAFTATE 1% POWDER 45 GM BTL 1 APPLIC TOPICAL ×2 (09:38→20:55)
[2020-08-26] MEDS: COLLAGENASE OINT 30 GM TUBE 1 APPLIC TOPICAL ×2 (09:38→20:55)
[2020-08-26] MEDS: SILVER NITRATE (*SP) STICK 1 EACH TOPICAL (09:38)
[2020-08-26] MEDS: busPIRone HCL 5 MG TABLET PO ×3 (09:41→16:33)
[2020-08-26] MEDS: PANTOPRAZOLE 40 MG TABLET PO ×2 (09:41→17:05)
[2020-08-26] MEDS: allopurinoL 300 MG TABLET PO (09:41)
--- NOTE | 2020-08-26 09:42 | P.PNNP_ITS ---
Progress Note: A&P Assessment and Plan (1) KONSTANTIN (acute kidney injury): Code(s): N17.9 - Acute kidney failure, unspecified Status: Acute Assessment and Plan: * resolved * likely due to prerenal factors and hemodynamic instability * with improvement in BP along with IVF resuscitation, kidney function better * Creatinine has returned to baseline. (2) Stage 3b chronic kidney disease: Code(s): N18.32 - Chronic kidney disease, stage 3b Status: Chronic Assessment and Plan: * baseline creatinine runs around 1.6 - 2.1mg/dl * however, he has fluctuated to extremes with his recent hospitalizations * this is secondary to hypertension and diabetes (3) Hypokalemia: Code(s): E87.6 - Hypokalemia Status: Acute Assessment and Plan: * Repeat labs are pending. (4) Anemia: Qualifiers: Anemia type: iron deficiency Iron deficiency anemia type: unspecified iron deficiency Qualified Code(s): D50.9 - Iron deficiency anemia, unspecified Code(s): D64.9 - Anemia, unspecified Status: Chronic Assessment and Plan: * partly related to CKD along with KONSTANTIN and acute illness * PRBC transfusion per protocol * on Epogen while hospitalized (5) Metabolic acidosis: Code(s): E87.2 - Acidosis Status: Acute Assessment and Plan: * Doing better with improved renal function. (6) Hypertension: Qualifiers: Hypertension type: essential hypertension Qualified Code(s): I10 - Essential (primary) hypertension Code(s): I10 - Essential (primary) hypertension Status: Chronic Assessment and Plan: * Improved numbers lately. Systolic running 120-140. (7) Diarrhea: Qualifiers: Diarrhea type: unspecified type Qualified Code(s): R19.7 - Diarrhea, unspecified Code(s): R19.7 - Diarrhea, unspecified Status: Acute Assessment and Plan: * likely playing a role with #1 and possibly causing hypokalemia * has chronic diarrhea at baseline as well * GI following - EGD with reflux esophagitis and gastric ulcer at gastric bypass anastomosis (on PPI now) (8) Chronic atrial fibrillation with RVR: Code(s): I48.20 - Chronic atrial fibrillation, unspecified Status: Chronic Assessment and Plan: * continue rate control strategy * * on eliquis (9) Type 2 diabetes mellitus with diabetic neuropathy: Qualifiers: Diabetes mellitus bed bug exterminator insulin use: with bed bug exterminator use Qualified Code(s): E11.40 - Type 2 diabetes mellitus with diabetic neuropathy, unspecified; Z79.4 - [facility] (current) use of insulin Code(s): E11.40 - Type 2 diabetes mellitus with diabetic neuropathy, unspecified Status: Chronic Assessment and Plan: * follow accu-cheks * on sliding-scale insulin Subjective Date/time seen: 08/26/20 09:42 Interval history: Feels about the same. getting debridement currently with Dr Cowart Exam Narrative: Exam Narrative: General: WD/WN male in NAD Heart: normal S1 and S2; no rub Lungs: clear Abdomen: soft, nontender, nondistended, positive bowel sounds Extremities:1 - 2+ edema; s/p right BKA Skin: chronic skin changes apparent Objective Data Vital Signs Vital Signs: Vital Signs - 24 hr 08/25/20 12:00 08/25/20 12:20 08/25/20 14:05 Temperature 36.8 C Pulse Rate 107 H 99 99 Respiratory Rate 20 18
--- NOTE | 2020-08-26 09:42 | PM.PNNEP ---
Progress Note: A&P Assessment and Plan (1) KONSTANTIN (acute kidney injury): Code(s): N17.9 - Acute kidney failure, unspecified Status: Acute Assessment and Plan: resolved likely due to prerenal factors and hemodynamic instability with improvement in BP along with IVF resuscitation, kidney function better Creatinine has returned to baseline. (2) Stage 3b chronic kidney disease: Code(s): N18.32 - Chronic kidney disease, stage 3b Status: Chronic Assessment and Plan: baseline creatinine runs around 1.6 - 2.1mg/dl however, he has fluctuated to extremes with his recent hospitalizations this is secondary to hypertension and diabetes (3) Hypokalemia: Code(s): E87.6 - Hypokalemia Status: Acute Assessment and Plan: Repeat labs are pending. (4) Anemia: Qualifiers: Anemia type: iron deficiency Iron deficiency anemia type: unspecified iron deficiency Qualified Code(s): D50.9 - Iron deficiency anemia, unspecified Code(s): D64.9 - Anemia, unspecified Status: Chronic Assessment and Plan: partly related to CKD along with KONSTANTIN and acute illness PRBC transfusion per protocol on Epogen while hospitalized (5) Metabolic acidosis: Code(s): E87.2 - Acidosis Status: Acute Assessment and Plan: Doing better with improved renal function. (6) Hypertension: Qualifiers: Hypertension type: essential hypertension Qualified Code(s): I10 - Essential (primary) hypertension Code(s): I10 - Essential (primary) hypertension Status: Chronic Assessment and Plan: Improved numbers lately. Systolic running 120-140. (7) Diarrhea: Qualifiers: Diarrhea type: unspecified type Qualified Code(s): R19.7 - Diarrhea, unspecified Code(s): R19.7 - Diarrhea, unspecified Status: Acute Assessment and Plan: likely playing a role with #1 and possibly causing hypokalemia has chronic diarrhea at baseline as well GI following - EGD with reflux esophagitis and gastric ulcer at gastric bypass anastomosis (on PPI now) (8) Chronic atrial fibrillation with RVR: Code(s): I48.20 - Chronic atrial fibrillation, unspecified Status: Chronic Assessment and Plan: continue rate control strategy on eliquis (9) Type 2 diabetes mellitus with diabetic neuropathy: 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 getting debridement currently with Dr Cowart Exam Narrative: Exam Narrative: General: WD/WN male in NAD Heart: normal S1 and S2; no rub Lungs: clear Abdomen: soft, nontender, nondistended, positive bowel sounds Extremities:1 - 2+ edema; s/p right BKA Skin: chronic skin changes apparent Objective Data Vital Signs Vital Signs: Vital Signs - 24 hr 08/25/20 12:00 08/25/20 12:20 08/25/20 14:05 Temperature 36.8 C Pulse Rate 107 H 99 99 Respiratory Rate 20 18 Blood Pressure 122/74 130/77 Pulse Oximetry 98 99 08/25/20 16:00 08/25/20 20:00 08/25/20 21:00 Temperature Pulse Rate 101 H 108 H 109 H Respiratory Rate Blood Pressure Pulse Oximetry 08/25/20 21:10 08/25/20 22:00 08/26/20 00:00 Temperature 36.4 C L Pulse Rate 99 99 Respiratory Rate 20 Blood Pressure 128/78 133/84 Pulse Oximetry 100 08/26/20 04:00 08/26/20 06:00 Temperature 36.2 C L Pulse Rate 98 98 Respiratory Rate 20 Blood Pressure 140/90 Pulse Oximetry 100 Intake/Output Intake/Output: Intake & Out
[2020-08-26 09:57] LABS: Albumin Level 2.9 g/dL (3.5-5.1); Anion Gap 9 mmol/L (8-16); Blood Urea Nitrogen 28 mg/dL (9-20); Calcium 8.8 mg/dL (8.4-10.2); Carbon Dioxide 21 mmol/L (22-30); Chloride 115 mmol/L (98-107); Estimated CRCL calculation 81 ml/min; Estimated Glomerular Filt Rate 45; Glucose 99 mg/dL (75-110); Phosphorus 3.1 mg/dL (2.5-4.5); Potassium 3.6 mmol/L (3.4-5.0); Sodium 145 mmol/L (137-145)
[2020-08-26] MEDS: SERTRALINE HCL 50 MG TABLET 100 MG PO ×2 (10:45→20:55)
[2020-08-26] MEDS: SUCRALFATE 1 GM TABLET PO ×3 (10:45→20:55)
[2020-08-26] MEDS: PRAMIPEXOLE 0.5 MG TABLET 1.5 MG PO ×3 (10:46→16:33)
[2020-08-26] MEDS: METOPROLOL TARTRATE 50 MG TAB PO ×2 (10:46→20:55)
[2020-08-26] MEDS: calcium polycarbophiL 625 MG TABLET PO ×2 (10:46→17:05)
[2020-08-26] MEDS: EPOETIN ALFA-EPBX 10,000 UNITS/ML VIAL 10000 UNITS SUB-Q (10:47)
[2020-08-26] MEDS: CHOLESTYRAMINE LIGHT 4 GM POWD.PACK PO ×2 (10:47→17:05)
[2020-08-26] MEDS: POTASSIUM CHLORIDE 20 MEQ TABLET.ER 40 MEQ PO (10:47)
--- NOTE | 2020-08-26 11:17 | W.PM.PROC2 ---
Procedure Note - Detailed Date of Procedure 08/26/20 Pre-op Diagnosis Diarrhea/acute renal failure on top of chronic/weakness. 2. Sacral decubitus Stage III Post-op Diagnosis same Procedure Performed Excision of necrotic skin and subcutaneous fat sacrum Surgeon Eduard Cowart MD Machine Wedger SHAUNA Lutz, wound care nurse Anesthesia none Indications patient has had persistent dark brownish area on the sacrum which has not been amenable to chemical debridement using Santyl. Findings An approximate 3 x 4 cm area of skin and subcutaneous fat necrosis right in the upper portion of the crease. Description of Procedure The patient was placed in the left lateral decubitus position. After a surgical time out confirming patient and procedure (bedside debridement of a sacral decubitus wound), the patient was prepped with a chlorhexidine swab and draped in the usual sterile fashion. There wound seemed to be anesthetic in the area on testing and therefore I proceeded with debridement with a 15 blade knife. Nelda held the right cheek up and I was able to take an approximately 3 x 4 cm area of skin and subcutaneous fat down to bleeding tissue in this area. Another area which was only superficial sloughing had some peeling skin removed from it. The lesion measured 3 X 4cm. Bleeding was controlled with application of silver nitrate sticks. Pressure was applied. Subsequently Nelda applied antifungal cream followed by a little Santyl on the area where there was just superficial sloughing and still some brown discoloration areas this was more on the right buttock than the left. Following this a large heart shaped Mepilex was applied to the whole sacral area for padding and for coverage. Patient will be started back on his Eliquis with this evening's dose. Dressing changes using the same elements for dressing listed above will be done daily. Patient again now has his loose stool containment system back in place. Patient tolerated this well. Implants none Estimated Blood Loss 10 Drains No Packing No Pathology none sent Complications No immediate complications Condition stable Disposition floor
--- NOTE | 2020-08-26 12:00 | PCNFU ---
Nutrition Follow-Up Complete: Inadequate oral intake related to gastroparesis, diarrhea, multiple medical issues as evidenced by clear liquid diet order and reported significant weight loss. Goal: Patient to consume 50% of meals/supplements or greater. Patient continues to have limited progress. We will continue current goal. Pt current nutrition is DBCC. Last recorded weight is 173.7 kg, up from 120 kg on admit. Bowel Motility:+BM reported 08/25-fecal tube. Labs Reviewed:Hct 32.7,Hgb 9.5 Meds Noted:Carafate, Zoloft, Levaquin, Novolog, Lantus, Fiber Con, Buspar, Mirapex, Protonix Additional Notes: Nutrition follow up. Patient states to poor appetite. He tried the [place] muffin for breakfast, ate bites. States everything tastes like wood. Diet supplements:Glucerna shakes BID providing an additional 220 kcals and 10 gms protein. PO intake encouraged. Monitoring: Follow up every 3 days.
[2020-08-26 12:34] LABS: Glucose Point of Care 96 mg/dl (65-105)
--- NOTE | 2020-08-26 15:38 | PM.IMPN ---
Progress Note: A&P Assessment and Plan (1) Ileus: Code(s): K56.7 - Ileus, unspecified Status: Acute Assessment and Plan: Proximal dilated small-bowel loops and a diffusely dilated colon with air-fluid levels consistent with ileus. Probably infectious etiology. Stool culture negative for CDiff, Salmonella, EColi, Crypto and Giardia. Ischemic bowel felt less likely. Still with diarrheal stool. Remains on abx but changed to Levaquin and Flagyl to complete a 10 day course. WBC 9-11 range and stable. Fever resolved. EGD results as mentioned below; patient refused Girard. Still not eating much per patient; encourage oral intake. Stool output waxes and wanes. Check calcitonin and gastrin levels. Consider repeating CT A/P but abdominal pain better. Continue supplements. Continue supportive care. Remove fecal containment system when able. (2) Hypokalemia: Code(s): E87.6 - Hypokalemia Status: Acute Assessment and Plan: Potassium low at times requiring frequent replacement. [place] related to GI loss and poor oral intake. Potassium normal today. Continue oral replacement. Continue to replace as needed. (3) Shock: Code(s): R57.9 - Shock, unspecified Status: Resolved Assessment and Plan: Patient developed low BP around the time he was changed to oral Diltiazem in the evening hours of 08/16; Anti-HTN medications stopped but BP continued to decline requiring central line placement and Levophed started. Not initially fluid responsive. LA 14 at that time but normal on repeat at 0.9 and suspect more likely related to HoTN then sepsis (poor collection method?). BCx negative. Overall, likely hypovolemic related to the diarrhea. Levophed weaned off earlier morning hours of 08/18. BP remaining stable and able to add back metoprolol. Resolved (4) Peptic ulcer disease: Code(s): K27.9 - Peptic ulcer, site unspecified, unspecified as acute or chronic, without hemorrhage or perforation Status: Acute Assessment and Plan: EGD showing gastric ulcer at the anastomosis site. This has been noted before. Continue PPI. Carafate added. Will need followup EGD to document that this has healed. Path showing benign findings. (5) Acute on chronic renal failure: Qualifiers: Acute renal failure type: unspecified Chronic kidney disease stage: unspecified stage Qualified Code(s): N17.9 - Acute kidney failure, unspecified; N18.9 - Chronic kidney disease, unspecified Code(s): N17.9 - Acute kidney failure, unspecified; N18.9 - Chronic kidney disease, unspecified Status: Acute Assessment and Plan: Creatinine 4.8 on admission. Baseline creatinine last month was 1.8. CT scan showing bilateral renal stones and low-density lesions in the kidneys most likely cysts. Renal ultrasound showed mild cortical thinning but no hydronephrosis. Metabolic acidosis noted on admission. [place] related to dehydration from his diarrhea and poor oral intake. He is not on diuretics at home. Treated with IV fluids with bicarb. Acidosis better but mildly persistent due to the diarrhea. Cr overall improved and back to baseline. Off IV fluids now. Nephrology following. Appreciate their input. (6) Metabolic acidosis: Code(s): E87.2 - Acidosis Status: Acute Assessment and Plan: Bicarb of 12 and anion gap of 17 on admission. PH is 7.196 all consistent with metabolic acidosis felt related to his renal failure, lactic acidosis and diarrhea. AG closed. LA normal now as well. Off IV fluids. Continue monitor. (7) Chronic atrial fibrillation with RVR: Code(s): I48.20 - Chronic atrial fibrillation, unspecified Status: Chronic Assessment and Plan: Patient has chronic AFib/Flutter on Toprol XL for rate control and Eliquis for stroke prophylaxis. Patient was mildly tachycardic on admission and started on diltiazem drip. Tachycardia most likely
[2020-08-26 17:14] LABS: Glucose Point of Care 109 mg/dl (65-105)
[2020-08-26] MEDS: LOPERAMIDE HCL 2 MG CAPSULE 4 MG PO (18:21)
--- NOTE | 2020-08-26 18:36 | PC.NURSE ---
Patients fecal tube leaked twice today with large amount of stool soiling bed. Unable to document under I &O correctly for provider to see.
[2020-08-26] MEDS: APIXABAN 5 MG TABLET PO (21:17)
[2020-08-26 21:57] LABS: Glucose Point of Care 99 mg/dl (65-105)
[2020-08-27 05:41] VITALS: BP 135/79; PULSE 95; RESP 18; TEMP 36.8; O2SAT 100
[2020-08-27] MEDS: metroNIDAZOLE 250 MG TABLET 500 MG PO ×3 (05:47→16:56)
[2020-08-27] MEDS: LEVOTHYROXINE SODIUM 100 MCG TABLET PO (05:47)
[2020-08-27] MEDS: SUCRALFATE 1 GM TABLET PO ×4 (05:47→20:40)
[2020-08-27 06:40] LABS: Basophils Percent Auto 0.3 % (0.2-1.2); Eosinophils Absolute Auto 0.4 K/mm3 (0-0.3); Eosinophils Percent Auto 3.8 % (0-4.4); Hematocrit 28.4 % (42.0-52.0); Hemoglobin 8.3 g/dL (14.0-18.0); Immature Granulocyte Absolute 0.07 K/mm3 (0.00-0.031); Immature Granulocyte Percent A 0.7 % (0-0.5); Lymphocytes Absolute Auto 0.75 K/mm3 (0.9-3.2); Lymphocytes Percent Auto 7.8 % (18.3-44.2); Mean Corpuscular HGB Conc 29.2 g/dl (32-36); Mean Corpuscular Hemoglobin 26.2 pg (26-34); Mean Corpuscular Volume 89.6 fl (80-100); Mean Platelet Volume 9.5 fl (7.4-10.4); Monocytes Absolute Auto 0.6 K/mm3 (0.1-0.6); Neutrophils Absolute Auto 7.8 K/mm3 (1.3-6.7); Neutrophils Percent Auto 81.4 % (45.5-73.1); Platelet Count Result 361 k/mm3 (150-375); Red Blood Count 3.17 M/mm3 (4.6-6.20); Red Cell Distribution Width 19.1 % (11.5-14.5); White Blood Count 9.6 K/mm3 (4.5-10.0)
[2020-08-27 06:50] LABS: Albumin Level 2.5 g/dL (3.5-5.1); Anion Gap 7 mmol/L (8-16); Blood Urea Nitrogen 30 mg/dL (9-20); Calcium 8.3 mg/dL (8.4-10.2); Carbon Dioxide 21 mmol/L (22-30); Chloride 115 mmol/L (98-107); Estimated CRCL calculation 76 ml/min; Estimated Glomerular Filt Rate 42; Glucose 104 mg/dL (75-110); Magnesium 1.8 mg/dL (1.6-2.3); Potassium 3.2 mmol/L (3.4-5.0); Sodium 143 mmol/L (137-145)
[2020-08-27 07:34] LABS: Anisocytosis 1+ (NORMAL); Hypochromasia 1+ (NORMAL); Ovalocytes 1+ (NORMAL); Platelet Estimate Adequate (Adequate)
[2020-08-27 07:59] LABS: Glucose Point of Care 101 mg/dl (65-105)
[2020-08-27] MEDS: APIXABAN 5 MG TABLET PO ×2 (09:08→20:32)
[2020-08-27] MEDS: busPIRone HCL 5 MG TABLET PO ×3 (09:08→16:57)
[2020-08-27] MEDS: POTASSIUM CHLORIDE 20 MEQ TABLET.ER 40 MEQ PO (09:08)
[2020-08-27] MEDS: allopurinoL 300 MG TABLET PO (09:09)
[2020-08-27] MEDS: PRAMIPEXOLE 0.5 MG TABLET 1.5 MG PO ×3 (09:09→16:56)
[2020-08-27] MEDS: METOPROLOL TARTRATE 50 MG TAB PO ×2 (09:09→20:33)
[2020-08-27] MEDS: SERTRALINE HCL 50 MG TABLET 100 MG PO ×2 (09:10→20:32)
[2020-08-27] MEDS: calcium polycarbophiL 625 MG TABLET PO ×2 (09:10→16:56)
[2020-08-27] MEDS: COLLAGENASE OINT 30 GM TUBE 1 APPLIC TOPICAL ×2 (09:10→20:41)
[2020-08-27] MEDS: TOLNAFTATE 1% POWDER 45 GM BTL 1 APPLIC TOPICAL ×2 (09:11→20:45)
[2020-08-27] MEDS: PANTOPRAZOLE 40 MG TABLET PO ×2 (09:11→16:56)
[2020-08-27] MEDS: CHOLESTYRAMINE LIGHT 4 GM POWD.PACK PO ×2 (10:34→16:57)
--- NOTE | 2020-08-27 11:35 | WPDGIPROGNO ---
Progress Note: A&P Assessment and Plan (1) Peptic ulcer disease: Code(s): K27.9 - Peptic ulcer, site unspecified, unspecified as acute or chronic, without hemorrhage or perforation Status: Acute Assessment and Plan: patient with poorly healing anastomotic ulcer. This located at site of previous Billroth II anastomosis. Presumed gastric bypass surgery. Continue PPI therapy. Avoid nonsteroidal anti-inflammatory agents. Follow-up EGD in 3 months id suggest (2) Diarrhea: Code(s): R19.7 - Diarrhea, unspecified Status: Acute Assessment and Plan: diarrhea persists. Patient has been on empiric antibiotic therapy. He has had rather significant improvement since Imodium yesterday. Will continue this on a p.r.n. basis. complete 10 day course of antibiotics and then stop. 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 He states that diarrhea has improved dramatically on implementation of Imodium 2 tablets last evening. Along with this he states his appetite is improved he is eating dinner. His taste may be better. Review of Systems Review of Systems: All systems reviewed & are unremarkable except as noted in HPI and below Exam Narrative: Exam Narrative: Physical exam patient remains comfortable at rest. HEENT exam unremarkable he is anicteric. Lungs are clear. Heart without murmur. Irregularly irregular. Abdomen obese. Bowel sounds present soft nontender. Extremities with right below the knee amputation lymphedema bilaterally Objective Data Vital Signs Vital Signs: Vital Signs - 24 hr 08/26/20 12:00 08/26/20 14:00 08/26/20 16:07 Temperature 97.4 F L Pulse Rate 98 96 97 Respiratory Rate 18 Blood Pressure 123/76 Pulse Oximetry 98 08/26/20 21:53 08/27/20 05:41 Temperature 98.9 F 98.3 F Pulse Rate 73 95 Respiratory Rate 18 18 Blood Pressure 127/68 135/79 Pulse Oximetry 98 100 Intake/Output Intake/Output: Intake & Output 08/24/20 08/25/20 08/26/20 08/27/20 23:59 23:59 23:59 23:59 Intake Total 1505 2170 1270 1960 Output Total 4800 2450 1600 800 Balance -3295 -280 -330 1160 Meds/Results Medications: Active Medications Generic Name Dose Route Start Last Admin Trade Name Freq PRN Reason Stop Dose Admin Acetaminophen 650 mg 08/16/20 15:44 08/24/20 21:04 Acetaminophen 325 Mg Tablet PO 650 mg Q6H PRN Administration Mild Pain (1-5) Or Fever Allopurinol 300 mg 08/16/20 08:00 08/27/20 09:09 Allopurinol 300 Mg Tablet PO 300 mg DAILY@0800 AVANI Administration Apixaban 5 mg 08/16/20 09:00 08/27/20 09:08 Apixaban 5 Mg Tablet PO 5 mg Q12HR AVANI Administration Buspirone HCl 5 mg 08/16/20 09:00 08/27/20 09:08 Buspirone Hcl 5 Mg Tablet PO 5 mg TID AVANI Administration Calcium Polycarbophil 625 mg 08/24/20 17:00 08/27/20 09:10 Calcium Polycarbophil 625 Mg Tablet PO 625 mg BID AVANI Administration Cholestyramine Resin 4 gm 08/20/20 18:00 08/27/20 10:34 Cholestyramine Light 4
--- NOTE | 2020-08-27 11:39 | PCPTNOTE ---
Attempted to see patient for Physical Therapy this AM. Patient refused stating that he was waiting for someone to come and see him. Therapist discussed with patient and his mother that therapy would check back later to do Physical Therapy.
--- NOTE | 2020-08-27 12:09 | PM.IMPN ---
Progress Note: A&P Assessment and Plan (1) Ileus: Code(s): K56.7 - Ileus, unspecified Status: Acute Assessment and Plan: 08/27/20 12:09 Proximal dilated small-bowel loops and a diffusely dilated colon with air-fluid levels consistent with ileus. Probably infectious etiology. Stool culture negative for CDiff, Salmonella, EColi, Crypto and Giardia. Ischemic bowel felt less likely. Still with diarrheal stool. Remains on abx but changed to Levaquin and Flagyl to complete a 10 day course. WBC 9-11 range and stable. Fever resolved. EGD results as mentioned below; patient refused [place]. Still not eating much per patient; encourage oral intake. Stool output waxes and wanes. Check calcitonin and gastrin levels. Consider repeating CT A/P but abdominal pain better. Continue supplements. Continue supportive care. Remove fecal containment system when able. 08/27 Patient has not had BM since yesterday and able to tolerate his diet his WBC today is 9.6 , will remove rectal tube, continue PT/OT and continue to monitor, if remains clinically stable will do the discharge planning (2) Hypokalemia: Code(s): E87.6 - Hypokalemia Status: Acute Assessment and Plan: Potassium low at times requiring frequent replacement. [place] related to GI loss and poor oral intake. Potassium normal today. Continue oral replacement. Continue to replace as needed. (3) Shock: Code(s): R57.9 - Shock, unspecified Status: Resolved Assessment and Plan: Patient developed low BP around the time he was changed to oral Diltiazem in the evening hours of 08/16; Anti-HTN medications stopped but BP continued to decline requiring central line placement and Levophed started. Not initially fluid responsive. LA 14 at that time but normal on repeat at 0.9 and suspect more likely related to HoTN then sepsis (poor collection method?). BCx negative. Overall, likely hypovolemic related to the diarrhea. Levophed weaned off earlier morning hours of 08/18. BP remaining stable and able to add back metoprolol. Resolved (4) Peptic ulcer disease: Code(s): K27.9 - Peptic ulcer, site unspecified, unspecified as acute or chronic, without hemorrhage or perforation Status: Acute Assessment and Plan: EGD showing gastric ulcer at the anastomosis site. This has been noted before. Continue PPI. Carafate added. Will need followup EGD to document that this has healed. Path showing benign findings. (5) Acute on chronic renal failure: Qualifiers: Acute renal failure type: unspecified Chronic kidney disease stage: unspecified stage Qualified Code(s): N17.9 - Acute kidney failure, unspecified; N18.9 - Chronic kidney disease, unspecified Code(s): N17.9 - Acute kidney failure, unspecified; N18.9 - Chronic kidney disease, unspecified Status: Acute Assessment and Plan: Creatinine 4.8 on admission. Baseline creatinine last month was 1.8. CT scan showing bilateral renal stones and low-density lesions in the kidneys most likely cysts. Renal ultrasound showed mild cortical thinning but no hydronephrosis. Metabolic acidosis noted on admission. [place] related to dehydration from his diarrhea and poor oral intake. He is not on diuretics at home. Treated with IV fluids with bicarb. Acidosis better but mildly persistent due to the diarrhea. Cr overall improved and back to baseline. Off IV fluids now. Nephrology following. Appreciate their input. (6) Metabolic acidosis: Code(s): E87.2 - Acidosis Status: Acute Assessment and Plan: Bicarb of 12 and anion gap of 17 on admission. PH is 7.196 all consistent with metabolic acidosis felt related to his renal failure, lactic acidosis and diarrhea. AG closed. LA normal now as well. Off IV fluids. Continue monitor. (7) Chronic atrial fibrillation with RVR: Code(s): I48.20 - Chronic atrial fibrillation, unspecified St
[2020-08-27 14:00] VITALS: BP 127/72; PULSE 71; RESP 16; TEMP 36.7; O2SAT 99
--- NOTE | 2020-08-27 15:03 | PCPTNOTE ---
The patient treatment was not able to be completed on 08-27-2020 due to patient declining PT due to pain in abdomen and upset stomach. Patient agreed to participate upon therapist initially entering into room. Upon therapist exiting room to locate additional assistance for session, patient's mother approach therapist stating patient wasn't feeling well and declined therapy. Therapist returned to room upon which patient declined due to abdominal pain and upset stomach. Therapist informed R.N. Will plan to continue treatment per plan of care.
[2020-08-27 16:59] LABS: Glucose Point of Care 121 mg/dl (65-105)
[2020-08-27 17:37] LABS: Glucose Point of Care 135 mg/dl (65-105)
[2020-08-27 20:05] VITALS: PULSE 91; RESP 18; O2SAT 99
[2020-08-27 20:33] VITALS: PULSE 62
[2020-08-27 22:00] VITALS: BP 113/74; PULSE 91; RESP 18; TEMP 37.4; O2SAT 99
[2020-08-27 22:05] LABS: Glucose Point of Care 138 mg/dl (65-105)
[2020-08-28] MEDS: metroNIDAZOLE 250 MG TABLET 500 MG PO ×3 (01:12→13:11)
[2020-08-28] MEDS: LEVOTHYROXINE SODIUM 100 MCG TABLET PO (05:52)
[2020-08-28] MEDS: SUCRALFATE 1 GM TABLET PO ×4 (05:53→21:42)
[2020-08-28 06:00] VITALS: BP 117/48; PULSE 72; RESP 18; TEMP 36.6; O2SAT 100
[2020-08-28 07:04] LABS: Glucose Point of Care 105 mg/dl (65-105)
[2020-08-28] MEDS: PRAMIPEXOLE 0.5 MG TABLET 1.5 MG PO ×2 (08:14→13:11)
[2020-08-28] MEDS: POTASSIUM CHLORIDE 20 MEQ TABLET.ER 40 MEQ PO (08:14)
[2020-08-28] MEDS: PANTOPRAZOLE 40 MG TABLET PO (08:14)
[2020-08-28] MEDS: APIXABAN 5 MG TABLET PO ×2 (08:14→21:42)
[2020-08-28] MEDS: SERTRALINE HCL 50 MG TABLET 100 MG PO ×2 (08:14→21:42)
[2020-08-28 08:15] VITALS: PULSE 104
[2020-08-28] MEDS: calcium polycarbophiL 625 MG TABLET PO (08:15)
[2020-08-28] MEDS: METOPROLOL TARTRATE 50 MG TAB PO ×2 (08:15→21:41)
[2020-08-28] MEDS: allopurinoL 300 MG TABLET PO (08:16)
[2020-08-28] MEDS: busPIRone HCL 5 MG TABLET PO ×2 (08:16→13:12)
[2020-08-28 09:13] LABS: Anion Gap 8 mmol/L (8-16); Blood Urea Nitrogen 30 mg/dL (9-20); Calcium 8.5 mg/dL (8.4-10.2); Carbon Dioxide 19 mmol/L (22-30); Chloride 115 mmol/L (98-107); Estimated CRCL calculation 72 ml/min; Estimated Glomerular Filt Rate 39; Glucose 128 mg/dL (75-110); Magnesium 1.7 mg/dL (1.6-2.3); Potassium 3.4 mmol/L (3.4-5.0); Sodium 142 mmol/L (137-145)
--- NOTE | 2020-08-28 10:29 | WPDGIPROGNO ---
Progress Note: A&P Assessment and Plan (1) Peptic ulcer disease: Code(s): K27.9 - Peptic ulcer, site unspecified, unspecified as acute or chronic, without hemorrhage or perforation Status: Acute Assessment and Plan: Anastomotic ulcer appears to be chronic. Patient has evidence of Billroth II anastomosis. Patient gives history of gastric bypass. Plan is to continue proton pump inhibitor and supplement this with Carafate. Consider follow-up EGD in 3 months. (2) Diarrhea: Code(s): R19.7 - Diarrhea, unspecified Status: Acute Assessment and Plan: Diarrhea peers improved. Will discontinue antibiotics after 10 day course. Fiber may be of some benefit to encourage regularity (3) Stage 3b chronic kidney disease: Code(s): N18.32 - Chronic kidney disease, stage 3b Status: Chronic (4) Anticoagulant long-term use: Onset Date: Unknown Code(s): Z79.01 - snf (current) use of anticoagulants Status: Acute (5) Lymphedema: Onset Date: Unknown Code(s): I89.0 - Lymphedema, not elsewhere classified Status: Acute (6) History of below-knee amputation of right lower extremity: Code(s): Z89.511 - Acquired absence of right leg below knee Status: Chronic Subjective Date/time seen: 08/28/20 10:29 Patient reports no bowel movements overnight. He states his appetite is slowly improving. Denies any obvious signs of bleeding. Review of Systems Review of Systems: All systems reviewed & are unremarkable except as noted in HPI and below Exam Narrative: Exam Narrative: Physical exam reveals patient be alert. Lungs are clear. Abdomen is obese soft no localized tenderness. Extremities with significant lymphedema. Right bloxx-ioj-ejys amputation. Objective Data Vital Signs Vital Signs: Vital Signs - 24 hr 08/27/20 14:00 08/27/20 20:05 08/27/20 20:33 Temperature 98.1 F Pulse Rate 71 91 62 Respiratory Rate 16 18 Blood Pressure 127/72 Pulse Oximetry 99 99 08/27/20 22:00 08/28/20 06:00 08/28/20 08:15 Temperature 99.3 F 97.8 F Pulse Rate 91 72 104 H Respiratory Rate 18 18 Blood Pressure 113/74 117/48 L Pulse Oximetry 99 100 Intake/Output Intake/Output: Intake & Output 06/10/08/26/20 08/27/20 08/28/20 23:59 23:59 23:59 23:59 Intake Total 2170 1270 2200 680 Output Total 2450 1600 1600 350 Balance -280 -330 600 330 Meds/Results Medications: Active Medications Generic Name Dose Route Start Last Admin Trade Name Freq PRN Reason Stop Dose Admin Acetaminophen 650 mg 08/16/20 15:44 08/24/20 21:04 Acetaminophen 325 Mg Tablet PO 650 mg Q6H PRN Administration Mild Pain (1-5) Or Fever Allopurinol 300 mg 08/16/20 08:00 08/28/20 08:16 Allopurinol 300 Mg Tablet PO 300 mg DAILY@0800 AVANI Administration Apixaban 5 mg 08/16/20 09:00 08/28/20 08:14 Apixaban 5 Mg Tablet PO 5 mg Q12HR AVANI Administration Buspirone HCl 5 mg 08/16/20 09:00 08/28/20 08:16 Buspirone Hcl 5 Mg Tablet PO 5 mg TID AVANI Administration Calcium Polycarbophil 625 mg 08/24/20 17:00 08/28/20 08:15 Calcium Polycarbophil 625 Mg Tablet PO 625 mg BID AVANI Administration Cholestyramine Resin 4 gm 08/20/20 18:00 08/27/20 16:57 Cholestyramine Light 4 Gm Powd.Pack PO 4 gm BID@1000,1800 AVANI Administration Collagenase 1 applic 08/16/20 09:00 08/27/20 20:41 Collagenase Oint 30 Gm Tube TOPICAL 1 applic Q12HR AVANI Administration Dextrose 12.5 gm 08/16/20 03:05 Dextrose 50% 25 Gm/50 Ml Syringe IV PUSH PRN PRN Hypoglycemia Protocol Epoetin Jonh-epbx 10,000 units 08/22/20 09:00 08/26/20 10:47 Epoetin Jonh-Epbx 10,000 Units/Ml Vial SUB-Q 10,000 units MOWEFR AVANI Administration Glucagon 1 mg 08/16/20 03:05 Glucagon For Inj 1 Mg Vial IM PRN PRN Hypoglycemia Protocol Glucose 15 gm 08/16/20 03:05 Glucose Oral Gel 15 Gm Of
[2020-08-28] MEDS: CHOLESTYRAMINE LIGHT 4 GM POWD.PACK PO ×2 (11:25→17:18)
[2020-08-28] MEDS: POTASSIUM CHLORIDE 20 MEQ TABLET 40 MEQ PO (11:25)
[2020-08-28 12:26] LABS: Glucose Point of Care 130 mg/dl (65-105)
--- NOTE | 2020-08-28 12:35 | PM.IMPN ---
Progress Note: A&P Assessment and Plan (1) Ileus: Code(s): K56.7 - Ileus, unspecified Status: Acute Assessment and Plan: 08/27/20 12:09 Proximal dilated small-bowel loops and a diffusely dilated colon with air-fluid levels consistent with ileus. Probably infectious etiology. Stool culture negative for CDiff, Salmonella, EColi, Crypto and Giardia. Ischemic bowel felt less likely. Still with diarrheal stool. Remains on abx but changed to Levaquin and Flagyl to complete a 10 day course. WBC 9-11 range and stable. Fever resolved. EGD results as mentioned below; patient refused [place]. Still not eating much per patient; encourage oral intake. Stool output waxes and wanes. Check calcitonin and gastrin levels. Consider repeating CT A/P but abdominal pain better. Continue supplements. Continue supportive care. Remove fecal containment system when able. 08/27 Patient has not had BM since yesterday and able to tolerate his diet his WBC today is 9.6 , will remove rectal tube, continue PT/OT and continue to monitor, if remains clinically stable will do the discharge planning. 08/28, on 08/27 patient rectal tube was removed, no BM today, patient is able to tolerate his diet is denies any abdominal pain nausea or vomiting, stool culture is essentially negative, today patient was seen by Dr. Cowart for his sacral wound and will reexamine tomorrow with wound the nurses. Patient is clinically stable, continue PT OT and further recommendation to follow (2) Hypokalemia: Code(s): E87.6 - Hypokalemia Status: Acute Assessment and Plan: Potassium low at times requiring frequent replacement. [place] related to GI loss and poor oral intake. Potassium normal today. Continue oral replacement. Continue to replace as needed. (3) Shock: Code(s): R57.9 - Shock, unspecified Status: Resolved Assessment and Plan: Patient developed low BP around the time he was changed to oral Diltiazem in the evening hours of 08/16; Anti-HTN medications stopped but BP continued to decline requiring central line placement and Levophed started. Not initially fluid responsive. LA 14 at that time but normal on repeat at 0.9 and suspect more likely related to HoTN then sepsis (poor collection method?). BCx negative. Overall, likely hypovolemic related to the diarrhea. Levophed weaned off earlier morning hours of 6/3. BP remaining stable and able to add back metoprolol. Resolved (4) Peptic ulcer disease: Code(s): K27.9 - Peptic ulcer, site unspecified, unspecified as acute or chronic, without hemorrhage or perforation Status: Acute Assessment and Plan: EGD showing gastric ulcer at the anastomosis site. This has been noted before. Continue PPI. Carafate added. Will need followup EGD to document that this has healed. Path showing benign findings. (5) Acute on chronic renal failure: Qualifiers: Acute renal failure type: unspecified Chronic kidney disease stage: unspecified stage Qualified Code(s): N17.9 - Acute kidney failure, unspecified; N18.9 - Chronic kidney disease, unspecified Code(s): N17.9 - Acute kidney failure, unspecified; N18.9 - Chronic kidney disease, unspecified Status: Acute Assessment and Plan: Creatinine 4.8 on admission. Baseline creatinine last month was 1.8. CT scan showing bilateral renal stones and low-density lesions in the kidneys most likely cysts. Renal ultrasound showed mild cortical thinning but no hydronephrosis. Metabolic acidosis noted on admission. [place] related to dehydration from his diarrhea and poor oral intake. He is not on diuretics at home. Treated with IV fluids with bicarb. Acidosis better but mildly persistent due to the diarrhea. Cr overall improved and back to baseline. Off IV fluids now. Nephrology following. Appreciate their input. (6) Metabolic acidosis: Code(s): E87.2 - Acidosis Status: Acute
--- NOTE | 2020-08-28 13:57 | PM.PNGS ---
Progress Note: A&P Assessment and Plan (1) Sacral wound: Onset Date: Unknown Code(s): S31.000A - Unspecified open wound of lower back and pelvis without penetration into retroperitoneum, initial encounter Status: Acute Assessment and Plan: Continue local wound care. POD 32 s/P bedside debridement of sacral area wound. It would be okay from our standpoint to start using the compression appliances he has at home for both lower extremities. I instructed the patient and his nurse to let his mother know to bring in his compression appliance for the right leg and begin using it while he is hospitalized. ( he is now using these during the day. (2) Diarrhea: Qualifiers: Diarrhea type: unspecified type Qualified Code(s): R19.7 - Diarrhea, unspecified Code(s): R19.7 - Diarrhea, unspecified Status: Acute Assessment and Plan: ? mildly improved. No specific etiology discovered yet. ?whetherthis was caused as aside effect of one of his meds.? ? whether Questran is helping?? (3) Lymphedema: Onset Date: Unknown Code(s): I89.0 - Lymphedema, not elsewhere classified Status: Acute Assessment and Plan: The superficial maceration on the right lower extremity seems to have improved with local wound care. At this point, we have again begun and continue to apply compression to the right and left egs for his lymphedema. Additional Plan Discussed the patient's case and plan of care with Case Management, Dr. Granger, and Dr. Colindres Subjective Subjective Date/Time Seen: 08/28/20 13:57 Patient reports: feels better and other ( He expresses [facility] [place] [facility] near future.) Interval history: Patient is sitting up in his air bed when I arrived in the room. His fecal containment system is out of the rectum now. He states that was removed yesterday. He has had 1 stool since then it has a little bit more solid. He is not complain of any specific pain in the sacral area. The nurses not change his dressing yet today but apparently went well yesterday. No further bleeding that I know of. He is having no problems with his legs and both compression garments room placed today when I came in the room. Review of Systems Review of Systems: All systems reviewed & are unremarkable except as noted in HPI and below Constitutional: Constitutional: Reports no additional constitutional complaints, Reports lethargy and Reports malaise ENT: Reports other (Mucous Membranes moist.) Cardiovascular: Cardiovascular: Denies dyspnea Respiratory: Respiratory: Denies pain on inspiration and Denies dyspnea Gastrointestinal: Gastrointestinal: Reports as per HPI and Reports no additional gastrointestinal complaints Comments: very loose stools have slowed down. Apparently patient is continuing to take Carafate. Note that Dr. Colindres recommended follow-up EGD in about 4-6 weeks to see if the anastomotic area ulcer between his stomach and the Gurwinder Y loop from his gastric bypass is healed. Musculoskeletal: Musculoskeletal: Reports other (No calf swelling or edema) Integumentary/Breasts: Skin/Breast: Reports system reviewed and no additional complaints, except as docu and Reports as per HPI Comments: Patient denies much pain and sacral area after the debridement done last Saturday. He states nurse said that it looked good yesterday when she changed the dressing and there was not any continuing bleeding. He is happy with the way his legs are. He states specifically that he does not have a compression garment that includes the foot on his left leg and that he just wears a over the area between his ankle and his knee. 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
[2020-08-28 14:00] VITALS: BP 117/60; PULSE 94; RESP 18; TEMP 36.4; O2SAT 99
[2020-08-28 17:27] LABS: Glucose Point of Care 118 mg/dl (65-105)
--- NOTE | 2020-08-28 19:22 | PC.NURSE ---
pt unwilling to do dressing changes twice early in the morning. he asked if we could come back. he needs two people to assist with bathing and dressing changes. pt feeling nauseated when i checked with him again. dressing/medications not applied.
[2020-08-28 21:41] VITALS: PULSE 68
[2020-08-28] MEDS: COLLAGENASE OINT 30 GM TUBE 1 APPLIC TOPICAL (21:43)
[2020-08-28] MEDS: TOLNAFTATE 1% POWDER 45 GM BTL 1 APPLIC TOPICAL (21:44)
[2020-08-28 22:00] VITALS: BP 118/76; PULSE 110; RESP 18; TEMP 36.6; O2SAT 98
[2020-08-28 22:20] LABS: Glucose Point of Care 115 mg/dl (65-105)
[2020-08-29] MEDS: metroNIDAZOLE 250 MG TABLET 500 MG PO ×3 (00:30→12:23)
[2020-08-29] MEDS: SUCRALFATE 1 GM TABLET PO ×2 (05:55→12:24)
[2020-08-29] MEDS: LEVOTHYROXINE SODIUM 100 MCG TABLET PO (05:55)
[2020-08-29 05:56] VITALS: BP 109/58; PULSE 97; RESP 18; TEMP 36.3; O2SAT 99
[2020-08-29 06:33] LABS: Hematocrit 32.1 % (42.0-52.0); Hemoglobin 9.4 g/dL (14.0-18.0); Mean Corpuscular HGB Conc 29.3 g/dl (32-36); Mean Corpuscular Hemoglobin 26.5 pg (26-34); Mean Corpuscular Volume 90.4 fl (80-100); Mean Platelet Volume 9.4 fl (7.4-10.4); Platelet Count Result 370 k/mm3 (150-375); Red Blood Count 3.55 M/mm3 (4.6-6.20); Red Cell Distribution Width 19.4 % (11.5-14.5); White Blood Count 10.2 K/mm3 (4.5-10.0)
[2020-08-29 06:42] LABS: Anion Gap 8 mmol/L (8-16); Blood Urea Nitrogen 31 mg/dL (9-20); Calcium 8.6 mg/dL (8.4-10.2); Carbon Dioxide 18 mmol/L (22-30); Chloride 117 mmol/L (98-107); Estimated CRCL calculation 72 ml/min; Estimated Glomerular Filt Rate 39; Glucose 120 mg/dL (75-110); Magnesium 1.7 mg/dL (1.6-2.3); Potassium 3.7 mmol/L (3.4-5.0); Sodium 143 mmol/L (137-145)
[2020-08-29] MEDS: SERTRALINE HCL 50 MG TABLET 100 MG PO (08:09)
[2020-08-29] MEDS: PRAMIPEXOLE 0.5 MG TABLET 1.5 MG PO ×2 (08:09→12:23)
[2020-08-29] MEDS: POTASSIUM CHLORIDE 20 MEQ TABLET.ER 40 MEQ PO (08:09)
[2020-08-29] MEDS: allopurinoL 300 MG TABLET PO (08:10)
[2020-08-29] MEDS: APIXABAN 5 MG TABLET PO (08:10)
[2020-08-29] MEDS: PANTOPRAZOLE 40 MG TABLET PO (08:10)
[2020-08-29] MEDS: busPIRone HCL 5 MG TABLET PO ×2 (08:10→12:23)
[2020-08-29 08:11] VITALS: PULSE 112
[2020-08-29] MEDS: calcium polycarbophiL 625 MG TABLET PO (08:11)
[2020-08-29] MEDS: METOPROLOL TARTRATE 50 MG TAB PO (08:11)
[2020-08-29] MEDS: COLLAGENASE OINT 30 GM TUBE 1 APPLIC TOPICAL (08:45)
[2020-08-29] MEDS: TOLNAFTATE 1% POWDER 45 GM BTL 1 APPLIC TOPICAL (08:45)
[2020-08-29 10:10] LABS: Glucose Point of Care 120 mg/dl (65-105)
--- NOTE | 2020-08-29 10:39 | PCNFU ---
Nutrition Follow-Up Complete: Nutrition Diagnosis: Inadequate oral intake related to gastroparesis, diarrhea, multiple medical issues as evidenced by clear liquid diet order and reported significant weight loss. Nutrition Goal:Patient to consume 50% of meals/supplements or greater. Goal is in progress, patient is consuming one meal per day. Nutrition recommendation: Continue with Diabetic Consistent Carbohydrate and Glucerna Shake (220 calories and 10grams of protein) BID. Encourage intake of supplement. Last recorded weight is 173.5 kg. Bowel Motility: Last documented on 08/28. BM was more solid. Labs Reviewed: Hgb(9.4),Hct(32.1),GFR(39),BUN(31),Cr(1.8),Glu(120) Meds Noted: Eliquis, Buspar, Zyloprim, Novolog, Norvasc, Lantus, Synthroid, Collagenase, Calcium Polycarbophil, Lopressor, Mirapex, Protonix, Levaquin, Potassium Chloride, Zoloft, Cholestyramine Resin, Retacrit, Flagyl, Tolnaftate, Carafate Additional Notes: Pressure ulcer on his right leg and sacrum. Skin is red and tender on both lower legs. Wound on abdomen and groin. Patient said his appetite has remained the same, no changes since last visit. Breakfast is the easiest to consume, other times of the day he feels nausea. Patient reported he is discharging tomorrow. Follow up every 3 days.
--- NOTE | 2020-08-29 11:02 | WPDGIPROGNO ---
Progress Note: A&P Assessment and Plan (1) Peptic ulcer disease: Code(s): K27.9 - Peptic ulcer, site unspecified, unspecified as acute or chronic, without hemorrhage or perforation Status: Acute Assessment and Plan: Patient with anastomotic ulcer. Previous Billroth II anastomosis presumed gastric bypass surgery although he has failed to lose weight. Would recommend continuing proton pump inhibitor therapy after discharge. Avoid NSAIDs. Follow-up EGD in 3 months. (2) Diarrhea: Code(s): R19.7 - Diarrhea, unspecified Status: Acute Assessment and Plan: Diarrhea has improved would discontinue antibiotics at discharge. He may benefit from continuing Questran and Imodium as needed. No diarrhea noted at this point. Cultures have remained negative. (3) Sacral wound: Onset Date: Unknown Code(s): S31.000A - Unspecified open wound of lower back and pelvis without penetration into retroperitoneum, initial encounter Status: Acute (4) Chronic atrial fibrillation with RVR: Code(s): I48.20 - Chronic atrial fibrillation, unspecified Status: Chronic (5) Type 2 diabetes mellitus with hyperglycemia: Qualifiers: Diabetes mellitus inspector health care facilities insulin use: with longterm use Qualified Code(s): E11.65 - Type 2 diabetes mellitus with hyperglycemia; Z79.4 - USP (current) use of insulin Code(s): E11.65 - Type 2 diabetes mellitus with hyperglycemia Status: Acute (6) Severe obesity: Code(s): E66.01 - Morbid (severe) obesity due to excess calories Status: Chronic (7) History of below-knee amputation of right lower extremity: Code(s): Z89.511 - Acquired absence of right leg below knee Status: Chronic Subjective Date/time seen: 08/29/20 11:02 Patient continues to be much more comfortable. Diarrhea has decreased in stopped. Tolerating diet better today denies abdominal pain. Review of Systems Review of Systems: All systems reviewed & are unremarkable except as noted in HPI and below Exam Narrative: Exam Narrative: Physical exam reveals patient to be alert comfortable. He is anicteric. Lungs are clear. Heart without murmur irregularly irregular. Abdomen obese soft nontender no organomegaly. Extremities with bilateral lymphedema. Right ukrii-iyk-mncy amputation. Objective Data Vital Signs Vital Signs: Vital Signs - 24 hr 08/28/20 14:00 08/28/20 21:41 08/28/20 22:00 Temperature 97.6 F 98 F Pulse Rate 94 68 110 H Respiratory Rate 18 18 Blood Pressure 117/60 118/76 Pulse Oximetry 99 98 08/29/20 05:56 08/29/20 08:11 Temperature 97.3 F L Pulse Rate 97 112 H Respiratory Rate 18 Blood Pressure 109/58 L Pulse Oximetry 99 Intake/Output Intake/Output: Intake & Output 08/26/20 08/27/20 08/28/20 08/29/20 23:59 23:59 23:59 23:59 Intake Total 1270 2200 1470 870 Output Total 1600 1600 900 400 Balance -330 600 570 470 Meds/Results Medications: Active Medications Generic Name Dose Route Start Last Admin Trade Name Freq PRN Reason Stop Dose Admin Acetaminophen 650 mg 08/16/20 15:44 08/24/20 21:04 Acetaminophen 325 Mg Tablet PO 650 mg Q6H PRN Administration Mild Pain (1-5) Or Fever Allopurinol 300 mg 08/16/20 08:00 08/29/20 08:10 Allopurinol 300 Mg Tablet PO 300 mg DAILY@0800 AVANI Administration Apixaban 5 mg 08/16/20 09:00 08/29/20 08:10 Apixaban 5 Mg Tablet PO 5 mg Q12HR AVANI Administration Buspirone HCl 5 mg 08/16/20 09:00 08/29/20 08:10 Buspirone Hcl 5 Mg Tablet PO 5 mg TID AVANI Administration Calcium Polycarbophil 625 mg 08/24/20 17:00 08/29/20 08:11 Calcium Polycarbophil 625 Mg Tablet PO 625 mg BID AVANI Administration Cholestyramine Resin 4 gm 08/20/20 18:00 08/28/20 17:18 Cholestyramine Light 4 Gm Powd.Pack PO 4 gm BID@1000,1800 AVANI Administration Collagenase 1 applic 08/16/20 09:00 08/28/20 21:43 Collag
--- NOTE | 2020-08-29 11:09 | PCNSR ---
On 08/29/20, the student, Vandana Meyers, provided care and completed [facility] documentation on this patient. I have reviewed the student's documentation and agree with the findings.
[2020-08-29] MEDS: CHOLESTYRAMINE LIGHT 4 GM POWD.PACK PO (11:15)
--- NOTE | 2020-08-29 11:46 | PM.DS ---
DS: Admitting Diagnosis Admitting Diagnosis Admitting Diagnosis: Weakness and Diarrhea DS: Discharge Diagnosis Discharge Diagnosis (1) Ileus: Code(s): K56.7 - Ileus, unspecified Status: Acute (2) Hypokalemia: Code(s): E87.6 - Hypokalemia Status: Acute (3) Shock: Code(s): R57.9 - Shock, unspecified Status: Resolved (4) Peptic ulcer disease: Code(s): K27.9 - Peptic ulcer, site unspecified, unspecified as acute or chronic, without hemorrhage or perforation Status: Acute (5) Acute on chronic renal failure: Qualifiers: Acute renal failure type: unspecified Chronic kidney disease stage: unspecified stage Qualified Code(s): N17.9 - Acute kidney failure, unspecified; N18.9 - Chronic kidney disease, unspecified Code(s): N17.9 - Acute kidney failure, unspecified; N18.9 - Chronic kidney disease, unspecified Status: Acute (6) Metabolic acidosis: Code(s): E87.2 - Acidosis Status: Acute (7) Chronic atrial fibrillation with RVR: Code(s): I48.20 - Chronic atrial fibrillation, unspecified Status: Chronic (8) Type 2 diabetes mellitus with hyperglycemia: Qualifiers: Diabetes mellitus retirement insulin use: with retirement use Qualified Code(s): E11.65 - Type 2 diabetes mellitus with hyperglycemia; Z79.4 - [facility] (current) use of insulin Code(s): E11.65 - Type 2 diabetes mellitus with hyperglycemia Status: Acute (9) Sleep apnea: Qualifiers: Sleep apnea type: obstructive Qualified Code(s): G47.33 - Obstructive sleep apnea (adult) (pediatric) Code(s): G47.30 - Sleep apnea, unspecified Status: Chronic (10) Sacral wound: Onset Date: Unknown Code(s): S31.000A - Unspecified open wound of lower back and pelvis without penetration into retroperitoneum, initial encounter Status: Acute (11) Lymphedema: Onset Date: Unknown Code(s): I89.0 - Lymphedema, not elsewhere classified Status: Acute (12) Anemia: Qualifiers: Anemia type: iron deficiency Iron deficiency anemia type: unspecified iron deficiency Qualified Code(s): D50.9 - Iron deficiency anemia, unspecified Code(s): D64.9 - Anemia, unspecified Status: Chronic DS: Summary Hospital Course Reason for hospitalization: 60yo male with AFib, DON, DM and CKD here for progressive weakness and diarrhea. Hospital Course: Patient presented to the ED for complaints of diarrhea and weakness. CT of the Abdomen/Pelvis showing proximal dilated small-bowel loops and a diffusely dilated colon with air-fluid levels consistent with ileus. Probably infectious etiology. Stool culture negative for CDiff, Salmonella, EColi, Crypto and Giardia. Ischemic bowel felt less likely. Fecal containment system placed. Treated with a 10 day course of abx. WBC 14K on admission and this trended down to to 9-10 range. Fever resolved. Still not eating much; oral intake was encouraged. Stool output improved and ultimately able to remove fecal containment system. Potassium low at times requiring frequent replacement. Manning related to GI loss and poor oral intake. Potassium normal today. Patient has chronic AFib/Flutter on Toprol XL for rate control and Eliquis for stroke prophylaxis. Patient was mildly tachycardic on admission and started on diltiazem drip. Tachycardia most likely related to dehydration. He was transitioned to a short-acting diltiazem p.o. but stopped due to the HoTN. Patient developed low BP around the time he was changed to oral Diltiazem in the evening hours of 08/16; Anti-HTN medications stopped but BP continued to decline requiring central line placement and Levophed started. Not initially fluid responsive. LA 14 at that time but normal on repeat at 0.9 and suspect more likely related to HoTN then sepsis (poor collection method?). BCx negative. Overall, likely hypovolemic related to the diar
[2020-08-29 14:00] VITALS: BP 131/91; PULSE 94; RESP 24; TEMP 36.4; O2SAT 100
--- NOTE | 2020-08-29 14:25 | P.PNNP_ITS ---
Progress Note: A&P Assessment and Plan (1) KONSTANTIN (acute kidney injury): Code(s): N17.9 - Acute kidney failure, unspecified Status: Acute Assessment and Plan: * resolved * likely due to prerenal factors and hemodynamic instability * with improvement in BP along with IVF resuscitation, kidney function better * Creatinine has returned to baseline of 1.8.. (2) Stage 3b chronic kidney disease: Code(s): N18.32 - Chronic kidney disease, stage 3b Status: Chronic Assessment and Plan: * baseline creatinine runs around 1.6 - 2.1mg/dl * however, he has fluctuated to extremes with his recent hospitalizations * this is secondary to hypertension and diabetes (3) Hypokalemia: Code(s): E87.6 - Hypokalemia Status: Acute Assessment and Plan: * Potassium fine today. (4) Anemia: Qualifiers: Anemia type: iron deficiency Iron deficiency anemia type: unspecified iron deficiency Qualified Code(s): D50.9 - Iron deficiency anemia, unspecified Code(s): D64.9 - Anemia, unspecified Status: Chronic Assessment and Plan: * Hemoglobin up to 9.4. * He does not need Epogen as an outpatient. (5) Metabolic acidosis: Code(s): E87.2 - Acidosis Status: Acute Assessment and Plan: * This drifted down a little bit. * Will give oral bicarb to go home with. (6) Hypertension: Qualifiers: Hypertension type: essential hypertension Qualified Code(s): I10 - Essential (primary) hypertension Code(s): I10 - Essential (primary) hypertension Status: Chronic Assessment and Plan: * Improved numbers lately. Systolic running 120-140. (7) Diarrhea: Qualifiers: Diarrhea type: unspecified type Qualified Code(s): R19.7 - Diarrhea, unspecified Code(s): R19.7 - Diarrhea, unspecified Status: Acute Assessment and Plan: * likely playing a role with #1 and possibly causing hypokalemia * has chronic diarrhea at baseline as well * GI following - EGD with reflux esophagitis and gastric ulcer at gastric bypass anastomosis (on PPI now) (8) Chronic atrial fibrillation with RVR: Code(s): I48.20 - Chronic atrial fibrillation, unspecified Status: Chronic Assessment and Plan: * continue rate control strategy * * on eliquis (9) Type 2 diabetes mellitus with diabetic neuropathy: Qualifiers: Diabetes mellitus ferry terminal supervisor insulin use: with ferry terminal supervisor use Qualified Code(s): E11.40 - Type 2 diabetes mellitus with diabetic neuropathy, unspecified; Z79.4 - terminal gauger (current) use of insulin Code(s): E11.40 - Type 2 diabetes mellitus with diabetic neuropathy, unspecified Status: Chronic Assessment and Plan: * follow accu-cheks * on sliding-scale insulin Subjective Date/time seen: 08/29/20 14:25 Interval history: Feels about the same. feels good. Exam Narrative: Exam Narrative: General: WD/WN male in NAD Heart: normal S1 and S2; no rub Lungs: clear bilaterally Abdomen: soft, nontender, nondistended, positive bowel sounds Extremities:1 - 2+ edema; s/p right BKA Skin: chronic venous stasis dermatitis Objective Data Vital Signs Vital Signs: Vital Signs - 24 hr 08/28/20 21:41 08/28/20 22:00 08/29/20 05:56 Temperature 36.6 C 36.3 C L Pulse Rate 68 110 H 97 Respiratory Rate 18 18 Blood Pressure 118/76 1
--- NOTE | 2020-08-29 14:25 | PM.PNNEP ---
Progress Note: A&P Assessment and Plan (1) KONSTANTIN (acute kidney injury): Code(s): N17.9 - Acute kidney failure, unspecified Status: Acute Assessment and Plan: resolved likely due to prerenal factors and hemodynamic instability with improvement in BP along with IVF resuscitation, kidney function better Creatinine has returned to baseline of 1.8.. (2) Stage 3b chronic kidney disease: Code(s): N18.32 - Chronic kidney disease, stage 3b Status: Chronic Assessment and Plan: baseline creatinine runs around 1.6 - 2.1mg/dl however, he has fluctuated to extremes with his recent hospitalizations this is secondary to hypertension and diabetes (3) Hypokalemia: Code(s): E87.6 - Hypokalemia Status: Acute Assessment and Plan: Potassium fine today. (4) Anemia: Qualifiers: Anemia type: iron deficiency Iron deficiency anemia type: unspecified iron deficiency Qualified Code(s): D50.9 - Iron deficiency anemia, unspecified Code(s): D64.9 - Anemia, unspecified Status: Chronic Assessment and Plan: Hemoglobin up to 9.4. He does not need Epogen as an outpatient. (5) Metabolic acidosis: Code(s): E87.2 - Acidosis Status: Acute Assessment and Plan: This drifted down a little bit. Will give oral bicarb to go home with. (6) Hypertension: Qualifiers: Hypertension type: essential hypertension Qualified Code(s): I10 - Essential (primary) hypertension Code(s): I10 - Essential (primary) hypertension Status: Chronic Assessment and Plan: Improved numbers lately. Systolic running 120-140. (7) Diarrhea: Qualifiers: Diarrhea type: unspecified type Qualified Code(s): R19.7 - Diarrhea, unspecified Code(s): R19.7 - Diarrhea, unspecified Status: Acute Assessment and Plan: likely playing a role with #1 and possibly causing hypokalemia has chronic diarrhea at baseline as well GI following - EGD with reflux esophagitis and gastric ulcer at gastric bypass anastomosis (on PPI now) (8) Chronic atrial fibrillation with RVR: Code(s): I48.20 - Chronic atrial fibrillation, unspecified Status: Chronic Assessment and Plan: continue rate control strategy on eliquis (9) Type 2 diabetes mellitus with diabetic neuropathy: Qualifiers: Diabetes mellitus material requisitioner insulin use: with material requisitioner use Qualified Code(s): E11.40 - Type 2 diabetes mellitus with diabetic neuropathy, unspecified; Z79.4 - intermediate (current) use of insulin Code(s): E11.40 - Type 2 diabetes mellitus with diabetic neuropathy, unspecified Status: Chronic Assessment and Plan: follow accu-cheks on sliding-scale insulin Subjective Date/time seen: 08/29/20 14:25 Interval history: Feels about the same. feels good. Exam Narrative: Exam Narrative: General: WD/WN male in NAD Heart: normal S1 and S2; no rub Lungs: clear bilaterally Abdomen: soft, nontender, nondistended, positive bowel sounds Extremities:1 - 2+ edema; s/p right BKA Skin: chronic venous stasis dermatitis Objective Data Vital Signs Vital Signs: Vital Signs - 24 hr 08/28/20 21:41 08/28/20 22:00 08/29/20 05:56 Temperature 36.6 C 36.3 C L Pulse Rate 68 110 H 97 Respiratory Rate 18 18 Blood Pressure 118/76 109/58 L Pulse Oximetry 98 99 08/29/20 08:11 Temperature Pulse Rate 112 H Respiratory Rate Blood Pressure Pulse Oximetry Intake/Output Intake/Output: Intake & Output 08/26/20 08/27/20 08/28/20 08/29/20 23:59 23:59 23:59 23:59 Intake Total 1270 2200 1470 870 Output Total 1600 1600 900 400 Balance -330 600 570 470 Meds/Results Medications: Active Medications Generic Name Dose Route Start Last Admin Trade Name Freq PRN Reason Stop Dose Admin Acetaminophen 650 mg 08/16/20 15:44 08/24/20 21:04 Acetaminophen 325 Mg Tablet PO
[2020-08-31 14:19] LABS: Gastrin 40 pg/mL (<=100)
[2020-08-31 14:40] LABS: Calcitonin 5 pg/mL (<=10)
--- NOTE | 2020-09-02 12:04 | PC.NURSE ---
Gastrin and Calcitonin are WNL. Dr. Umana aware.
== END 2020-08-29 18:50 | DRG 673 ==
LOC: ANHED 17:55 → ANHIMU 22:35 → ANHICU 08-18 10:42 → ANH3MEDSUR 08-23 14:13 → ANH2MED 08-30 17:26 → ANH3MEDSUR 08-30 17:26 → ANHICU 08-30 17:26 → ANHIMU 08-30 17:26
PROVIDERS: Family Medicine; Internal Medicine; Internal Medicine Gastroenterology; Internal Medicine Nephrology; Physician Assistant; Admitting Provider Family Medicine; Emergency Provider Emergency Medicine; PCP Family Medicine; Visit Provider Internal Medicine
PROC: 0DJ08ZZ Inspection of Upper Intestinal Tract, Via Natural or Artificial Opening Endoscopic (ICD-10-PCS; CPT 43235; principal; 2020-08-24 11:00)
DX: N17.9 Acute kidney failure, unspecified (principal); L89.153 Pressure ulcer of sacral region, stage 3; Z68.41 Body mass index [BMI] 40.0-44.9, adult; I48.20 Chronic atrial fibrillation, unspecified; K56.7 Ileus, unspecified; R57.9 Shock, unspecified; D62 Acute posthemorrhagic anemia; K25.3 Acute gastric ulcer without hemorrhage or perforation; K21.00 Gastro-esophageal reflux disease with esophagitis, without bleeding; K63.89 Other specified diseases of intestine; E66.01 Morbid (severe) obesity due to excess calories; G47.33 Obstructive sleep apnea (adult) (pediatric); E13.43 Other specified diabetes mellitus with diabetic autonomic (poly)neuropathy; K31.84 Gastroparesis; E13.65 Other specified diabetes mellitus with hyperglycemia; E13.51 Other specified diabetes mellitus with diabetic peripheral angiopathy without gangrene; E13.319 Other specified diabetes mellitus with unspecified diabetic retinopathy without macular edema; E13.40 Other specified diabetes mellitus with diabetic neuropathy, unspecified; E13.22 Other specified diabetes mellitus with diabetic chronic kidney disease; I12.9 Hypertensive chronic kidney disease with stage 1 through stage 4 chronic kidney disease, or unspecified chronic kidney disease; N18.32 Chronic kidney disease, stage 3b; E86.0 Dehydration; R19.7 Diarrhea, unspecified; E87.6 Hypokalemia; I89.0 Lymphedema, not elsewhere classified; M10.9 Gout, unspecified; E78.5 Hyperlipidemia, unspecified; E03.9 Hypothyroidism, unspecified; D50.9 Iron deficiency anemia, unspecified; G47.419 Narcolepsy without cataplexy; G25.81 Restless legs syndrome; F41.9 Anxiety disorder, unspecified; Z79.01 Long term (current) use of anticoagulants; Z79.4 Long term (current) use of insulin; Z79.899 Other long term (current) drug therapy; Z83.71 Family history of colonic polyps; Z86.718 Personal history of other venous thrombosis and embolism; Z89.511 Acquired absence of right leg below knee; Z98.84 Bariatric surgery status
CPT/HCPCS: 36415; 36430; 36600; 51701; 74176; 76770; 80048; 80053; 80069; 81001; 82274; 82308; 82375; 82550; 82570; 82728; 82805; 82941; 82948; 83036; 83050; 83540; 83550; 83605; 83690; 83735; 83880; 84100; 84132; 84134; 84156; 84300; 84443; 84484; 85014; 85018; 85025; 85027; 85046; 85610; 85730; 85999; 86140; 86850; 86900; 86901; 86920; 87015; 87040; 87045; 87046; 87269; 87272; 87324; 87427; 88305; 93005; 94002; 94003; 96361; 96374; 96375; 97110; 97161; 97165; 97530; 97535; 99285; A9270; C1751; J0131; J0692; J1756; J1815; J2001; J2060; J2270; J2405; J2704; J3475; J3480; J7030; J7120; P9016; P9047; Q5106

== ENCOUNTER 2020-10-26 17:08 | Inpatient (IN) | payer MEDICARE, MEDICAID, SELFPAY ==
[2020-10-26] VITALS (43 sets, daily range): BP systolic 74–130; BP diastolic 49–98; PULSE 55–128; RESP 9–29; O2SAT 86–99
--- NOTE | ~2020-10-26 | US_ITS ---
EXAMINATION: US renal BI DATE: 10/27/2020 13:08 INDICATION: Acute kidney injury. TECHNIQUE: Multiple ultrasound grayscale images of the kidneys were obtained. COMPARISON: Ultrasound kidneys 08/16/2020 FINDINGS: The right kidney measures 13.1 x 7.1 x 7.2 cm. The left kidney measures 13.1 x 7.0 x 7.1 cm. The kidn eys demonstrate normal parenchymal echogenicity. There is a 3.7 cm cyst in left kidney. There is no h ydronephrosis. The bladder is decompressed by a Nino catheter. IMPRESSION: 1. Normal kidney sizes. No hydronephrosis. Reviewed, dictated and finalized at location A.
--- NOTE | ~2020-10-26 | CT_ITS ---
EXAMINATION: CT brain wo con INDICATION: Right-sided facial droop COMPARISON: 08/30/2008 TECHNIQUE: Standard unenhanced head CT. The dose-length product (DLP) was 756.67 mGy-cm. The mA was a djusted according to patient size. Iterative reconstruction technique was employed. FINDINGS: There is no intracranial hemorrhage, acute infarction, or abnormal mass lesion. The ventric les are normal. There is no abnormal mass effect or midline shift. The bardales-white matter differentiat ion is normal. The basal cisterns are patent. The orbits are normal. There is a polyp or mucous reten tion cyst in the left maxillary sinus. IMPRESSION: 1. No acute intracranial abnormality. Reviewed, dictated and finalized at location B.
--- NOTE | ~2020-10-26 | XR_ITS ---
XR chest 1V portable DATE: 10/28/2020 05:55 INDICATION: Septic shock TECHNIQUE: Portable AP chest on 10/28/2020 at 0500 hours COMPARISON: 10/26/2020 portable AP chest at 1958 hours FINDINGS: Right internal jugular central venous catheter tip overlies the right brachiocephalic vein Cardiomegaly, pulmonary vascular congestion and redistribution. Mild prominence of the minor fissure and some Rxoie B-lines are consistent with subpleural and pulmonary interstitial edema. There is min imal if any pleural effusion. No pneumothorax. Aortic arch calcification. Diffuse osteopenia. Degenerative spurring of the thoracic and lumbar spine. IMPRESSION: Right internal jugular central venous catheter tip overlying right brachiocephalic vein; no pneumothorax Cardiomegaly, pulmonary vascular congestion and redistribution, subpleural and pulmonary interstitial edema; the congestive changes appear mildly increased compared to 10/26/2020 Reviewed, dictated and finalized at location A. IMPRESSION: Right internal jugular central venous catheter tip overlying right brachiocephalic vein; no pneumothorax Cardiomegaly, pulmonary vascular congestion and redistribution, subpleural and pulmonary interstitial edema; the congestive changes appear mildly increased co mpared to 10/26/2020
--- NOTE | ~2020-10-26 | XR_ITS ---
EXAMINATION: XR chest port-a-cath/central DATE: 10/26/2020 22:24 INDICATION: Central line insertion TECHNIQUE: frontal view of the chest was obtained. COMPARISON: Chest radiograph dated 10/26/2020 FINDINGS: Right internal jugular central venous catheter with distal tip in the region of the right brachioceph alic vein. Small lung volumes. Cardiomegaly with pulmonary vascular congestion. Interval improvement in prior pulmonary edema. No new airspace opacities, pleural effusion or pneumothorax. IMPRESSION: 1. Right internal jugular central venous catheter tip at the right brachiocephalic vein. 2. Cardiomegaly with improvement in prior pulmonary edema. Reviewed, dictated and finalized at location A. IMPRESSION: 1. Right internal jugular central venous catheter tip at the right brachiocepha lic vein. 2. Cardiomegaly with improvement in prior pulmonary edema.
--- NOTE | ~2020-10-26 | XR_ITS ---
EXAMINATION: XR chest 1V portable DATE: 10/26/2020 17:48 INDICATION: Shortness of breath, fever and weakness TECHNIQUE: frontal view of the chest was obtained. COMPARISON: Chest radiograph dated 01/18/2020 FINDINGS: Cardiomegaly with pulmonary vascular congestion. Mild interstitial pattern with bronchial wall thicke zuleika in the left perihilar region and right mid and lower lung zones. No pleural effusion or pneumoth orax. There are bridging osteophytes at multiple levels in the spine, consistent with diffuse idiopa thic skeletal hyperostosis (DISH). IMPRESSION: 1. Mild increased interstitial pattern and mild bronchial wall thickening in the left perihilar regio n and right mid and lower lung zones which could represent mild pulmonary edema or pneumonia. 2. Cardiomegaly with pulmonary vascular congestion. Reviewed, dictated and finalized at location A. IMPRESSION: 1. Mild increased interstitial pattern and mild bronchial wall thickening in th e left perihilar region and right mid and lower lung zones which could represen t mild pulmonary edema or pneumonia. 2. Cardiomegaly with pulmonary vascular congestion.
--- NOTE | ~2020-10-26 | US_ITS ---
US renal BI DATE: 11/05/2020 11:47 INDICATION: Elevated serum creatinine. Decreased urine output. TECHNIQUE: Real-time imaging of kidneys and urinary bladder COMPARISON: 10/27/2020 bilateral renal ultrasound FINDINGS: Right kidney measures approximately 14 cm length. No right renal mass lesion or hydronephro sis. Left kidney 4 cm cyst. Left kidney measures approximately 12.3 cm length. No left hydronephrosis. The urinary bladder is evacuated, with Nino catheter. IMPRESSION: No hydronephrosis of either kidney. 4 cm left renal cyst Reviewed, dictated and finalized at Location A. Reviewed, dictated and finalized at location A.
--- NOTE | 2020-10-26 17:33 | ECG_ITS ---
Measurements Intervals [place] Rate: 101 P: NE: 0 QRS: -14 QRSD: 104 T: 77 QT: 304 QTc: 396 Interpretive Statements ATRIAL FIBRILLATION WITH RAPID VENTRICULAR RESPONSE LOW VOLTAGE- PRECORDIAL LEADS BORDERLINE R WAVE PROGRESSION, ANTERIOR LEADS NONSPECIFIC ST & T-WAVE ABNORMALITY- HIGH LATERAL LEADS BASELINE ARTIFACT- I, II, III, AVR, AVL, AVF, V1-V6 ABNORMAL ECG Electronically Signed On 10-26-2020 20:08:46 CDT by Librado Fernandez D.O.
[2020-10-26] MEDS: SODIUM CHLORIDE 0.9% IV 1,000 ML 999 ML IV CONT ×3 (18:04→21:10)
[2020-10-26 18:43] LABS: Basophils Percent Auto 0.2 % (0.2-1.2); Eosinophils Absolute Auto 0.2 K/mm3 (0-0.3); Eosinophils Percent Auto 1.3 % (0-4.4); Hematocrit 33.1 % (42.0-52.0); Hemoglobin 10.4 g/dL (14.0-18.0); Immature Granulocyte Percent A 0.8 % (0-0.5); Lymphocytes Absolute Auto 0.65 K/mm3 (0.9-3.2); Lymphocytes Percent Auto 4.9 % (18.3-44.2); Mean Corpuscular HGB Conc 31.4 g/dl (32-36); Mean Corpuscular Hemoglobin 27.7 pg (26-34); Mean Platelet Volume 9.2 fl (7.4-10.4); Monocytes Absolute Auto 0.5 K/mm3 (0.1-0.6); Monocytes Percent Auto 3.7 % (2.6-8.5); Neutrophils Absolute Auto 11.8 K/mm3 (1.3-6.7); Neutrophils Percent Auto 89.1 % (45.5-73.1); Platelet Count Result 385 k/mm3 (150-375); Red Blood Count 3.76 M/mm3 (4.6-6.20); Red Cell Distribution Width 17.3 % (11.5-14.5); White Blood Count 13.2 K/mm3 (4.5-10.0)
[2020-10-26 18:55] LABS: INR 1.8; Prothrombin Time 20.7 Seconds (11.1-14.7)
[2020-10-26 19:10] LABS: NT Pro B Type Natriuretic Pept 1140 pg/mL (5-100); Troponin I < 0.012 ng/mL (0.000-0.034)
[2020-10-26 19:26] LABS: Anisocytosis 1+ (NORMAL); Platelet Estimate Adequate (Adequate); Poikilocytosis 1+ (NORMAL)
[2020-10-26 19:32] LABS: Lactic Acid Reflex 1.1 mmol/L (0.7-2.1)
[2020-10-26 20:05] LABS: Alveolar/Arterial O2 Gradient 31.3 mmHg; Base Excess ABG -8.1 mEq/l (+/-2.0); Fractional Inspired Oxygen 21 %; HCO3 ABG 17.4 mEq/l (22.0-26.0); Modified Allen's Test Pass; Oxygen Content ABG 14.6 %vol (16.0-22.0); Oxygen Saturation ABG 94.1 % (95.0-100.0); Oxyhemoglobin 92.2 % THb (90.0-100.0); PCO2 ABG 35.5 mmHg (35.0-45.0); PO2 ABG 75.9 mmHg (80.0-100.0); PO2 FiO2 Ratio Arterial Blood 3.61 %; Site Drawn RIGHT RADIAL; Total Hemoglobin 11.2 g/dL (12.0-18.0); pH ABG 7.308 (7.350-7.450)
[2020-10-26 20:06] LABS: Alanine Aminotransferase 22 U/L (4-50); Albumin Level 2.1 g/dL (3.5-5.1); Alkaline Phosphatase 159 U/L (38-126); Anion Gap 7 mmol/L (8-16); Aspartate Amino Transferase 33 U/L (17-59); Bilirubin,Total 0.3 mg/dL (0.2-1.3); Blood Urea Nitrogen 85 mg/dL (9-20); Calcium 7.9 mg/dL (8.4-10.2); Carbon Dioxide 19 mmol/L (22-30); Chloride 104 mmol/L (98-107); Estimated CRCL calculation 34 ml/min; Estimated Glomerular Filt Rate 18; Glucose 158 mg/dL (65-110); Potassium 3.8 mmol/L (3.4-5.0); Sodium 130 mmol/L (137-145)
[2020-10-26 21:28] LABS: Add Urine Microscopic? YES; Appearance Urine Clear (Clear); Bilirubin Urine Negative (Negative); Blood Urine Negative (Negative); Color Urine Amber (Yellow); Glucose Urine UA Negative (Negative); Hyaline Casts Urine 30-49 /lpf; Ketones Urine Negative (Negative); Leukocyte Esterase Ur Trace LEU/UL (Negative); Mucus Urine Rare /lpf; Nitrate Urine Negative (Negative); Protein Urine Negative (Negative); Specific Grav Ur 1.016 (1.001-1.035); Squamous Epithelial Cell Urine Occasional /hpf (Few); Urobilinogen Urine Negative mg/dL (<2.0)
--- NOTE | 2020-10-26 21:58 | PC.NURSE ---
AMRITA Mae in room for central line placement.
[2020-10-26] MEDS: NOREPINEPHRINE 8 MG/D5W 250 ML 8 MG/250 ML BAG 9.38 MG IV CONT (22:58)
--- NOTE | 2020-10-26 23:15 | PC.NURSE ---
Assumed care of pt. at this time. Report from SHAUNA Solis
--- NOTE | 2020-10-26 23:17 | ED.GENADULT ---
HPI - General Adult General Chief complaint: Weakness Stated complaint: WEAKNESS Time Seen by Provider: 10/26/20 17:26 Source: patient and EMS Mode of arrival: EMS Limitations: no limitations History of Present Illness HPI narrative: 60-year-old with multiple medical problems was brought in from home with complaints of marked weakness. As per the EMS patient was discharged from the long-term a week ago and has been sitting in the same chair for past 1 week covered in feces and urine patient is unable to ambulate. As per the EMS his home situation was in a terrible condition. He also reported that his mother brings him food but she is unable to take care of him. Patient denied any chest pain, shortness of breath, nausea or vomiting. States that he has decubitus ulcers on the right side. Onset (ago): week(s) (1) Location: lower extremity Severity: moderate Associated symptoms: denies other symptoms Related Data Home Medications Medication Instructions Recorded Confirmed allopurinol 300 mg PO DAILY 08/15/20 08/24/20 levothyroxine 100 mcg PO DAILY 08/15/20 08/24/20 sertraline 100 mg PO Q12H 08/15/20 08/24/20 Allergies Allergy/AdvReac Type Severity Reaction Status Date / Time ibuprofen AdvReac Unknown Unknown Verified 10/26/20 17:20 Review of Systems Review of Systems: All systems reviewed & are unremarkable except as noted in HPI and below Constitutional: Constitutional: Reports no additional constitutional complaints Eyes: Eyes: Reports no additional eye complaints ENT: Reports system reviewed and no additional complaints, except as documented Cardiovascular: Cardiovascular: Reports no additional cardiovascular complaints Respiratory: Respiratory: Reports no additional respiratory complaints Gastrointestinal: Gastrointestinal: Reports no additional gastrointestinal complaints Musculoskeletal: Musculoskeletal: Reports no additional musculoskeletal complaints [facility] Past Medical History Medical History Anemia Labs consistent with iron deficiency anemia 07/28/2020 Anxiety Chronic acquired lymphedema Chronic anemia Chronic atrial fibrillation On chronic anticoagulation with Eliquis CKD (chronic kidney disease) stage 3, GFR 30-59 ml/min Depression Diabetic gastroparesis Diabetic nephropathy Diabetic neuropathy Diabetic retinopathy DVT (deep venous thrombosis) Right lower extremity March 2017 Gastric pouch ulcer Status post gastric bypass procedure 2004 GERD without esophagitis Gout Hyperlipidemia Hypertension Hypothyroid Iron deficiency anemia Kidney stones Long-term insulin use in type 2 diabetes Low testosterone in male Morbid obesity Persistent despite gastric bypass procedure Narcolepsy Obstructive sleep apnea On home BiPAP PUD (peptic ulcer disease) Restless leg syndrome Surgical History Surgical History History of below-knee amputation of right lower extremity 08/13/2017 at [facility]. Postoperatively wound healing was complicated by persistent lymphedema at stump site History of gastric bypass History of lithotripsy June 2017 History of umbilical hernia repair Family History Family History Mother Hypertension Colon polyp Father Colon polyp Sibling Patient's brother is in good health Grandparent Hypertension Other Depression Social History Social History Social History: He lives with his mother. He is on disability since 2018. Primary care physician: Dr. Junior Bunch Code status: Full code Surrogate decision maker: Mother Smoking status: Never smoker Second hand tobacco smoke exposure: No Alcohol intake: never Substance use: never Gender identity (if verbalized by the patient): Male S
--- NOTE | 2020-10-26 23:32 | PC.NURSE ---
Assumed care of pt. at this time. Report from SHAUNA Solis
[2020-10-27] VITALS (42 sets, daily range): BP systolic 75–172; BP diastolic 50–128; PULSE 91–145; RESP 11–34; TEMP 36.8–37.7; O2SAT 90–100; BMI 37.8
[2020-10-27] MEDS: ONDANSETRON INJ 4 MG/2 ML VIAL IV PUSH (00:18)
[2020-10-27] MEDS: SODIUM CHLORIDE 0.9% IV 1,000 ML 125 ML IV CONT ×2 (03:22→08:45)
--- NOTE | 2020-10-27 03:30 | PM.IMHP ---
H&P: HPI History of Present Illness Date/Time: 10/27/20 03:30 Chief Complaint: Weakness Narrative: 60-year-old male brought in from home with complaint of generalized weakness. He was recently discharged from senior care about a week ago and have been sitting in the same chair for the past 1 week cover with recess and urine as patient is unable to ambulate. He had been feeling weak at home and hence he was brought in as he was unable to take care of himself. He denies any chest pain shortness of breath nausea and vomiting. He also denies any fever chills. In the ER evaluation he was noted to have severe decubitus ulcer with necrosis and was also hypotensive on arrival. He received 3 L of IV fluids and still remained hypotensive and his wound hence was started on Levophed. He is getting admitted to the ICU for septic shock likely related to infected decubitus ulcer. He also was noted to have acute kidney injury with creatinine of 3.5 baseline creatinine being 1.4 with mild leukocytosis and metabolic acidosis. Chest x-ray showed mild interstitial pattern and mild bronchial wall thickening in the left perihilar region and right mid and lower lung zones which could represent mild pulmonary edema or pneumonia. Cardiomegaly with pulmonary vascular congestion Review of Systems Review of Systems: - CONSTITUTIONAL: Denies weight loss, fever and chills. - HEENT: Denies changes in vision and hearing - RESPIRATORY: Denies SOB and cough. - CV: Denies palpitations and CP. - GI: Denies abdominal pain, nausea, vomiting and diarrhea. - : Denies dysuria and urinary frequency. - MSK: Denies myalgia and joint pain. - SKIN: Denies rash and pruritus. - NEUROLOGICAL: Denies headache and syncope. - PSYCHIATRIC: Denies recent changes in mood. Denies anxiety and depression. All systems reviewed & are unremarkable except as noted in HPI and below Constitutional: Constitutional: Reports fatigue and Reports weakness Neurologic: Reports weakness Endocrine: Endocrine: Reports fatigue PMFSH Past Medical History Medical History Anemia Labs consistent with iron deficiency anemia 07/28/2020 Anxiety Chronic acquired lymphedema Chronic anemia Chronic atrial fibrillation On chronic anticoagulation with Eliquis CKD (chronic kidney disease) stage 3, GFR 30-59 ml/min Depression Diabetic gastroparesis Diabetic nephropathy Diabetic neuropathy Diabetic retinopathy DVT (deep venous thrombosis) Right lower extremity March 2017 Gastric pouch ulcer Status post gastric bypass procedure 2004 GERD without esophagitis Gout Hyperlipidemia Hypertension Hypothyroid Iron deficiency anemia Kidney stones Long-term insulin use in type 2 diabetes Low testosterone in male Morbid obesity Persistent despite gastric bypass procedure Narcolepsy Obstructive sleep apnea On home BiPAP PUD (peptic ulcer disease) Restless leg syndrome Surgical History Surgical History History of below-knee amputation of right lower extremity 08/13/2017 at [facility]. Postoperatively wound healing was complicated by persistent lymphedema at stump site History of gastric bypass History of lithotripsy June 2017 History of umbilical hernia repair Family History Family History Mother Hypertension Colon polyp Father Colon polyp Sibling Patient's brother is in good health Grandparent Hypertension Other Depression Social History Social History Social History: He lives with his mother. He is on disability since 2018. Primary care physician: Dr. Junior Bunch Code status: Full code Surrogate decision maker: Mother Smoking status: Never smoker Second hand tobacco smoke exposure: No Alcoho
[2020-10-27] MEDS: CENTRAL LINE FLUSH 10 ML IV PUSH ×4 (06:38→23:35)
--- NOTE | 2020-10-27 08:26 | PC.NURSE ---
This patient, Mike Handy, was admitted to Intensive Care Unit-1 at 0220. Patient/family oriented to hospital policies and general routines including ID bracelet, bed and alarms, visiting hours, pain management, procedures, bathroom and other care routines, personal items, smoking policy, room service/diet, and visiting hours. Information on how to activate the Rapid Response Team has been discussed. Patient/Family are encouraged to report perceived risks to care and to ask questions if they do not understand what they are told or what they should do.
--- NOTE | 2020-10-27 08:44 | PM.CNGS ---
Assessment and Plan Assessment and plan (1) Sacral decubitus ulcer: Code(s): L89.159 - Pressure ulcer of sacral region, unspecified stage Status: Acute Assessment and Plan: Large unstageable necrotic sacral decubitus ulcer. Large area of eschar that makes it difficult to fully assess the extent of this wound. There is a foul odor and concern that this could be a source of his sepsis. I discussed this with the patient and his mother. I discussed treatment options and the recommendation of excisional debridement for his large sacral decubitus ulcer. Due to the location of the wound, the extent of his wound, his risks of bleeding regarding his anticoagulation, and his morbid obesity, it would be very difficult to perform an adequate debridement at the bedside. Although, he would be a high risk surgical candidate considering his sepsis with hypotension and vasopressor support and multiple comorbidities, which I also discussed with the patient. I discussed the patient's case with Dr. Zaidi. Description of the procedure, risks, benefits, expected outcomes, and expected recovery were discussed with the patient in detail. All questions were answered. He will be taken to the OR today for surgical debridement and source control. Continue broad spectrum IV antibiotics and IV fluids. (2) Septic shock: Code(s): A41.9 - Sepsis, unspecified organism; R65.21 - Severe sepsis with septic shock Status: Acute Assessment and Plan: Sepsis criteria met on admission. Likely secondary to the large necrotic sacral decubitus ulcer vs urine source. WBC jumped up to 38,900 today from 13,200. Lactic acid normal on admission. Hypotension requiring vasopressor support, continued to increase vasopressor needs overnight. Blood cx pending. UA abnormal, urine cx pending. Continue to wean vasopressors as tolerated per [employer]. OR for surgical debridement, source control (see above). Continue IV fluid, broad-spectrum IV antibiotics, and close monitoring. (3) Cellulitis: Code(s): L03.90 - Cellulitis, unspecified Status: Acute Assessment and Plan: Some erythema of the right medial thigh. When seen in the past, his right lower extremity has some chronic ruddiness and pink discoloration with his lymphedema and noncompliance with wound care/lymphedema recommendations. (4) Anticoagulant long-term use: Onset Date: Unknown Code(s): Z79.01 - jail (current) use of anticoagulants Status: Acute Assessment and Plan: Hold anticoagulation. To OR for debridement today. Will defer when to restart anticoagulation to Dr. Zadii post-operatively. (5) Chronic atrial fibrillation with RVR: Code(s): I48.20 - Chronic atrial fibrillation, unspecified Status: Chronic (6) Acute on chronic renal failure: Qualifiers: Acute renal failure type: unspecified Chronic kidney disease stage: unspecified stage Qualified Code(s): N17.9 - Acute kidney failure, unspecified; N18.9 - Chronic kidney disease, unspecified Code(s): N17.9 - Acute kidney failure, unspecified; N18.9 - Chronic kidney disease, unspecified Status: Acute (7) Lymphedema: Onset Date: Unknown Code(s): I89.0 - Lymphedema, not elsewhere classified Status: Acute Assessment and Plan: Elevation and compression. Monitor redness/skin changes on the medial right leg. Wound care consulted. This is a chronic problem for the patient, with a history of noncompliance in the past regarding treatment and management as an outpatient. (8) Long-term insulin use in type 2 diabetes: Qualifiers: Diabetes mellitus complication status: with other specified complication Qualified Code(s): E11.69 - Type 2 diabetes mellitus with other specified complication; Z79.4 - jail (current) use of insulin Code(s): E11.9 - Type 2 diabetes mellitus without complications; Z79.4 - jail (current) use of insulin
[2020-10-27] MEDS: allopurinoL 300 MG TABLET PO (09:02)
[2020-10-27 09:20] LABS: Basophils Absolute Auto 0.1 K/mm3 (0.0-0.1); Basophils Percent Auto 0.2 % (0.2-1.2); Eosinophils Absolute Auto 3.7 K/mm3 (0-0.3); Eosinophils Percent Auto 9.4 % (0-4.4); Hematocrit 39.3 % (42.0-52.0); Hemoglobin 12.2 g/dL (14.0-18.0); Immature Granulocyte Absolute 1.13 K/mm3 (0.00-0.031); Immature Granulocyte Percent A 2.9 % (0-0.5); Lymphocytes Absolute Auto 0.38 K/mm3 (0.9-3.2); Mean Corpuscular Hemoglobin 27.5 pg (26-34); Mean Corpuscular Volume 88.7 fl (80-100); Mean Platelet Volume 9.5 fl (7.4-10.4); Monocytes Absolute Auto 0.7 K/mm3 (0.1-0.6); Monocytes Percent Auto 1.9 % (2.6-8.5); Neutrophils Absolute Auto 32.9 K/mm3 (1.3-6.7); Neutrophils Percent Auto 84.6 % (45.5-73.1); Nucleated Red Blood Cells Absolute Auto 0.1 K/mm3 (0.0-0.012); Nucleated Red Blood Cells Perc 0.2 % (0.0-0.2); Platelet Count Result 510 k/mm3 (150-375); Red Blood Count 4.43 M/mm3 (4.6-6.20); Red Cell Distribution Width 17.9 % (11.5-14.5); White Blood Count 38.9 K/mm3 (4.5-10.0)
[2020-10-27 09:32] LABS: Alanine Aminotransferase 21 U/L (4-50); Albumin Level 1.8 g/dL (3.5-5.1); Alkaline Phosphatase 163 U/L (38-126); Anion Gap 13 mmol/L (8-16); Aspartate Amino Transferase 38 U/L (17-59); Bilirubin,Total 0.2 mg/dL (0.2-1.3); Blood Urea Nitrogen 83 mg/dL (9-20); Calcium 7.5 mg/dL (8.4-10.2); Carbon Dioxide 13 mmol/L (22-30); Chloride 100 mmol/L (98-107); Estimated CRCL calculation 36 ml/min; Estimated Glomerular Filt Rate 19; Glucose 159 mg/dL (65-110); Potassium 4.2 mmol/L (3.4-5.0); Sodium 126 mmol/L (137-145)
[2020-10-27 10:24] LABS: Platelet Estimate Increased (Adequate)
[2020-10-27 10:26] LABS: Burr Cells 1+ (NORMAL); Hyperchromasia 2+ (NORMAL)
[2020-10-27] MEDS: VASOPRESSIN INJ 100 UNITS in DEXTROSE 5% 95 ML IV CONT (10:41)
[2020-10-27 11:20] LABS: Magnesium 1.5 mg/dL (1.6-2.3); Phosphorus 7.4 mg/dL (2.5-4.5)
[2020-10-27] MEDS: NOREPINEPHRINE 8 MG/D5W 250 ML 8 MG/250 ML BAG 65.63 MG IV CONT (11:28)
--- NOTE | 2020-10-27 11:56 | WPDCNINT ---
Assessment and Plan Assessment and plan (1) Septic shock: Code(s): A41.9 - Sepsis, unspecified organism; R65.21 - Severe sepsis with septic shock Status: Acute Assessment and Plan: Patient presented with weakness and found to be hypertensive in septic shock requiring 3 L fluid bolus in the ER -for infection: Likely urine, decubital ulcer. -patient will be given additional IV fluids this morning -remains on Levophed, will add vasopressin and phenylephrine, will maintain MAP > 65 mmHg -blood cultures have been obtained and pending -will order urine culture and wound culture from the decubitus ulcer and right thigh (2) Cellulitis: Code(s): L03.90 - Cellulitis, unspecified Status: Acute Assessment and Plan: Continue vancomycin and Zosyn -will have wound care assess the patient (3) Decubitus ulcer: Qualifiers: Laterality: right Pressure injury location: buttock Pressure injury stage: stage 3 Qualified Code(s): L89.313 - Pressure ulcer of right buttock, stage 3 Code(s): L89.90 - Pressure ulcer of unspecified site, unspecified stage Status: Acute Assessment and Plan: Surgery has been consulted for possible debridement -wound care to follow (4) Acute renal failure superimposed on stage 3 chronic kidney disease: Code(s): N17.9 - Acute kidney failure, unspecified; N18.30 - Chronic kidney disease, stage 3 unspecified Status: Acute Assessment and Plan: Patient with acute on chronic kidney disease stage 3. Likely related to hypotension, septic shock, ATN, hypovolemia -patient has been given adequate amount of fluids, will give additional fluids this morning -continue to maintain mean arterial pressures greater than 65 mmHg for adequate end organ perfusion -monitor urine output, renal function electrolytes -will obtain CK level and urine electrolytes along with renal ultrasound (5) Chronic atrial fibrillation with RVR: Code(s): I48.20 - Chronic atrial fibrillation, unspecified Status: Chronic Assessment and Plan: History of chronic AFib, currently in AFib with heart rates in the 100-110. -have ordered heparin infusion as patient has been on Eliquis, which currently is on hold because of his renal dysfunction (6) Type 2 diabetes mellitus with hyperglycemia: Qualifiers: Diabetes mellitus halfway insulin use: with buttermaker continuous churn use Qualified Code(s): E11.65 - Type 2 diabetes mellitus with hyperglycemia; Z79.4 - senior care (current) use of insulin Code(s): E11.65 - Type 2 diabetes mellitus with hyperglycemia Status: Acute Assessment and Plan: Sliding scale insulin Accu-Cheks have been ordered (7) Lymphedema: Onset Date: Unknown Code(s): I89.0 - Lymphedema, not elsewhere classified Status: Acute Assessment and Plan: Chronic lymphedema (8) Hypothyroid: Qualifiers: Hypothyroidism type: unspecified Qualified Code(s): E03.9 - Hypothyroidism, unspecified Code(s): E03.9 - Hypothyroidism, unspecified Status: Chronic Assessment and Plan: Continue Synthroid (9) Anxiety: Code(s): F41.9 - Anxiety disorder, unspecified Status: Chronic (10) Depression: Qualifiers: Depression Type: unspecified Qualified Code(s): F32.9 - Major depressive disorder, single episode, unspecified Code(s): F32.9 - Major depressive disorder, single episode, unspecified Status: Chronic (11) DVT prophylaxis: Code(s): Z29.9 - Encounter for prophylactic measures, unspecified Status: Acute Assessment and Plan: Heparin infusion Additional Plan Discussed with patient and his mother and updated them with patient's condition and plan of care. Did explain to them at length regarding what is septic shock, and that the patient is on two blood pressure support medications, antibiotics and IV fluids. I answered all questions Code status:
[2020-10-27 12:01] LABS: CRP 24.6 mg/dL (<1.0)
[2020-10-27] MEDS: hetaSTARCH 6%/NACL 500 ML 250 ML IV CONT (12:07)
[2020-10-27 13:01] LABS: Glucose Point of Care 189 mg/dl (65-105)
[2020-10-27 13:14] LABS: Creatinine Urine 179.4 mg/dL
[2020-10-27 13:18] LABS: Potassium Urine Random 18.5 meq/L; Sodium Urine Random 17 meq/L
[2020-10-27 13:20] LABS: Creatine Kinase 143 U/L (55-170)
[2020-10-27 13:21] LABS: INR 1.9; Partial Thromboplastin Time 42.9 SECONDS (22.3-36.8); Prothrombin Time 21.2 Seconds (11.1-14.7)
--- NOTE | 2020-10-27 13:32 | WPDANESEPPF ---
Anes - Initial Pre Proc Eval Procedure: Operation Date: 10/27/20 13:30 Proposed Procedures p Complex Debridement Infected Sacral Decubitus Ulcer - Karen Zaidi MD Date/Time: 10/27/20 13:32 Surgeon: Patricio Brunner MD Pre Op Diagnosis: Sepsis, Decubitus Ulcer Patient Data Age: 60 Gender: M Height: 2.01 m Weight: 152.2 kg Last Vital Signs Temp 37.7 C H 10/27/20 08:00 Pulse 126 H 10/27/20 11:28 Resp 15 10/27/20 08:00 BP 77/65 L 10/27/20 11:28 Pulse Ox 100 10/27/20 08:00 Allergies Allergy/AdvReac Type Severity Reaction Status Date / Time ibuprofen AdvReac Unknown Unknown Verified 10/27/20 03:44 Home Medications Medication Instructions Recorded Confirmed Type pramipexole 1.5 mg tablet 1.5 mg PO TID #90 tablet 06/30/19 08/24/20 Rx cholecalciferol (vitamin D3) 1,250 1,250 mcg PO WEEKLY #14 cap 06/24/20 10/27/20 Rx mcg (50,000 unit) capsule buspirone 5 mg tablet 5 mg PO TID #90 tablet 08/03/20 08/24/20 Rx allopurinol 300 mg PO DAILY 08/15/20 10/27/20 History levothyroxine 100 mcg PO DAILY 08/15/20 08/24/20 History sertraline 100 mg PO Q12H 08/15/20 08/24/20 History Eliquis 5 mg PO Q12H #0 tablet 08/29/20 10/27/20 Rx acetaminophen [Mapap 650 mg PO Q6H PRN #20 tablet 08/29/20 Rx (acetaminophen)] calcium polycarbophil [Fiber 625 mg PO BID #60 tablet 08/29/20 Rx (calcium polycarbophil)] cholestyramine-aspartame 4 g PO BID@1000,1800 #42 ea 08/29/20 Rx [Prevalite] collagenase clostridium histo. 1 applic TOPICAL Q12HR #90 g 08/29/20 Rx [Santyl] loperamide [Imodium A-D] 2 mg PO Q6H PRN #20 cap 08/29/20 Rx miconazole nitrate [Aloe [place] 1 applic TOPICAL Q12HR #141 g 08/29/20 Rx Antifungal (micon)] potassium chloride [K-Tab] 40 meq PO DAILY@0800 #20 tablet 08/29/20 Rx tolnaftate 1 applic TOPICAL Q12HR #45 g 08/29/20 Rx ferrous sulfate 325 mg (65 mg 325 mg PO BID #60 tablet 09/27/20 Rx iron) tablet metoprolol succinate 100 mg 100 mg PO DAILY #90 tablet 09/30/20 Rx tablet,extended release 24 hr gabapentin 300 mg capsule 300 mg PO TID #90 cap 10/12/20 Rx insulin lispro 100 unit/mL 30 unit SUBCUT TID 30 Days #27 ml 10/12/20 Rx subcutaneous pen pantoprazole 40 mg tablet,delayed 40 mg PO BID #60 tablet 10/12/20 Rx release sucralfate 1 gram tablet 1 g PO ACHS #360 tablet 10/12/20 Rx Laboratory Tests 10/26/20 10/26/20 10/26/20 18:35 18:35 19:16 WBC 13.2 K/mm3 H K/mm3 (4.5-10.0) RBC 3.76 M/mm3 L M/mm3 (4.6-6.20) Hgb 10.4 g/dL L g/dL (14.0-18.0) Hct 33.1 % L % (42.0-52.0) MCV 88.0 fl fl (80-100) MCH 27.7 pg pg (26-34) MCHC 31.4 g/dl L g/dl (32-36) RDW 17.3 % H % (11.5-14.5) Plt Count 385 k/mm3 H k/mm3 (150-375) MPV 9.2 fl fl (7.4-10.4) Immature Gran % (Auto) 0.8 % H % (0-0.5) Neut % (Auto) 89.1 % H % (45.5-73.1) Lymph % (Auto) 4.9 % L % (18.3-44.2) [place] % (Auto) 3.7 % % (2.6-8.5) Eos % (Auto) 1.3 % % (0-4.4) Baso % (Auto) 0.2 % % (0.2-1.2) Lymph # (Auto) 0.65 K/mm3 L K/mm3 (0.9-3.2) [place] # (Auto) 0.5 K/mm3 K/mm3 (0.1-0.6) Eos # (Auto) 0.2 K/mm3 K/mm3 (0-0.3) Baso # (Auto) 0.0 K/mm3 K/mm3 (0.0-0.1) Abs Immat Gran (auto) 0.10 K/mm3 H K/mm3 (0.00-0.031) Absolute Neuts (auto) 11.8 K/mm3 H K/mm3 (1.3-6.7) Absolute Nucleated RBC 0.0 K/mm3 K/mm3 (0.0-0.012) Nucleated RBC % 0.0 % % (0.0-0.2) Platelet Estimate Adequate (Adequate) Hyperchromasia Poikilocytosis 1+ (NORMAL) Anisocytosis 1+ (NORMAL) [place] Cells PT 20.7 Seconds H Seconds (11.1-14.7) INR 1.8 APTT Puncture Site ABG pH ABG pCO2 ABG pO2 ABG PO2/FiO2 Ratio ABG
--- NOTE | 2020-10-27 13:32 | WPDHPUPDATE1 ---
History and Physical Update Update Date/Time: 10/27/20 13:32 History and Physical has been reviewed, including an updated exam of the patient. There are NO changes in the patient's condition. Risks, benefits, and alternatives have been discussed and questions answered. Patient agrees to proceed with procedure. Plan for debridement, washout, likely vac placement in OR today
[2020-10-27] MEDS: SODIUM BICARBONATE 8.4% 150 MEQ in WATER, STERILE FOR INJECTION 950 ML 100 MEQ IV CONT (13:41)
--- NOTE | 2020-10-27 14:23 | PC.NURSE ---
1330-pt. down to or with refractory worker.
--- NOTE | 2020-10-27 14:28 | SUR.OPER ---
patient came to OR with cifuentes. Cifuentes draining maggy colored urine, 125mL
--- NOTE | 2020-10-27 15:10 | W.PM.PROC2 ---
Procedure Note - Detailed Date of Procedure 10/27/20 Pre-op Diagnosis Sepsis of unknown origin, sacral wound Post-op Diagnosis same Procedure Performed extensive debridement stage 4 sacral ulcer measuring approximately 30 x 27 x 5 cm, washout Surgeon Karen Zaidi MD Anesthesia MAC Indications 60 y/o M c multiple med issues presenting c septic shock. Pt c extensive sacral ulcer Findings 30 x 27 x 5 cm stage 4 sacral ulcer with no s/s active infection Description of Procedure The patient was taken the operating room placed in the lateral position. After adequate induction of mac anesthesia, the patient was prepped and draped in the normal sterile fashion a time-out was then done to verify the patient's identity, as well as the procedure to be performed. I began by taking a sterile culture of the wound. Pictures were then taken to document the extensive nature of the wound. I began by debriding away the necrotic tissue. The necrosis was noted to involve the dermis, subcutaneous tissue, in the area of the coccyx and involve the muscle. In most areas, the necrosis involved just the dermal and subcutaneous layer. I debrided this tissue to viable, bleeding tissue with the exception of the area around the coccyx. Around the area of the coccyx, the overlying muscle was noted to be involved in the necrosis. I did leave a layer of muscle to not expose the underlying bone. Once the area was completely debrided, and measured approximately 30 x 27 x 5 cm. I then gained hemostasis with the Bovie cautery. I then washed the wound out. Sterile dressing with Betadine-soaked gauze was placed. The patient tolerated the procedure relatively well and will be sent back to the ICU in critical condition. Estimated Blood Loss 20 Drains No Packing No Pathology yes Complications No immediate complications Condition critical Disposition ICU
[2020-10-27] MEDS: HEPARIN SOD/D5W 100 UNITS/ML 25,000 UNITS/250 ML BAG 15 UNITS IV CONT (15:17)
[2020-10-27] MEDS: INSULIN ASPART (*BKC) 100 UNITS/ML SUB-Q (17:43)
[2020-10-27] MEDS: TOLNAFTATE 1% POWDER 45 GM BTL 1 APPLIC TOPICAL ×2 (17:43→23:35)
[2020-10-27 17:49] LABS: Glucose Point of Care 236 mg/dl (65-105)
[2020-10-27] MEDS: NALOXONE HCL 0.4 MG/ML VIAL IV PUSH (19:10)
[2020-10-27 19:24] LABS: Alveolar/Arterial O2 Gradient 186.8 mmHg; Carboxyhemoglobin 0.3 % THb (0-2.0); Fractional Inspired Oxygen 52 %; HCO3 ABG 15.3 mEq/l (22.0-26.0); Methemoglobin ABG 0.5 %THb (0-1.5); Oxygen Content ABG 16.7 %vol (16.0-22.0); Oxygen Saturation ABG 98.3 % (95.0-100.0); Oxyhemoglobin 97.2 % THb (90.0-100.0); PCO2 ABG 39.5 mmHg (35.0-45.0); PO2 ABG 139.7 mmHg (80.0-100.0); PO2 FiO2 Ratio Arterial Blood 2.69 %
[2020-10-27 19:26] LABS: Device SIMPLE MASK; Modified Allen's Test Pass; Site Drawn LEFT RADIAL; pH ABG 7.205 (7.350-7.450)
[2020-10-27] MEDS: PANTOPRAZOLE SODIUM IV 40 MG VIAL IV PUSH (23:34)
[2020-10-28] VITALS (16 sets, daily range): BP systolic 96–131; BP diastolic 63–96; PULSE 73–103; RESP 14–41; TEMP 34.3–37.2; O2SAT 94–100
[2020-10-28 01:09] LABS: Partial Thromboplastin Time 83.8 SECONDS (22.3-36.8)
[2020-10-28 05:00] LABS: Basophils Percent Auto 0.1 % (0.2-1.2); Eosinophils Percent Auto 0.1 % (0-4.4); Hematocrit 29.9 % (42.0-52.0); Hemoglobin 9.6 g/dL (14.0-18.0); Immature Granulocyte Absolute 0.12 K/mm3 (0.00-0.031); Immature Granulocyte Percent A 0.8 % (0-0.5); Lymphocytes Absolute Auto 0.75 K/mm3 (0.9-3.2); Lymphocytes Percent Auto 5.1 % (18.3-44.2); Mean Corpuscular HGB Conc 32.1 g/dl (32-36); Mean Corpuscular Hemoglobin 27.8 pg (26-34); Mean Corpuscular Volume 86.7 fl (80-100); Mean Platelet Volume 8.7 fl (7.4-10.4); Monocytes Absolute Auto 0.6 K/mm3 (0.1-0.6); Monocytes Percent Auto 3.9 % (2.6-8.5); Neutrophils Absolute Auto 13.3 K/mm3 (1.3-6.7); Platelet Count Result 347 k/mm3 (150-375); Red Blood Count 3.45 M/mm3 (4.6-6.20); Red Cell Distribution Width 17.4 % (11.5-14.5); White Blood Count 14.7 K/mm3 (4.5-10.0)
[2020-10-28 05:19] LABS: Lactic Acid Reflex 0.9 mmol/L (0.7-2.1)
[2020-10-28 05:21] LABS: Alanine Aminotransferase 18 U/L (4-50); Albumin Level 1.5 g/dL (3.5-5.1); Alkaline Phosphatase 121 U/L (38-126); Anion Gap 7 mmol/L (8-16); Aspartate Amino Transferase 27 U/L (17-59); Bilirubin,Total 0.2 mg/dL (0.2-1.3); Blood Urea Nitrogen 86 mg/dL (9-20); Calcium 7.1 mg/dL (8.4-10.2); Carbon Dioxide 17 mmol/L (22-30); Chloride 102 mmol/L (98-107); Estimated CRCL calculation 35 ml/min; Estimated Glomerular Filt Rate 18; Glucose 229 mg/dL (65-110); Magnesium 1.5 mg/dL (1.6-2.3); Phosphorus 7.9 mg/dL (2.5-4.5); Potassium 3.9 mmol/L (3.4-5.0); Sodium 126 mmol/L (137-145)
[2020-10-28] MEDS: NOREPINEPHRINE 8 MG/D5W 250 ML 8 MG/250 ML BAG 18.75 MG IV CONT (05:55)
[2020-10-28] MEDS: SODIUM BICARBONATE 8.4% 150 MEQ in WATER, STERILE FOR INJECTION 950 ML 100 MEQ IV CONT (05:55)
[2020-10-28] MEDS: HEPARIN SOD/D5W 100 UNITS/ML 25,000 UNITS/250 ML BAG 15 UNITS IV CONT (05:57)
[2020-10-28] MEDS: LEVOTHYROXINE SODIUM 100 MCG TABLET PO (06:00)
[2020-10-28] MEDS: CENTRAL LINE FLUSH 10 ML IV PUSH ×4 (06:00→21:57)
[2020-10-28 08:13] LABS: Partial Thromboplastin Time 120.2 SECONDS (22.3-36.8)
[2020-10-28] MEDS: TOLNAFTATE 1% POWDER 45 GM BTL 1 APPLIC TOPICAL ×2 (09:30→21:56)
[2020-10-28] MEDS: MAGNESIUM SULF 2 GM/WATER 50ML 2 GM/50 ML BAG IVPB (09:30)
[2020-10-28] MEDS: SOD HYPOCHLORITE 1/4 STRENGTH 473 ML 1 APPLIC TOPICAL ×2 (09:30→21:56)
[2020-10-28] MEDS: HYDROCORTISONE SODIUM SUCCINATE 100 MG/2 ML VIAL IV PUSH ×2 (09:31→17:48)
[2020-10-28] MEDS: PANTOPRAZOLE SODIUM IV 40 MG VIAL IV PUSH ×2 (09:32→21:56)
[2020-10-28 10:00] LABS: Glucose Point of Care 190 mg/dl (65-105)
[2020-10-28] MEDS: SODIUM BICARBONATE TAB 650 MG TABLET 1300 MG PO ×2 (10:21→17:49)
[2020-10-28] MEDS: allopurinoL 300 MG TABLET PO (10:22)
--- NOTE | 2020-10-28 10:55 | PCDIET ---
Nutrition Follow-Up Complete: Nutrition Diagnosis: Increased protein and calorie needs related to increased demands for wound healing and septic shock as evidenced by MD diagnosis, unhealed wounds. Nutrition Goal: Patient to meet estimated nutritional needs. Goal not met. Patient NPO POD #1 s/p debridement of stage IV sacral ulcer. Recommend advancing diet once medically appropriate and adding Lucas BID. Patient may also benefit from phosphorus binder with meals. Last recorded weight is 152.2 kg. Recommend obtaining new weight. Bowel Motility: No documented BM as of yet. Labs Reviewed: WBC (14.7), RBC (3.45), Hgb (9.6), Hct (29.9), Glu (229), BUN (86), Cr (3.5), Na (126), Alb (1.5), Fred Ca (9.1), PO4 (7.9), Mg (1.5) Meds Noted: Albumin, Zyloprim, Solu Cortef, Novolog, Synthroid, Magnesium Sulfate, Protonix, Levophed, Zosyn, Sodium Bicarbonate, Vancomycin, Vasopressin Additional Notes: Integumentary notes reviewed. Right thigh macerated. Dressing to sacrum. Will continue to monitor with same goal. Nutrition Monitoring and Evaluation: Follow up every 3 days.
[2020-10-28] MEDS: ALBUMIN HUMAN 25% 25 GM/100 ML 100 ML IVPB ×2 (12:47→17:48)
[2020-10-28 13:14] LABS: Glucose Point of Care 198 mg/dl (65-105)
--- NOTE | 2020-10-28 13:27 | WPDINTPN ---
Progress Note: A&P Assessment and Plan (1) Septic shock: Code(s): A41.9 - Sepsis, unspecified organism; R65.21 - Severe sepsis with septic shock Status: Acute Assessment and Plan: Patient presented with weakness and found to be hypotensive in septic shock requiring 3 L fluid bolus in the ER -for infection: Likely urine, decubital ulcer. -remains on Levophed but off of vasopressin -add stress dose hydrocortisone -add albumin 25% -decrease IV fluids as patient is overall volume overloaded -blood cultures have been obtained and 1/2 is growing Gram-negative bacilli - urine culture and wound culture from the decubitus ulcer and right thigh are pending -patient has not had any bowel movement to suggest C diff colitis (2) Cellulitis: Code(s): L03.90 - Cellulitis, unspecified Status: Acute Assessment and Plan: Continue vancomycin and Zosyn Wound care consult (3) Decubitus ulcer: Qualifiers: Laterality: right Pressure injury location: buttock Pressure injury stage: stage 3 Qualified Code(s): L89.313 - Pressure ulcer of right buttock, stage 3 Code(s): L89.90 - Pressure ulcer of unspecified site, unspecified stage Status: Deleted Assessment and Plan: 10/27 - extensive debridement stage 4 sacral ulcer measuring approximately 30 x 27 x 5 cm, washout -wound care to follow (4) Acute renal failure superimposed on stage 3 chronic kidney disease: Code(s): N17.9 - Acute kidney failure, unspecified; N18.30 - Chronic kidney disease, stage 3 unspecified Status: Acute Assessment and Plan: Patient with acute on chronic kidney disease stage 3. Likely related to hypotension, septic shock, ATN, hypovolemia -patient has received significant amount of IV fluids -will continue IV fluids but decrease the rate -continue to maintain mean arterial pressures greater than 65 mmHg for adequate end organ perfusion -monitor urine output, renal function electrolytes -unremarkable renal ultrasound -p.o. bicarb for metabolic acidosis -replace low magnesiumd (5) Chronic atrial fibrillation with RVR: Code(s): I48.20 - Chronic atrial fibrillation, unspecified Status: Chronic Assessment and Plan: History of chronic AFib, currently in AFib with heart rates in the 100-110. -have ordered heparin infusion as patient has been on Eliquis, which currently is on hold because of his renal dysfunction (6) Type 2 diabetes mellitus with hyperglycemia: Qualifiers: Diabetes mellitus snf insulin use: with snf use Qualified Code(s): E11.65 - Type 2 diabetes mellitus with hyperglycemia; Z79.4 - senior living (current) use of insulin Code(s): E11.65 - Type 2 diabetes mellitus with hyperglycemia Status: Acute Assessment and Plan: Sliding scale insulin Accu-Cheks have been ordered (7) Lymphedema: Onset Date: Unknown Code(s): I89.0 - Lymphedema, not elsewhere classified Status: Acute Assessment and Plan: Chronic lymphedema (8) Hypothyroid: Qualifiers: Hypothyroidism type: unspecified Qualified Code(s): E03.9 - Hypothyroidism, unspecified Code(s): E03.9 - Hypothyroidism, unspecified Status: Chronic Assessment and Plan: Continue Synthroid (9) DVT prophylaxis: Code(s): Z29.9 - Encounter for prophylactic measures, unspecified Status: Acute Assessment and Plan: Heparin infusion Additional Plan Code status: Full code Critical care time spent: 34 minutes This dictation may have been done utilizing a voice recognition system. Attempts have been made to correct errors. However, there may be uncorrected grammatical, spelling, and recognition errors present. Due to a high probability of clinically significant, life threatening deterioration, the patient required my highest level of preparedness to intervene emergently and I personally spent this critical care time dir
[2020-10-28 14:36] LABS: Partial Thromboplastin Time 111.8 SECONDS (22.3-36.8)
--- NOTE | 2020-10-28 15:35 | WPDANESPN ---
Anes - Prog Note Post-Op Date/Time: 10/28/20 15:35 Cardiovascular status: normal Respiratory status: normal Airway patency: baseline Mental status: baseline Post-Op hydration status: normal Vital Signs: Last Vital Signs Temp 35.3 C L 10/28/20 12:00 Pulse 82 10/28/20 12:00 Resp 14 10/28/20 12:00 BP 107/63 10/28/20 12:00 Pulse Ox 97 10/28/20 12:00 Pain Score (VAS): 10 I/O: Intake & Output 10/27/20 10/28/20 10/28/20 23:59 07:59 15:59 Intake Total 300 1450 50 Output Total 250 450 Balance 50 1000 50 Laboratory Tests 10/28/20 04:40 10/28/20 04:40 10/27/20 10/27/20 10/28/20 17:38 19:12 00:45 WBC RBC Hgb Hct MCV MCH MCHC RDW Plt Count MPV Immature Gran % (Auto) Neut % (Auto) Lymph % (Auto) Day % (Auto) Eos % (Auto) Baso % (Auto) Lymph # (Auto) Day # (Auto) Eos # (Auto) Baso # (Auto) Abs Immat Gran (auto) Absolute Neuts (auto) Absolute Nucleated RBC Nucleated RBC % APTT 83.8 H Puncture Site Left radial ABG pH 7.205 L* ABG pCO2 39.5 ABG pO2 139.7 H ABG PO2/FiO2 Ratio 2.69 ABG HCO3 15.3 L ABG O2 Saturation 98.3 ABG O2 Content 16.7 ABG Base Excess -12.0 A-a Gradient 186.8 Oxyhemoglobin 97.2 Carboxyhemoglobin 0.3 Methemoglobin 0.5 Reduced Hemoglobin 2.0 Total Hemoglobin 12.0 O2 Delivery Device Simple mask O2 Liters/Min 8.0 FiO2 52 Sodium Potassium Chloride Carbon Dioxide Anion Gap BUN Creatinine Estim Creat Clear Calc Estimated GFR Glucose POC Capillary Glucose 236 H Lactic Acid Calcium Phosphorus Magnesium Total Bilirubin AST ALT Alkaline Phosphatase Total Protein Albumin 10/28/20 10/28/20 10/28/20 04:40 04:40 04:40 WBC 14.7 H RBC 3.45 L Hgb 9.6 L Hct 29.9 L MCV 86.7 MCH 27.8 MCHC 32.1 RDW 17.4 H Plt Count 347 MPV 8.7 Immature Gran % (Auto) 0.8 H Neut % (Auto) 90.0 H Lymph % (Auto) 5.1 L Day % (Auto) 3.9 Eos % (Auto) 0.1 Baso % (Auto) 0.1 L Lymph # (Auto) 0.75 L Day # (Auto) 0.6 Eos # (Auto) 0.0 Baso # (Auto) 0.0 Abs Immat Gran (auto) 0.12 H Absolute Neuts (auto) 13.3 H Absolute Nucleated RBC 0.0 Nucleated RBC % 0.0 APTT Puncture Site ABG pH ABG pCO2 ABG pO2 ABG PO2/FiO2 Ratio ABG HCO3 ABG O2 Saturation ABG O2 Content ABG Base Excess A-a Gradient Oxyhemoglobin Carboxyhemoglobin Methemoglobin Reduced Hemoglobin Total Hemoglobin O2 Delivery Device O2 Liters/Min FiO2 Sodium 126 L Potassium 3.9 Chloride 102 Carbon Dioxide 17 L Anion Gap 7 L BUN 86 H Creatinine 3.50 H Estim Creat Clear Calc 35 Estimated GFR 18 L Glucose 229 H POC Capillary Glucose Lactic Acid 0.9 Calcium 7.1 L Phosphorus 7.9 H Magnesium 1.5 L Total Bilirubin 0.2 AST 27 ALT 18 Alkaline Phosphatase 121 Total Protein 4.0 L Albumin 1.5 L 10/28/20 10/28/20 10/28/20 07:41 09:36 12:46 WBC RBC Hgb Hct MCV MCH MCHC RDW Plt Count MPV Immature Gran % (Auto) Neut % (Auto) Lymph % (Auto) Day % (Auto) Eos % (Auto) Baso % (Auto) Lymph # (Auto) Day # (Auto) Eos # (Auto) Baso # (Auto) Abs Immat Gran (auto) Absolute Neuts (auto) Absolute Nucleated RBC Nucleated RBC % APTT 120.2 H Puncture Site ABG pH ABG pCO2 ABG pO2 ABG PO2/FiO2 Ratio ABG HCO3 ABG O2 Saturation ABG O2 Content ABG Base Excess A-a Gradient Oxyhemoglobin Carboxyhemoglobin Methemoglobin Reduced Hemoglobin Total Hemoglobin O2 Delivery Device O2 Liters/Min FiO2 Sodium Potassium Chloride Carbon Dioxide Anion Gap BUN Creatinine Estim Crea
[2020-10-28 18:28] LABS: Glucose Point of Care 187 mg/dl (65-105)
[2020-10-28] MEDS: SODIUM BICARBONATE 8.4% 150 MEQ in WATER, STERILE FOR INJECTION 950 ML 50 MEQ IV CONT (21:55)
[2020-10-28 22:13] LABS: Partial Thromboplastin Time 62.5 SECONDS (22.3-36.8)
[2020-10-29] VITALS (13 sets, daily range): BP systolic 110–138; BP diastolic 68–92; PULSE 86–104; RESP 16–24; TEMP 35.5–36.7; O2SAT 92–100
[2020-10-29] MEDS: ALBUMIN HUMAN 25% 25 GM/100 ML 100 ML IVPB ×3 (04:27→18:50)
[2020-10-29] MEDS: HYDROCORTISONE SODIUM SUCCINATE 100 MG/2 ML VIAL IV PUSH ×3 (04:28→21:55)
[2020-10-29] MEDS: HEPARIN SOD/D5W 100 UNITS/ML 25,000 UNITS/250 ML BAG 11 UNITS IV CONT (05:02)
[2020-10-29] MEDS: CENTRAL LINE FLUSH 10 ML IV PUSH ×4 (05:06→21:56)
[2020-10-29 05:45] LABS: Hematocrit 24.5 % (42.0-52.0); Hemoglobin 7.9 g/dL (14.0-18.0); Mean Corpuscular HGB Conc 32.2 g/dl (32-36); Mean Corpuscular Hemoglobin 27.7 pg (26-34); Mean Platelet Volume 8.9 fl (7.4-10.4); Platelet Count Result 227 k/mm3 (150-375); Red Blood Count 2.85 M/mm3 (4.6-6.20); Red Cell Distribution Width 17.1 % (11.5-14.5); White Blood Count 5.7 K/mm3 (4.5-10.0)
[2020-10-29 05:51] LABS: Lactic Acid Reflex 0.7 mmol/L (0.7-2.1)
[2020-10-29] MEDS: allopurinoL 300 MG TABLET PO (09:03)
[2020-10-29] MEDS: LEVOTHYROXINE SODIUM 100 MCG TABLET PO (09:03)
[2020-10-29] MEDS: SODIUM BICARBONATE TAB 650 MG TABLET 1300 MG PO ×2 (09:04→16:32)
[2020-10-29] MEDS: PANTOPRAZOLE SODIUM IV 40 MG VIAL IV PUSH ×2 (09:04→21:55)
[2020-10-29] MEDS: SOD HYPOCHLORITE 1/4 STRENGTH 473 ML 1 APPLIC TOPICAL (09:04)
[2020-10-29] MEDS: TOLNAFTATE 1% POWDER 45 GM BTL 1 APPLIC TOPICAL ×2 (09:04→21:54)
[2020-10-29 09:16] LABS: Glucose Point of Care 192 mg/dl (65-105)
[2020-10-29 09:29] LABS: Partial Thromboplastin Time 55.2 SECONDS (22.3-36.8)
[2020-10-29] MEDS: HEPARIN SODIUM 5,000 UNITS/ML VIAL 4500 UNITS IV PUSH ×2 (09:50→16:29)
--- NOTE | 2020-10-29 10:20 | WPDINTPN ---
Progress Note: A&P Assessment and Plan (1) Septic shock: Code(s): A41.9 - Sepsis, unspecified organism; R65.21 - Severe sepsis with septic shock Status: Acute Assessment and Plan: Patient presented with weakness and found to be hypotensive in septic shock requiring 3 L fluid bolus in the ER -for infection: Likely urine, decubital ulcer. -off vasopressors now -wean stress dose hydrocortisone -continue albumin 25% for another 24 hours -DC IV fluid -blood cultures have been obtained and 1/2 is growing Gram-negative bacilli - urine culture and wound culture from the decubitus ulcer and right thigh are pending -patient has not had any bowel movement to suggest C diff colitis -patient on vancomycin and Zosyn. Continue until wound cultures are back (2) Cellulitis: Code(s): L03.90 - Cellulitis, unspecified Status: Acute Assessment and Plan: Continue vancomycin and Zosyn Wound care consult (3) Decubitus ulcer: Qualifiers: Laterality: right Pressure injury location: buttock Pressure injury stage: stage 3 Qualified Code(s): L89.313 - Pressure ulcer of right buttock, stage 3 Code(s): L89.90 - Pressure ulcer of unspecified site, unspecified stage Status: Deleted Assessment and Plan: 10/27 - extensive debridement stage 4 sacral ulcer measuring approximately 30 x 27 x 5 cm, washout Wound care is following General surgery to re-evaluate wound to decide if patient needs any further debridement (4) Acute renal failure superimposed on stage 3 chronic kidney disease: Code(s): N17.9 - Acute kidney failure, unspecified; N18.30 - Chronic kidney disease, stage 3 unspecified Status: Acute Assessment and Plan: Patient with acute on chronic kidney disease stage 3. Likely related to hypotension, septic shock, ATN, hypovolemia -patient has received significant amount of IV fluids hence will discontinue further fluids -monitor urine output, renal function electrolytes -unremarkable renal ultrasound -p.o. bicarb for metabolic acidosis Consult nephrology (5) Chronic atrial fibrillation with RVR: Code(s): I48.20 - Chronic atrial fibrillation, unspecified Status: Chronic Assessment and Plan: History of chronic AFib, currently in AFib with heart rates in the 100-110. -on heparin infusion as patient has been on Eliquis, which currently is on hold because of his renal dysfunction (6) Type 2 diabetes mellitus with hyperglycemia: Qualifiers: Diabetes mellitus exterminator helper termite insulin use: with exterminator helper termite use Qualified Code(s): E11.65 - Type 2 diabetes mellitus with hyperglycemia; Z79.4 - skilled nursing (current) use of insulin Code(s): E11.65 - Type 2 diabetes mellitus with hyperglycemia Status: Acute Assessment and Plan: Sliding scale insulin Accu-Cheks have been ordered (7) Lymphedema: Onset Date: Unknown Code(s): I89.0 - Lymphedema, not elsewhere classified Status: Acute Assessment and Plan: Chronic lymphedema (8) Hypothyroid: Qualifiers: Hypothyroidism type: unspecified Qualified Code(s): E03.9 - Hypothyroidism, unspecified Code(s): E03.9 - Hypothyroidism, unspecified Status: Chronic Assessment and Plan: Continue Synthroid (9) DVT prophylaxis: Code(s): Z29.9 - Encounter for prophylactic measures, unspecified Status: Acute Assessment and Plan: Heparin infusion Additional Plan Advance diet, incentive spirometry Code status: Full code Transfer out of ICU today Subjective Date/time seen: 10/29/20 Patient appears much more awake today and denies any new complaints. He states that Nino catheter is uncomfortable but not unbearable He told me that he was supposed to get foot care OT PT and and new hospital bed and wheelchair at home once he was discharged from rehab but none of that happened and hence his wound situation deteriorated. Patient has been off
[2020-10-29] MEDS: INSULIN GLARGINE (*BKC) 100 UNITS/ML 15 UNITS SUB-Q (10:38)
[2020-10-29 11:32] LABS: Alanine Aminotransferase 16 U/L (4-50); Albumin Level 2.2 g/dL (3.5-5.1); Alkaline Phosphatase 92 U/L (38-126); Anion Gap 8 mmol/L (8-16); Aspartate Amino Transferase 23 U/L (17-59); Bilirubin,Total 0.2 mg/dL (0.2-1.3); Blood Urea Nitrogen 86 mg/dL (9-20); Calcium 7.4 mg/dL (8.4-10.2); Carbon Dioxide 22 mmol/L (22-30); Chloride 99 mmol/L (98-107); Estimated CRCL calculation 37 ml/min; Estimated Glomerular Filt Rate 19; Glucose 191 mg/dL (65-110); Magnesium 1.8 mg/dL (1.6-2.3); Phosphorus 6.2 mg/dL (2.5-4.5); Potassium 3.7 mmol/L (3.4-5.0); Sodium 129 mmol/L (137-145)
--- NOTE | 2020-10-29 11:40 | P.CONNP_ITS ---
Assessment and Plan Assessment and plan (1) KONSTANTIN (acute kidney injury): Code(s): N17.9 - Acute kidney failure, unspecified Status: Acute Assessment and Plan: * due to a combination of infection/sepsis and hemodynamic instability * no critical electrolyte abnormalities * better urine output in the last 24 hours * follow trend of repeat labs and UOP (2) Stage 3b chronic kidney disease: Code(s): N18.32 - Chronic kidney disease, stage 3b Status: Chronic Assessment and Plan: * baseline creatinine runs around 1.6 - 2.1mg/dl * however, he has fluctuated to extremes with his recent hospitalizations * this is secondary to hypertension and diabetes (3) Sepsis: Qualifiers: Acute renal failure type: unspecified Sepsis acute organ dysfunction status: with acute organ dysfunction Sepsis type: sepsis due to unspecified organism Severe sepsis acute organ dysfunction type: acute renal failure Severe sepsis shock status: without septic shock Qualified Code(s): A41.9 - Sepsis, unspecified organism; R65.20 - Severe sepsis without septic shock; N17.9 - Acute kidney failure, unspecified Code(s): A41.9 - Sepsis, unspecified organism Status: Acute Assessment and Plan: * shock resolved (off pressors) * blood cultures with GNB * on broad spectrum antibiotics * follow culture date (4) Sacral decubitus ulcer: Code(s): L89.159 - Pressure ulcer of sacral region, unspecified stage Status: Acute Assessment and Plan: * presumed source of infection and #3 * Surgery following * s/p debridement * local wound care (5) Cellulitis: Code(s): L03.90 - Cellulitis, unspecified Status: Acute Assessment and Plan: * suspected based on LE wounds * his bilateral chronic lymphedema complicates things * already on antibiotics * local wound care (6) Anemia: Qualifiers: Anemia type: iron deficiency Iron deficiency anemia type: unspecified iron deficiency Qualified Code(s): D50.9 - Iron deficiency anemia, unspecified Code(s): D64.9 - Anemia, unspecified Status: Chronic Assessment and Plan: * due to KONSTANTIN, CKD, and acute illness * component of iron deficiency in the past as well * follow trend of H/H (7) Diabetes: Code(s): E11.9 - Type 2 diabetes mellitus without complications Status: Acute Assessment and Plan: * follow accuchecks * glycemic control Long and extensive discussion (> 20 minutes) with patient and his mother at bedside regarding the above issues and plan oc care as outlined. Will continue to follow. History of Present Illness Reason for Consult Consult date: 10/29/20 Reason for consult: acute renal failure (on chronic kidney disease) Chief Complaint Chief complaint: Sepsis, Decubitus Ulcer History of Present Illness Narrative: The patient is a 60 year old male with significant past medical history as outlined below who presented to [facility] ER with complaints of generalized weakness. From review of the records and discussion with the patient and his mother, the patient was recently discharged from his nursing facility about a week ago. Since that time he has just been sitting in his reclining chair at home for about a week without any ambulation. He was not able to get up to even use the restroom and hence the reclining chair was soiled with feces and urine. His mother states that given his large body habitus, she was unable to move or clean him effectively. It would seem that h
--- NOTE | 2020-10-29 11:40 | PM.CNNEP ---
Assessment and Plan Assessment and plan (1) KONSTANTIN (acute kidney injury): Code(s): N17.9 - Acute kidney failure, unspecified Status: Acute Assessment and Plan: due to a combination of infection/sepsis and hemodynamic instability no critical electrolyte abnormalities better urine output in the last 24 hours follow trend of repeat labs and UOP (2) Stage 3b chronic kidney disease: Code(s): N18.32 - Chronic kidney disease, stage 3b Status: Chronic Assessment and Plan: baseline creatinine runs around 1.6 - 2.1mg/dl however, he has fluctuated to extremes with his recent hospitalizations this is secondary to hypertension and diabetes (3) Sepsis: Qualifiers: Acute renal failure type: unspecified Sepsis acute organ dysfunction status: with acute organ dysfunction Sepsis type: sepsis due to unspecified organism Severe sepsis acute organ dysfunction type: acute renal failure Severe sepsis shock status: without septic shock Qualified Code(s): A41.9 - Sepsis, unspecified organism; R65.20 - Severe sepsis without septic shock; N17.9 - Acute kidney failure, unspecified Code(s): A41.9 - Sepsis, unspecified organism Status: Acute Assessment and Plan: shock resolved (off pressors) blood cultures with GNB on broad spectrum antibiotics follow culture date (4) Sacral decubitus ulcer: Code(s): L89.159 - Pressure ulcer of sacral region, unspecified stage Status: Acute Assessment and Plan: presumed source of infection and #3 Surgery following s/p debridement local wound care (5) Cellulitis: Code(s): L03.90 - Cellulitis, unspecified Status: Acute Assessment and Plan: suspected based on LE wounds his bilateral chronic lymphedema complicates things already on antibiotics local wound care (6) Anemia: Qualifiers: Anemia type: iron deficiency Iron deficiency anemia type: unspecified iron deficiency Qualified Code(s): D50.9 - Iron deficiency anemia, unspecified Code(s): D64.9 - Anemia, unspecified Status: Chronic Assessment and Plan: due to KONSTANTIN, CKD, and acute illness component of iron deficiency in the past as well follow trend of H/H (7) Diabetes: Code(s): E11.9 - Type 2 diabetes mellitus without complications Status: Acute Assessment and Plan: follow accuchecks glycemic control Long and extensive discussion (> 20 minutes) with patient and his mother at bedside regarding the above issues and plan oc care as outlined. Will continue to follow. History of Present Illness Reason for Consult Consult date: 10/29/20 Reason for consult: acute renal failure (on chronic kidney disease) Chief Complaint Chief complaint: Sepsis, Decubitus Ulcer History of Present Illness Narrative: The patient is a 60 year old male with significant past medical history as outlined below who presented to [facility] ER with complaints of generalized weakness. From review of the records and discussion with the patient and his mother, the patient was recently discharged from his nursing facility about a week ago. Since that time he has just been sitting in his reclining chair at home for about a week without any ambulation. He was not able to get up to even use the restroom and hence the reclining chair was soiled with feces and urine. His mother states that given his large body habitus, she was unable to move or clean him effectively. It would seem that he is unable to take care of himself and his his mother is unable to do so as well. Given his worsening weakness/fatigue, he presented to the ER for further assessment. Next Workup and evaluation in the emergency room demonstrated patient be quite hypotensive in association with his weakness. He was given a total of 3 L of IV fluids in the form of fluid boluses but despite this, he remained hypotensive and he had h
[2020-10-29 13:10] LABS: Glucose Point of Care 206 mg/dl (65-105)
--- NOTE | 2020-10-29 14:03 | PC.NURSE ---
Patient transferred to room 213, report to Medardo VILLATROO
[2020-10-29 16:16] LABS: Glucose Point of Care 216 mg/dl (65-105)
[2020-10-29] MEDS: INSULIN ASPART (*BKC) 100 UNITS/ML SUB-Q (16:30)
--- NOTE | 2020-10-29 20:03 | PC.NURSE ---
This patient, Mike Handy, was received from [ ICU 1 ] on 10/29/20 at 1405. Patient/family oriented to unit policies and routines
[2020-10-29 20:43] LABS: Glucose Point of Care 185 mg/dl (65-105)
[2020-10-29] MEDS: HEPARIN SOD/D5W 100 UNITS/ML 25,000 UNITS/250 ML BAG 17 UNITS IV CONT (22:15)
[2020-10-29 22:39] LABS: Partial Thromboplastin Time 88.6 SECONDS (22.3-36.8)
[2020-10-29 23:19] LABS: Vancomycin Trough 30.1 ug/mL (10.0-20.0)
[2020-10-30] VITALS (15 sets, daily range): BP systolic 121–133; BP diastolic 79–92; PULSE 80–100; RESP 16–20; TEMP 36.1–36.8; O2SAT 97–100
[2020-10-30] MEDS: ALBUMIN HUMAN 25% 25 GM/100 ML 100 ML IVPB ×4 (01:13→20:04)
[2020-10-30] MEDS: SOD HYPOCHLORITE 1/4 STRENGTH 473 ML 1 APPLIC TOPICAL ×2 (01:13→11:47)
[2020-10-30] MEDS: CENTRAL LINE FLUSH 10 ML IV PUSH ×4 (05:38→21:19)
[2020-10-30] MEDS: LEVOTHYROXINE SODIUM 100 MCG TABLET PO (05:39)
[2020-10-30 05:49] LABS: Hematocrit 22.8 % (42.0-52.0); Hemoglobin 7.5 g/dL (14.0-18.0); Mean Corpuscular HGB Conc 32.9 g/dl (32-36); Mean Corpuscular Hemoglobin 28.2 pg (26-34); Mean Corpuscular Volume 85.7 fl (80-100); Platelet Count Result 231 k/mm3 (150-375); Red Blood Count 2.66 M/mm3 (4.6-6.20); Red Cell Distribution Width 17.2 % (11.5-14.5); White Blood Count 5.6 K/mm3 (4.5-10.0)
[2020-10-30 06:02] LABS: INR 1.5; Prothrombin Time 17.6 Seconds (11.1-14.7)
[2020-10-30 06:02] LABS: Alanine Aminotransferase 14 U/L (4-50); Albumin Level 2.4 g/dL (3.5-5.1); Alkaline Phosphatase 80 U/L (38-126); Anion Gap 10 mmol/L (8-16); Aspartate Amino Transferase 18 U/L (17-59); Bilirubin,Total 0.3 mg/dL (0.2-1.3); Blood Urea Nitrogen 83 mg/dL (9-20); Carbon Dioxide 21 mmol/L (22-30); Chloride 100 mmol/L (98-107); Estimated CRCL calculation 42 ml/min; Estimated Glomerular Filt Rate 22; Glucose 145 mg/dL (65-110); Magnesium 1.9 mg/dL (1.6-2.3); Phosphorus 5.2 mg/dL (2.5-4.5); Potassium 3.4 mmol/L (3.4-5.0); Sodium 131 mmol/L (137-145)
[2020-10-30 06:03] LABS: Partial Thromboplastin Time 70.6 SECONDS (22.3-36.8)
[2020-10-30] MEDS: HEPARIN SODIUM 5,000 UNITS/ML VIAL 4500 UNITS IV PUSH (06:40)
[2020-10-30 08:38] LABS: Glucose Point of Care 149 mg/dl (65-105)
--- NOTE | 2020-10-30 09:53 | PM.IMPN ---
Progress Note: A&P Assessment and Plan (1) Septic shock: Code(s): A41.9 - Sepsis, unspecified organism; R65.21 - Severe sepsis with septic shock Status: Acute Assessment and Plan: Patient presented with weakness and found to be hypotensive in septic shock requiring 3 L fluid bolus in the ER -for infection: Likely urine, decubital ulcer. -off vasopressors now -wean stress dose hydrocortisone -continue albumin 25% for another 24 hours -DC IV fluid -blood cultures have been obtained and 1/2 is growing Gram-negative bacilli - urine culture and wound culture from the decubitus ulcer and right thigh are pending -patient has not had any bowel movement to suggest C diff colitis -patient on vancomycin and Zosyn. Continue until wound cultures are back (2) Cellulitis: Code(s): L03.90 - Cellulitis, unspecified Status: Acute Assessment and Plan: Continue vancomycin and Zosyn Wound care consult (3) Decubitus ulcer: Qualifiers: Laterality: right Pressure injury location: buttock Pressure injury stage: stage 3 Qualified Code(s): L89.313 - Pressure ulcer of right buttock, stage 3 Code(s): L89.90 - Pressure ulcer of unspecified site, unspecified stage Status: Deleted Assessment and Plan: 10/27 - extensive debridement stage 4 sacral ulcer measuring approximately 30 x 27 x 5 cm, washout Wound care is following General surgery to re-evaluate wound to decide if patient needs any further debridement (4) Acute renal failure superimposed on stage 3 chronic kidney disease: Code(s): N17.9 - Acute kidney failure, unspecified; N18.30 - Chronic kidney disease, stage 3 unspecified Status: Acute Assessment and Plan: Patient with acute on chronic kidney disease stage 3. Likely related to hypotension, septic shock, ATN, hypovolemia -patient has received significant amount of IV fluids hence will discontinue further fluids -monitor urine output, renal function electrolytes -unremarkable renal ultrasound -p.o. bicarb for metabolic acidosis Consult nephrology (5) Chronic atrial fibrillation with RVR: Code(s): I48.20 - Chronic atrial fibrillation, unspecified Status: Chronic Assessment and Plan: History of chronic AFib, currently in AFib with heart rates in the 100-110. 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 use Qualified Code(s): E11.65 - Type 2 diabetes mellitus with hyperglycemia; Z79.4 - residential (current) use of insulin Code(s): E11.65 - Type 2 diabetes mellitus with hyperglycemia Status: Acute Assessment and Plan: Sliding scale insulin Accu-Cheks have been ordered (7) Lymphedema: Onset Date: Unknown Code(s): I89.0 - Lymphedema, not elsewhere classified Status: Acute Assessment and Plan: Chronic lymphedema (8) Hypothyroid: Qualifiers: Hypothyroidism type: unspecified Qualified Code(s): E03.9 - Hypothyroidism, unspecified Code(s): E03.9 - Hypothyroidism, unspecified Status: Chronic Assessment and Plan: Continue Synthroid (9) DVT prophylaxis: Code(s): Z29.9 - Encounter for prophylactic measures, unspecified Status: Acute Assessment and Plan: Heparin infusion Additional Plan Advance diet, incentive spirometry Code status: Full code 60yo M admitted in septic shock 2/2 stage IV decubitus ulcer. He was admitted to ICU requiring pressor support. Nephrology was consulted for his KONSTANTIN on CKD3. On 10/27 - extensive debridement and washout of his stage 4 sacral ulcer measuring approximately 30 x 27 x 5 cm was perfromed by general surg. Dr Cowart. blood cultures 1/2 is growing Gram-negative bacilli. Pt placed on heparin gtt for Afib. Transferred out of ICU 10/29/20
--- NOTE | 2020-10-30 10:15 | P.PNNP_ITS ---
Progress Note: A&P Assessment and Plan (1) KONSTANTIN (acute kidney injury): Code(s): N17.9 - Acute kidney failure, unspecified Status: Acute Assessment and Plan: * due to a combination of infection/sepsis and hemodynamic instability * no critical electrolyte abnormalities * better urine output in the last 24 hours * follow trend of repeat labs and UOP (2) Stage 3b chronic kidney disease: Code(s): N18.32 - Chronic kidney disease, stage 3b Status: Chronic Assessment and Plan: * baseline creatinine runs around 1.6 - 2.1mg/dl * however, he has fluctuated to extremes with his recent hospitalizations * this is secondary to hypertension and diabetes (3) Sepsis: Qualifiers: Acute renal failure type: unspecified Sepsis acute organ dysfunction status: with acute organ dysfunction Sepsis type: sepsis due to unspecified organism Severe sepsis acute organ dysfunction type: acute renal failure Severe sepsis shock status: without septic shock Qualified Code(s): A41.9 - Sepsis, unspecified organism; R65.20 - Severe sepsis without septic shock; N17.9 - Acute kidney failure, unspecified Code(s): A41.9 - Sepsis, unspecified organism Status: Acute Assessment and Plan: * shock resolved (off pressors) * blood cultures with GNB * on broad spectrum antibiotics * follow culture date (4) Sacral decubitus ulcer: Code(s): L89.159 - Pressure ulcer of sacral region, unspecified stage Status: Acute Assessment and Plan: * presumed source of infection and #3 * Surgery following * s/p debridement * local wound care (5) Cellulitis: Code(s): L03.90 - Cellulitis, unspecified Status: Acute Assessment and Plan: * suspected based on LE wounds * his bilateral chronic lymphedema complicates things * already on antibiotics * local wound care (6) Anemia: Qualifiers: Anemia type: iron deficiency Iron deficiency anemia type: unspecified iron deficiency Qualified Code(s): D50.9 - Iron deficiency anemia, unspecified Code(s): D64.9 - Anemia, unspecified Status: Chronic Assessment and Plan: * due to KONSTANTIN, CKD, and acute illness * component of iron deficiency in the past as well * follow trend of H/H (7) Diabetes: Code(s): E11.9 - Type 2 diabetes mellitus without complications Status: Acute Assessment and Plan: * follow accuchecks * glycemic control Will continue to follow. Subjective Date/time seen: 10/30/20 10:15 Remains hemodynamically stable and in no acute distress voiced at the time of my visit; no events/issues overnight or earlier this AM; better urine output noted overnight. Exam Narrative: General: WD/WN male in NAD Heart: normal S1 and S2; no rub Lungs: clear to auscultation Abdomen: soft, nontender, nondistended, positive bowel sounds Extremities: no cyanosis or clubbing; bilateraly lymphedema changes Skin: chronic changes noted Objective Data Vital Signs Vital Signs: Vital Signs Temp Pulse Resp BP Pulse Ox 10/30/20 08:00 36.3 C L 85 16 122/83 100 10/30/20 06:00 82 10/30/20 04:00 88 10/30/20 03:59 36.1 C L 99 20 127/79 97 10/30/20 02:00 81 10/30/20 00:00 100 10/29/20 23:56 36.6 C 100 20 138/82 98 10/29/20 22:00 100 10/29/20 20:00 36.6 C
--- NOTE | 2020-10-30 10:15 | PM.PNNEP ---
Progress Note: A&P Assessment and Plan (1) KONSTANTIN (acute kidney injury): Code(s): N17.9 - Acute kidney failure, unspecified Status: Acute Assessment and Plan: due to a combination of infection/sepsis and hemodynamic instability no critical electrolyte abnormalities better urine output in the last 24 hours follow trend of repeat labs and UOP (2) Stage 3b chronic kidney disease: Code(s): N18.32 - Chronic kidney disease, stage 3b Status: Chronic Assessment and Plan: baseline creatinine runs around 1.6 - 2.1mg/dl however, he has fluctuated to extremes with his recent hospitalizations this is secondary to hypertension and diabetes (3) Sepsis: Qualifiers: Acute renal failure type: unspecified Sepsis acute organ dysfunction status: with acute organ dysfunction Sepsis type: sepsis due to unspecified organism Severe sepsis acute organ dysfunction type: acute renal failure Severe sepsis shock status: without septic shock Qualified Code(s): A41.9 - Sepsis, unspecified organism; R65.20 - Severe sepsis without septic shock; N17.9 - Acute kidney failure, unspecified Code(s): A41.9 - Sepsis, unspecified organism Status: Acute Assessment and Plan: shock resolved (off pressors) blood cultures with GNB on broad spectrum antibiotics follow culture date (4) Sacral decubitus ulcer: Code(s): L89.159 - Pressure ulcer of sacral region, unspecified stage Status: Acute Assessment and Plan: presumed source of infection and #3 Surgery following s/p debridement local wound care (5) Cellulitis: Code(s): L03.90 - Cellulitis, unspecified Status: Acute Assessment and Plan: suspected based on LE wounds his bilateral chronic lymphedema complicates things already on antibiotics local wound care (6) Anemia: Qualifiers: Anemia type: iron deficiency Iron deficiency anemia type: unspecified iron deficiency Qualified Code(s): D50.9 - Iron deficiency anemia, unspecified Code(s): D64.9 - Anemia, unspecified Status: Chronic Assessment and Plan: due to KONSTANTIN, CKD, and acute illness component of iron deficiency in the past as well follow trend of H/H (7) Diabetes: Code(s): E11.9 - Type 2 diabetes mellitus without complications Status: Acute Assessment and Plan: follow accuchecks glycemic control Will continue to follow. Subjective Date/time seen: 10/30/20 10:15 Remains hemodynamically stable and in no acute distress voiced at the time of my visit; no events/issues overnight or earlier this AM; better urine output noted overnight. Exam Narrative: General: WD/WN male in NAD Heart: normal S1 and S2; no rub Lungs: clear to auscultation Abdomen: soft, nontender, nondistended, positive bowel sounds Extremities: no cyanosis or clubbing; bilateraly lymphedema changes Skin: chronic changes noted Objective Data Vital Signs Vital Signs: Vital Signs Temp Pulse Resp BP Pulse Ox 10/30/20 08:00 36.3 C L 85 16 122/83 100 10/30/20 06:00 82 10/30/20 04:00 88 10/30/20 03:59 36.1 C L 99 20 127/79 97 10/30/20 02:00 81 10/30/20 00:00 100 10/29/20 23:56 36.6 C 100 20 138/82 98 10/29/20 22:00 100 10/29/20 20:00 36.6 C 104 H 18 131/75 98 10/29/20 18:00 101 H 10/29/20 16:00 36.4 C 93 24 H 122/80 99 10/29/20 14:00 101 H 10/29/20 12:45 36.7 C 97 24 H 124/85 100 10/29/20 12:00 36.3 C L 98 17 120/92 H 96 Intake/Output Intake/Output: Intake & Output 10/27/20 10/28/20 10/29/20 10/30/20 23:59 23:59 23:59 23:59 Intake Total 2150 4410 2460 550 Output Total 250 346 133 3893 Balance 1900 3560 1785 -450 Meds/Results Medications: Active Medications Generic Name Dose Route Start Last Admin Trade Name Freq PRN Reason Stop Dose Admin Acetaminophen 650 mg 10/26/20 23:14 A
[2020-10-30] MEDS: allopurinoL 300 MG TABLET PO (11:48)
[2020-10-30] MEDS: PANTOPRAZOLE SODIUM IV 40 MG VIAL IV PUSH ×2 (11:48→21:17)
[2020-10-30] MEDS: HYDROCORTISONE SODIUM SUCCINATE 100 MG/2 ML VIAL IV PUSH ×2 (11:48→21:17)
[2020-10-30] MEDS: SODIUM BICARBONATE TAB 650 MG TABLET 1300 MG PO ×2 (11:48→17:18)
[2020-10-30] MEDS: INSULIN GLARGINE (*BKC) 100 UNITS/ML 15 UNITS SUB-Q (11:49)
[2020-10-30] MEDS: TOLNAFTATE 1% POWDER 45 GM BTL 1 APPLIC TOPICAL (11:50)
[2020-10-30 12:11] LABS: Hematocrit 21.6 % (42.0-52.0)
[2020-10-30 12:23] LABS: Hemoglobin 6.9 g/dL (14.0-18.0)
[2020-10-30 12:34] LABS: Glucose Point of Care 145 mg/dl (65-105)
[2020-10-30 12:54] LABS: Partial Thromboplastin Time 175.8 SECONDS (22.3-36.8)
[2020-10-30 18:04] LABS: Glucose Point of Care 157 mg/dl (65-105)
[2020-10-30 18:48] LABS: Partial Thromboplastin Time 34.4 SECONDS (22.3-36.8)
[2020-10-30 18:49] LABS: Hemoglobin 6.4 g/dL (14.0-18.0)
[2020-10-30 18:50] LABS: Hematocrit 20.1 % (42.0-52.0)
[2020-10-30 20:35] LABS: Glucose Point of Care 171 mg/dl (65-105)
--- NOTE | 2020-10-30 21:05 | PM.PNGS ---
Progress Note: A&P Assessment and Plan (1) Sacral decubitus ulcer: Onset Date: Unknown Code(s): L89.159 - Pressure ulcer of sacral region, unspecified stage Status: Acute Assessment and Plan: Patient was on a herin drip for his A-fib and his PTT went very high. Was noted to have bleeding from the area of debridement from last week on his buttocks and sacrum. Heparin drip was stopped and this seems to now have helped let this bleeding stopped. Hemoglobin went from 6.9 a 6.4 and he is receiving 1 unit of blood. 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 They have compression garments at home which she will bring to the hospital tomorrow. Will try to talk to the wound care nurses and ask them about using that the wrap system on his left leg if there is wounds on the back of to protect them and then if the wounds all healed on both stump and the left side consider starting have the patient wear compression garments on his legs to help prevent for further swelling. Will possibly try to look at the cubitus wounds on bag patient's buttocks tomorrow with the nurses. Time Spent With Patient Time with patient: 15 - 25 minutes Subjective Subjective Date/Time Seen: 10/30/20 21:05 Late entry: Notified of and seen earlier today with the patient's nurse. Patient had a very high on PTT secondary to his heparin drip and bled from his debridement site on his buttocks and sacrum. Hemoglobin went from 6.9 down to 6.4. Heparin drip was stopped and I recheck the patient with the nurse late in the afternoon and although there was still some oozing there was no significant ongoing loss of blood the we could tell Review of Systems Constitutional: Constitutional: Reports no additional constitutional complaints Comments: Patient un cooperative with the nurses does not move himself in complains about being moved at all. ENT: Reports other (Mucous Membranes moist.) Cardiovascular: Cardiovascular: Denies dyspnea Respiratory: Respiratory: Denies pain on inspiration and Denies dyspnea Musculoskeletal: Musculoskeletal: Reports other ( has venous stasis changes and lymphedema the lower extremities. Has crust) Comments: Has crusty areas on the skin of his right BKA stump. I will order lacticacid cream to loosen this. Integumentary/Breasts: Skin/Breast: Reports system reviewed and no additional complaints, except as docu Objective Data Vital Signs Vital Signs: Vital Signs - 24 hr 10/29/20 22:00 10/29/20 23:56 10/30/20 00:00 Temperature 36.6 C Pulse Rate 100 100 100 Respiratory Rate 20 Blood Pressure 138/82 Pulse Oximetry 98 10/30/20 02:00 10/30/20 03:59 10/30/20 04:00 Temperature 36.1 C L Pulse Rate 81 99 88 Respiratory Rate 20 Blood Pressure 127/79 Pulse Oximetry 97 10/30/20 06:00 10/30/20 08:00 10/30/20 10:00 Temperature 36.3 C L Pulse Rate 82 80 84 Respiratory Rate 16 Blood Pressure 122/83 Pulse Oximetry 100 10/30/20 12:00 10/30/20 14:00 10/30/20 16:00 Temperature 36.2 C L Pulse Rate 85 85 85 Respiratory Rate 20 Blood Pressure 121/83 Pulse Oximetry 100 10/30/20 17:00 10/30/20 18:00 Temperature 36.8 C Pulse Rate 88 80 Respiratory Rate 18 Blood Pressure 130/79 Pulse Oximetry 100 Intake/Output Intake/Output: Intake & Output 10/27/20 10/28/20 10/29/20 10/30/20 23:59 23:59 23:59 23:59 Intake Total 2150 4410 2460 1410 Output Total 250 868 335 2541 Balance 1900 3560 1785 -1590 Meds/Results Medications: Active Medications Generic Name Dose Route Start Last Admin Trade Name Freq PRN Reason Stop Dose Admin Acetaminophen 650 mg 10/26/20 23:14 Acetaminophen 325 Mg Tablet PO Q4H PRN Mild Pain
[2020-10-30] MEDS: LACTIC ACID 12% LOTION 225 BTL 1 APPLIC TOPICAL (21:14)
[2020-10-30] MEDS: SODIUM CHLORIDE 0.9% IV 250 ML 30 ML IV CONT (21:16)
[2020-10-30 21:55] LABS: Vancomycin Random 24.8 ug/mL (10-20)
[2020-10-31] VITALS (30 sets, daily range): BP systolic 122–140; BP diastolic 65–85; PULSE 73–91; RESP 15–22; TEMP 35.8–36.9; O2SAT 97–100
[2020-10-31] MEDS: TOLNAFTATE 1% POWDER 45 GM BTL 1 APPLIC TOPICAL ×3 (01:08→22:16)
[2020-10-31] MEDS: ALBUMIN HUMAN 25% 25 GM/100 ML 100 ML IVPB ×3 (01:55→13:05)
[2020-10-31] MEDS: SOD HYPOCHLORITE 1/4 STRENGTH 473 ML 1 APPLIC TOPICAL ×3 (04:00→22:16)
[2020-10-31 05:04] LABS: Alanine Aminotransferase 15 U/L (4-50); Albumin Level 2.7 g/dL (3.5-5.1); Alkaline Phosphatase 66 U/L (38-126); Anion Gap 4 mmol/L (8-16); Aspartate Amino Transferase 23 U/L (17-59); Bilirubin,Total 0.3 mg/dL (0.2-1.3); Blood Urea Nitrogen 72 mg/dL (9-20); Calcium 8.2 mg/dL (8.4-10.2); Carbon Dioxide 25 mmol/L (22-30); Chloride 104 mmol/L (98-107); Estimated CRCL calculation 49 ml/min; Estimated Glomerular Filt Rate 27; Glucose 131 mg/dL (65-110); Magnesium 1.8 mg/dL (1.6-2.3); Phosphorus 4.5 mg/dL (2.5-4.5); Potassium 3.1 mmol/L (3.4-5.0); Sodium 133 mmol/L (137-145)
--- NOTE | 2020-10-31 07:22 | PM.IMPN ---
Progress Note: A&P Assessment and Plan (1) Septic shock: Code(s): A41.9 - Sepsis, unspecified organism; R65.21 - Severe sepsis with septic shock Status: Acute Assessment and Plan: Patient presented with weakness and found to be hypotensive in septic shock requiring 3 L fluid bolus in the ER -for infection: Likely decubital ulcer. -he was initially admitted to ICU. Off vasopressors now. He was transferred out of ICU. -wean stress dose hydrocortisone -stop albumin today. IV fluids have been stopped. -blood cultures have been obtained and 1/2 is growing Gram-negative bacilli. It has not been speciated yet. - urine culture and wound culture from the decubitus ulcer and right thigh are pending it has been negative so far. C diff toxin is negative. -patient on vancomycin and Zosyn. Cultures have been negative. Continue to monitor culture. (2) Cellulitis: Code(s): L03.90 - Cellulitis, unspecified Status: Acute Assessment and Plan: Continue vancomycin and Zosyn Wound care Service to follow. Patient was evaluated by surgery. He had extensive debridement done on 10/27 in OR. Surgery is planning to read to debridement again bed they have recommended him to be transferred to tertiary care hospital. [facility] has been called but they do not have bed. He has been placed on waiting list and will be transferred there once bed is available P (3) Decubitus ulcer: Qualifiers: Laterality: right Pressure injury location: buttock Pressure injury stage: stage 3 Qualified Code(s): L89.313 - Pressure ulcer of right buttock, stage 3 Code(s): L89.90 - Pressure ulcer of unspecified site, unspecified stage Status: Deleted Assessment and Plan: 10/27 - extensive debridement stage 4 sacral ulcer measuring approximately 30 x 27 x 5 cm, washout Wound care is following General surgery will continue to follow. Bleeding from the wound requiring PRBC transfusions. (4) Acute renal failure superimposed on stage 3 chronic kidney disease: Code(s): N17.9 - Acute kidney failure, unspecified; N18.30 - Chronic kidney disease, stage 3 unspecified Status: Acute Assessment and Plan: Patient with acute on chronic kidney disease stage 3. Likely related to hypotension, septic shock, ATN, hypovolemia -patient has received significant amount of IV fluids. IV fluids have been stopped. -monitor urine output, renal function electrolytes -unremarkable renal ultrasound -p.o. bicarb for metabolic acidosis Nephrology service is following. (5) Chronic atrial fibrillation with RVR: Code(s): I48.20 - Chronic atrial fibrillation, unspecified Status: Chronic Assessment and Plan: History of chronic AFib, currently rate controlled. -He was on heparin infusion as patient has been on Eliquis, which currently is on hold because of his renal dysfunction Heparin drip has now been stopped because of ongoing bleeding from the wound. 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 Continue to monitor (8) Hypothyroid: Qualifiers: Hypothyroidism type: unspecified Qualified Code(s): E03.9 - Hypothyroidism, unspecified Code(s): E03.9 - Hypothyroidism, unspecified Status: Chronic Assessment and Plan: Continue Synthroid (9) DVT prophylaxis: Code(s): Z29.9 - Encounter for prophylactic measures, unspecified Status: Acute
[2020-10-31] MEDS: LEVOTHYROXINE SODIUM 100 MCG TABLET PO (07:35)
[2020-10-31] MEDS: CENTRAL LINE FLUSH 10 ML IV PUSH ×4 (07:36→22:17)
[2020-10-31 07:43] LABS: Mean Corpuscular HGB Conc 32.4 g/dl (32-36); Mean Corpuscular Hemoglobin 28.3 pg (26-34); Mean Corpuscular Volume 87.6 fl (80-100); Mean Platelet Volume 9.8 fl (7.4-10.4); Platelet Count Result 224 k/mm3 (150-375); Red Blood Count 2.33 M/mm3 (4.6-6.20); Red Cell Distribution Width 16.6 % (11.5-14.5); White Blood Count 5.5 K/mm3 (4.5-10.0)
[2020-10-31 07:44] LABS: Hematocrit 20.4 % (42.0-52.0); Hemoglobin 6.6 g/dL (14.0-18.0)
[2020-10-31 09:04] LABS: Glucose Point of Care 120 mg/dl (65-105)
[2020-10-31] MEDS: HYDROCORTISONE SODIUM SUCCINATE 100 MG/2 ML VIAL 50 MG IV PUSH ×2 (10:14→22:15)
[2020-10-31] MEDS: PANTOPRAZOLE SODIUM IV 40 MG VIAL IV PUSH (10:15)
[2020-10-31] MEDS: allopurinoL 300 MG TABLET PO (10:15)
[2020-10-31] MEDS: SODIUM BICARBONATE TAB 650 MG TABLET 1300 MG PO ×2 (10:15→17:19)
[2020-10-31] MEDS: INSULIN GLARGINE (*BKC) 100 UNITS/ML 15 UNITS SUB-Q (10:15)
[2020-10-31] MEDS: SODIUM CHLORIDE 0.9% IV 250 ML 30 ML IV CONT (10:16)
[2020-10-31] MEDS: LACTIC ACID 12% LOTION 225 BTL 1 APPLIC TOPICAL (10:18)
--- NOTE | 2020-10-31 11:00 | P.PNNP_ITS ---
Progress Note: A&P Assessment and Plan (1) KONSTANTIN (acute kidney injury): Code(s): N17.9 - Acute kidney failure, unspecified Status: Acute Assessment and Plan: * due to a combination of infection/sepsis and hemodynamic instability * creatinine seems to be improving. Now down to 2.5. * better urine output in the last 24 hours * Getting some IV fluids with medications. * Better oral intake and less diarrhea. (2) Stage 3b chronic kidney disease: Code(s): N18.32 - Chronic kidney disease, stage 3b Status: Chronic Assessment and Plan: * baseline creatinine runs around 1.6 - 2.1mg/dl * however, he has fluctuated to extremes with his recent hospitalizations * this is secondary to hypertension and diabetes (3) Sepsis: Qualifiers: Acute renal failure type: unspecified Sepsis acute organ dysfunction status: with acute organ dysfunction Sepsis type: sepsis due to unspecified organism Severe sepsis acute organ dysfunction type: acute renal failure Severe sepsis shock status: without septic shock Qualified Code(s): A41.9 - Sepsis, unspecified organism; R65.20 - Severe sepsis without septic shock; N17.9 - Acute kidney failure, unspecified Code(s): A41.9 - Sepsis, unspecified organism Status: Acute Assessment and Plan: * shock resolved (off pressors) * blood cultures with GNB * on broad spectrum antibiotics * follow culture date (4) Sacral decubitus ulcer: Onset Date: Unknown Code(s): L89.159 - Pressure ulcer of sacral region, unspecified stage Status: Acute Assessment and Plan: * presumed source of infection and #3 * Surgery following * s/p debridement * local wound care (5) Cellulitis: Code(s): L03.90 - Cellulitis, unspecified Status: Acute Assessment and Plan: * suspected based on LE wounds * his bilateral chronic lymphedema complicates things * On vancomycin and Zosyn. * With acute kidney injury consider changing Zosyn to cefepime. * local wound care (6) Anemia: Qualifiers: Anemia type: iron deficiency Iron deficiency anemia type: unspecified iron deficiency Qualified Code(s): D50.9 - Iron deficiency anemia, unspecified Code(s): D64.9 - Anemia, unspecified Status: Chronic Assessment and Plan: * due to KONSTANTIN, CKD, and acute illness * component of iron deficiency in the past as well * He needed a blood transfusion last night. (7) Diabetes: Code(s): E11.9 - Type 2 diabetes mellitus without complications Status: Acute Assessment and Plan: * follow accuchecks * glycemic control Subjective Date/time seen: 10/31/20 11:00 Interval history: Mr. Man Norman is feeling better today. His diarrhea is much better. No chest pain or shortness of breath. His appetite is coming back. Exam Narrative: General: WD/WN male in NAD Heart: normal S1 and S2; no rub Lungs: clear to auscultation Abdomen: soft, nontender, nondistended, positive bowel sounds Extremities: bilateral lymphedema changes Skin: Chronic venous stasis changes Objective Data Vital Signs Vital Signs: Vital Signs - 24 hr 10/30/20 12:00 10/30/20 14:00 10/30/20 16:00 Temperature 36.2 C L Pulse Rate 85 85 85 Respiratory Rate 20 Blood Pressure 121/83 Pulse Oximetry 100 10/30/20 17:00 10/30/20 18:00 10/30/20 20:00
--- NOTE | 2020-10-31 11:00 | PM.PNNEP ---
Progress Note: A&P Assessment and Plan (1) KONSTANTIN (acute kidney injury): Code(s): N17.9 - Acute kidney failure, unspecified Status: Acute Assessment and Plan: due to a combination of infection/sepsis and hemodynamic instability creatinine seems to be improving. Now down to 2.5. better urine output in the last 24 hours Getting some IV fluids with medications. Better oral intake and less diarrhea. (2) Stage 3b chronic kidney disease: Code(s): N18.32 - Chronic kidney disease, stage 3b Status: Chronic Assessment and Plan: baseline creatinine runs around 1.6 - 2.1mg/dl however, he has fluctuated to extremes with his recent hospitalizations this is secondary to hypertension and diabetes (3) Sepsis: Qualifiers: Acute renal failure type: unspecified Sepsis acute organ dysfunction status: with acute organ dysfunction Sepsis type: sepsis due to unspecified organism Severe sepsis acute organ dysfunction type: acute renal failure Severe sepsis shock status: without septic shock Qualified Code(s): A41.9 - Sepsis, unspecified organism; R65.20 - Severe sepsis without septic shock; N17.9 - Acute kidney failure, unspecified Code(s): A41.9 - Sepsis, unspecified organism Status: Acute Assessment and Plan: shock resolved (off pressors) blood cultures with GNB on broad spectrum antibiotics follow culture date (4) Sacral decubitus ulcer: Onset Date: Unknown Code(s): L89.159 - Pressure ulcer of sacral region, unspecified stage Status: Acute Assessment and Plan: presumed source of infection and #3 Surgery following s/p debridement local wound care (5) Cellulitis: Code(s): L03.90 - Cellulitis, unspecified Status: Acute Assessment and Plan: suspected based on LE wounds his bilateral chronic lymphedema complicates things On vancomycin and Zosyn. With acute kidney injury consider changing Zosyn to cefepime. local wound care (6) Anemia: Qualifiers: Anemia type: iron deficiency Iron deficiency anemia type: unspecified iron deficiency Qualified Code(s): D50.9 - Iron deficiency anemia, unspecified Code(s): D64.9 - Anemia, unspecified Status: Chronic Assessment and Plan: due to KONSTANTIN, CKD, and acute illness component of iron deficiency in the past as well He needed a blood transfusion last night. (7) Diabetes: Code(s): E11.9 - Type 2 diabetes mellitus without complications Status: Acute Assessment and Plan: follow accuchecks glycemic control Subjective Date/time seen: 10/31/20 11:00 Interval history: Mr. Man Norman is feeling better today. His diarrhea is much better. No chest pain or shortness of breath. His appetite is coming back. Exam Narrative: General: WD/WN male in NAD Heart: normal S1 and S2; no rub Lungs: clear to auscultation Abdomen: soft, nontender, nondistended, positive bowel sounds Extremities: bilateral lymphedema changes Skin: Chronic venous stasis changes Objective Data Vital Signs Vital Signs: Vital Signs - 24 hr 10/30/20 12:00 10/30/20 14:00 10/30/20 16:00 Temperature 36.2 C L Pulse Rate 85 85 85 Respiratory Rate 20 Blood Pressure 121/83 Pulse Oximetry 100 10/30/20 17:00 10/30/20 18:00 10/30/20 20:00 Temperature 36.8 C Pulse Rate 88 80 91 Respiratory Rate 18 Blood Pressure 130/79 Pulse Oximetry 100 10/30/20 22:00 10/30/20 23:45 10/31/20 00:00 Temperature 36.1 C L Pulse Rate 91 91 90 Respiratory Rate 18 Blood Pressure 133/92 H Pulse Oximetry 99 10/31/20 00:09 10/31/20 01:09 10/31/20 02:00 Temperature 36.0 C L 36.8 C Pulse Rate 91 90 90 Respiratory Rate 16 22 H Blood Pressure 140/83 140/85 Pulse Oximetry 98 97 10/31/20 02:09 10/31/20 04:00 10/31/20 04:05 Temperature 35.8 C L 36.8 C Pulse Rate 89 89 89 Respiratory Rate 16 20
[2020-10-31] MEDS: MORPHINE SULFATE (*CRX) 2 MG/ML INJ IV PUSH ×2 (11:08→18:21)
--- NOTE | 2020-10-31 11:47 | PM.PNGS ---
Progress Note: A&P Assessment and Plan (1) Sacral decubitus ulcer: Onset Date: Unknown Code(s): L89.159 - Pressure ulcer of sacral region, unspecified stage Status: Acute Assessment and Plan: I discussed difficulty of ongoing wound care with patient and Hospitalist. He will likely need multiple more debridements and should strongly consider diverting colostomy. Aggressive wound care will be needed and we are somewhat limited at this hospital. Transfer to tertiary care facility would be more beneficial at this point. Will continue Dakin's solution dressing changes for now and will consider more debridement if transfer process will take more than 1-2 days. Subjective Subjective Date/Time Seen: 10/31/20 11:47 Interval history: Patient is s/p extensive debridement stage 4 sacral ulcer measuring approximately 30 x 27 x 5 cm on 10/27/20. He has had another previous debridement back in August as well. He is not compliant with nursing and has not been changing position frequently. He is also not notifying nursing when he has a BM and is therefore saturating his wounds with stool sometimes for several hours before he is cleaned and re-dressed. I discussed the worsening of his wounds and also discussed that he probably needs a diverting colostomy to prevent continued soilage of his wounds. Patient does not want to have an ostomy and states he will try to move to the side more and be more compliant with nursing. Exam Skin: Other: Approximately 30cm x 30cm sacral decubitus ulcer with slightly macerated skin surrounding the area and necrotic tissue within wound bed. Wound soiled with stool at time of assessment. No active bleeding. Objective Data Vital Signs Vital Signs: Vital Signs - 24 hr 10/30/20 12:00 10/30/20 14:00 10/30/20 16:00 Temperature 36.2 C L Pulse Rate 85 85 85 Respiratory Rate 20 Blood Pressure 121/83 Pulse Oximetry 100 10/30/20 17:00 10/30/20 18:00 10/30/20 20:00 Temperature 36.8 C Pulse Rate 88 80 91 Respiratory Rate 18 Blood Pressure 130/79 Pulse Oximetry 100 10/30/20 22:00 10/30/20 23:45 10/31/20 00:00 Temperature 36.1 C L Pulse Rate 91 91 90 Respiratory Rate 18 Blood Pressure 133/92 H Pulse Oximetry 99 10/31/20 00:09 10/31/20 01:09 10/31/20 02:00 Temperature 36.0 C L 36.8 C Pulse Rate 91 90 90 Respiratory Rate 16 22 H Blood Pressure 140/83 140/85 Pulse Oximetry 98 97 10/31/20 02:09 10/31/20 04:00 10/31/20 04:05 Temperature 35.8 C L 36.8 C Pulse Rate 89 89 89 Respiratory Rate 16 20 Blood Pressure 130/85 136/82 Pulse Oximetry 99 99 10/31/20 06:00 10/31/20 09:00 10/31/20 10:30 Temperature 36.4 C L 36.4 C Pulse Rate 88 80 89 Respiratory Rate 21 H 15 Blood Pressure 136/84 122/71 Pulse Oximetry 99 99 10/31/20 10:45 Temperature 36.4 C L Pulse Rate 90 Respiratory Rate 16 Blood Pressure 136/81 Pulse Oximetry 100 Intake/Output Intake/Output: Intake & Output 10/28/20 10/29/20 10/30/20 10/31/20 23:59 23:59 23:59 23:59 Intake Total 4410 2460 1510 1560 Output Total 789 595 2330 1000 Balance 3560 1785 -1490 560 Meds/Results Medications: Active Medications Generic Name Dose Route Start Last Admin Trade Name Freq PRN Reason Stop Dose Admin Acetaminophen 650 mg 10/31/20 09:44 Acetaminophen 325 Mg Tablet PO Q6HR PRN Mild Pain (1-3) or Fever Allopurinol 300 mg 10/27/20 08:00 10/31/20 10:15 Allopurinol 300 Mg Tablet PO 300 mg DAILY@0800 AVANI Administration Dextrose 12.5 gm 10/27/20 09:24 Dextrose 50% 25 Gm/50 Ml Syringe IV PUSH PRN PRN Hypoglycemia Protocol Glucagon 1 mg 10/27/20 09:24 Glucagon For Inj 1 Mg Vial IM PRN PRN Hypoglycemia Protocol Glucose 15 gm 10/27/20 09:24 Glucose Oral Gel 15 Gm Of Glucse In 37.5 Gm Tube PO PRN PRN Hypoglycemia Protocol Heparin Sodium (Porcine) 9,500 units 10/27/20 09:23 Heparin
--- NOTE | 2020-10-31 12:12 | PCDIET ---
Nutrition Follow-Up Complete: Nutrition Diagnosis: Increased protein and calorie needs related to increased demands for wound healing and septic shock as evidenced by MD diagnosis, unhealed wounds. Nutrition Goal: Patient to meet estimated nutritional needs. Goal in progress. Patient consumed an average of 47% of recorded meals since 10/29/20 on diabetic diet. Recommend adding Suplena (420kcal, 10g protein) 1x daily and Lucas (90kcal, 2.5g protein) BID. Recommend potassium replacement, if medically appropriate. Last recorded weight is 152.2 kg. Recommend obtaining new weight. Bowel Motility: Last documented BM on 10/30/20 x 1. Labs Reviewed: RBC (2.33), Hgb (6.6), Hct (20.4), Glu (120), BUN (72), Cr (2.5), K (3.1), Na (133), Alb (2.7), Fred Ca (9.24) Meds Noted: Zyloprim, Solu-Cortef, Novolog, Lantus, Synthroid, Morphine, Protonix, Zosyn, Vancomycin, Sodium Bicarbonate Additional Notes: Integumentary notes reviewed. Surgery recommending diverting colostomy. Will continue to monitor with same goal. Nutrition Monitoring and Evaluation: Follow up every 3 days.
[2020-10-31 12:43] LABS: Glucose Point of Care 123 mg/dl (65-105)
[2020-10-31] MEDS: FUROSEMIDE INJ 40 MG/4 ML VIAL 20 MG IV PUSH (13:05)
[2020-10-31 17:35] LABS: Hemoglobin 7.9 g/dL (14.0-18.0)
[2020-10-31 18:00] LABS: Glucose Point of Care 116 mg/dl (65-105)
[2020-10-31 20:33] LABS: Glucose Point of Care 107 mg/dl (65-105)
--- NOTE | 2020-10-31 21:23 | PM.EVENT ---
Event Note Event Note Event Note: [facility] transfer line called and dissucssed case with Dr. Caputo, updated her regarding the patient. She accepts the patient to her hospital. Awaiting bed avaialbility for transfer.
[2020-10-31] MEDS: PANTOPRAZOLE 40 MG TABLET PO (22:15)
[2020-11-01] VITALS (13 sets, daily range): BP systolic 134–141; BP diastolic 76–89; PULSE 61–95; RESP 16–20; TEMP 36.2–36.9; O2SAT 98–100
[2020-11-01] MEDS: LEVOTHYROXINE SODIUM 100 MCG TABLET PO (05:09)
[2020-11-01] MEDS: CENTRAL LINE FLUSH 10 ML IV PUSH ×3 (05:09→22:04)
[2020-11-01 05:45] LABS: Hematocrit 25.9 % (42.0-52.0); Hemoglobin 8.2 g/dL (14.0-18.0); Mean Corpuscular HGB Conc 31.7 g/dl (32-36); Mean Corpuscular Hemoglobin 27.8 pg (26-34); Mean Corpuscular Volume 87.8 fl (80-100); Mean Platelet Volume 9.2 fl (7.4-10.4); Platelet Count Result 228 k/mm3 (150-375); Red Blood Count 2.95 M/mm3 (4.6-6.20); Red Cell Distribution Width 16.2 % (11.5-14.5); White Blood Count 5.7 K/mm3 (4.5-10.0)
[2020-11-01 06:10] LABS: Alanine Aminotransferase 15 U/L (4-50); Albumin Level 2.9 g/dL (3.5-5.1); Alkaline Phosphatase 67 U/L (38-126); Anion Gap 7 mmol/L (8-16); Aspartate Amino Transferase 22 U/L (17-59); Bilirubin,Total 0.5 mg/dL (0.2-1.3); Blood Urea Nitrogen 63 mg/dL (9-20); Calcium 8.3 mg/dL (8.4-10.2); Carbon Dioxide 28 mmol/L (22-30); Chloride 101 mmol/L (98-107); Estimated CRCL calculation 64 ml/min; Estimated Glomerular Filt Rate 37; Glucose 96 mg/dL (65-110); Magnesium 1.7 mg/dL (1.6-2.3); Phosphorus 3.4 mg/dL (2.5-4.5); Potassium 2.8 mmol/L (3.4-5.0); Sodium 136 mmol/L (137-145)
[2020-11-01] MEDS: POTASSIUM CHLORIDE 20 MEQ TABLET 40 MEQ PO (08:45)
[2020-11-01] MEDS: HYDROCORTISONE SODIUM SUCCINATE 100 MG/2 ML VIAL 50 MG IV PUSH (08:45)
[2020-11-01] MEDS: PANTOPRAZOLE 40 MG TABLET PO ×2 (08:45→20:16)
[2020-11-01] MEDS: allopurinoL 300 MG TABLET PO (08:45)
[2020-11-01] MEDS: TOLNAFTATE 1% POWDER 45 GM BTL 1 APPLIC TOPICAL ×2 (08:46→22:03)
[2020-11-01] MEDS: SOD HYPOCHLORITE 1/4 STRENGTH 473 ML 1 APPLIC TOPICAL (08:46)
[2020-11-01] MEDS: LACTIC ACID 12% LOTION 225 BTL 1 APPLIC TOPICAL (08:46)
[2020-11-01] MEDS: INSULIN GLARGINE (*BKC) 100 UNITS/ML 15 UNITS SUB-Q (08:48)
[2020-11-01 09:04] LABS: Glucose Point of Care 101 mg/dl (65-105)
--- NOTE | 2020-11-01 12:20 | P.PNNP_ITS ---
Progress Note: A&P Assessment and Plan (1) KONSTANTIN (acute kidney injury): Code(s): N17.9 - Acute kidney failure, unspecified Status: Acute Assessment and Plan: * due to a combination of infection/sepsis and hemodynamic instability * creatinine seems to be improving. Now down to 1.8 * doing better overall. * off ivfs and eating well. * K low. to get scheduled K (2) Stage 3b chronic kidney disease: Code(s): N18.32 - Chronic kidney disease, stage 3b Status: Chronic Assessment and Plan: * baseline creatinine runs around 1.6 - 2.1mg/dl * however, he has fluctuated to extremes with his recent hospitalizations * this is secondary to hypertension and diabetes (3) Sepsis: Qualifiers: Acute renal failure type: unspecified Sepsis acute organ dysfunction status: with acute organ dysfunction Sepsis type: sepsis due to unspecified organism Severe sepsis acute organ dysfunction type: acute renal failure Severe sepsis shock status: without septic shock Qualified Code(s): A41.9 - Sepsis, unspecified organism; R65.20 - Severe sepsis without septic shock; N17.9 - Acute kidney failure, unspecified Code(s): A41.9 - Sepsis, unspecified organism Status: Acute Assessment and Plan: * shock resolved (off pressors) * blood cultures with GNB * on broad spectrum antibiotics * follow culture date (4) Sacral decubitus ulcer: Onset Date: Unknown Code(s): L89.159 - Pressure ulcer of sacral region, unspecified stage Status: Acute Assessment and Plan: * presumed source of infection and #3 * Surgery following * s/p debridement * local wound care (5) Cellulitis: Code(s): L03.90 - Cellulitis, unspecified Status: Acute Assessment and Plan: * suspected based on LE wounds * his bilateral chronic lymphedema complicates things * On vancomycin and Zosyn. * With acute kidney injury consider changing Zosyn to cefepime. * local wound care (6) Anemia: Qualifiers: Anemia type: iron deficiency Iron deficiency anemia type: unspecified iron deficiency Qualified Code(s): D50.9 - Iron deficiency anemia, unspecified Code(s): D64.9 - Anemia, unspecified Status: Chronic Assessment and Plan: * due to KONSTANTIN, CKD, and acute illness * component of iron deficiency in the past as well * He needed a blood transfusion last night. (7) Diabetes: Code(s): E11.9 - Type 2 diabetes mellitus without complications Status: Acute Assessment and Plan: * follow accuchecks * glycemic control Subjective Date/time seen: 11/01/20 12:20 Interval history: Mr. Handy feels okay he is mulling over the possibility of a colostomy Exam Narrative: General: WD/WN male in NAD Heart: normal S1 and S2; no rub Lungs: clear to auscultation Abdomen: soft, nontender, nondistended, positive bowel sounds Extremities: bilateral lymphedema changes Skin: Chronic venous stasis changes Objective Data Vital Signs Vital Signs: Vital Signs - 24 hr 10/31/20 12:45 10/31/20 12:55 10/31/20 13:37 Temperature 36.7 C 36.5 C 36.6 C Pulse Rate 87 89 87 Respiratory Rate 21 H 18 18 Blood Pressure 128/78 138/77 130/80 Pulse Oximetry 99 98 99 10/31/20 13:53 10/31/20 14:00 10/31/20 14:53 Temperature 36.9 C 36.5 C Pulse Rate 88 89 86 Res
--- NOTE | 2020-11-01 12:20 | PM.PNNEP ---
Progress Note: A&P Assessment and Plan (1) KONSTANTIN (acute kidney injury): Code(s): N17.9 - Acute kidney failure, unspecified Status: Acute Assessment and Plan: due to a combination of infection/sepsis and hemodynamic instability creatinine seems to be improving. Now down to 1.8 doing better overall. off ivfs and eating well. K low. to get scheduled K (2) Stage 3b chronic kidney disease: Code(s): N18.32 - Chronic kidney disease, stage 3b Status: Chronic Assessment and Plan: baseline creatinine runs around 1.6 - 2.1mg/dl however, he has fluctuated to extremes with his recent hospitalizations this is secondary to hypertension and diabetes (3) Sepsis: Qualifiers: Acute renal failure type: unspecified Sepsis acute organ dysfunction status: with acute organ dysfunction Sepsis type: sepsis due to unspecified organism Severe sepsis acute organ dysfunction type: acute renal failure Severe sepsis shock status: without septic shock Qualified Code(s): A41.9 - Sepsis, unspecified organism; R65.20 - Severe sepsis without septic shock; N17.9 - Acute kidney failure, unspecified Code(s): A41.9 - Sepsis, unspecified organism Status: Acute Assessment and Plan: shock resolved (off pressors) blood cultures with GNB on broad spectrum antibiotics follow culture date (4) Sacral decubitus ulcer: Onset Date: Unknown Code(s): L89.159 - Pressure ulcer of sacral region, unspecified stage Status: Acute Assessment and Plan: presumed source of infection and #3 Surgery following s/p debridement local wound care (5) Cellulitis: Code(s): L03.90 - Cellulitis, unspecified Status: Acute Assessment and Plan: suspected based on LE wounds his bilateral chronic lymphedema complicates things On vancomycin and Zosyn. With acute kidney injury consider changing Zosyn to cefepime. local wound care (6) Anemia: Qualifiers: Anemia type: iron deficiency Iron deficiency anemia type: unspecified iron deficiency Qualified Code(s): D50.9 - Iron deficiency anemia, unspecified Code(s): D64.9 - Anemia, unspecified Status: Chronic Assessment and Plan: due to KONSTANTIN, CKD, and acute illness component of iron deficiency in the past as well He needed a blood transfusion last night. (7) Diabetes: Code(s): E11.9 - Type 2 diabetes mellitus without complications Status: Acute Assessment and Plan: follow accuchecks glycemic control Subjective Date/time seen: 11/01/20 12:20 Interval history: Mr. Handy feels okay he is mulling over the possibility of a colostomy Exam Narrative: General: WD/WN male in NAD Heart: normal S1 and S2; no rub Lungs: clear to auscultation Abdomen: soft, nontender, nondistended, positive bowel sounds Extremities: bilateral lymphedema changes Skin: Chronic venous stasis changes Objective Data Vital Signs Vital Signs: Vital Signs - 24 hr 10/31/20 12:45 10/31/20 12:55 10/31/20 13:37 Temperature 36.7 C 36.5 C 36.6 C Pulse Rate 87 89 87 Respiratory Rate 21 H 18 18 Blood Pressure 128/78 138/77 130/80 Pulse Oximetry 99 98 99 10/31/20 13:53 10/31/20 14:00 10/31/20 14:53 Temperature 36.9 C 36.5 C Pulse Rate 88 89 86 Respiratory Rate 20 22 H Blood Pressure 130/77 131/76 Pulse Oximetry 98 100 10/31/20 15:53 10/31/20 16:00 10/31/20 16:10 Temperature 36.9 C 36.9 C Pulse Rate 88 74 88 Respiratory Rate 20 20 Blood Pressure 130/77 132/77 Pulse Oximetry 98 100 10/31/20 16:23 10/31/20 18:00 10/31/20 20:00 Temperature 36.9 C Pulse Rate 88 88 78 Respiratory Rate 20 Blood Pressure 130/77 Pulse Oximetry 98 10/31/20 20:43 10/31/20 22:00 10/31/20 23:14 Temperature 36.8 C 36.6 C Pulse Rate 89 73 91 Respiratory Rate 20 20 Blood Pressure 133/81 126/85 Pulse Oximetry 98 100 11/01/20 00:00
[2020-11-01] MEDS: POTASSIUM CHLORIDE 20 MEQ TABLET.ER 40 MEQ PO ×3 (12:37→23:16)
[2020-11-01 12:58] LABS: Glucose Point of Care 145 mg/dl (65-105)
--- NOTE | 2020-11-01 14:35 | PM.IMPN ---
Progress Note: A&P Assessment and Plan (1) Septic shock: Code(s): A41.9 - Sepsis, unspecified organism; R65.21 - Severe sepsis with septic shock Status: Acute Assessment and Plan: Patient presented with weakness and found to be hypotensive in septic shock requiring 3 L fluid bolus in the ER -for infection: Likely decubital ulcer with large wound and associated infection. -he was initially admitted to ICU. Off vasopressors now. He was transferred out of ICU. -stress dose steroid has been weaned off to 50 mg IV twice a day yesterday and will stop it today. -he received IV fluid and albumin with both of them has been stopped today. -blood cultures have been obtained and 1/2 is growing Gram-negative bacilli. It has not been speciated yet. - urine culture pending. Wound culture is growing fusobacterium. Will get infectious disease service recommendations. -patient on vancomycin and Zosyn. Cultures have been negative. Continue to monitor culture. (2) Cellulitis: Code(s): L03.90 - Cellulitis, unspecified Status: Acute Assessment and Plan: Continue vancomycin and Zosyn Wound care Service to follow. Patient was evaluated by surgery. He had extensive debridement done on 10/27 in OR. Surgery is planning to repeat debridement again bed they have recommended him to be transferred to tertiary care hospital. [facility] has been called but they do not have bed. [facility] has accepted him. He has been placed on waiting list and will be transferred there once bed is available P (3) Decubitus ulcer: Qualifiers: Laterality: right Pressure injury location: buttock Pressure injury stage: stage 3 Qualified Code(s): L89.313 - Pressure ulcer of right buttock, stage 3 Code(s): L89.90 - Pressure ulcer of unspecified site, unspecified stage Status: Deleted Assessment and Plan: 10/27 - extensive debridement stage 4 sacral ulcer measuring approximately 30 x 27 x 5 cm, washout Wound care is following General surgery will continue to follow. He needs further debridement and surgery service will plan for that if he is not going to get transferred to [facility] in the next 1-2 days. He has been accepted at [facility] for advanced wound care and will be transferred if a bed is available. Bleeding from the wound requiring PRBC transfusions. He was transfused 2 units of PRBC on 10/31. (4) Acute renal failure superimposed on stage 3 chronic kidney disease: Code(s): N17.9 - Acute kidney failure, unspecified; N18.30 - Chronic kidney disease, stage 3 unspecified Status: Acute Assessment and Plan: Patient with acute on chronic kidney disease stage 3. Likely related to hypotension, septic shock, ATN, hypovolemia -patient has received significant amount of IV fluids. IV fluids have been stopped. -monitor urine output, renal function electrolytes -unremarkable renal ultrasound -p.o. bicarb for metabolic acidosis Nephrology service is following. Renal parameters are improving and his serum creatinine was 1.9 today which is down from 2.5 yesterday. (5) Chronic atrial fibrillation with RVR: Code(s): I48.20 - Chronic atrial fibrillation, unspecified Status: Chronic Assessment and Plan: History of chronic AFib, currently rate controlled. He is on Eliquis at his baseline. Eliquis was put on hold because of his renal parameters being abnormal. He was started on heparin drip but now that has been put on hold because of drop in H&H and concern for bleeding from the wound. Continue to monitor. Resume anticoagulation if cleared by surgery service. (6) Type 2 diabetes mellitus with hyperglycemia: Qualifiers: Diabetes mellitus long goods drier insulin use: with senior living use Qualified Code(s): E11.65 - Type 2 diabetes mellitus with hyperglycemia; Z79.4 - [facility] (current) use of insulin Code(s): E11.65 - Type 2 diabetes mellitus with hyperglycemia Status: Acute
[2020-11-01 14:50] LABS: Anion Gap 4 mmol/L (8-16); Blood Urea Nitrogen 60 mg/dL (9-20); Calcium 8.4 mg/dL (8.4-10.2); Carbon Dioxide 29 mmol/L (22-30); Chloride 103 mmol/L (98-107); Estimated CRCL calculation 67 ml/min; Estimated Glomerular Filt Rate 39; Glucose 163 mg/dL (65-110); Potassium 3.1 mmol/L (3.4-5.0); Sodium 136 mmol/L (137-145)
--- NOTE | 2020-11-01 15:01 | PC.NURSE ---
Consulted Dr. Gamble. Dr. Gamble returned called. Microbiology results and antibiotic treatment read to Dr. Gamble, as well as why patient was admitted to IMU. New orders to stop vancomycin and to continue Piperacillin. Add pt to Dr. Gamble's list for rounds
[2020-11-01 17:09] LABS: Glucose Point of Care 138 mg/dl (65-105)
[2020-11-01 20:23] LABS: Glucose Point of Care 149 mg/dl (65-105)
[2020-11-02] VITALS: PULSE 77
[2020-11-02 00:19] LABS: Chloride Rand Ur 28 mmol/L (32-290); Chloride/Creatinine Rand Ur 17 (23-275); Creatinine Random Urine 161 mg/dL (20-320)
[2020-11-02 04:00] VITALS: BP 156/89; PULSE 100; PULSE 79; RESP 20; TEMP 36.5; O2SAT 98
[2020-11-02] MEDS: SOD HYPOCHLORITE 1/4 STRENGTH 473 ML 1 APPLIC TOPICAL ×2 (04:00→10:16)
[2020-11-02 04:16] LABS: Eosinophils Absolute Auto 0.1 K/mm3 (0-0.3); Eosinophils Percent Auto 0.6 % (0-4.4); Hematocrit 28.2 % (42.0-52.0); Immature Granulocyte Absolute 0.27 K/mm3 (0.00-0.031); Immature Granulocyte Percent A 2.8 % (0-0.5); Lymphocytes Absolute Auto 0.64 K/mm3 (0.9-3.2); Lymphocytes Percent Auto 6.8 % (18.3-44.2); Mean Corpuscular HGB Conc 31.9 g/dl (32-36); Mean Corpuscular Hemoglobin 28.2 pg (26-34); Mean Corpuscular Volume 88.4 fl (80-100); Mean Platelet Volume 9.4 fl (7.4-10.4); Monocytes Absolute Auto 0.4 K/mm3 (0.1-0.6); Monocytes Percent Auto 4.1 % (2.6-8.5); Neutrophils Absolute Auto 8.1 K/mm3 (1.3-6.7); Neutrophils Percent Auto 85.7 % (45.5-73.1); Nucleated Red Blood Cells Perc 0.4 % (0.0-0.2); Platelet Count Result 239 k/mm3 (150-375); Red Blood Count 3.19 M/mm3 (4.6-6.20); Red Cell Distribution Width 16.5 % (11.5-14.5); White Blood Count 9.5 K/mm3 (4.5-10.0)
[2020-11-02 04:29] LABS: Albumin Level 2.8 g/dL (3.5-5.1); Anion Gap 6 mmol/L (8-16); Blood Urea Nitrogen 51 mg/dL (9-20); Calcium 8.9 mg/dL (8.4-10.2); Carbon Dioxide 27 mmol/L (22-30); Chloride 108 mmol/L (98-107); Estimated CRCL calculation 71 ml/min; Estimated Glomerular Filt Rate 42; Glucose 122 mg/dL (65-110); Phosphorus 2.1 mg/dL (2.5-4.5); Potassium 3.6 mmol/L (3.4-5.0); Sodium 141 mmol/L (137-145)
[2020-11-02] MEDS: LEVOTHYROXINE SODIUM 100 MCG TABLET PO (06:35)
[2020-11-02] MEDS: CENTRAL LINE FLUSH 10 ML IV PUSH ×2 (06:35→15:56)
[2020-11-02 08:00] VITALS: BP 143/91; PULSE 98; RESP 17; TEMP 36.4; O2SAT 100
--- NOTE | 2020-11-02 08:28 | WPDCDIQUERY2 ---
CDI Query Clarification Request -OP note says that necrotic tissue involving dermis, subcutaneous tissue and in the area in the area of the coccyx, muscle was debrided. Please further specify if debridement was excisional or non excisional.
[2020-11-02 08:45] LABS: Glucose Point of Care 114 mg/dl (65-105)
[2020-11-02] MEDS: INSULIN GLARGINE (*BKC) 100 UNITS/ML 15 UNITS SUB-Q (10:06)
[2020-11-02] MEDS: TOLNAFTATE 1% POWDER 45 GM BTL 1 APPLIC TOPICAL (10:08)
[2020-11-02] MEDS: allopurinoL 300 MG TABLET PO (10:09)
[2020-11-02] MEDS: PANTOPRAZOLE 40 MG TABLET PO ×2 (10:09→20:33)
[2020-11-02] MEDS: ONDANSETRON INJ 4 MG/2 ML VIAL IV PUSH ×2 (10:12→17:46)
[2020-11-02] MEDS: oxyCODONE HCL (*CRX) 5 MG TAB IR PO ×2 (10:12→17:43)
[2020-11-02] MEDS: LACTIC ACID 12% LOTION 225 BTL 1 APPLIC TOPICAL (10:17)
--- NOTE | 2020-11-02 11:10 | WPDINFPN2 ---
Progress Note: A&P Assessment and Plan (1) Septic shock: Code(s): A41.9 - Sepsis, unspecified organism; R65.21 - Severe sepsis with septic shock Status: Acute Assessment and Plan: 1. Gram negative anaerobic bacteremia with infection, Fusobacterium vs other, identification pending 2. Decubitus ulcer, no osteomyelitis REC PipTazo # 8, I stopped Vanc. 10 days therapy is adequate for the bacteremia, but since further surgery is contemplated at U, would continue until that is carried out (or alternative decision made). Call if Qs, sign off Subjective Date/time seen: 11/02/20 11:10 Objective Data Vital Signs Vital Signs: Vital Signs - 24 hr 11/01/20 12:00 11/01/20 14:00 11/01/20 16:00 Temperature 36.5 C Pulse Rate 79 81 80 Respiratory Rate 20 Blood Pressure 138/76 Pulse Oximetry 100 100 11/01/20 19:37 11/01/20 20:00 11/01/20 23:44 Temperature 36.9 C 36.4 C Pulse Rate 95 91 83 Respiratory Rate 16 18 Blood Pressure 134/87 141/89 H Pulse Oximetry 100 100 100 11/02/20 00:00 11/02/20 04:00 11/02/20 08:00 Temperature 36.5 C 36.4 C Pulse Rate 77 79 98 Respiratory Rate 20 17 Blood Pressure 156/89 H 143/91 H Pulse Oximetry 98 100 Intake/Output Intake/Output: Intake & Output 10/30/20 10/31/20 11/01/20 11/02/20 23:59 23:59 23:59 23:59 Intake Total 1510 3005 440 740 Output Total 3000 2450 2750 800 Balance -1490 555 -2310 -60 Meds/Results Medications: Active Medications Generic Name Dose Route Start Last Admin Trade Name Freq PRN Reason Stop Dose Admin Acetaminophen 650 mg 10/31/20 09:44 Acetaminophen 325 Mg Tablet PO Q6HR PRN Mild Pain (1-3) or Fever Allopurinol 300 mg 10/27/20 08:00 11/02/20 10:09 Allopurinol 300 Mg Tablet PO 300 mg DAILY@0800 AVANI Administration Dextrose 12.5 gm 10/27/20 09:24 Dextrose 50% 25 Gm/50 Ml Syringe IV PUSH PRN PRN Hypoglycemia Protocol Glucagon 1 mg 10/27/20 09:24 Glucagon For Inj 1 Mg Vial IM PRN PRN Hypoglycemia Protocol Glucose 15 gm 10/27/20 09:24 Glucose Oral Gel 15 Gm Of Glucse In 37.5 Gm Tube PO PRN PRN Hypoglycemia Protocol Heparin Sodium (Porcine) 9,500 units 10/27/20 09:23 Heparin Sodium 5,000 Units/Ml Vial IV PUSH PRN PRN aPTT less than 55 seconds Heparin Sodium (Porcine) 4,500 units 10/27/20 09:23 10/30/20 06:40 Heparin Sodium 5,000 Units/Ml Vial IV PUSH 4,500 units PRN PRN Administration aPTT 55 - 70 seconds Heparin Sodium/Dextrose 25,000 units in 250 mls @ 19 mls/hr 10/27/20 09:25 10/31/20 13:04 Heparin Sodium/D5w 100 Units/Ml IV CONT Not Given .[id number] AVANI Protocol 1,900 UNITS/HR Dextrose 1,000 mls @ 100 mls/hr 10/27/20 09:24 Dextrose 5% 1,000 Ml IVPB PRN PRN Hypoglycemia Protocol Piperacillin/Tazobactam/Dextrose 3.375 gm in 50 mls @ 100 mls/hr 10/31/20 04:00 11/02/20 10:07 Zosyn 3.375 Gm/D5w 50ml Pm IVPB 100 mls/hr Q6H AVANI Administration Insulin Aspart 3 - 6 units 10/27/20 12:00 11/02/20 09:32 Insulin Aspart (*Bkc) 100 Units/Ml SUB-Q Not Given TIDWM [facility] Protocol Insulin Glargine 15 units 10/29/20 10:30 11/02/20 10:06 Insulin Glargine (*Bkc) 100 Units/Ml SUB-Q 15 units QAM AVANI Administration Lactic Acid 1 applic 10/30/20 17:00 11/02/20 10:17 Lactic Acid 12% Lotion 225 Btl TOPICAL 1 applic DAILY AVANI Administration Levothyroxine Sodium 100 mcg 10/28/20 06:30 11/02/20 06:35 Levothyroxine Sodium 100 Mcg Tablet PO 100 mcg DAILY@0630 AVANI Administration Morphine Sulfate 2 mg 10/31/20 11:00 10/31/20 18:21 Morphine Sulfate (*Crx) 2 Mg/Ml Inj IV PUSH 2 mg Q6H PRN Administration Pain Rated 7-10 Ondansetron HCl 4 mg 10/26/20 23:14 11/02/20 10:12 Ondansetron Inj 4 Mg/2 Ml Vial IV PUSH 4 mg Q4H PRN Administration Nausea Oxycodone HCl 5 mg 10/31/20 10:58 11/02/20 10:12
[2020-11-02 12:04] LABS: Glucose Point of Care 168 mg/dl (65-105)
--- NOTE | 2020-11-02 13:52 | PM.IMPN ---
Progress Note: A&P Assessment and Plan (1) KONSTANTIN (acute kidney injury): Code(s): N17.9 - Acute kidney failure, unspecified Status: Acute (2) Septic shock: Code(s): A41.9 - Sepsis, unspecified organism; R65.21 - Severe sepsis with septic shock Status: Acute (3) Cellulitis: Code(s): L03.90 - Cellulitis, unspecified Status: Acute (4) Acute renal failure superimposed on stage 3 chronic kidney disease: Code(s): N17.9 - Acute kidney failure, unspecified; N18.30 - Chronic kidney disease, stage 3 unspecified Status: Acute (5) Sacral decubitus ulcer: Onset Date: Unknown Code(s): L89.159 - Pressure ulcer of sacral region, unspecified stage Status: Acute (6) Type 2 diabetes mellitus with hyperglycemia: Qualifiers: Diabetes mellitus retirement insulin use: with retirement use Qualified Code(s): E11.65 - Type 2 diabetes mellitus with hyperglycemia; 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 Off vasopressors now. He was transferred out of ICU. - Stress dose steroid has been weaned off - He received IV fluid and albumin with both of them has been stopped - Blood cultures have been obtained and 1/2 is growing Gram-negative bacilli. It has not been speciated yet. - Urine culture pending. Wound culture is growing fusobacterium. - Appreciate infectious disease service recommendations. Continue Zosyn. Vanc has been stopped. - Discontinue Tele - Remove central line (2) Cellulitis: Stop vancomycin and continue Zosyn per ID. Wound care Service to follow. Patient was evaluated by surgery. He had extensive debridement done on 10/27 in OR. Surgery is planning to repeat debridement again bed they have recommended him to be transferred to tertiary care hospital. [facility] has been called but they do not have bed. [facility] has accepted him. He has been placed on waiting list and will be transferred there once bed is available. (3) Decubitus ulcer: 10/27 - extensive debridement stage 4 sacral ulcer measuring approximately 30 x 27 x 5 cm, washout Wound care is following General surgery will continue to follow. He needs further debridement and surgery service will plan for that if he is not going to get transferred to [facility] in the next 1-2 days. He has been accepted at [facility] for advanced wound care and will be transferred if a bed is available. Bleeding from the wound requiring PRBC transfusions. He was transfused 2 units of PRBC on 10/31. Surgery planning possible debridement again tomorrow 11/03 is still here (4) Acute renal failure superimposed on stage 3 chronic kidney disease: Patient with acute on chronic kidney disease stage 3. Likely related to hypotension, septic shock, ATN, hypovolemia -patient has received significant amount of IV fluids. IV fluids have been stopped. -monitor urine output, renal function electrolytes -unremarkable renal ultrasound -p.o. bicarb for metabolic acidosis - Nephrology service is following. - Renal parameters are improving and his serum creatinine was 1.7 today continues downward trend (5) Chronic atrial fibrillation with RVR: History of chronic AFib, currently rate controlled. He is on Eliquis at his baseline. Eliquis was put on hold because of his renal parameters being abnormal. He was started on heparin drip but now that has been put on hold because of drop in H&H and concern for bleeding from the wound. Continue to monitor. Resume anticoagulation if cleared by surgery service. (6) Type 2 diabetes mellitus with hypergly
[2020-11-02] MEDS: NYSTATIN 100,000 UNITS/ML SUSP 5 ML ORAL.SUSP PO ×3 (13:57→20:33)
--- NOTE | 2020-11-02 15:05 | CONS_ITS ---
DATE OF CONSULTATION: 11/02/2020 REASON FOR CONSULTATION: Bacteremia. HISTORY OF PRESENT ILLNESS: 60-year-old male who was admitted to the hospital on October 26 and was in septic shock, decubitus ulcer as the suspected source. He has been on piperacillin and vancomycin since arrival, had placement of a right IJ triple-lumen catheter, which remains in place now. He required vasopressors and also was taken to the operating room the day after admission where he underwent debridement of a decubitus ulcer. He now has been transferred out of the intensive care unit. Positive blood culture was reported 2 days after arrival, which has not yet been identified. I was notified last evening of the new consult for the positive blood culture. Patient without fever, chills, sweats, or abdominal pain. He did have some diarrhea, which is not abating. No other antimicrobials. No immunosuppressants currently, though he did receive some for his septic shock. No antibiotics prior to admission. PRESENT MEDICATIONS: List reviewed. No immunosuppressants, currently off the hydrocortisone 2 days. ALLERGIES: IBUPROFEN. HABITS: No tobacco. No alcohol. PAST MEDICAL HISTORY: Morbid obesity, umbilical hernia repair, gastric bypass, right BKA, lithotripsy for stones, DON, PUD, RLS, type 2 diabetes mellitus, hypothyroidism, hypertension, hyperlipidemia, gout, GERD, prior DVT, diabetic nephropathy, retinopathy, neuropathy, gastroparesis, stage 3 chronic renal insufficiency, AF, anemia, lymphedema. SOCIAL HISTORY: He is single, lives with his mother. Disabled. REVIEW OF SYSTEMS: 14-point review otherwise negative. FAMILY HISTORY: Not pertinent to his present illness. PHYSICAL EXAMINATION: GENERAL: This is a middle-aged male who appears his actual age. No acute distress. VITAL SIGNS: 143/91, 98, 17, 100% on room air. He had normal temperature on arrival, was hypothermic following day, has been afebrile throughout. He is on no pressors. He appears well. SKIN: No generalized rashes. Warm and dry. NODES: No cervical adenopathy. EENT: The conjunctivae are clear. He has oral thrush. Otherwise, the mouth and teeth are normal. NECK: He has a right IJ triple-lumen catheter placed on admission. No tenderness or erythema. LUNGS: Clear to auscultation and percussion. CARDIAC: Regular rate and rhythm. No murmur, gallop, or rub. Pulses are 1+ and equal. ABDOMEN: Massively obese. No masses, tenderness, or organomegaly. EXTREMITIES: 1+ edema. BACK: His ulcer is dressed. I did not remove the dressing. LABORATORY DATA: Blood cultures 1 out of 2 sets, anaerobic bottle, gram-negative taty. Urine culture final, no growth from his operative intervention 10/27. Multiple organisms on Gram stain and grew mixed tay plus light growth of fusobacterium species. His C difficile assay, 10/30 was nonreactive. White blood cell count 9.5, hemoglobin 9.0. Hemoglobin has been rising with transfusion. His platelets are 239, differential normal. Chemistries normal except for BUN of 51, creatinine 1.7 which is declining. Glucose 122. Hemoglobin A1c in August 7.1%. Albumin 2.8. RADIOLOGY: Chest x-ray, pulmonary edema. ASSESSMENT: 1. Anaerobic gram-negative bacteremia with infection, I suspect fusobacterium. Cannot rule out bacteroides or other anaerobic Gram negatives. Laboratory, as would be expected, has not yet been able to identify the organism after 5 days of further analysis. Regardless, he likely has had appropriate treatment for this bacteremia and I do not think he is in need of further blood cultures for confirmation of the same. Decubitus ulcer is the source. I doubt other sources such as lower GI, biliary or odontogenic. I doubt a contaminant. 2. Decubitus ulcer, inf
[2020-11-02 15:52] LABS: Glucose Point of Care 158 mg/dl (65-105)
--- NOTE | 2020-11-02 17:41 | P.PNNP_ITS ---
Progress Note: A&P Assessment and Plan (1) KONSTANTIN (acute kidney injury): Code(s): N17.9 - Acute kidney failure, unspecified Status: Acute Assessment and Plan: * due to a combination of infection/sepsis and hemodynamic instability * creatinine seems to be improving. Now down to 1.7 * doing better overall. * off ivfs and eating well. * K okay today (2) Stage 3b chronic kidney disease: Code(s): N18.32 - Chronic kidney disease, stage 3b Status: Chronic Assessment and Plan: * baseline creatinine runs around 1.6 - 2.1mg/dl * however, he has fluctuated to extremes with his recent hospitalizations * this is secondary to hypertension and diabetes (3) Sepsis: Qualifiers: Acute renal failure type: unspecified Sepsis acute organ dysfunction status: with acute organ dysfunction Sepsis type: sepsis due to unspecified organism Severe sepsis acute organ dysfunction type: acute renal failure Severe sepsis shock status: without septic shock Qualified Code(s): A41.9 - Sepsis, unspecified organism; R65.20 - Severe sepsis without septic shock; N17.9 - Acute kidney failure, unspecified Code(s): A41.9 - Sepsis, unspecified organism Status: Acute Assessment and Plan: * shock resolved (off pressors) * blood cultures with GNB * on broad spectrum antibiotics * follow culture date (4) Sacral decubitus ulcer: Onset Date: Unknown Code(s): L89.159 - Pressure ulcer of sacral region, unspecified stage Status: Acute Assessment and Plan: * presumed source of infection and #3 * Surgery following * s/p debridement * local wound care (5) Cellulitis: Code(s): L03.90 - Cellulitis, unspecified Status: Acute Assessment and Plan: * suspected based on LE wounds * his bilateral chronic lymphedema complicates things * On Zosyn. * local wound care (6) Anemia: Qualifiers: Anemia type: iron deficiency Iron deficiency anemia type: unspecified iron deficiency Qualified Code(s): D50.9 - Iron deficiency anemia, unspecified Code(s): D64.9 - Anemia, unspecified Status: Chronic Assessment and Plan: * due to KONSTANTIN, CKD, and acute illness * component of iron deficiency in the past as well * He needed a blood transfusion last night. (7) Diabetes: Code(s): E11.9 - Type 2 diabetes mellitus without complications Status: Acute Assessment and Plan: * follow accuchecks * glycemic control Subjective Date/time seen: 11/02/20 17:41 Interval history: Mr. Handy feels okay waiting for transfer to [facility]. No shortness of breath or chest pain. Exam Narrative: General: WD/WN male in NAD Heart: normal S1 and S2; no rub Lungs: clear Abdomen: soft, nontender, nondistended, positive bowel sounds Extremities: bilateral lymphedema changes Skin: Chronic venous stasis changes Objective Data Vital Signs Vital Signs: Vital Signs - 24 hr 11/01/20 19:37 11/01/20 20:00 11/01/20 23:44 Temperature 36.9 C 36.4 C Pulse Rate 95 91 83 Respiratory Rate 16 18 Blood Pressure 134/87 141/89 H Pulse Oximetry 100 100 100 11/02/20 00:00 11/02/20 04:00 11/02/20 08:00 Temperature 36.5 C 36.4 C Pulse Rate 77 79 98 Respiratory Rate 20 17 Blood Pressure 156/89 H 143/
--- NOTE | 2020-11-02 17:41 | PM.PNNEP ---
Progress Note: A&P Assessment and Plan (1) KONSTANTIN (acute kidney injury): Code(s): N17.9 - Acute kidney failure, unspecified Status: Acute Assessment and Plan: due to a combination of infection/sepsis and hemodynamic instability creatinine seems to be improving. Now down to 1.7 doing better overall. off ivfs and eating well. K okay today (2) Stage 3b chronic kidney disease: Code(s): N18.32 - Chronic kidney disease, stage 3b Status: Chronic Assessment and Plan: baseline creatinine runs around 1.6 - 2.1mg/dl however, he has fluctuated to extremes with his recent hospitalizations this is secondary to hypertension and diabetes (3) Sepsis: Qualifiers: Acute renal failure type: unspecified Sepsis acute organ dysfunction status: with acute organ dysfunction Sepsis type: sepsis due to unspecified organism Severe sepsis acute organ dysfunction type: acute renal failure Severe sepsis shock status: without septic shock Qualified Code(s): A41.9 - Sepsis, unspecified organism; R65.20 - Severe sepsis without septic shock; N17.9 - Acute kidney failure, unspecified Code(s): A41.9 - Sepsis, unspecified organism Status: Acute Assessment and Plan: shock resolved (off pressors) blood cultures with GNB on broad spectrum antibiotics follow culture date (4) Sacral decubitus ulcer: Onset Date: Unknown Code(s): L89.159 - Pressure ulcer of sacral region, unspecified stage Status: Acute Assessment and Plan: presumed source of infection and #3 Surgery following s/p debridement local wound care (5) Cellulitis: Code(s): L03.90 - Cellulitis, unspecified Status: Acute Assessment and Plan: suspected based on LE wounds his bilateral chronic lymphedema complicates things On Zosyn. local wound care (6) Anemia: Qualifiers: Anemia type: iron deficiency Iron deficiency anemia type: unspecified iron deficiency Qualified Code(s): D50.9 - Iron deficiency anemia, unspecified Code(s): D64.9 - Anemia, unspecified Status: Chronic Assessment and Plan: due to KONSTANTIN, CKD, and acute illness component of iron deficiency in the past as well He needed a blood transfusion last night. (7) Diabetes: Code(s): E11.9 - Type 2 diabetes mellitus without complications Status: Acute Assessment and Plan: follow accuchecks glycemic control Subjective Date/time seen: 11/02/20 17:41 Interval history: Mr. Handy feels okay waiting for transfer to [facility]. No shortness of breath or chest pain. Exam Narrative: General: WD/WN male in NAD Heart: normal S1 and S2; no rub Lungs: clear Abdomen: soft, nontender, nondistended, positive bowel sounds Extremities: bilateral lymphedema changes Skin: Chronic venous stasis changes Objective Data Vital Signs Vital Signs: Vital Signs - 24 hr 11/01/20 19:37 11/01/20 20:00 11/01/20 23:44 Temperature 36.9 C 36.4 C Pulse Rate 95 91 83 Respiratory Rate 16 18 Blood Pressure 134/87 141/89 H Pulse Oximetry 100 100 100 11/02/20 00:00 11/02/20 04:00 11/02/20 08:00 Temperature 36.5 C 36.4 C Pulse Rate 77 79 98 Respiratory Rate 20 17 Blood Pressure 156/89 H 143/91 H Pulse Oximetry 98 100 Intake/Output Intake/Output: Intake & Output 10/30/20 10/31/20 11/01/20 11/02/20 23:59 23:59 23:59 23:59 Intake Total 1510 3005 440 1030 Output Total 3000 2450 2750 1700 Balance -1490 639 -1159 -741 Meds/Results Medications: Active Medications Generic Name Dose Route Start Last Admin Trade Name Freq PRN Reason Stop Dose Admin Acetaminophen 650 mg 10/31/20 09:44 Acetaminophen 325 Mg Tablet PO Q6HR PRN Mild Pain (1-3) or Fever Allopurinol 300 mg 10/27/20 08:00 11/02/20 10:09 Allopurinol 300 Mg Tablet PO 300 mg DAILY@0800 [facility] Administration
[2020-11-02 20:00] VITALS: O2SAT 99
[2020-11-02 20:16] VITALS: BP 125/79; PULSE 78; RESP 18; TEMP 36.4; O2SAT 99
--- NOTE | 2020-11-02 20:40 | PM.PNGS ---
Progress Note: A&P Assessment and Plan (1) Sacral decubitus ulcer: Onset Date: Unknown Code(s): L89.159 - Pressure ulcer of sacral region, unspecified stage Status: Acute Assessment and Plan: Patient still awaiting transfer to [facility]. Will make NPO after midnight. Will consider further debridement if he is still here tomorrow and hasn't received word of bed availability. Subjective Subjective Date/Time Seen: 11/02/20 20:40 Interval history: Patient still awaiting transfer to [facility]. Continuing local wound care, but wound care difficult due to obesity, immobility, and stool soilage. Exam Skin: Other: large area of necrotic tissue in bed of sacral decubitus ulcer Objective Data Vital Signs Vital Signs: Vital Signs - 24 hr 11/01/20 23:44 11/02/20 00:00 11/02/20 04:00 Temperature 36.4 C 36.5 C Pulse Rate 83 77 79 Respiratory Rate 18 20 Blood Pressure 141/89 H 156/89 H Pulse Oximetry 100 98 11/02/20 08:00 11/02/20 20:16 Temperature 36.4 C 36.4 C Pulse Rate 98 78 Respiratory Rate 17 18 Blood Pressure 143/91 H 125/79 Pulse Oximetry 100 99 Intake/Output Intake/Output: Intake & Output 10/30/20 10/31/20 11/01/20 11/02/20 23:59 23:59 23:59 23:59 Intake Total 1510 3005 440 1560 Output Total 3000 2450 2750 1700 Balance -1490 868 -5990 -140 Meds/Results Medications: Active Medications Generic Name Dose Route Start Last Admin Trade Name Freq PRN Reason Stop Dose Admin Acetaminophen 650 mg 10/31/20 09:44 Acetaminophen 325 Mg Tablet PO Q6HR PRN Mild Pain (1-3) or Fever Allopurinol 300 mg 10/27/20 08:00 11/02/20 10:09 Allopurinol 300 Mg Tablet PO 300 mg DAILY@0800 [facility] Administration Dextrose 12.5 gm 10/27/20 09:24 Dextrose 50% 25 Gm/50 Ml Syringe IV PUSH PRN PRN Hypoglycemia Protocol Glucagon 1 mg 10/27/20 09:24 Glucagon For Inj 1 Mg Vial IM PRN PRN Hypoglycemia Protocol Glucose 15 gm 10/27/20 09:24 Glucose Oral Gel 15 Gm Of Glucse In 37.5 Gm Tube PO PRN PRN Hypoglycemia Protocol Heparin Sodium (Porcine) 9,500 units 10/27/20 09:23 Heparin Sodium 5,000 Units/Ml Vial IV PUSH PRN PRN aPTT less than 55 seconds Heparin Sodium (Porcine) 4,500 units 10/27/20 09:23 10/30/20 06:40 Heparin Sodium 5,000 Units/Ml Vial IV PUSH 4,500 units PRN PRN Administration aPTT 55 - 70 seconds Heparin Sodium/Dextrose 25,000 units in 250 mls @ 19 mls/hr 10/27/20 09:25 10/31/20 13:04 Heparin Sodium/D5w 100 Units/Ml IV CONT Not Given .[id number] [facility] Protocol 1,900 UNITS/HR Dextrose 1,000 mls @ 100 mls/hr 10/27/20 09:24 Dextrose 5% 1,000 Ml IVPB PRN PRN Hypoglycemia Protocol Piperacillin/Tazobactam/Dextrose 3.375 gm in 50 mls @ 100 mls/hr 10/31/20 04:00 11/02/20 20:33 Zosyn 3.375 Gm/D5w 50ml Pm IVPB 100 mls/hr Q6H [facility] Administration Insulin Aspart 3 - 6 units 10/27/20 12:00 11/02/20 17:43 Insulin Aspart (*Bkc) 100 Units/Ml SUB-Q Not Given TIDWM [facility] Protocol Insulin Glargine 15 units 10/29/20 10:30 11/02/20 10:06 Insulin Glargine (*Bkc) 100 Units/Ml SUB-Q 15 units QAM [facility] Administration Lactic Acid 1 applic 10/30/20 17:00 11/02/20 10:17 Lactic Acid 12% Lotion 225 Btl TOPICAL 1 applic DAILY [facility] Administration Levothyroxine Sodium 100 mcg 10/28/20 06:30 11/02/20 06:35 Levothyroxine Sodium 100 Mcg Tablet PO 100 mcg DAILY@0630 [facility] Administration Morphine Sulfate 2 mg 10/31/20 11:00 10/31/20 18:21 Morphine Sulfate (*Crx) 2 Mg/Ml Inj IV PUSH 2 mg Q6H PRN Administration Pain Rated 7-10 Nystatin 5 ml 11/02/20 13:00 11/02/20 20:33 Nystatin 100,000 Units/Ml Susp 5 Ml Oral.Susp PO 11/09/20 09:01 5 ml QID [facility] Administration Ondansetron HCl 4 mg 10/26/20 23:14 11/02/20 17:46 Ondansetron Inj 4 Mg/2 Ml Vial IV PUSH 4 mg Q4H PRN Administration Nausea O
[2020-11-02 20:46] LABS: Glucose Point of Care 133 mg/dl (65-105)
[2020-11-02 22:30] VITALS: O2SAT 99
[2020-11-03] VITALS (14 sets, daily range): BP systolic 102–142; BP diastolic 54–94; PULSE 74–149; RESP 12–24; TEMP 36.6–37.1; O2SAT 98–100
[2020-11-03 02:06] LABS: Glucose Point of Care 92 mg/dl (65-105)
[2020-11-03] MEDS: LEVOTHYROXINE SODIUM 100 MCG TABLET PO (04:32)
[2020-11-03] MEDS: TOLNAFTATE 1% POWDER 45 GM BTL 1 APPLIC TOPICAL ×3 (04:53→20:45)
[2020-11-03] MEDS: SOD HYPOCHLORITE 1/4 STRENGTH 473 ML 1 APPLIC TOPICAL ×3 (04:53→20:45)
[2020-11-03 06:31] LABS: Albumin Level 2.6 g/dL (3.5-5.1); Anion Gap 3 mmol/L (8-16); Blood Urea Nitrogen 39 mg/dL (9-20); Calcium 8.1 mg/dL (8.4-10.2); Carbon Dioxide 27 mmol/L (22-30); Chloride 109 mmol/L (98-107); Estimated CRCL calculation 86 ml/min; Estimated Glomerular Filt Rate 52; Glucose 97 mg/dL (65-110); Potassium 3.3 mmol/L (3.4-5.0); Sodium 139 mmol/L (137-145)
--- NOTE | 2020-11-03 07:26 | PM.IMPN ---
Progress Note: A&P Assessment and Plan (1) KONSTANTIN (acute kidney injury): Code(s): N17.9 - Acute kidney failure, unspecified Status: Acute (2) Septic shock: Code(s): A41.9 - Sepsis, unspecified organism; R65.21 - Severe sepsis with septic shock Status: Acute Assessment and Plan: Patient presented with weakness and found to be hypotensive in septic shock requiring 3 L fluid bolus in the ER -for infection: Likely decubital ulcer with large wound and associated infection. -he was initially admitted to ICU. Off vasopressors now. He was transferred out of ICU. -stress dose steroid has been weaned off to 50 mg IV twice a day yesterday and will stop it today. -he received IV fluid and albumin with both of them has been stopped today. -blood cultures have been obtained and 1/2 is growing Gram-negative bacilli. It has not been speciated yet. - urine culture pending. Wound culture is growing fusobacterium. -patient wall as on vancomycin and Zosyn. Now vancomycin has been stopped. Continue to monitor culture. Infectious Disease Service recommendations appreciated. (3) Cellulitis: Code(s): L03.90 - Cellulitis, unspecified Status: Acute Assessment and Plan: Continue Zosyn. He was on vancomycin which was stopped by infectious disease service. Wound care Service to follow. Patient was evaluated by surgery. He had extensive debridement done on 10/27 in OR. He is scheduled to go to OR today again for debridement of his wound. [facility] has been called but they do not have bed. [facility] has accepted him. He has been placed on waiting list and will be transferred there once bed is available. He agrees to have colostomy now. He earlier refused for it when offered to him by surgery service. (4) Acute renal failure superimposed on stage 3 chronic kidney disease: Code(s): N17.9 - Acute kidney failure, unspecified; N18.30 - Chronic kidney disease, stage 3 unspecified Status: Acute Assessment and Plan: Patient with acute on chronic kidney disease stage 3. Likely related to hypotension, septic shock, ATN, hypovolemia -patient has received significant amount of IV fluids. IV fluids have been stopped. -monitor urine output, renal function electrolytes -unremarkable renal ultrasound -p.o. bicarb for metabolic acidosis Nephrology service is following. Renal parameters are improving and his serum creatinine was 1.4 today. Avoid nephrotoxic agents. (5) Sacral decubitus ulcer: Onset Date: Unknown Code(s): L89.159 - Pressure ulcer of sacral region, unspecified stage Status: Acute Assessment and Plan: 10/27 - extensive debridement stage 4 sacral ulcer measuring approximately 30 x 27 x 5 cm, washout Wound care is following General surgery will continue to follow. He had repeat debridement on 11/03. He has been accepted at [facility] for advanced wound care and will be transferred if a bed is available. Bleeding from the wound requiring PRBC transfusions. He was transfused 2 units of PRBC on 10/31. (6) Type 2 diabetes mellitus with hyperglycemia: Qualifiers: Diabetes mellitus jail insulin use: with salvage determiner use Qualified Code(s): E11.65 - Type 2 diabetes mellitus with hyperglycemia; Z79.4 - salvage determiner (current) use of insulin Code(s): E11.65 - Type 2 diabetes mellitus with hyperglycemia Status: Acute Assessment and Plan: Sliding scale insulin Accu-Cheks (7) Chronic atrial fibrillation with RVR: Code(s): I48.20 - Chronic atrial fibrillation, unspecified Status: Chronic Assessment and Plan: History of chronic AFib, currently rate controlled. He is on Eliquis at his baseline. Eliquis was put on hold because of his renal parameters being abnormal. He was started on heparin drip but now that has been put on hold because of drop in H&H and concern for bleeding from the wound. Continue to monitor. Resume a
[2020-11-03 08:07] LABS: Hematocrit 29.5 % (42.0-52.0); Hemoglobin 9.4 g/dL (14.0-18.0)
[2020-11-03 08:55] LABS: Glucose Point of Care 96 mg/dl (65-105)
--- NOTE | 2020-11-03 09:20 | PCDIET ---
Nutrition Follow-Up Complete: Nutrition Diagnosis: Increased protein and calorie needs related to increased demands for wound healing and septic shock as evidenced by MD diagnosis, unhealed wounds. Nutrition Goal: Patient to meet estimated nutritional needs. Goal in progress. Patient has consumed an average of 70% of recorded meals since 10/31/20. Currently NPO for anticipated debridement of sacral ulcer with plan to transfer to tertiary care center when bed available. Will follow closely to ensure adequate intake with supplementation upon diet advancement. Last recorded weight is 152.2 kg. Recommend obtaining new weight. Bowel Motility: Last documented BM on 10/30/20. Labs Reviewed: Hgb (9.4), Hct (29.5), BUN (39), Cr (1.4), K (3.3), Alb (2.6), PO4 (2.0), Fred Ca (9.22) Meds Noted: Zyloprim, Novolog, Lantus, Synthroid, Nystatin, Zofran, Protonix, Zosyn, Potassium Phosphate Additional Notes: Patient's mother brings in food routinely, per nursing notes. Multiple areas of maceration documented, along with sacral ulcer. Will continue to monitor with same goal. Nutrition Monitoring and Evaluation: Follow up every 3 days.
--- NOTE | 2020-11-03 10:04 | PC.NURSE ---
Report given to Karyna VILLATORO in Pre-op.
[2020-11-03] MEDS: POTASSIUM PHOS,M-BASIC-D-BASIC 40 MMOL in SODIUM CHLORIDE 0.9% IV 250 ML 43.89 MMOL IVPB (10:10)
[2020-11-03] MEDS: PANTOPRAZOLE 40 MG TABLET PO ×2 (10:12→20:44)
[2020-11-03] MEDS: NYSTATIN 100,000 UNITS/ML SUSP 5 ML ORAL.SUSP PO ×4 (10:12→20:45)
[2020-11-03] MEDS: allopurinoL 300 MG TABLET PO (10:12)
[2020-11-03] MEDS: LACTIC ACID 12% LOTION 225 BTL 1 APPLIC TOPICAL (10:20)
--- NOTE | 2020-11-03 11:28 | PC.NURSE ---
Patient to OR now.
[2020-11-03] MEDS: LACTATED RINGERS 1,000 ML 30 ML IV CONT (11:38)
--- NOTE | 2020-11-03 11:42 | WPDHPUPDATE1 ---
History and Physical Update Update Date/Time: 11/03/20 11:42 History and Physical has been reviewed, including an updated exam of the patient. There are NO changes in the patient's condition. Risks, benefits, and alternatives have been discussed and questions answered. Patient agrees to proceed with procedure.
[2020-11-03 11:53] LABS: Glucose Point of Care 99 mg/dl (65-105)
--- NOTE | 2020-11-03 12:01 | WPDANESEPPF ---
Anes - Initial Pre Proc Eval Procedure: Operation Date: 10/27/20 13:30 Proposed Procedures p Complex Debridement Infected Sacral Decubitus Ulcer - Karen Zaidi MD Operation Date: 11/03/20 12:00 Proposed Procedures p Debridement Sacral Decubitis Ulcer - Chico Marx DO Date/Time: 11/03/20 12:01 Surgeon: Patricio Brunner MD Pre Op Diagnosis: Sepsis, Decubitus Ulcer Patient Data Age: 60 Gender: M Height: 2.01 m Weight: 152.2 kg Last Vital Signs Temp 98.8 F 11/03/20 11:42 Pulse 110 H 11/03/20 11:42 Resp 18 11/03/20 05:00 BP 142/83 H 11/03/20 11:42 Pulse Ox 98 11/03/20 11:42 Allergies Allergy/AdvReac Type Severity Reaction Status Date / Time ibuprofen AdvReac Unknown Unknown Verified 10/27/20 03:44 Home Medications Medication Instructions Recorded Confirmed Type pramipexole 1.5 mg tablet 1.5 mg PO TID #90 tablet 06/30/19 11/01/20 Rx cholecalciferol (vitamin D3) 1,250 1,250 mcg PO WEEKLY #14 cap 06/24/20 11/01/20 Rx mcg (50,000 unit) capsule buspirone 5 mg tablet 5 mg PO TID #90 tablet 08/03/20 11/01/20 Rx allopurinol 300 mg PO DAILY 08/15/20 10/27/20 History levothyroxine 100 mcg PO DAILY 08/15/20 11/01/20 History sertraline 100 mg PO Q12H 08/15/20 11/01/20 History Eliquis 5 mg PO Q12H #0 tablet 08/29/20 10/27/20 Rx acetaminophen [Mapap 650 mg PO Q6H PRN #20 tablet 08/29/20 11/01/20 Rx (acetaminophen)] loperamide [Imodium A-D] 2 mg PO Q6H PRN #20 cap 08/29/20 11/01/20 Rx tolnaftate 1 applic TOPICAL Q12HR #45 g 08/29/20 11/01/20 Rx ferrous sulfate 325 mg (65 mg 325 mg PO BID #60 tablet 09/27/20 11/01/20 Rx iron) tablet metoprolol succinate 100 mg 100 mg PO DAILY #90 tablet 09/30/20 11/01/20 Rx tablet,extended release 24 hr gabapentin 300 mg capsule 300 mg PO TID #90 cap 10/12/20 11/01/20 Rx insulin lispro 100 unit/mL 30 unit SUBCUT TID 30 Days #27 ml 10/12/20 11/01/20 Rx subcutaneous pen sucralfate 1 gram tablet 1 g PO ACHS #360 tablet 10/12/20 11/01/20 Rx flecainide 100 mg PO Q12H 11/01/20 11/01/20 History pantoprazole 40 mg PO Q12H 11/01/20 11/01/20 History patiromer calcium sorbitex 8.4 g PO DAILY 11/01/20 11/01/20 History [Veltassa] Laboratory Tests 11/02/20 11/02/20 11/02/20 11:31 15:11 20:40 Hgb Hct Sodium Potassium Chloride Carbon Dioxide Anion Gap BUN Creatinine Estim Creat Clear Calc Estimated GFR Glucose POC Capillary Glucose 168 mg/dl H mg/dl 158 mg/dl H mg/dl 133 mg/dl H mg/dl (65-105) (65-105) (65-105) Calcium Phosphorus Albumin 11/03/20 11/03/20 11/03/20 02:03 05:37 05:37 Hgb 9.4 g/dL L g/dL (14.0-18.0) Hct 29.5 % L % (42.0-52.0) Sodium 139 mmol/L mmol/L (137-145) Potassium 3.3 mmol/L L mmol/L (3.4-5.0) Chloride 109 mmol/L H mmol/L (98-107) Carbon Dioxide 27 mmol/L mmol/L (22-30) Anion Gap 3 mmol/L L mmol/L (8-16) BUN 39 mg/dL H D mg/dL (9-20) Creatinine 1.40 mg/dL H mg/dL (0.7-1.3) Estim Creat Clear Calc 86 ml/min ml/min Estimated GFR 52 L (59 - ) Glucose 97 mg/dL mg/dL (65-110) POC Capillary Glucose 92 mg/dl mg/dl (65-105) Calcium 8.1 mg/dL L mg/dL (8.4-10.2) Phosphorus 2.0 mg/dL L mg/dL (2.5-4.5) Albumin 2.6 g/dL L g/dL (3.5-5.1) 11/03/20 11/03/20 07:44 11:50 Hgb Hct Sodium Potassium Chloride Carbon Dioxide Anion Gap BUN Creatinine Estim Creat Clear Calc Estimated GFR Glucose POC Capillary Glucose 96 mg/dl mg/dl 99 mg/dl mg/dl (65-105) (65-105) Calcium Phosphorus Albumin Patient hx ane
--- NOTE | 2020-11-03 13:21 | W.PM.PROC2 ---
Procedure Note - Detailed Date of Procedure 11/03/20 Pre-op Diagnosis Sacral Decubitus Ulcer Post-op Diagnosis same Procedure Performed Sharp excisional debridement of sacral decubitus ulcer including skin, fat, and muscle measuring 20cm x 15cm Surgeon Chico Marx, DO Anesthesia MAC Indications This is a 60-year-old man who presents with continued problems with necrotic sacral decubitus ulcer. About 2 months ago he had debridement of the sacral decubitus ulcer. He returned to the hospital 1 week ago with worsening infected sacral decubitus ulcer and required further debridement. He still has a large amount of necrotic tissue within the wound bed. Decision was made to proceed with repeat debridement of the sacral decubitus ulcer. Findings Debridement of sacral decubitus ulcer was performed. The wound bed still appeared to contain some necrotic skin subcutaneous fat and muscle. Sharp excisional debridement was performed using scalpel and scissors. This was debrided down to healthy appearing tissue in most of the wound bed. There was still a small amount of necrotic tissue within the wound bed, but a majority of the tissue appeared healthy and viable. Debridement included skin subcutaneous fat and muscle. I did not have to debride any bone. The wound does appear in very close proximity to his anus, and he will likely benefit from diverting colostomy eventually to prevent further soilage of wound. Description of Procedure Procedure as well as risks, benefits, and alternatives were discussed with the patient. Written consent was obtained and placed in chart prior to procedure. Patient was brought back to surgical suite. He was placed supine on operating table. Time-out was done to confirm patient and procedure. IV sedation was then administered by the Anesthesia Department. He was then repositioned into left lateral decubitus position. His sacral region was prepped and draped in sterile fashion using Betadine prep. Sharp excisional debridement was then carried out using curved Barillas scissors and a 10 blade scalpel. Debridement was carried out all the way down to healthy appearing tissue. I was able to see pink and bleeding tissue along the wound bed once adequate debridement was performed. Total wound area that was debrided measured 20 cm x 15 cm. Electrocautery was used in areas where there was bleeding. Hemostasis then appeared adequate. Dakin's soaked Kerlix gauze was then applied in the wound bed followed by fluffed gauze, ABD pads, and tape. Estimated Blood Loss -50.0 Urine Output 1,000 Pathology none sent Complications No immediate complications Condition stable Disposition floor
[2020-11-03 13:34] LABS: Glucose Point of Care 97 mg/dl (65-105)
--- NOTE | 2020-11-03 13:44 | SUR.PHASEI ---
Simple mask removed at 1342.
[2020-11-03] MEDS: oxyCODONE HCL (*CRX) 5 MG TAB IR PO (16:51)
[2020-11-03 17:37] LABS: Glucose Point of Care 136 mg/dl (65-105)
--- NOTE | 2020-11-03 18:00 | ECG_ITS ---
Measurements Intervals [place] Rate: 142 P: KS: 0 QRS: -8 QRSD: 91 T: 121 QT: 308 QTc: 475 Interpretive Statements ATRIAL FLUTTER/TACHYCARDIA WITH RAPID VENTRICULAR RESPONSE BORDERLINE R WAVE PROGRESSION, ANTERIOR LEADS BORDERLINE ST-T WAVE ABNORMALITY- HIGH LATERAL LEADS BASELINE ARTIFACT- I, II, III, AVR, AVF, V1-V3 ABNORMAL ECG Electronically Signed On 11-04-2020 6:11:40 CDT by Librado Fernandez D.O.
[2020-11-03] MEDS: NALOXONE HCL 0.4 MG/ML VIAL 0.5 MG IV PUSH (18:31)
[2020-11-03] MEDS: AMIODARONE 150 MG/D5W 100 ML 150 MG/100 ML BAG 600 MG IV CONT (18:37)
[2020-11-03 18:39] LABS: Hematocrit 26.2 % (42.0-52.0); Hemoglobin 8.4 g/dL (14.0-18.0); Mean Corpuscular HGB Conc 32.1 g/dl (32-36); Mean Corpuscular Hemoglobin 28.4 pg (26-34); Mean Corpuscular Volume 88.5 fl (80-100); Mean Platelet Volume 9.8 fl (7.4-10.4); Platelet Count Result 343 k/mm3 (150-375); Red Blood Count 2.96 M/mm3 (4.6-6.20); Red Cell Distribution Width 16.7 % (11.5-14.5); White Blood Count 18.4 K/mm3 (4.5-10.0)
[2020-11-03] MEDS: AMIODARONE 360 MG/D5W 200 ML 360 MG/200 ML BAG 33.33 MG IV CONT (19:01)
[2020-11-03 19:08] LABS: Troponin I 0.018 ng/mL (0.000-0.034)
[2020-11-03 20:59] LABS: Glucose Point of Care 208 mg/dl (65-105)
[2020-11-03 22:32] LABS: Anion Gap 5 mmol/L (8-16); Blood Urea Nitrogen 38 mg/dL (9-20); Calcium 7.9 mg/dL (8.4-10.2); Carbon Dioxide 26 mmol/L (22-30); Chloride 105 mmol/L (98-107); Estimated CRCL calculation 75 ml/min; Estimated Glomerular Filt Rate 45; Glucose 125 mg/dL (65-110); Magnesium 1.5 mg/dL (1.6-2.3); Potassium 3.3 mmol/L (3.4-5.0); Sodium 136 mmol/L (137-145)
[2020-11-03 22:40] LABS: NT Pro B Type Natriuretic Pept 16600 pg/mL (5-100)
[2020-11-04] VITALS (17 sets, daily range): BP systolic 65–109; BP diastolic 43–65; PULSE 80–137; RESP 18–24; TEMP 36.3–36.8; O2SAT 97–100
[2020-11-04] MEDS: AMIODARONE 360 MG/D5W 200 ML 360 MG/200 ML BAG 16.67 MG IV CONT ×3 (01:45→23:53)
[2020-11-04] MEDS: LEVOTHYROXINE SODIUM 100 MCG TABLET PO (06:46)
--- NOTE | 2020-11-04 07:11 | WPDANESPN ---
Anes - Prog Note Post-Op Date/Time: 11/04/20 07:11 Cardiovascular status: normal Respiratory status: normal Airway patency: baseline Mental status: baseline Post-Op hydration status: normal Vital Signs: Last Vital Signs Temp 36.8 C 11/04/20 04:00 Pulse 116 H 11/04/20 06:00 Resp 20 11/04/20 04:00 BP 94/60 L 11/04/20 04:00 Pulse Ox 100 11/04/20 04:00 Pain Score (VAS): 0 I/O: Intake & Output 11/03/20 11/03/20 11/04/20 15:59 23:59 07:59 Intake Total 743 857 3824 Output Total 1350 150 Balance -0239 546 0939 Laboratory Tests 11/03/20 18:14 11/03/20 18:17 11/03/20 11/03/20 11/03/20 05:37 07:44 11:50 WBC RBC Hgb 9.4 L Hct 29.5 L MCV MCH MCHC RDW Plt Count MPV Sodium Potassium Chloride Carbon Dioxide Anion Gap BUN Creatinine Estim Creat Clear Calc Estimated GFR Glucose POC Capillary Glucose 96 99 Calcium Magnesium Troponin I NT-Pro-B Natriuret Pep 11/03/20 11/03/20 11/03/20 13:31 16:27 18:14 WBC RBC Hgb Hct MCV MCH MCHC RDW Plt Count MPV Sodium Potassium Chloride Carbon Dioxide Anion Gap BUN Creatinine Estim Creat Clear Calc Estimated GFR Glucose POC Capillary Glucose 97 136 H Calcium Magnesium Troponin I 0.018 NT-Pro-B Natriuret Pep 11/03/20 11/03/20 11/03/20 18:14 18:17 20:39 WBC 18.4 H RBC 2.96 L Hgb 8.4 L Hct 26.2 L MCV 88.5 MCH 28.4 MCHC 32.1 RDW 16.7 H Plt Count 343 MPV 9.8 Sodium 136 L Potassium 3.3 L Chloride 105 Carbon Dioxide 26 Anion Gap 5 L BUN 38 H Creatinine 1.60 H Estim Creat Clear Calc 75 Estimated GFR 45 L Glucose 125 H POC Capillary Glucose 208 H Calcium 7.9 L Magnesium 1.5 L Troponin I NT-Pro-B Natriuret Pep 36741 H Microbiology 10/26/20 19:16 Blood Blood Culture - Final Fusobacterium varium Post-procedural complaints: none Patient Feedback: Patient satisfied with anesthetic care.
[2020-11-04 09:23] LABS: Glucose Point of Care 230 mg/dl (65-105)
[2020-11-04] MEDS: ENOXAPARIN 40 MG/0.4 ML SYRINGE SUB-Q (09:41)
[2020-11-04] MEDS: INSULIN GLARGINE (*BKC) 100 UNITS/ML 15 UNITS SUB-Q (09:42)
[2020-11-04] MEDS: PANTOPRAZOLE 40 MG TABLET PO ×2 (09:42→20:35)
[2020-11-04] MEDS: allopurinoL 300 MG TABLET PO (09:42)
[2020-11-04] MEDS: INSULIN ASPART (*BKC) 100 UNITS/ML SUB-Q ×2 (09:42→12:54)
[2020-11-04] MEDS: NYSTATIN 100,000 UNITS/ML SUSP 5 ML ORAL.SUSP PO ×4 (09:45→20:35)
--- NOTE | 2020-11-04 10:12 | PM.EVENT ---
Event Note Event Note Event Note: creatinine is stable and at baseline. I will view from a distance. Please call if anything is needed from the Nephrology standpoint.
[2020-11-04 10:51] LABS: Basophils Percent Auto 0.1 % (0.2-1.2); Eosinophils Absolute Auto 0.2 K/mm3 (0-0.3); Eosinophils Percent Auto 1.4 % (0-4.4); Hematocrit 22.7 % (42.0-52.0); Hemoglobin 7.1 g/dL (14.0-18.0); Immature Granulocyte Absolute 0.28 K/mm3 (0.00-0.031); Immature Granulocyte Percent A 1.7 % (0-0.5); Lymphocytes Percent Auto 6.8 % (18.3-44.2); Mean Corpuscular HGB Conc 31.3 g/dl (32-36); Mean Corpuscular Hemoglobin 28.3 pg (26-34); Mean Corpuscular Volume 90.4 fl (80-100); Mean Platelet Volume 10.5 fl (7.4-10.4); Monocytes Absolute Auto 0.4 K/mm3 (0.1-0.6); Monocytes Percent Auto 2.5 % (2.6-8.5); Neutrophils Absolute Auto 14.1 K/mm3 (1.3-6.7); Neutrophils Percent Auto 87.5 % (45.5-73.1); Nucleated Red Blood Cells Absolute Auto 0.1 K/mm3 (0.0-0.012); Nucleated Red Blood Cells Perc 0.4 % (0.0-0.2); Platelet Count Result 332 k/mm3 (150-375); Red Blood Count 2.51 M/mm3 (4.6-6.20); Red Cell Distribution Width 16.9 % (11.5-14.5); White Blood Count 16.2 K/mm3 (4.5-10.0)
[2020-11-04 11:06] LABS: Anion Gap 8 mmol/L (8-16); Blood Urea Nitrogen 43 mg/dL (9-20); Calcium 7.2 mg/dL (8.4-10.2); Carbon Dioxide 23 mmol/L (22-30); Chloride 101 mmol/L (98-107); Estimated CRCL calculation 61 ml/min; Estimated Glomerular Filt Rate 34; Glucose 204 mg/dL (65-110); Magnesium 1.5 mg/dL (1.6-2.3); Sodium 132 mmol/L (137-145)
[2020-11-04] MEDS: MAGNESIUM SULFATE 3GM/D5W100ML 3 GM/100 ML BAG IVPB (11:33)
[2020-11-04] MEDS: HEPARIN SOD/D5W 100 UNITS/ML 25,000 UNITS/250 ML BAG 15 UNITS IV CONT (11:33)
--- NOTE | 2020-11-04 12:39 | PCDIET ---
Nutrition Follow-Up Complete: Nutrition Diagnosis: Increased protein and calorie needs related to increased demands for wound healing and septic shock as evidenced by MD diagnosis, unhealed wounds. Nutrition Goal: Patient to meet estimated nutritional needs. Goal in progress. Patient reports fair appetite POD #1 s/p sharp excisional debridement of sacral decubitus. Did not like Lucas supplement and has tried majority of supplements in house. Does not recall having tried Ensure Surgery, however. Recommend adding Ensure Surgery (330kcal, 18g protein) daily and continuing to follow closely. Last recorded weight is 152.2 kg. Recommend obtaining new weight. Bowel Motility: Last documented BM on 10/30/20 x 1. If medically appropriate, would consider medication to promote BM. Labs Reviewed: WBC (18.4), RBC (2.96), Hgb (8.4), Hct (26.2), Glu (125), BUN (38), Cr (1.6), K (3.3), Na (136), BNP (30487) Meds Noted: KCl, Zyloprim, Amiodarone, Synthroid, Nystatin, Roxicodone, Protonix, Zosyn Additional Notes: Will continue to monitor with same goal. Nutrition Monitoring and Evaluation: Follow up every 3 days.
[2020-11-04] MEDS: POTASSIUM CHLORIDE 20 MEQ TABLET.ER 40 MEQ PO ×3 (12:54→20:35)
[2020-11-04] MEDS: LACTIC ACID 12% LOTION 225 BTL 1 APPLIC TOPICAL (12:59)
[2020-11-04] MEDS: TOLNAFTATE 1% POWDER 45 GM BTL 1 APPLIC TOPICAL ×2 (13:00→20:35)
[2020-11-04 13:20] LABS: Glucose Point of Care 215 mg/dl (65-105)
--- NOTE | 2020-11-04 14:47 | PM.IMPN ---
Progress Note: A&P Assessment and Plan (1) Septic shock: Code(s): A41.9 - Sepsis, unspecified organism; R65.21 - Severe sepsis with septic shock Status: Acute Assessment and Plan: Patient presented with weakness and found to be hypotensive in septic shock requiring 3 L fluid bolus in the ER -for infection: Likely decubital ulcer with large wound and associated infection. -he was initially admitted to ICU. Off vasopressors now. He was transferred out of ICU. -he was on stress dose steroid which has been now weaned off. -he received IV fluid and albumin with both of them has been stopped. -blood culture grew fusobacterium varium from anaerobic bottle only. - urine culture pending. Wound culture is growing fusobacterium species. Will repeat blood culture today. -patient wall as on vancomycin and Zosyn. Now vancomycin has been stopped. Continue to monitor culture. Infectious Disease Service recommendations appreciated. (2) Cellulitis: Code(s): L03.90 - Cellulitis, unspecified Status: Acute Assessment and Plan: Continue Zosyn. He was on vancomycin which was stopped by infectious disease service. Wound care Service to follow. Patient was evaluated by surgery. He had extensive debridement done on 10/27 and again on 11/03 in the OR. [facility] has been called but they do not have bed. [facility] has accepted him. He has been placed on waiting list and will be transferred there once bed is available. I called [facility] again and he is still on wait list. He agrees to have colostomy now. He earlier refused for it when offered to him by surgery service. (3) Acute renal failure superimposed on stage 3 chronic kidney disease: Code(s): N17.9 - Acute kidney failure, unspecified; N18.30 - Chronic kidney disease, stage 3 unspecified Status: Acute Assessment and Plan: Patient with acute on chronic kidney disease stage 3. Likely related to hypotension, septic shock, ATN, hypovolemia -patient has received significant amount of IV fluids. IV fluids have been stopped. -monitor urine output, renal function electrolytes -unremarkable renal ultrasound -p.o. bicarb for metabolic acidosis Nephrology service is following. Renal parameters was improving but today it bumped off again to 2.0 likely secondary to surgery yesterday. Avoid nephrotoxic agents. (4) Sacral decubitus ulcer: Onset Date: Unknown Code(s): L89.159 - Pressure ulcer of sacral region, unspecified stage Status: Acute Assessment and Plan: 10/27 - extensive debridement stage 4 sacral ulcer measuring approximately 30 x 27 x 5 cm, washout 11/03 extensive debridement done again. Wound care is following General surgery will continue to follow. He had repeat debridement on 11/03. He has been accepted at [facility] for advanced wound care and will be transferred if a bed is available. Bleeding from the wound requiring PRBC transfusions. He was transfused 2 units of PRBC on 10/31. He will be transfused with another unit of blood today on 11/04. (5) Type 2 diabetes mellitus with hyperglycemia: Qualifiers: Diabetes mellitus fpc insulin use: with fpc use Qualified Code(s): E11.65 - Type 2 diabetes mellitus with hyperglycemia; Z79.4 - intermediate designer (current) use of insulin Code(s): E11.65 - Type 2 diabetes mellitus with hyperglycemia Status: Acute Assessment and Plan: Sliding scale insulin Accu-Cheks (6) Chronic atrial fibrillation with RVR: Code(s): I48.20 - Chronic atrial fibrillation, unspecified Status: Chronic Assessment and Plan: History of chronic AFib. He was rate controlled until yesterday. He started to have atrial fibrillation with rapid ventricular rate yesterday after surgery on 11/03. He was borderline hypotensive and was started on amiodarone drip. Heart rate was still in the 120s and 130s. If he does not convert to sinus rhythm o
[2020-11-04] MEDS: SOD HYPOCHLORITE 1/4 STRENGTH 473 ML 1 APPLIC TOPICAL ×2 (16:12→21:07)
[2020-11-04] MEDS: oxyCODONE HCL (*CRX) 5 MG TAB IR PO (16:12)
[2020-11-04] MEDS: SODIUM CHLORIDE 0.9% IV 250 ML 30 ML IV CONT (16:13)
[2020-11-04 17:54] LABS: Glucose Point of Care 162 mg/dl (65-105)
[2020-11-04 18:22] LABS: Partial Thromboplastin Time 98.6 SECONDS (22.3-36.8)
[2020-11-04] MEDS: MORPHINE SULFATE (*CRX) 2 MG/ML INJ IV PUSH (20:40)
[2020-11-04 20:59] LABS: IFOB Positive Control Positive; Immunochemical Fecal Occult Bl Negative (N)
[2020-11-04 21:16] LABS: Glucose Point of Care 80 mg/dl (65-105)
[2020-11-04 21:16] LABS: Glucose Point of Care 75 mg/dl (65-105)
[2020-11-04 22:08] LABS: Glucose Point of Care 130 mg/dl (65-105)
[2020-11-05] VITALS (23 sets, daily range): BP systolic 78–139; BP diastolic 47–79; PULSE 81–142; RESP 18–24; TEMP 36.3–37; O2SAT 92–100
[2020-11-05 02:22] LABS: Partial Thromboplastin Time 141.4 SECONDS (22.3-36.8)
[2020-11-05] MEDS: HEPARIN SOD/D5W 100 UNITS/ML 25,000 UNITS/250 ML BAG 11 UNITS IV CONT (03:34)
[2020-11-05] MEDS: LEVOTHYROXINE SODIUM 100 MCG TABLET PO (06:42)
[2020-11-05 07:59] LABS: Glucose Point of Care 99 mg/dl (65-105)
[2020-11-05 08:55] LABS: Basophils Percent Auto 0.1 % (0.2-1.2); Eosinophils Absolute Auto 0.5 K/mm3 (0-0.3); Eosinophils Percent Auto 4.7 % (0-4.4); Hematocrit 24.2 % (42.0-52.0); Hemoglobin 7.8 g/dL (14.0-18.0); Immature Granulocyte Absolute 0.14 K/mm3 (0.00-0.031); Immature Granulocyte Percent A 1.2 % (0-0.5); Lymphocytes Absolute Auto 0.79 K/mm3 (0.9-3.2); Lymphocytes Percent Auto 6.9 % (18.3-44.2); Mean Corpuscular HGB Conc 32.2 g/dl (32-36); Mean Corpuscular Hemoglobin 28.9 pg (26-34); Mean Corpuscular Volume 89.6 fl (80-100); Monocytes Absolute Auto 0.4 K/mm3 (0.1-0.6); Monocytes Percent Auto 3.3 % (2.6-8.5); Neutrophils Absolute Auto 9.6 K/mm3 (1.3-6.7); Neutrophils Percent Auto 83.8 % (45.5-73.1); Nucleated Red Blood Cells Perc 0.3 % (0.0-0.2); Platelet Count Result 298 k/mm3 (150-375); Red Cell Distribution Width 16.9 % (11.5-14.5); White Blood Count 11.4 K/mm3 (4.5-10.0)
[2020-11-05 09:08] LABS: Partial Thromboplastin Time 67.7 SECONDS (22.3-36.8)
[2020-11-05 09:46] LABS: Anion Gap 7 mmol/L (8-16); Blood Urea Nitrogen 45 mg/dL (9-20); Calcium 7.5 mg/dL (8.4-10.2); Carbon Dioxide 23 mmol/L (22-30); Chloride 105 mmol/L (98-107); Estimated CRCL calculation 47 ml/min; Estimated Glomerular Filt Rate 25; Glucose 90 mg/dL (65-110); Magnesium 1.8 mg/dL (1.6-2.3); Phosphorus 4.6 mg/dL (2.5-4.5); Potassium 3.5 mmol/L (3.4-5.0); Sodium 135 mmol/L (137-145)
[2020-11-05] MEDS: MORPHINE SULFATE (*CRX) 2 MG/ML INJ IV PUSH ×2 (09:59→17:29)
[2020-11-05] MEDS: HEPARIN SODIUM 5,000 UNITS/ML VIAL 4500 UNITS IV PUSH (10:01)
[2020-11-05] MEDS: LACTIC ACID 12% LOTION 225 BTL 1 APPLIC TOPICAL (10:04)
[2020-11-05] MEDS: SOD HYPOCHLORITE 1/4 STRENGTH 473 ML 1 APPLIC TOPICAL ×2 (10:04→21:04)
[2020-11-05] MEDS: TOLNAFTATE 1% POWDER 45 GM BTL 1 APPLIC TOPICAL ×2 (10:04→20:11)
[2020-11-05] MEDS: allopurinoL 300 MG TABLET PO (10:05)
[2020-11-05] MEDS: PANTOPRAZOLE 40 MG TABLET PO ×2 (10:05→21:04)
[2020-11-05] MEDS: NYSTATIN 100,000 UNITS/ML SUSP 5 ML ORAL.SUSP PO ×4 (10:06→21:04)
[2020-11-05] MEDS: SODIUM CHLORIDE 0.9% IV 500 ML 100 ML IV CONT ×2 (10:28→17:56)
[2020-11-05 11:52] LABS: Creatinine Urine 153.8 mg/dL
[2020-11-05 11:57] LABS: Sodium Urine Random 17 meq/L
--- NOTE | 2020-11-05 12:26 | P.PNNP_ITS ---
Progress Note: A&P Assessment and Plan (1) KONSTANTIN (acute kidney injury): Code(s): N17.9 - Acute kidney failure, unspecified Status: Acute Assessment and Plan: * due to a combination of infection/sepsis and hemodynamic instability * creatinine had been improving and now has risen yesterday and today to 2.6. * He has been restarted on IV fluids. * Will check a renal ultrasound and urine electrolytes. * He does have eosinophilia. He does not have a rash or any itching. I wonder if we can switch his antibiotics around to 1 that does not overlap with penicillin. * K okay today (2) Stage 3b chronic kidney disease: Code(s): N18.32 - Chronic kidney disease, stage 3b Status: Chronic Assessment and Plan: * baseline creatinine runs around 1.6 - 2.1mg/dl * however, he has fluctuated to extremes with his recent hospitalizations * this is secondary to hypertension and diabetes (3) Sepsis: Qualifiers: Acute renal failure type: unspecified Sepsis acute organ dysfunction status: with acute organ dysfunction Sepsis type: sepsis due to unspecified organism Severe sepsis acute organ dysfunction type: acute renal failure Severe sepsis shock status: without septic shock Qualified Code(s): A41.9 - Sepsis, unspecified organism; R65.20 - Severe sepsis without septic shock; N17.9 - Acute kidney failure, unspecified Code(s): A41.9 - Sepsis, unspecified organism Status: Acute Assessment and Plan: * shock resolved (off pressors) * blood cultures with GNB * on broad spectrum antibiotics * follow culture date (4) Sacral decubitus ulcer: Onset Date: Unknown Code(s): L89.159 - Pressure ulcer of sacral region, unspecified stage Status: Acute Assessment and Plan: * presumed source of infection and #3 * Surgery following * s/p debridement * local wound care (5) Cellulitis: Code(s): L03.90 - Cellulitis, unspecified Status: Acute Assessment and Plan: * suspected based on LE wounds * his bilateral chronic lymphedema complicates things * On Zosyn. * local wound care (6) Anemia: Qualifiers: Anemia type: iron deficiency Iron deficiency anemia type: unspecified iron deficiency Qualified Code(s): D50.9 - Iron deficiency anemia, unspecified Code(s): D64.9 - Anemia, unspecified Status: Chronic Assessment and Plan: * due to KONSTANTIN, CKD, and acute illness * component of iron deficiency in the past as well * He needed a blood transfusion last night. (7) Diabetes: Code(s): E11.9 - Type 2 diabetes mellitus without complications Status: Acute Assessment and Plan: * follow accuchecks * glycemic control Subjective Date/time seen: 11/05/20 12:26 Interval history: Mr. Handy feels okay The patient has been eating and drinking okay he says. No chest pain or shortness of breath He has been waiting for transfer to [facility]. The patient had debridement last . He continues on antibiotics. Exam Narrative: General: WD/WN male in NAD Heart: normal S1 and S2; no rub Lungs: clear Abdomen: soft, nontender, nondistended, positive bowel sounds Extremities: bilateral lymphedema changes Skin: Chronic venous stasis changes Objective Data Vital Signs Vital Signs: Vital Signs - 24 hr 11/04/20 14:00 11/04/20 16:00 11/04/20 18:00 Temperature
--- NOTE | 2020-11-05 12:26 | PM.PNNEP ---
Progress Note: A&P Assessment and Plan (1) KONSTANTIN (acute kidney injury): Code(s): N17.9 - Acute kidney failure, unspecified Status: Acute Assessment and Plan: due to a combination of infection/sepsis and hemodynamic instability creatinine had been improving and now has risen yesterday and today to 2.6. He has been restarted on IV fluids. Will check a renal ultrasound and urine electrolytes. He does have eosinophilia. He does not have a rash or any itching. I wonder if we can switch his antibiotics around to 1 that does not overlap with penicillin. K okay today (2) Stage 3b chronic kidney disease: Code(s): N18.32 - Chronic kidney disease, stage 3b Status: Chronic Assessment and Plan: baseline creatinine runs around 1.6 - 2.1mg/dl however, he has fluctuated to extremes with his recent hospitalizations this is secondary to hypertension and diabetes (3) Sepsis: Qualifiers: Acute renal failure type: unspecified Sepsis acute organ dysfunction status: with acute organ dysfunction Sepsis type: sepsis due to unspecified organism Severe sepsis acute organ dysfunction type: acute renal failure Severe sepsis shock status: without septic shock Qualified Code(s): A41.9 - Sepsis, unspecified organism; R65.20 - Severe sepsis without septic shock; N17.9 - Acute kidney failure, unspecified Code(s): A41.9 - Sepsis, unspecified organism Status: Acute Assessment and Plan: shock resolved (off pressors) blood cultures with GNB on broad spectrum antibiotics follow culture date (4) Sacral decubitus ulcer: Onset Date: Unknown Code(s): L89.159 - Pressure ulcer of sacral region, unspecified stage Status: Acute Assessment and Plan: presumed source of infection and #3 Surgery following s/p debridement local wound care (5) Cellulitis: Code(s): L03.90 - Cellulitis, unspecified Status: Acute Assessment and Plan: suspected based on LE wounds his bilateral chronic lymphedema complicates things On Zosyn. local wound care (6) Anemia: Qualifiers: Anemia type: iron deficiency Iron deficiency anemia type: unspecified iron deficiency Qualified Code(s): D50.9 - Iron deficiency anemia, unspecified Code(s): D64.9 - Anemia, unspecified Status: Chronic Assessment and Plan: due to KONSTANTIN, CKD, and acute illness component of iron deficiency in the past as well He needed a blood transfusion last night. (7) Diabetes: Code(s): E11.9 - Type 2 diabetes mellitus without complications Status: Acute Assessment and Plan: follow accuchecks glycemic control Subjective Date/time seen: 11/05/20 12:26 Interval history: Mr. Handy feels okay The patient has been eating and drinking okay he says. No chest pain or shortness of breath He has been waiting for transfer to [facility]. The patient had debridement last . He continues on antibiotics. Exam Narrative: General: WD/WN male in NAD Heart: normal S1 and S2; no rub Lungs: clear Abdomen: soft, nontender, nondistended, positive bowel sounds Extremities: bilateral lymphedema changes Skin: Chronic venous stasis changes Objective Data Vital Signs Vital Signs: Vital Signs - 24 hr 11/04/20 14:00 11/04/20 16:00 11/04/20 18:00 Temperature 36.3 C L Pulse Rate 101 H 108 H 103 H Respiratory Rate 18 Blood Pressure 98/65 L Pulse Oximetry 100 11/04/20 20:00 11/04/20 22:00 11/04/20 23:20 Temperature 36.5 C 36.5 C Pulse Rate 104 H 114 H 113 H Respiratory Rate 22 H 24 H Blood Pressure 96/60 L 65/43 L Pulse Oximetry 100 100 11/04/20 23:25 11/04/20 23:28 11/04/20 23:53 Temperature 36.6 C 36.5 C Pulse Rate 113 H 106 H 114 H Respiratory Rate 22 H 24 H Blood Pressure 100/59 L 85/55 L Pulse Oximetry 97 100 11/05/20 00:00 11/05/20 00:28 11/05/20 01
[2020-11-05 12:40] LABS: Glucose Point of Care 132 mg/dl (65-105)
--- NOTE | 2020-11-05 14:16 | PC.NURSE ---
Any documentation and medications given today, November 05 from 0700- 1400 that is recorded from Audrey Malcolm RN, initials [facility], was actually done by Maggi Wood RN, [facility].
--- NOTE | 2020-11-05 14:41 | PM.IMPN ---
Progress Note: A&P Assessment and Plan (1) Septic shock: Code(s): A41.9 - Sepsis, unspecified organism; R65.21 - Severe sepsis with septic shock Status: Acute Assessment and Plan: Patient presented with weakness and found to be hypotensive in septic shock requiring 3 L fluid bolus in the ER -for infection: Likely decubital ulcer with large wound and associated infection. -he was initially admitted to ICU. Off vasopressors now. He was transferred out of ICU. -he was on stress dose steroid which has been now weaned off. -blood culture grew fusobacterium varium from anaerobic bottle only. Follow-up blood culture has been negative so far. - urine culture pending. Wound culture is growing fusobacterium species. -patient wall as on vancomycin and Zosyn. Now vancomycin has been stopped. He was on Zosyn now but has developed acute renal failure with upward trend in the peripheral eosinophil count. I will stop Zosyn and start him on ertapenem which should have good coverage of g negatives as well as anaerobes. Infectious Disease Service recommendations appreciated. (2) Cellulitis: Code(s): L03.90 - Cellulitis, unspecified Status: Acute Assessment and Plan: I will stop Zosyn because of worsening renal parameters and peripheral eosinophilia. I will start him on ertapenem. He was on vancomycin which was stopped by infectious disease service. Wound care Service to follow. Patient was evaluated by surgery. He had extensive debridement done on 10/27 and again on 11/03 in the OR. [facility] has been called but they do not have bed. [facility] has accepted him. He has been placed on waiting list and will be transferred there once bed is available. I called [facility] again and he is still on wait list. He agrees to have colostomy now. He earlier refused for it when offered to him by surgery service. (3) Acute renal failure superimposed on stage 3 chronic kidney disease: Code(s): N17.9 - Acute kidney failure, unspecified; N18.30 - Chronic kidney disease, stage 3 unspecified Status: Acute Assessment and Plan: Patient with acute on chronic kidney disease stage 3. Likely related to hypotension, septic shock, ATN, hypovolemia -patient has received significant amount of IV fluids. IV fluids have been stopped. -monitor urine output, renal function electrolytes -unremarkable renal ultrasound Nephrology service is following. Renal parameters was improving but today it bumped off again to 2.0 on 11/04 and now 2.6 today. Having some peripheral eosinophilia raising the possibility of interstitial nephritis. Will change antibiotic from Zosyn to ertapenem. Avoid nephrotoxic agents. (4) Sacral decubitus ulcer: Onset Date: Unknown Code(s): L89.159 - Pressure ulcer of sacral region, unspecified stage Status: Acute Assessment and Plan: 10/27 - extensive debridement stage 4 sacral ulcer measuring approximately 30 x 27 x 5 cm, washout 11/03 extensive debridement done again. Wound care is following General surgery will continue to follow. He had repeat debridement on 11/03. He has been accepted at [facility] for advanced wound care and will be transferred if a bed is available. Bleeding from the wound requiring PRBC transfusions. He was transfused 2 units of PRBC on 10/31. He will be transfused with another unit of blood today on 11/04. (5) Type 2 diabetes mellitus with hyperglycemia: Qualifiers: Diabetes mellitus residential insulin use: with patient coordinator front desk use Qualified Code(s): E11.65 - Type 2 diabetes mellitus with hyperglycemia; Z79.4 - detention (current) use of insulin Code(s): E11.65 - Type 2 diabetes mellitus with hyperglycemia Status: Acute Assessment and Plan: Sliding scale insulin Accu-Cheks (6) Chronic atrial fibrillation with RVR: Code(s): I48.20 - Chronic atrial fibrillation, unspecified Status: Chronic Assessm
[2020-11-05] MEDS: ERTAPENEM 1 GM/NS 50 ML 1 GM/50 ML BAG IVPB (15:49)
[2020-11-05 16:46] LABS: Partial Thromboplastin Time 111.5 SECONDS (22.3-36.8)
[2020-11-05 18:31] LABS: Glucose Point of Care 168 mg/dl (65-105)
[2020-11-05 18:31] LABS: Glucose Point of Care 169 mg/dl (65-105)
[2020-11-05] MEDS: SODIUM CHLORIDE 0.9% IV 250 ML 30 ML IV CONT (20:09)
[2020-11-05] MEDS: TUBING, BLOOD PLUM PUMP TUBING 1 EACH XX (20:09)
[2020-11-05 20:51] LABS: Glucose Point of Care 183 mg/dl (65-105)
[2020-11-05] MEDS: AMIODARONE HCL 200 MG TABLET PO (21:04)
[2020-11-06] VITALS (19 sets, daily range): BP systolic 94–114; BP diastolic 51–71; PULSE 104–120; RESP 16–24; TEMP 35.8–37.1; O2SAT 97–100
[2020-11-06 01:53] LABS: Hematocrit 38.7 % (42.0-52.0); Hemoglobin 12.2 g/dL (14.0-18.0)
[2020-11-06 05:59] LABS: Anion Gap 9 mmol/L (8-16); Blood Urea Nitrogen 48 mg/dL (9-20); Calcium 7.6 mg/dL (8.4-10.2); Carbon Dioxide 19 mmol/L (22-30); Chloride 101 mmol/L (98-107); Estimated CRCL calculation 38 ml/min; Estimated Glomerular Filt Rate 20; Glucose 151 mg/dL (65-110); Magnesium 1.9 mg/dL (1.6-2.3); Potassium 3.6 mmol/L (3.4-5.0); Sodium 129 mmol/L (137-145)
[2020-11-06] MEDS: LEVOTHYROXINE SODIUM 100 MCG TABLET PO (06:26)
[2020-11-06 07:02] LABS: Glucose Point of Care 168 mg/dl (65-105)
--- NOTE | 2020-11-06 09:32 | P.PNNP_ITS ---
Progress Note: A&P Assessment and Plan (1) KONSTANTIN (acute kidney injury): Code(s): N17.9 - Acute kidney failure, unspecified Status: Acute Assessment and Plan: * due to a combination of infection/sepsis and hemodynamic instability * creatinine had been improving and now has risen yesterday and today to 2.6. * He has been restarted on IV fluids. * Renal ultrasound unremarkable. * Urine electrolytes are pre renal. * The patient had debridement on and had a high white count that same day before the debridement. Perhaps this is all related to infection. * He also has high eosinophils in his blood. * So we have changed antibiotics to a non penicillin. He is still getting IV fluids to take care of the pre renal aspect. His white count is coming down. * K okay today (2) Stage 3b chronic kidney disease: Code(s): N18.32 - Chronic kidney disease, stage 3b Status: Chronic Assessment and Plan: * baseline creatinine runs around 1.6 - 2.1mg/dl * however, he has fluctuated to extremes with his recent hospitalizations * this is secondary to hypertension and diabetes (3) Sepsis: Qualifiers: Acute renal failure type: unspecified Sepsis acute organ dysfunction status: with acute organ dysfunction Sepsis type: sepsis due to unspecified organism Severe sepsis acute organ dysfunction type: acute renal failure Severe sepsis shock status: without septic shock Qualified Code(s): A41.9 - Sepsis, unspecified organism; R65.20 - Severe sepsis without septic shock; N17.9 - Acute kidney failure, unspecified Code(s): A41.9 - Sepsis, unspecified organism Status: Acute Assessment and Plan: * shock resolved (off pressors) * blood cultures with GNB * on broad spectrum antibiotics * Cultures on the are negative so far (4) Sacral decubitus ulcer: Onset Date: Unknown Code(s): L89.159 - Pressure ulcer of sacral region, unspecified stage Status: Acute Assessment and Plan: * presumed source of infection and #3 * Surgery following * s/p debridement * local wound care (5) Cellulitis: Code(s): L03.90 - Cellulitis, unspecified Status: Acute Assessment and Plan: * suspected based on LE wounds * his bilateral chronic lymphedema complicates things On ertapenem * local wound care (6) Anemia: Qualifiers: Anemia type: iron deficiency Iron deficiency anemia type: unspecified iron deficiency Qualified Code(s): D50.9 - Iron deficiency anemia, unspecified Code(s): D64.9 - Anemia, unspecified Status: Chronic Assessment and Plan: * due to KONSTANTIN, CKD, and acute illness * component of iron deficiency in the past as well. He is not on iron because of infection Hemoglobin 12.2 in the wee hours this morning? This is being repeated (7) Diabetes: Code(s): E11.9 - Type 2 diabetes mellitus without complications Status: Acute Assessment and Plan: * follow accuchecks * glycemic control Subjective Date/time seen: 11/06/20 09:32 Interval history: Mr. Handy feels okay No pain. Urinating okay. Slept okay last night. Eating okay. Exam Narrative: General: WD/WN male in NAD Heart: normal S1 and S2; no rub Lungs: clear Abdomen: soft, nontender, nondistended, positive bowel sounds Extremities: bilateral lymphedema changes Skin: Chronic venous stasis changes Objective Data Vital Signs Vital Signs: Vital Sig
--- NOTE | 2020-11-06 09:32 | PM.PNNEP ---
Progress Note: A&P Assessment and Plan (1) KONSTANTIN (acute kidney injury): Code(s): N17.9 - Acute kidney failure, unspecified Status: Acute Assessment and Plan: due to a combination of infection/sepsis and hemodynamic instability creatinine had been improving and now has risen yesterday and today to 2.6. He has been restarted on IV fluids. Renal ultrasound unremarkable. Urine electrolytes are pre renal. The patient had debridement on and had a high white count that same day before the debridement. Perhaps this is all related to infection. He also has high eosinophils in his blood. So we have changed antibiotics to a non penicillin. He is still getting IV fluids to take care of the pre renal aspect. His white count is coming down. K okay today (2) Stage 3b chronic kidney disease: Code(s): N18.32 - Chronic kidney disease, stage 3b Status: Chronic Assessment and Plan: baseline creatinine runs around 1.6 - 2.1mg/dl however, he has fluctuated to extremes with his recent hospitalizations this is secondary to hypertension and diabetes (3) Sepsis: Qualifiers: Acute renal failure type: unspecified Sepsis acute organ dysfunction status: with acute organ dysfunction Sepsis type: sepsis due to unspecified organism Severe sepsis acute organ dysfunction type: acute renal failure Severe sepsis shock status: without septic shock Qualified Code(s): A41.9 - Sepsis, unspecified organism; R65.20 - Severe sepsis without septic shock; N17.9 - Acute kidney failure, unspecified Code(s): A41.9 - Sepsis, unspecified organism Status: Acute Assessment and Plan: shock resolved (off pressors) blood cultures with GNB on broad spectrum antibiotics Cultures on the are negative so far (4) Sacral decubitus ulcer: Onset Date: Unknown Code(s): L89.159 - Pressure ulcer of sacral region, unspecified stage Status: Acute Assessment and Plan: presumed source of infection and #3 Surgery following s/p debridement local wound care (5) Cellulitis: Code(s): L03.90 - Cellulitis, unspecified Status: Acute Assessment and Plan: suspected based on LE wounds his bilateral chronic lymphedema complicates things On ertapenem local wound care (6) Anemia: Qualifiers: Anemia type: iron deficiency Iron deficiency anemia type: unspecified iron deficiency Qualified Code(s): D50.9 - Iron deficiency anemia, unspecified Code(s): D64.9 - Anemia, unspecified Status: Chronic Assessment and Plan: due to KONSTANTIN, CKD, and acute illness component of iron deficiency in the past as well. He is not on iron because of infection Hemoglobin 12.2 in the wee hours this morning? This is being repeated (7) Diabetes: Code(s): E11.9 - Type 2 diabetes mellitus without complications Status: Acute Assessment and Plan: follow accuchecks glycemic control Subjective Date/time seen: 11/06/20 09:32 Interval history: Mr. Handy feels okay No pain. Urinating okay. Slept okay last night. Eating okay. Exam Narrative: General: WD/WN male in NAD Heart: normal S1 and S2; no rub Lungs: clear Abdomen: soft, nontender, nondistended, positive bowel sounds Extremities: bilateral lymphedema changes Skin: Chronic venous stasis changes Objective Data Vital Signs Vital Signs: Vital Signs - 24 hr 11/05/20 10:00 11/05/20 12:00 11/05/20 14:00 Temperature 36.6 C Pulse Rate 101 H 104 H 112 H Respiratory Rate 20 Blood Pressure 90/54 L Pulse Oximetry 100 11/05/20 16:00 11/05/20 18:00 11/05/20 20:00 Temperature 36.4 C L 36.4 C L Pulse Rate 117 H 123 H 142 H Respiratory Rate 18 20 Blood Pressure 107/60 84/52 L Pulse Oximetry 99 99 11/05/20 20:01 11/05/20 20:02 11/05/20 20:18 Temperature 36.4 C L 36.4 C L 36.4 C Pulse Rate 141 H 141 H 141 H Respirat
[2020-11-06] MEDS: allopurinoL 300 MG TABLET PO (09:53)
[2020-11-06] MEDS: AMIODARONE HCL 200 MG TABLET PO ×2 (09:54→21:39)
[2020-11-06] MEDS: NYSTATIN 100,000 UNITS/ML SUSP 5 ML ORAL.SUSP PO ×4 (09:55→21:39)
[2020-11-06] MEDS: PANTOPRAZOLE 40 MG TABLET PO ×2 (09:58→21:40)
[2020-11-06] MEDS: LACTIC ACID 12% LOTION 225 BTL 1 APPLIC TOPICAL (09:58)
[2020-11-06] MEDS: SOD HYPOCHLORITE 1/4 STRENGTH 473 ML 1 APPLIC TOPICAL ×3 (09:58→21:41)
[2020-11-06] MEDS: TOLNAFTATE 1% POWDER 45 GM BTL 1 APPLIC TOPICAL ×2 (09:58→21:40)
[2020-11-06] MEDS: INSULIN GLARGINE (*BKC) 100 UNITS/ML 15 UNITS SUB-Q (10:24)
[2020-11-06 10:25] LABS: Basophils Percent Auto 0.1 % (0.2-1.2); Eosinophils Absolute Auto 0.1 K/mm3 (0-0.3); Eosinophils Percent Auto 0.9 % (0-4.4); Hematocrit 21.4 % (42.0-52.0); Immature Granulocyte Absolute 0.15 K/mm3 (0.00-0.031); Immature Granulocyte Percent A 1.1 % (0-0.5); Lymphocytes Percent Auto 6.4 % (18.3-44.2); Mean Corpuscular HGB Conc 32.7 g/dl (32-36); Mean Corpuscular Hemoglobin 28.2 pg (26-34); Mean Corpuscular Volume 86.3 fl (80-100); Mean Platelet Volume 10.2 fl (7.4-10.4); Monocytes Absolute Auto 0.6 K/mm3 (0.1-0.6); Monocytes Percent Auto 4.5 % (2.6-8.5); Neutrophils Absolute Auto 12.3 K/mm3 (1.3-6.7); Nucleated Red Blood Cells Perc 0.1 % (0.0-0.2); Platelet Count Result 342 k/mm3 (150-375); Red Blood Count 2.48 M/mm3 (4.6-6.20); Red Cell Distribution Width 17.4 % (11.5-14.5); White Blood Count 14.1 K/mm3 (4.5-10.0)
--- NOTE | 2020-11-06 11:48 | PCOTNOTE ---
Attempted to see patient this AM for OT evaluation. Patient is declining any/all activity despite education and encouragement on the benefits of movement, even in just bed. Declined rolling onto side for pressure relief. He states that here is discussion of palliative care and that he does not want therapy at this time. Discharging from OT services.
--- NOTE | 2020-11-06 11:56 | PCPTNOTE ---
Attempted PT eval. Pt is declining all activity including rolling for decub relief. Educated on importance of therapy and he refused therapy again. States there is discussion of palliative care and does not want therapy at this time. Will DC PT per pt request.
[2020-11-06 12:47] LABS: Glucose Point of Care 160 mg/dl (65-105)
--- NOTE | 2020-11-06 13:47 | PM.IMPN ---
Progress Note: A&P Assessment and Plan (1) Septic shock: Code(s): A41.9 - Sepsis, unspecified organism; R65.21 - Severe sepsis with septic shock Status: Acute Assessment and Plan: Patient presented with weakness and found to be hypotensive in septic shock requiring 3 L fluid bolus in the ER -for infection: Likely decubital ulcer with large wound and associated infection. -he was initially admitted to ICU. Off vasopressors now. He was transferred out of ICU. -he was on stress dose steroid which has been now weaned off. -blood culture grew fusobacterium varium from anaerobic bottle only. Follow-up blood culture has been negative so far. - urine culture pending. Wound culture is growing fusobacterium species. -patient wall as on vancomycin and Zosyn. Now vancomycin has been stopped. He was on Zosyn now but has developed acute renal failure with upward trend in the peripheral eosinophil count raising the possibility of interstitial nephritis. Zosyn has been stopped and has been started on ertapenem. Infectious Disease Service recommendations appreciated. (2) Cellulitis: Code(s): L03.90 - Cellulitis, unspecified Status: Acute Assessment and Plan: His Zosyn was stopped because of worsening renal parameters and peripheral eosinophilia. Will continue ertapenem. He was on vancomycin which was stopped by infectious disease service. Wound care Service to follow. Patient was evaluated by surgery. He had extensive debridement done on 10/27 and again on 11/03 in the OR. [facility] has been called but they do not have bed. [facility] has accepted him. He has been placed on waiting list and will be transferred there once bed is available. I called [facility] again and he is still on wait list. He earlier refused for diverting colostomy when offered to him by surgery service. Few days back he did agree to it but now he is pursuing probable hospice and palliative care. (3) Acute renal failure superimposed on stage 3 chronic kidney disease: Code(s): N17.9 - Acute kidney failure, unspecified; N18.30 - Chronic kidney disease, stage 3 unspecified Status: Acute Assessment and Plan: Patient with acute on chronic kidney disease stage 3. Likely related to hypotension, septic shock, ATN, hypovolemia -patient has received significant amount of IV fluids. IV fluids have been stopped. -monitor urine output, renal function electrolytes -unremarkable renal ultrasound Nephrology service is following. Renal parameters was improving initially with his creatinine down to 1.4 but started it upward trend again from 11/04. He has been having some peripheral eosinophilia raising the possibility of interstitial nephritis. Antibiotics have been switched from Zosyn to ertapenem. Avoid nephrotoxic agents. Continue IV fluid resuscitation. (4) Sacral decubitus ulcer: Onset Date: Unknown Code(s): L89.159 - Pressure ulcer of sacral region, unspecified stage Status: Acute Assessment and Plan: 10/27 - extensive debridement stage 4 sacral ulcer measuring approximately 30 x 27 x 5 cm, washout 11/03 extensive debridement done again. Wound care is following General surgery will continue to follow. He has been accepted at [facility] for advanced wound care and will be transferred if a bed is available. Bleeding from the wound requiring PRBC transfusions. He was transfused 2 units of PRBC on 10/31. He will be transfused with another unit of blood today on 11/04. He was given another unit of PRBC on 11/05. 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
[2020-11-06] MEDS: ERTAPENEM 1 GM/NS 50 ML 1 GM/50 ML BAG IVPB (15:48)
[2020-11-06] MEDS: HEPARIN SODIUM 5,000 UNITS/ML VIAL 5000 UNITS SUB-Q ×2 (15:49→21:39)
[2020-11-06 19:24] LABS: Glucose Point of Care 149 mg/dl (65-105)
[2020-11-06 20:50] LABS: Glucose Point of Care 130 mg/dl (65-105)
[2020-11-06 20:51] LABS: Hematocrit 21.3 % (42.0-52.0)
[2020-11-06 20:54] LABS: Hemoglobin 6.8 g/dL (14.0-18.0)
--- NOTE | 2020-11-06 21:28 | PC.NURSE ---
Patient was speaking on the phone with a friend, phone was on speaker phone, Female friend was encouraging patient to go home with Hospice care. After patient hung up with friend he asked me about the process and I explained to him I could contact the and he could put in a consult for hospice and they would come to give him and his mother information. Care coordination was notified. DANIA came to see the patient and Patients mother became very upset and stated she could not care for patient at home. Patient and mother decided against hospice care and wants patient to continue with full care.
--- NOTE | 2020-11-06 21:33 | PC.NURSE ---
Patient stated he would like to have an ostomy to re-route the feces away from the wound to let the wound heel. Patient stated this at 19:30 so I notified the Night nurse so she could notify the proper people in the morning.
[2020-11-06] MEDS: SODIUM CHLORIDE 0.9% IV 250 ML 30 ML IV CONT (22:05)
[2020-11-06] MEDS: TUBING, BLOOD PLUM PUMP TUBING 1 EACH XX (22:06)
[2020-11-07] VITALS (17 sets, daily range): BP systolic 103–111; BP diastolic 57–71; PULSE 89–112; RESP 20–22; TEMP 35.8–36.8; O2SAT 97–100
[2020-11-07 05:23] LABS: Basophils Percent Auto 0.1 % (0.2-1.2); Eosinophils Absolute Auto 0.2 K/mm3 (0-0.3); Eosinophils Percent Auto 1.8 % (0-4.4); Hematocrit 23.5 % (42.0-52.0); Hemoglobin 7.6 g/dL (14.0-18.0); Immature Granulocyte Percent A 0.9 % (0-0.5); Lymphocytes Absolute Auto 0.87 K/mm3 (0.9-3.2); Lymphocytes Percent Auto 7.9 % (18.3-44.2); Mean Corpuscular HGB Conc 32.3 g/dl (32-36); Mean Corpuscular Hemoglobin 28.8 pg (26-34); Mean Platelet Volume 10.1 fl (7.4-10.4); Monocytes Absolute Auto 0.6 K/mm3 (0.1-0.6); Monocytes Percent Auto 5.6 % (2.6-8.5); Neutrophils Absolute Auto 9.2 K/mm3 (1.3-6.7); Neutrophils Percent Auto 83.7 % (45.5-73.1); Platelet Count Result 324 k/mm3 (150-375); Red Blood Count 2.64 M/mm3 (4.6-6.20); Red Cell Distribution Width 17.3 % (11.5-14.5)
[2020-11-07] MEDS: MORPHINE SULFATE (*CRX) 2 MG/ML INJ IV PUSH ×2 (05:34→23:24)
[2020-11-07] MEDS: HEPARIN SODIUM 5,000 UNITS/ML VIAL 5000 UNITS SUB-Q ×3 (05:35→21:38)
[2020-11-07] MEDS: LEVOTHYROXINE SODIUM 100 MCG TABLET PO (05:35)
[2020-11-07 05:42] LABS: Anion Gap 8 mmol/L (8-16); Blood Urea Nitrogen 52 mg/dL (9-20); Calcium 7.3 mg/dL (8.4-10.2); Carbon Dioxide 21 mmol/L (22-30); Chloride 100 mmol/L (98-107); Estimated CRCL calculation 35 ml/min; Estimated Glomerular Filt Rate 18; Glucose 73 mg/dL (65-110); Magnesium 1.9 mg/dL (1.6-2.3); Phosphorus 5.9 mg/dL (2.5-4.5); Potassium 3.4 mmol/L (3.4-5.0); Sodium 129 mmol/L (137-145)
[2020-11-07 08:11] LABS: Glucose Point of Care 95 mg/dl (65-105)
[2020-11-07] MEDS: PANTOPRAZOLE 40 MG TABLET PO ×2 (09:01→21:38)
[2020-11-07] MEDS: INSULIN GLARGINE (*BKC) 100 UNITS/ML 15 UNITS SUB-Q (09:01)
[2020-11-07] MEDS: allopurinoL 300 MG TABLET PO (09:01)
[2020-11-07] MEDS: AMIODARONE HCL 200 MG TABLET PO ×2 (09:01→21:37)
[2020-11-07] MEDS: NYSTATIN 100,000 UNITS/ML SUSP 5 ML ORAL.SUSP PO ×3 (09:01→21:36)
--- NOTE | 2020-11-07 12:27 | PCDIET ---
Nutrition Follow-Up Complete: Nutrition Diagnosis: Increased protein and calorie needs related to increased demands for wound healing and septic shock as evidenced by MD diagnosis, unhealed wounds. Nutrition Goal: Patient to meet estimated nutritional needs. Goal not met. Patient's mother reports bringing in food, but states patient has not been eating very much. Patient reports skipping breakfast and would only like milk x 2 for lunch. Did not care for Ensure Surgery and has tried all supplements available in house. Increased intake encouraged. Last recorded weight is 152.2 kg. Recommend obtaining new weight. Bowel Motility: Last documented BM on 11/05/20 x 1. Labs Reviewed: WBC (11.0), RBC (2.64), Hgb (7.6), Hct (23.5), BUN (52), Cr (3.5), Na (129), Ca (7.3), PO4 (5.9) Meds Noted: Zyloprim, Pacerone, Invanz, Lantus, Synthroid, Morphine, Nystatin, Protonix Additional Notes: Recommend checking albumin for calcium correction. Integumentary notes reviewed. Noted discussion re: hospice. If aggressive care is continued, may need to consider supplemental nutrition support. Nutrition Monitoring and Evaluation: Follow up every 3 days.
[2020-11-07 12:30] LABS: Glucose Point of Care 80 mg/dl (65-105)
[2020-11-07] MEDS: ERTAPENEM 1 GM/NS 50 ML 1 GM/50 ML BAG IVPB (15:36)
[2020-11-07] MEDS: LACTIC ACID 12% LOTION 225 BTL 1 APPLIC TOPICAL (15:39)
[2020-11-07] MEDS: TOLNAFTATE 1% POWDER 45 GM BTL 1 APPLIC TOPICAL ×2 (15:39→21:38)
--- NOTE | 2020-11-07 15:45 | PM.PNNEP ---
Progress Note: A&P Assessment and Plan (1) KONSTANTIN (acute kidney injury): Code(s): N17.9 - Acute kidney failure, unspecified Status: Acute Assessment and Plan: due to a combination of infection/sepsis and hemodynamic instability creatinine had been improving and now has risen up to 3.5mg/dl today on IV fluids at this time Renal ultrasound unremarkable Urine electrolytes are pre renal. suspect related to wounds/infection.... however, he also has high eosinophils in his blood -- possible AIN?? have changed antibiotics to a non penicillin follow trend of repeat labs and UOP... (2) Stage 3b chronic kidney disease: Code(s): N18.32 - Chronic kidney disease, stage 3b Status: Chronic Assessment and Plan: baseline creatinine runs around 1.6 - 2.1mg/dl however, he has fluctuated to extremes with his recent hospitalizations this is secondary to hypertension and diabetes (3) Sepsis: Qualifiers: Acute renal failure type: unspecified Sepsis acute organ dysfunction status: with acute organ dysfunction Sepsis type: sepsis due to unspecified organism Severe sepsis acute organ dysfunction type: acute renal failure Severe sepsis shock status: without septic shock Qualified Code(s): A41.9 - Sepsis, unspecified organism; R65.20 - Severe sepsis without septic shock; N17.9 - Acute kidney failure, unspecified Code(s): A41.9 - Sepsis, unspecified organism Status: Acute Assessment and Plan: shock resolved (off pressors) initial blood cultures with Fusobacterium varium on broad spectrum antibiotics repeat blood cultures on the are negative so far (4) Sacral decubitus ulcer: Onset Date: Unknown Qualifiers: Pressure injury stage: stage 4 Qualified Code(s): L89.154 - Pressure ulcer of sacral region, stage 4 Code(s): L89.159 - Pressure ulcer of sacral region, unspecified stage Status: Acute Assessment and Plan: presumed source of infection and #3 Surgery following s/p debridement local wound care (5) Cellulitis: Code(s): L03.90 - Cellulitis, unspecified Status: Acute Assessment and Plan: suspected based on LE wounds his bilateral chronic lymphedema complicates things on ertapenem local wound care (6) Anemia: Qualifiers: Anemia type: iron deficiency Iron deficiency anemia type: unspecified iron deficiency Qualified Code(s): D50.9 - Iron deficiency anemia, unspecified Code(s): D64.9 - Anemia, unspecified Status: Chronic Assessment and Plan: due to KONSTANTIN, CKD, and acute illness component of iron deficiency in the past as well -- no IViron because of infection (7) Diabetes: Code(s): E11.9 - Type 2 diabetes mellitus without complications Status: Acute Assessment and Plan: follow accuchecks glycemic control Will continue to follow. Subjective Date/time seen: 11/07/20 15:45 No new issues or problems to report at this time; noted plans for possible transfer given need of diverting colostomy to allow for better wound healing; no apparent distress noted; no events overnight or earlier this AM. Exam Narrative: General: WD/WN male in NAD Heart: normal S1 and S2; no rub Lungs: clear anteriorly Abdomen: soft, nontender, nondistended, positive bowel sounds Extremities: bilateral lymphedema changes Skin: bilateral LE chronic venous stasis changes Objective Data Vital Signs Vital Signs: Vital Signs Temp Pulse Resp BP Pulse Ox 11/07/20 14:00 93 11/07/20 12:54 36.3 C L 102 H 22 H 111/60 100 11/07/20 12:00 106 H 11/07/20 10:00 95 11/07/20 08:00 110 H 11/07/20 07:08 36.4 C L 100 20 109/57 L 97 11/07/20 06:00 106 H 11/07/20 04:00 36.7 C 96 20 107/71 97 11/07/20 02:00 112 H 11/07/20 00:10 35.8 C L 111 H 20 106/60 100 11/07/20 00:00 107 H 11/06/20 23:39 36
--- NOTE | 2020-11-07 15:45 | P.PNNP_ITS ---
Progress Note: A&P Assessment and Plan (1) KONSTANTIN (acute kidney injury): Code(s): N17.9 - Acute kidney failure, unspecified Status: Acute Assessment and Plan: * due to a combination of infection/sepsis and hemodynamic instability * creatinine had been improving and now has risen up to 3.5mg/dl today * on IV fluids at this time * Renal ultrasound unremarkable * Urine electrolytes are pre renal. * suspect related to wounds/infection.... * however, he also has high eosinophils in his blood -- possible AIN?? * have changed antibiotics to a non penicillin * follow trend of repeat labs and UOP... (2) Stage 3b chronic kidney disease: Code(s): N18.32 - Chronic kidney disease, stage 3b Status: Chronic Assessment and Plan: * baseline creatinine runs around 1.6 - 2.1mg/dl * however, he has fluctuated to extremes with his recent hospitalizations * this is secondary to hypertension and diabetes (3) Sepsis: Qualifiers: Acute renal failure type: unspecified Sepsis acute organ dysfunction status: with acute organ dysfunction Sepsis type: sepsis due to unspecified organism Severe sepsis acute organ dysfunction type: acute renal failure Severe sepsis shock status: without septic shock Qualified Code(s): A41.9 - Sepsis, unspecified organism; R65.20 - Severe sepsis without septic shock; N17.9 - Acute kidney failure, unspecified Code(s): A41.9 - Sepsis, unspecified organism Status: Acute Assessment and Plan: * shock resolved (off pressors) * initial blood cultures with Fusobacterium varium * on broad spectrum antibiotics * repeat blood cultures on the are negative so far (4) Sacral decubitus ulcer: Onset Date: Unknown Qualifiers: Pressure injury stage: stage 4 Qualified Code(s): L89.154 - Pressure ulcer of sacral region, stage 4 Code(s): L89.159 - Pressure ulcer of sacral region, unspecified stage Status: Acute Assessment and Plan: * presumed source of infection and #3 * Surgery following * s/p debridement * local wound care (5) Cellulitis: Code(s): L03.90 - Cellulitis, unspecified Status: Acute Assessment and Plan: * suspected based on LE wounds * his bilateral chronic lymphedema complicates things * on ertapenem * local wound care (6) Anemia: Qualifiers: Anemia type: iron deficiency Iron deficiency anemia type: unspecified iron deficiency Qualified Code(s): D50.9 - Iron deficiency anemia, unspecified Code(s): D64.9 - Anemia, unspecified Status: Chronic Assessment and Plan: * due to KONSTANTIN, CKD, and acute illness * component of iron deficiency in the past as well -- no IViron because of infection (7) Diabetes: Code(s): E11.9 - Type 2 diabetes mellitus without complications Status: Acute Assessment and Plan: * follow accuchecks * glycemic control Will continue to follow. Subjective Date/time seen: 11/07/20 15:45 No new issues or problems to report at this time; noted plans for possible transfer given need of diverting colostomy to allow for better wound healing; no apparent distress noted; no events overnight or earlier this AM. Exam Narrative: General: WD/WN male in NAD Heart: normal S1 and S2; no rub Lungs: clear anteriorly Abdomen: soft, nontender, nondistended, positive bowel sounds Extremities: bilateral lymphedema changes Skin: bilateral LE chronic venous stasis changes Objective Data Vital S
--- NOTE | 2020-11-07 17:35 | PM.PNGS ---
Progress Note: A&P Assessment and Plan (1) Sacral decubitus ulcer: Onset Date: Unknown Qualifiers: Pressure injury stage: stage 4 Qualified Code(s): L89.154 - Pressure ulcer of sacral region, stage 4 Code(s): L89.159 - Pressure ulcer of sacral region, unspecified stage Status: Acute Assessment and Plan: Continue local wound care Patient is agreeable to proceeding with diverting colostomy, but would like to be transferred to another facility. I gave patient option of arranging this in the next day or so, but he would rather wait until he is transferred. Will discuss with Dr. Pickett. Subjective Subjective Date/Time Seen: 11/07/20 17:35 Interval history: Patient continuing wound care. Apparently over the weekend there was some discussion with the patient and Hospitalist about Hospice. Patient seems to still want to proceed with diverting colostomy, but would like to be transferred to another facility. [facility] accepted patient but bed is still not available for transfer. Dr. Pickett has also discussed possible transfer to [place]. Exam Skin: Other: Large sacral decubitus ulcer Objective Data Vital Signs Vital Signs: Vital Signs - 24 hr 11/06/20 18:00 11/06/20 20:00 11/06/20 21:39 Temperature 36.6 C Pulse Rate 109 H 116 H 113 H Respiratory Rate 20 Blood Pressure 97/56 L Pulse Oximetry 99 11/06/20 21:56 11/06/20 22:00 11/06/20 22:13 Temperature 35.8 C L 35.8 C L Pulse Rate 115 H 115 H 111 H Respiratory Rate 22 H 22 H Blood Pressure 101/54 L 99/54 L Pulse Oximetry 100 100 11/06/20 23:13 11/06/20 23:39 11/07/20 00:00 Temperature 36.4 C 36.4 C Pulse Rate 115 H 115 H 107 H Respiratory Rate 20 20 Blood Pressure 102/62 102/62 Pulse Oximetry 99 99 11/07/20 00:10 11/07/20 02:00 11/07/20 04:00 Temperature 35.8 C L 36.7 C Pulse Rate 111 H 112 H 96 Respiratory Rate 20 20 Blood Pressure 106/60 107/71 Pulse Oximetry 100 97 11/07/20 06:00 11/07/20 07:08 11/07/20 08:00 Temperature 36.4 C L Pulse Rate 106 H 100 110 H Respiratory Rate 20 Blood Pressure 109/57 L Pulse Oximetry 97 11/07/20 10:00 11/07/20 12:00 11/07/20 12:54 Temperature 36.3 C L Pulse Rate 95 106 H 102 H Respiratory Rate 22 H Blood Pressure 111/60 Pulse Oximetry 100 11/07/20 14:00 11/07/20 17:26 Temperature 36.7 C Pulse Rate 93 107 H Respiratory Rate 22 H Blood Pressure 103/58 L Pulse Oximetry 99 Intake/Output Intake/Output: Intake & Output 11/04/20 11/05/20 11/06/20 11/07/20 23:59 23:59 23:59 23:59 Intake Total 2618 3482 1700 832 Output Total 750 1175 150 200 Balance 1868 2307 1550 632 Meds/Results Medications: Active Medications Generic Name Dose Route Start Last Admin Trade Name Freq PRN Reason Stop Dose Admin Acetaminophen 650 mg 10/31/20 09:44 Acetaminophen 325 Mg Tablet PO Q6HR PRN Mild Pain (1-3) or Fever Allopurinol 300 mg 10/27/20 08:00 11/07/20 09:01 Allopurinol 300 Mg Tablet PO 300 mg DAILY@0800 AVANI Administration Amiodarone HCl 200 mg 11/05/20 21:00 11/07/20 09:01 Amiodarone Hcl 200 Mg Tablet PO 200 mg Q12HR AVANI Administration Dextrose 12.5 gm 10/27/20 09:24 Dextrose 50% 25 Gm/50 Ml Syringe IV PUSH PRN PRN Hypoglycemia Protocol Glucagon 1 mg 10/27/20 09:24 Glucagon For Inj 1 Mg Vial IM PRN PRN Hypoglycemia Protocol Glucose 15 gm 10/27/20 09:24 Glucose Oral Gel 15 Gm Of Glucse In 37.5 Gm Tube PO PRN PRN Hypoglycemia Protocol Heparin Sodium (Porcine) 5,000 units 11/06/20 14:00 11/07/20 13:03 Heparin Sodium 5,000 Units/Ml Vial SUB-Q 5,000 units Q8HR AVANI Administration Dextrose 1,000 mls @ 100 mls/hr 10/27/20 09:24 Dextrose 5% 1,000 Ml IVPB PRN PRN Hypoglycemia Protocol Ertapenem 1 gm in 50 mls @ 100 mls/hr 11/05/20 15:00 11/07/20 15:36 Invanz 1 Gm/Ns 50 Ml IVPB 100 mls/hr
[2020-11-07 17:37] LABS: Glucose Point of Care 101 mg/dl (65-105)
--- NOTE | 2020-11-07 17:44 | PM.IMPN ---
Progress Note: A&P Assessment and Plan (1) Septic shock: Code(s): A41.9 - Sepsis, unspecified organism; R65.21 - Severe sepsis with septic shock Status: Acute Assessment and Plan: Patient presented with weakness and found to be hypotensive in septic shock requiring 3 L fluid bolus in the ER -for infection: Likely decubital ulcer with large wound and associated infection. -he was initially admitted to ICU. Off vasopressors now. He was transferred out of ICU. -he was on stress dose steroid which has been now weaned off. -blood culture grew fusobacterium varium from anaerobic bottle only. Follow-up blood culture has been negative so far. - urine culture pending. Wound culture is growing fusobacterium species. -patient wall as on vancomycin and Zosyn. Now vancomycin has been stopped. He was on Zosyn now but has developed acute renal failure with upward trend in the peripheral eosinophil count raising the possibility of interstitial nephritis. Zosyn has been stopped and has been started on ertapenem. Infectious Disease Service recommendations appreciated. 11/07/20 17:44 Patient is a 60-year-old male with pressure ulcer of sacral region there is draining from the wound patient seen by surgery service recommended to divert colostomy patient patient is agreeable however he does not want the procedure here, he was to be transferred to [facility], patient has been accepted for transfer pending bed availability, currently patient is feeling better his mom is present in the room (2) Cellulitis: Code(s): L03.90 - Cellulitis, unspecified Status: Acute Assessment and Plan: His Zosyn was stopped because of worsening renal parameters and peripheral eosinophilia. Will continue ertapenem. He was on vancomycin which was stopped by infectious disease service. Wound care Service to follow. Patient was evaluated by surgery. He had extensive debridement done on 10/27 and again on 11/03 in the OR. [facility] has been called but they do not have bed. [facility] has accepted him. He has been placed on waiting list and will be transferred there once bed is available. I called [facility] again and he is still on wait list. He earlier refused for diverting colostomy when offered to him by surgery service. Few days back he did agree to it but now he is pursuing probable hospice and palliative care. (3) Acute renal failure superimposed on stage 3 chronic kidney disease: Code(s): N17.9 - Acute kidney failure, unspecified; N18.30 - Chronic kidney disease, stage 3 unspecified Status: Acute Assessment and Plan: Patient with acute on chronic kidney disease stage 3. Likely related to hypotension, septic shock, ATN, hypovolemia -patient has received significant amount of IV fluids. IV fluids have been stopped. -monitor urine output, renal function electrolytes -unremarkable renal ultrasound Nephrology service is following. Renal parameters was improving initially with his creatinine down to 1.4 but started it upward trend again from 11/04. He has been having some peripheral eosinophilia raising the possibility of interstitial nephritis. Antibiotics have been switched from Zosyn to ertapenem. Avoid nephrotoxic agents. Continue IV fluid resuscitation. (4) Sacral decubitus ulcer: Onset Date: Unknown Qualifiers: Pressure injury stage: stage 4 Qualified Code(s): L89.154 - Pressure ulcer of sacral region, stage 4 Code(s): L89.159 - Pressure ulcer of sacral region, unspecified stage Status: Acute Assessment and Plan: 10/27 - extensive debridement stage 4 sacral ulcer measuring approximately 30 x 27 x 5 cm, washout 11/03 extensive debridement done again. Wound care is following General surgery will continue to follow. He has been accepted at [facility] for advanced wound care and will be transferred if a bed is available. Bleeding from the wound requiring PRBC
[2020-11-07] MEDS: ACETAMINOPHEN 325 MG TABLET 650 MG PO (18:11)
[2020-11-07] MEDS: SOD HYPOCHLORITE 1/4 STRENGTH 473 ML 1 APPLIC TOPICAL ×2 (18:12→21:38)
--- NOTE | 2020-11-07 18:50 | PM.TDS ---
Transfer Discharge Sum: Prov Provider Date of admission: 10/26/20 23:14 Primary care physician: Junior Bunch MD Admitting clinician: Patricio Brunner MD Consults: 10/27/20 Consult to Physician Routine Comment: Consulting Provider: Grace Leija Reason for consultation: icu admission Has provider been notified: Yes Wound/ET Consult Routine Reason for Consult:: coccyx wound 10/27/20 03:46 Consult to Physician Routine Comment: md is notified of the consult Consulting Provider: Karen Zaidi leadlighter/MD group to consult: General surgery Reason for consultation: Infected decubitus ulcer with necrosis and septic shock Has provider been notified: Yes 10/29/20 Consult to Physician Routine Comment: Consulting Provider: Karolyn Flores leadlighter/MD group to consult: Nephrology Reason for consultation: KONSTANTIN on CKD Has provider been notified: Yes 11/06/20 Care Coordination Consult Routine Comment: Reason for Consult:: Hospice Referral 11/07/20 Consult to Physician Routine Comment: Consulting Provider: Chico Marx Reason for consultation: Ostomy discussion Has provider been notified: Yes DS: Admitting Diagnosis Admitting Diagnosis weakness DS: Discharge Diagnosis Discharge Diagnosis (1) Septic shock: Code(s): A41.9 - Sepsis, unspecified organism; R65.21 - Severe sepsis with septic shock Status: Acute Assessment and Plan: Patient presented with weakness and found to be hypotensive in septic shock requiring 3 L fluid bolus in the ER -for infection: Likely decubital ulcer with large wound and associated infection. -he was initially admitted to ICU. Off vasopressors now. He was transferred out of ICU. -he was on stress dose steroid which has been now weaned off. -blood culture grew fusobacterium varium from anaerobic bottle only. Follow-up blood culture has been negative so far. - urine culture pending. Wound culture is growing fusobacterium species. -patient wall as on vancomycin and Zosyn. Now vancomycin has been stopped. He was on Zosyn now but has developed acute renal failure with upward trend in the peripheral eosinophil count raising the possibility of interstitial nephritis. Zosyn has been stopped and has been started on ertapenem. Infectious Disease Service recommendations appreciated. 11/07/20 17:44 Patient is a 60-year-old male with pressure ulcer of sacral region there is draining from the wound patient seen by surgery service recommended to divert colostomy patient patient is agreeable however he does not want the procedure here, he was to be transferred to [facility], patient has been accepted for transfer pending bed availability, currently patient is feeling better his mom is present in the room (2) Cellulitis: Code(s): L03.90 - Cellulitis, unspecified Status: Acute Assessment and Plan: His Zosyn was stopped because of worsening renal parameters and peripheral eosinophilia. Will continue ertapenem. He was on vancomycin which was stopped by infectious disease service. Wound care Service to follow. Patient was evaluated by surgery. He had extensive debridement done on 10/27 and again on 11/03 in the OR. [facility] has been called but they do not have bed. [facility] has accepted him. He has been placed on waiting list and will be transferred there once bed is available. I called [facility] again and he is still on wait list. He earlier refused for diverting colostomy when offered to him by surgery service. Few days back he did agree to it but now he is pursuing probable hospice and palliative care. (3) Acute renal failure superimposed on stage 3 chronic kidney disease: Code(s): N17.9 - Acute kidney failure, unspecified; N18.30 - Chronic kidney disease, stage 3 unspecified Status: Acute Assessment and Plan: Patient with acute on chronic kidney disease stage 3. Likely related to h
[2020-11-07 20:46] LABS: Glucose Point of Care 76 mg/dl (65-105)
[2020-11-07 23:08] LABS: Glucose Point of Care 84 mg/dl (65-105)
== END 2020-11-07 23:35 | disposition short-term general hospital (02) | DRG 853 ==
LOC: ANHED 23:20 → ANHICU 10-27 08:19 → ANHIMU 11-03 08:15 → ANHICU 11-08 12:09 → ANHIMU 11-08 12:09
PROVIDERS: Hospitalist; Internal Medicine; Internal Medicine Nephrology; Surgery; Admitting Provider Internal Medicine; Emergency Provider Family Medicine; PCP Family Medicine; Visit Provider Internal Medicine Critical Care Medicine
PROC: 0KBN0ZZ Excision of Right Hip Muscle, Open Approach (ICD-10-PCS; principal; 2020-10-27 13:30)
DX: A41.59 Other Gram-negative sepsis (principal); L89.154 Pressure ulcer of sacral region, stage 4; R65.21 Severe sepsis with septic shock; N17.0 Acute kidney failure with tubular necrosis; L03.115 Cellulitis of right lower limb; I48.20 Chronic atrial fibrillation, unspecified; E87.2 Acidosis; D62 Acute posthemorrhagic anemia; E11.22 Type 2 diabetes mellitus with diabetic chronic kidney disease; I12.9 Hypertensive chronic kidney disease with stage 1 through stage 4 chronic kidney disease, or unspecified chronic kidney disease; N18.32 Chronic kidney disease, stage 3b; E11.42 Type 2 diabetes mellitus with diabetic polyneuropathy; E11.21 Type 2 diabetes mellitus with diabetic nephropathy; E11.319 Type 2 diabetes mellitus with unspecified diabetic retinopathy without macular edema; E11.65 Type 2 diabetes mellitus with hyperglycemia; E11.43 Type 2 diabetes mellitus with diabetic autonomic (poly)neuropathy; K31.84 Gastroparesis; F41.9 Anxiety disorder, unspecified; E78.5 Hyperlipidemia, unspecified; G25.81 Restless legs syndrome; D50.9 Iron deficiency anemia, unspecified; D63.1 Anemia in chronic kidney disease; E03.9 Hypothyroidism, unspecified; F32.9 Major depressive disorder, single episode, unspecified; E66.01 Morbid (severe) obesity due to excess calories; I89.0 Lymphedema, not elsewhere classified; K21.9 Gastro-esophageal reflux disease without esophagitis; G47.419 Narcolepsy without cataplexy; G47.33 Obstructive sleep apnea (adult) (pediatric); Z79.01 Long term (current) use of anticoagulants; Z86.718 Personal history of other venous thrombosis and embolism; Z87.11 Personal history of peptic ulcer disease; Z68.37 Body mass index [BMI] 37.0-37.9, adult; Z79.4 Long term (current) use of insulin; Z89.511 Acquired absence of right leg below knee; Z98.84 Bariatric surgery status; Z91.19 Patient's noncompliance with other medical treatment and regimen
CPT/HCPCS: 36415; 36430; 36556; 36600; 51702; 70450; 71045; 76775; 80048; 80053; 80069; 80202; 81001; 82274; 82375; 82436; 82550; 82570; 82805; 82948; 83050; 83605; 83735; 83880; 84100; 84133; 84300; 84484; 85014; 85018; 85025; 85027; 85610; 85730; 86140; 86850; 86900; 86901; 86920; 87040; 87070; 87075; 87076; 87086; 87185; 87205; 87324; 93005; 94002; 96361; 96365; 96367; 99291; A9270; C1751; C9113; J0282; J1170; J1335; J1644; J1650; J1720; J1815; J1940; J2250; J2270; J2310; J2405; J2543; J2704; J3010; J3370; J3475; J7030; J7040; J7050; J7120; P9016; P9047